=== PATIENT | male | born 1980 ===

== ENCOUNTER 2022-11-06 14:04 | Inpatient (IN) | payer OTHER, SELFPAY ==
[2022-11-06] VITALS (13 sets, daily range): BP systolic 107–152; BP diastolic 72–94; PULSE 90–115; RESP 14–24; TEMP 36.6–37.6; O2SAT 98–100; BMI 29.1
--- NOTE | ~2022-11-06 | XR_ITS ---
EXAMINATION: XR FOOT, RIGHT CLINICAL INFORMATION: Plantar foot ulceration COMPARISON: None TECHNIQUE: AP, lateral, and oblique views of the right foot. FINDINGS: Large soft tissue ulceration plantar to the third metatarsophalangeal joint. Large amount of soft tissue gas projects dorsal to the metatarsals and tarsals. No fractures. No periosteal action, cortical destruction or intramedullary lucency to suggest osteomyelitis. XR/XR foot RT 2V IMPRESSION: * Large amount soft tissue gas dorsal to the foot and midfoot concerning for necrotizing fasciitis/gas gangrene. * Large soft tissue ulcer plantar to the third metatarsophalangeal joint. * No radiographic evidence of osteomyelitis.
--- NOTE | ~2022-11-06 | US_ITS ---
EXAMINATION: US VENOUS ULTRASOUND WITH DOPPLER LOWER EXTREMITY, RIGHT CLINICAL INFORMATION: Right lower extremity erythema and swelling, recent travel. COMPARISON: None TECHNIQUE: Ultrasound of the deep veins is performed from the hip to the calf with compression sonography and color and pulse Doppler assessment. Spectral analysis with color-flow imaging is performed. FINDINGS: There is normal venous compression and respiratory variation and augmented flow. The visualized common femoral vein, superficial femoral vein, profunda femoral vein, popliteal vein, and the trifurcation region shows no evidence of deep venous thrombosis. Prominent right inguinal lymph node measures up to 3.5 cm with mildly thickened cortex. No right popliteal cyst. The subcutaneous soft tissues are unremarkable. US/US venous duplex LE RT IMPRESSION: 1. No evidence for deep venous thrombosis in the visualized veins of the right lower extremity. 2. Enlarged right inguinal lymph node is nonspecific. This could be reactive to an unseen process. Correlate with patient history and physical exam. * If these findings persist or enlarge, short-term repeat targeted soft tissue ultrasound can be performed as clinically indicated to assess for change.
--- NOTE | ~2022-11-06 | US_ITS ---
EXAMINATION: US RETROPERITONEAL LIMITED (RENAL ONLY) CLINICAL INFORMATION: BARB. COMPARISON: Ultrasound abdomen complete 05/28/2016 TECHNIQUE: Real-time imaging of the kidneys. FINDINGS: RIGHT KIDNEY: 13.2 x 8.2 x 8.5 cm (SAG x AP x TRV). The kidney is normal in size, contour, and echogenicity. Renal cortical thickness is normal. No focal parenchymal lesions or hydronephrosis. There is an echogenic stone midpole measuring 0.7 x 0.6. LEFT KIDNEY: 16.5 x 7.0 x 7.0 cm (SAG x AP x TRV). The kidney is normal in size, contour, and echogenicity. Renal cortical thickness is normal. No focal parenchymal lesions or hydronephrosis. There is an echogenic stone in the midpole measuring 0.4 x 0.1 cm. US/US renal BI IMPRESSION: Bilateral nonobstructive echogenic renal calculi. No caliectasis or hydronephrosis.
--- NOTE | 2022-11-06 14:16 | ECG_ITS ---
Test Reason : DM Blood Pressure : / mmHG Vent. Rate : 107 BPM Atrial Rate : 107 BPM P-R Int : 124 ms QRS Dur : 092 ms QT Int : 322 ms P-R-T Axes : 036 -24 033 degrees QTc Int : 429 ms Sinus tachycardia Otherwise normal ECG No previous ECGs available Referred By: Nakita Pink Electronically Signed By:CYNTHIA SEGOVIA MD
--- NOTE | 2022-11-06 14:16 | ED_ITS ---
HPI - General Adult General Chief complaint: Wound/Laceration <Nakita Pink MD - Last Filed: 11/06/22 14:21> Stated complaint: Diabetic foot wound <Nakita Pink MD - Last Filed: 11/06/22 14:21> Time Seen by Provider: 11/06/22 15:17 <Nakita Pink MD - Last Filed: 11/06/22 14:21> Source: patient <WILDA Khalil - Last Filed: 11/06/22 17:07> Mode of arrival: ambulatory <WILDA Khalil - Last Filed: 11/06/22 17:07> Limitations: no limitations <WILDA Khalil - Last Filed: 11/06/22 17:07> History of Present Illness HPI narrative: Patient is a 41 year old assigned male at with a history of poorly controlled DM presenting to the emergency department today with a right foot infection. Patient states that his right foot has been getting progressively worse over the last few weeks. Patient denies any dizziness, lightheadedness, abdominal pain, nausea, vomiting, fever, chills, blurry vision, double vision, loss of vision, chest pain, difficulty breathing, shortness of breath, back pain, night sweats, pain with urination, increased urinary frequency, increased urinary urgency, blood in his urine or stool, syncope or a near syncopal episode, recent trauma or falls, bowel incontinence, bladder incontinence, bowel retention, bladder retention, or any other complaints at this time. <WILDA Khalil - Last Filed: 11/06/22 17:07> Onset (ago): week(s) <WILDA Khalil - Last Filed: 11/06/22 17:07> Location: right and lower extremity <WILDA Khalil - Last Filed: 11/06/22 17:07> Radiation: non-radiation <WILDA Khalil - Last Filed: 11/06/22 17:07> Severity: moderate <WILDA Khalil - Last Filed: 11/06/22 17:07> Severity scale (1-10): 6 <WILDA Khalil - Last Filed: 11/06/22 17:07> Pain Consistency: constant <WILDA Khalil - Last Filed: 11/06/22 17:07> Relieving factors: none <WILDA Khalil - Last Filed: 11/06/22 17:07> Exacerbating factors: none <WILDA Khalil - Last Filed: 11/06/22 17:07> Associated symptoms: denies other symptoms <WILDA Khalil - Last Filed: 11/06/22 17:07> Treatments prior to arrival: none <WILDA Khalil - Last Filed: 11/06/22 17:07> Related Data Home medications: Home Medications Medication Instructions Recorded Confirmed blood sugar diagnostic (FreeStyle #10 ea 09/06/20 09/06/20 Lite Strips) blood-glucose meter (FreeStyle #1 ea 09/06/20 09/06/20 Lite Meter kit) multivitamin 1 tab PO DAILY 11/06/22 11/06/22 Previous Rx's Medication Instructions Recorded glipizide 5 mg-metformin 500 mg 1 tab PO BID #180 tabs 10/17/22 tablet <Nakita Pink MD - Last Filed: 11/06/22 14:21> Allergies/adverse reactions: Allergies Allergy/AdvReac Type Severity Reaction Status Date / Time acetaminophen [Tylenol] Allergy Unknown face Verified 03/10/20 00:00 swelling aspirin Allergy Unknown anaphylaxis, Unverified 03/10/20 00:00 edema <Nakita Pink MD - Last Filed: 11/06/22 14:21> Review of Systems Constitutional: Constitutional: Reports no additional constitutional complaints, Denies chills, Denies fever(s) and Denies night sweats <WILDA Khalil - Last Filed: 11/06/22 17:07> Eyes: Eyes: Reports no additional eye complaints, Denies blurry vision, Denies change in vision, Denies diplopia, Denies eye discharge, Denies loss of vision and Denies eye pain <WILDA Khalil - Last Filed: 11/06/22 17:07> ENT: Denies dizziness <WILDA Khalil - Last Filed: 11/06/22 17:07> Cardiovascular: Cardiovascular: Reports no additional cardiovascular complaints, Denies chest pain, Denies lightheadedness, Denies Loss of Consciousness and Denies dyspnea <WILDA Khalil - Last Filed: 11/06/22 17:07> Respiratory: Respiratory: Reports no additional respiratory complaints and Denies dyspnea <WILDA Khalil Last Filed: 11/06/22 17:07> Gastrointestinal: Gastrointestinal: Reports no additional gastrointestinal complaints, Denies abdominal pain, Denies melena, Denies hematochezia, Denies change in bowel habits and Denies change in stool character <WILDA Khalil Last Filed: 11/06/22 17:07> Genitourinary: Genitourinary: Reports no additional male genitourinary complaints, Denies hematuria, Denies oliguria, Denies difficulty urinating, Denies dysuria, Denies urinary frequency, Denies urinary hesitancy, Denies u rinary incontinence and Denies urinary urgency <WILDA Khalil Last Filed: 11/06/22 17:07> Musculoskeletal: Musculoskeletal: Reports no additional musculoskeletal complaints, Denies numbness and Denies tingling <WILDA Khalil Last Filed: 11/06/22 17:07> Comments: right lower foot ulceration <WILDA Khalil Last Filed: 11/06/22 17:07> Neurologic: Denies dizziness, Denies loss of vision, Denies numbness and Denies tingling <WILDA Khalil Last Filed: 11/06/22 17:07> Psychiatric: Psychiatric: Reports no additional psychiatric complaints <WILDA Khalil Last Filed: 11/06/22 17:07> Endocrine: Endocrine: Reports no additional endocrine complaints <WILDA Khalil Last Filed: 11/06/22 17:07> Hematologic/Lymphatic: Hematologic/Lymphatic: Reports no additional hematologic/lymphatic complaints <WILDA Khalil Last Filed: 11/06/22 17:07> Allergic/Immunologic: Allergic/Immunologic: Reports no additional allergic/immunologic complaints <WILDA Khalil Last Filed: 11/06/22 17:07> PMFSH Past Medical History Attestation statement: The following information was validated with the patient. <WILDA Khalil Last Filed: 11/06/22 17:07> Source: old records reviewed <WILDA Khalil Last Filed: 11/06/22 17:07> Medical History: Medical History H/O nephrolithotomy with removal of calculi HTN (hypertension) Retinopathy Type 2 diabetes mellitus <Nakita Pink MD - Last Filed: 11/06/22 14:21> Surgical History: Surgical History History of hernia repair <Nakita Pink MD - Last Filed: 11/06/22 14:21> Family History Family History: Family History Father HTN (hypertension) Mother Arthritis <Nakita Pink MD - Last Filed: 11/06/22 14:21> Social History Social History: Social History Alcohol intake: never Advance Directives: No Advance Directives Information Provided: No <Nakita Pink MD - Last Filed: 11/06/22 14:21> Physical Exam ED Vital Signs: Vital Signs - 24 hr 11/06/22 14:12 11/06/22 15:56 Temperature 98 F 99.0 F Pulse Rate 115 H 103 H Respiratory Rate 16 14 Blood Pressure 107/75 126/80 Pulse Oximetry 100 Oxygen Delivery Method Room Air BMI result Body Mass Index 29.1 <Nakita Pink MD - Last Filed: 11/06/22 14:21> Vital Signs - 24 hr 11/06/22 14:12 11/06/22 15:56 Temperature 98 F 99.0 F Pulse Rate 115 H 103 H Respiratory Rate 16 14 Blood Pressure 107/75 126/80 Pulse Oximetry 100 Oxygen Delivery Method Room Air BMI result Body Mass Index 29.1 <WILDA Khalil - Last Filed: 11/06/22 17:07> Const General: cooperative, no acute distress, alert and awake <WILDA Khalil - Last Filed: 11/06/22 17:07> Nutritional Appearance: well nourished <WILDA Khalil - Last Filed: 11/06/22 17:07> Orientation/consciousness: patient oriented x3 <WILDA Khalil - Last Filed: 11/06/22 17:07> Limitations: no limitations <Digna Rodriguezandry SC - Last Filed: 11/06/22 17:07> HENMT Head: Yes normal to inspection and Yes atraumatic <Digna Rodriguezandry SC - Last Filed: 11/06/22 17:07> Ears: hearing grossly normal bilaterally and external ears normal <Digna Rodriguezandry SC - Last Filed: 11/06/22 17:07> General nose exam: Normal external nose present, no nasal discharge noted and no epistaxis <Digna Rodriguezandry SC - Last Filed: 11/06/22 17:07> Face and sinus: Yes normal facial exam, No abrasion and No laceration <Dignaama Rodriguezandry SC - Last Filed: 11/06/22 17:07> Mouth: Normal oral and palatal mucosa present, no drooling and no muffled voice <Digna Rodriguezandry SC - Last Filed: 11/06/22 17:07> Eyes General: appearance normal, both eyes and all related structures <Dignaama Rodriguezandry SC - Last Filed: 11/06/22 17:07> Periorbital: periorbital findings normal <Digna Rodriguezandry SC - Last Filed: 11/06/22 17:07> Eyelids: Yes eyelids normal <Digna Rodriguezandry SC - Last Filed: 11/06/22 17:07> Conjunctivae: conjunctivae normal <Digna Rodriguezandry SC - Last Filed: 11/06/22 17:07> Pupils: Equal, round and reactive pupils present <Digna Teresa SC - Last Filed: 11/06/22 17:07> EOM: EOMs intact bilaterally <Digna Rodriguezandry SC - Last Filed: 11/06/22 17:07> Neck Neck: Yes normal visual inspection, Yes full ROM and Yes no lymphadenopathy <Digna WILDA Moore - Last Filed: 11/06/22 17:07> Chest Chest palpation & inspection: normal inspection of the chest <Digna WILDA Moore - Last Filed: 11/06/22 17:07> Resp Effort & Inspection: normal respiratory effort and able to speak in complete sentences <WILDA Khalil - Last Filed: 11/06/22 17:07> Auscultation: clear to auscultation bilaterally <Digna Moore SC - Last Filed: 11/06/22 17:07> Cardio Rate: tachycardic <Digna Moore SC - Last Filed: 11/06/22 17:07> Rhythm: regular rhythm <Digna Moore SC - Last Filed: 11/06/22 17:07> GI Inspection: Yes normal to inspection <Digna Moore SC - Last Filed: 11/06/22 17:07> Skin Other: erythema, swelling, and drainage with a foul order coming from the dorsum of the right foot and a large non-healing ulcer to the plantar surface of the right foot <Digna Moore SC - Last Filed: 11/06/22 17:07> Neuro General: patient oriented x3 and moves all extremities <Digna Moore SC - Last Filed: 11/06/22 17:07> Cranial nerves: Yes Equal, round and reactive pupils present <Digna Moore SC - Last Filed: 11/06/22 17:07> Cognition (Neuro): normal cognition <Digna Moore SC - Last Filed: 11/06/22 17:07> Motor exam (neuro): 5/5 motor strength present throughout <Digna Moore SC - Last Filed: 11/06/22 17:07> Sensory Exam: Normal double simultaneous stimulation for sensation <Digna Moore SC - Last Filed: 11/06/22 17:07> Coordination: [id number] test normal <Digna Moore SC - Last Filed: 11/06/22 17:07> Extrem General: Yes normal to inspection, Yes full ROM and Yes capillary refill normal <Digna Moore SC - Last Filed: 11/06/22 17:07> Psych Appearance: grossly normal <Digna MooreWILDA - Last Filed: 11/06/22 17:07> Mental Status: mental status grossly normal <Digna MooreWILDA - Last Filed: 11/06/22 17:07> Affect: normal affect <Digna MooreWILDA - Last Filed: 11/06/22 17:07> Attitude: cooperative <Digna Rodriguezandry SC - Last Filed: 11/06/22 17:07> Thought process: Normal thought process present <WILDA Khalil - Last Filed: 11/06/22 17:07> Thought content: Normal thought content present <WILDA Khalil - Last Filed: 11/06/22 17:07> Insight: Good insight present (Psych) <WILDA Khalil - Last Filed: 11/06/22 17:07> Course Course Course Narrative: 41M returned from [place] yesterday and now has worsening redness and swelling to RLE with foul odor VS Reviewed GEN: NAD EARS: wnl THROAT: wnl LUNGS: CTAB CVS: RRR ABD: NT/ND RLE: redness, swelling, foul odor with draining from dorsum foot and large non- healing ulcer to the plantar surface <Nakita Pink MD - Last Filed: 11/06/22 14:21> Medications Administered Generic Name Dose Route Start Last Admin Trade Name Freq PRN Reason Stop Dose Admin Sodium Chloride 1,000 mls @ 999 mls/hr 11/06/22 16:00 11/06/22 16:12 Ns IV 11/06/22 17:00 999 mls/hr .Q1H1M [place] Administration Insulin Human Lispro 0 unit 11/06/22 16:30 11/06/22 16:39 Insulin Lispro 100 Unit/Ml 3 Ml Vial SUBCUT Not Given QIDACHS [facility] Protocol Discontinued Medications Generic Name Dose Route Start Last Admin Trade Name Freq PRN Reason Stop Dose Admin Piperacillin Sod/Tazobactam 50 mls @ 100 mls/hr 11/06/22 15:46 11/06/22 16:11 Sod 3.375 gm/ Sodium Chloride IV 11/06/22 16:15 100 mls/hr ONCE ONE Administration Vancomycin HCl 1,000 mg/ 270 mls @ 270 mls/hr 11/06/22 15:46 11/06/22 16:38 Sodium Chloride IV 11/06/22 16:45 270 mls/hr ONCE ONE Administration <Nakita Pink MD - Last Filed: 11/06/22 14:21> Medications Administered Generic Name Dose Route Start Last Admin Trade Name Freq PRN Reason Stop Dose Admin Sodium Chloride 1,000 mls @ 999 mls/hr 11/06/22 16:00 11/06/22 16:12 Ns IV 11/06/22 17:00 999 mls/hr .Q1H1M [place] Administration Insulin Human Lispro 0 unit 11/06/22 16:30 11/06/22 16:39 Insulin Lispro 100 Unit/Ml 3 Ml Vial SUBCUT Not Given QIDACHS [facility] Protocol Discontinued Medications Generic Name Dose Route Start Last Admin Trade Name Frankie PRN Reason Stop Dose Admin Piperacillin Sod/Tazobactam 50 mls @ 100 mls/hr 11/06/22 15:46 11/06/22 16:11 Sod 3.375 gm/ Sodium Chloride IV 11/06/22 16:15 100 mls/hr ONCE ONE Administration Vancomycin HCl 1,000 mg/ 270 mls @ 270 mls/hr 11/06/22 15:46 11/06/22 16:38 Sodium Chloride IV 11/06/22 16:45 270 mls/hr ONCE ONE Administration <WILDA Khalil - Last Filed: 11/06/22 17:07> Medical Decision Making Medical Decision Making MDM Narrative: Patient is a 41 year old assigned male at with a history of DM presenting to the emergency department today with a right foot wound. Patient's physical exam showed tachycardia and erythema, warmth, and swelling to the right lower extremity with a wound to the plantar aspect of the right foot that was actively draining foul smelling discharge and a non-healing diabetic ulcer to the dorsal aspect of the right foot. Patient's blood work showed an elevated WBC count of 21.6. Patient's right foot x-ray showed a large amount of soft tissue gas to the drosal aspect of hte right foot / midfoot concerning for necrotizing fasciitis / gas gangrene as well as large soft tissue ulcer plantar to the third metatarsophalangeal joint. Patient's right lower leg US showed no DVT. I spoke to the hospitalist team who agreed to admission and recommended an immediate surgical consult. I spoke to the surgical team who opted to take the patient to the OR, immediately. I considered the patient to possibly be septic at 1546 and at that time, IV ABX + a NS bolus were ordered. I explained my physical exam findings as well as all test results to the patient. I answered all questions asked by the patient. Patient verbalized agreement and understanding with this treatment plan and admission. <WILDA Khalil - Last Filed: 11/06/22 17:07> Differential Diagnoses: Differential diagnosis Differential Diagnosis: The differential diagnosis associated with the patient?s presentation includes: necrotizing fasciitis / gas gangrene, sepsis <WILDA Khalil - Last Filed: 11/06/22 17:07> Consideration of admission/observation: Consideration of Admission/Observation Escalation of care admission/observation considered: Escalation of care including admission/observation considered and I proceeded with admission of this patient. <WILDA Khalil - Last Filed: 11/06/22 17:07> Discussion of management with other physician/healthcare provider/other source (e.g., hospitalist, dairy feed sales consultant, behavioral health): Discussion w/other physician/healthcare provider Management of the patient was discussed with: Hospitalist and Scientific Illustrator (general surgery) I spoke to both the hospitalist team and the surgical team. <WILDA Khalil - Last Filed: 11/06/22 17:07> Lab Attestation: I reviewed the patient's lab results. <WILDA Khalil - Last Filed: 11/06/22 17:07> Independent interpretation of EKG, rhythm strip, radiology study: Independent interp EKG,rhythm strip, radiology study I performed an independent interpretation of the: Plain X-Ray (right foot) and Ultrasound (right lower extremity) These interpretations are not my own but rather the radiologist via their report. Reported here is both a right foot XR and a right lower extremity US. EXAMINATION: XR FOOT, RIGHT CLINICAL INFORMATION: Plantar foot ulceration? COMPARISON: None? TECHNIQUE: AP, lateral, and oblique views of the right foot. FINDINGS: Large soft tissue ulceration plantar to the third metatarsophalangeal joint. Large amount of soft tissue gas projects dorsal to the metatarsals and tarsals. No fractures. No periosteal action, cortical destruction or intramedullary lucency to suggest osteomyelitis. XR/XR foot RT 2V IMPRESSION: *? Large amount soft tissue gas dorsal to the foot and midfoot concerning for necrotizing fasciitis/gas gangrene. *? Large soft tissue ulcer plantar to the third metatarsophalangeal joint. *? No radiographic evidence of osteomyelitis. Dictated By: Yury Davis MD Signed By: Electronically signed by Yury Davis MD 11/06/22 4306 EXAMINATION:? US VENOUS ULTRASOUND WITH DOPPLER LOWER EXTREMITY, RIGHT CLINICAL INFORMATION:? Right lower extremity erythema and swelling, recent travel. COMPARISON:? None TECHNIQUE: Ultrasound of the deep veins is performed from the hip to the calf with compression sonography and color and pulse Doppler assessment. Spectral analysis with color-flow imaging is performed. FINDINGS: There is normal venous compression and respiratory variation and augmented flow. The visualized common femoral vein, superficial femoral vein, profunda femoral vein, popliteal vein, and the trifurcation region shows no evidence of deep venous thrombosis. Prominent right inguinal lymph node measures up to 3.5 cm with mildly thickened cortex. No right popliteal cyst. The subcutaneous soft tissues are unremarkable. US/US venous duplex LE RT IMPRESSION: ? 1. No evidence for deep venous thrombosis in the visualized veins of the right lower extremity. 2. Enlarged right inguinal lymph node is nonspecific. This could be reactive to an unseen process. Correlate with patient history and physical exam. * If these findings persist or enlarge, short-term repeat targeted soft tissue ultrasound can be performed as clinically indicated to assess for change. Dictated By: Yinka Arredondo MD Signed By: Electronically signed by Yinka Arredondo MD 11/06/22 1614 <WILDA Khalil - Last Filed: 11/06/22 17:07> Critical Care Time Critical Care Time Critical Care Time: Yes <WILDA Khalil - Last Filed: 11/06/22 17:07> Total Critical Care Time: 45 <WILDA Khalil - Last Filed: 11/06/22 17:07> Attestation: I spent 45 minutes of Critical Care Time with this patient. This does not include time spent on separately reported billable procedures. <WILDA Khalil - Last Filed: 11/06/22 17:07> Discharge Plan Discharge Clinical Impression: Necrotizing fasciitis of ankle and foot, Type 2 diabetes mellitus, Sepsis <Nakita Pink MD - Last Filed: 11/06/22 14:21> Patient Disposition: Admitted As Inpatient <Nakita Pink MD - Last Filed: 11/06/22 14:21> Prescriptions: No Action glipizide-metformin 5-500 mg tablet 1 tab PO BID Qty: 180 1RF multivitamin Tablet 1 tab PO DAILY (DME) FreeStyle Lite Strips Strip See Rx Instructions .ROUTE .MEDSUPPLY Qty: 10 Rx Instructions: As directed (DME) blood-glucose meter [FreeStyle Lite Meter] Kit See Rx Instructions [facility] Rx Instructions: As directed <Nakita Pink MD - Last Filed: 11/06/22 14:21> Print Language: [place] Verdean <Nakita Pink MD - Last Filed: 11/06/22 14:21>
[2022-11-06 15:11] LABS: INTERNATIONAL NORM RATIO 1.4 (0.9-1.1); Prothrombin Time 15.9 SEC (10.0-13.1)
[2022-11-06 15:12] LABS: Basophils Absolute Auto 0.1 X10*3/uL (0.0-0.2); Basophils Percent Auto 0.2 % (0-2); Eosinophils Percent Auto 0.2 % (0-4); Hematocrit 42.4 % (42.0-52.0); Hemoglobin 14.3 g/dl (14.0-18.0); Imm Gran Abs Auto 0.25 X10*3/uL (0.00-0.03); Imm Gran Pct Auto 1.2 % (0.0-0.4); Lymphocytes Absolute Auto 1.3 X10*3/uL (1.2-4.9); MANUAL DIFF FLAG SCAN; Mean Corpuscular HGB Conc 33.7 g/dl (31.0-36.0); Mean Corpuscular Hemoglobin 26.6 pg (27.0-33.0); Mean Corpuscular Volume 78.8 fL (80.0-98.0); Mean Platelet Volume 10.5 fL (9.4-12.4); Monocytes Absolute Auto 1.6 X10*3/uL (0.1-1.2); Monocytes Percent Auto 7.5 % (2-11); Neutrophils Absolute Auto 18.4 x10*3/uL (2.0-8.3); Neutrophils Percent Auto 84.9 % (45-73); Platelet Count 387 X10*3/uL (160-400); Red Blood Count 5.38 X10*6/uL (4.60-5.80); Red Cell Distribution Width 12.7 % (11.0-16.0); SCAN SMEAR FLAG 1; White Blood Count 21.6 X10*3/uL (4.8-10.8)
[2022-11-06 15:48] LABS: SLIDE REVIEW VERIFIED
[2022-11-06] MEDS: Piperacillin Sodium/Tazobactam 3.375 GM in 0.9 % Sodium Chloride 50 ML IV ×2 (16:11→23:24)
[2022-11-06] MEDS: 0.9 % Sodium Chloride 1,000 ML 999 ML IV (16:12)
[2022-11-06 16:17] LABS: Alanine Aminotransferase 37 U/L (0-40); Albumin Level 3.4 g/dL (3.5-5.0); Alkaline Phosphatase 126 U/L (39-117); Anion Gap 15 (12-20); Aspartate Amino Transferase 37 U/L (5-37); Bilirubin Total 1.4 mg/dL (0.0-1.0); Blood Urea Nitrogen 19 mg/dL (9-16); Carbon Dioxide 23 mmol/L (22-29); Chloride 99 mmol/L (96-108); Creatinine Clr Calc Pharmacy 110.8; Estimated Glomerular Filt Rate > 60; Glucose Random 177 mg/dL (60-115); Potassium 3.8 mmol/L (3.3-5.1); Sodium 133 mmol/L (135-145); Total Protein 6.7 g/dL (6.5-8.0)
[2022-11-06 16:22] LABS: Glucose, Whole Blood 149 mg/dL (60-115)
--- NOTE | 2022-11-06 16:28 | PHA.MEDREC ---
Pharmacy Consult ? Medication Reconciliation Pharmacy has completed the medication reconciliation. Pt with medication at bedside
--- NOTE | 2022-11-06 16:30 | P.CONGS_ITS ---
History of Present Illness Consult details Consult date: 11/06/22 Requesting physician: Haven Gatica Narrative: 41-year-old male patient presenting with a 2 day history of infection of his right foot. He has a history of poorly controlled diabetes mellitus and began to have some swelling in the right foot 2 weeks ago. This regressed over the last 2 days to the now where he is having foul-smelling discharge and black skin. He presented to the emergency department for further evaluation. X-ray of the foot revealed gas in the subcutaneous tissue extending up the forefoot suggestive of necrotizing fasciitis. He denies a previous history of warm. Review of Systems Review of Systems: Yes all other systems are reviewed and are negative Constitutional: Constitutional: Denies chills, Denies fever(s), Denies headache(s), Denies poor appetite and Denies weakness ENT: Denies headache(s) Cardiovascular: Cardiovascular: Denies chest pain, Denies irregular heart rhythm, Denies palpitations and Denies dyspnea Respiratory: Respiratory: Denies cough, Denies excessive phlegm production and Denies dyspnea Gastrointestinal: Gastrointestinal: Denies abdominal pain, Denies bloating, Denies change in bowel habits, Denies constipation, Denies heartburn, Denies diarrhea, Denies nausea and Denies vomiting Genitourinary: Genitourinary: Denies difficulty urinating and Denies urinary frequency Musculoskeletal: Musculoskeletal: Reports as per HPI, Denies back pain, Denies muscle weakness and Denies numbness Integumentary/Breasts: Skin/Breast: Denies changing lesions and Denies unusual bruising Neurologic: Denies headache(s), Denies numbness, Denies paresthesias and Denies weakness Psychiatric: Psychiatric: Denies anxiety and Denies depression Endocrine: Endocrine: Denies palpitations Hematologic/Lymphatic: Hematologic/Lymphatic: Denies lymphadenopathy PMFSH Past Medical History Medical History H/O nephrolithotomy with removal of calculi HTN (hypertension) Retinopathy Type 2 diabetes mellitus Family History Family History Father HTN (hypertension) Mother Arthritis Surgical History Surgical History History of hernia repair Social History Social History Alcohol intake: never Advance Directives: No Advance Directives Information Provided: No Meds Allergies Allergy/AdvReac Type Severity Reaction Status Date / Time acetaminophen [Tylenol] Allergy Unknown face Verified 03/10/20 00:00 swelling aspirin Allergy Unknown anaphylaxis, Unverified 03/10/20 00:00 edema Active Medications: Current Medications Dextrose (Dextrose 50 % 25 Gm/50 Ml Syringe) 25 gm IVPUSH Q15M PRN; Protocol PRN Reason: per Hypoglycemia Standing Ord. Glucose (Glucose Gel 15 Gm Gel..Gram.) 15 gm PO Q15M PRN; Protocol PRN Reason: per Hypoglycemia Standing Ord. Vancomycin HCl 1,000 mg/ (Sodium Chloride) 270 mls @ 270 mls/hr IV ONCE ONE Stop: 11/06/22 16:45 Sodium Chloride (Ns) 1,000 mls @ 999 mls/hr IV .Q1H1M [facility] Stop: 11/06/22 17:00 Last Admin: 11/06/22 16:12 Dose: 999 mls/hr Clindamycin Phosphate (Cleocin) 900 mg in 50 mls @ 50 mls/hr IV ONCE ONE Stop: 11/06/22 17:09 Piperacillin Sod/Tazobactam (Sod 3.375 gm/ Sodium Chloride) 50 mls @ 100 mls/hr IV Q6H [facility] Clindamycin Phosphate (Cleocin) 900 mg in 50 mls @ 50 mls/hr IV Q8H [facility] Insulin Human Lispro (Insulin Lispro 100 Unit/Ml 3 Ml Vial) 0 unit SUBCUT QIDACHS [facility]; Protocol Pharmacy Consult (Consult Rx Perform Med Rec) 1 each MISCELLANE ONCE PRN PRN Reason: Consult order Pharmacy Consult (Consult Rx Vancomycin Dosing) 1 each MISCELLANE DAILY PRN PRN Reason: Consult order Home Medications Medication Instructions Recorded Confirmed Last Taken Type blood sugar diagnostic (FreeStyle #10 ea 09/06/20 09/06/20 Unknown History Lite Strips) blood-glucose meter (FreeStyle #1 ea 09/06/20 09/06/20 Unknown History Lite Meter kit) multivitamin 1 tab PO DAILY 11/06/22 11/06/22 Unknown History Physical Exam Vital Signs: Vital Signs: Last Vital Signs Temp 99.0 F 11/06/22 15:56 Pulse 103 H 11/06/22 15:56 Resp 14 11/06/22 15:56 BP 126/80 11/06/22 15:56 Pulse Ox 100 11/06/22 14:12 O2 Del Method 11/06/22 14:12 BMI result Body Mass Index 29.1 Const: General: cooperative and no acute distress Nutritional Appearance: well nourished Orientation/consciousness: patient oriented x3 Limitations: no limitations HEENT: Head: Yes normocephalic and Yes atraumatic Ears: hearing grossly nor mal bilaterally Resp: Effort & Inspection: normal respiratory effort, no audible wheezes, no cough and no respiratory distress Cardio: Jugular venous distension: no JVD GI: Inspection: Yes normal to inspection Skin: Other: Warm, dry, no rash Neuro: General: patient oriented x3 Extrem: Other: Right foot with extensive gangrene over the dorsum of the foot with cellulitis extending up the leg. Black skin is noted over the dorsum of the skin with dishwater type liquid, foul-smelling. Findings consistent with necrotizing fasciitis. General: Yes no clubbing, cyanosis or edema Ankle/foot/toe images: 1. Results Labs Result diagrams: 11/06/22 14:54 11/06/22 14:54 Labs: Abnormal lab results 11/06/22 11/06/22 11/06/22 Range/Units 14:54 14:54 14:54 WBC 21.6 H (4.8-10.8) X10*3/uL MCV 78.8 L (80.0-98.0) fL MCH 26.6 L (27.0-33.0) pg Immature Gran % (Auto) 1.2 H (0.0-0.4) % Neut % (Auto) 84.9 H (45-73) % Lymph % (Auto) 6.0 L (20-40) % [place] # (Auto) 1.6 H (0.1-1.2) X10*3/uL Abs Immat Gran (auto) 0.25 H (0.00-0.03) X10*3/uL Absolute Neuts (auto) 18.4 H (2.0-8.3) x10*3/uL PT 15.9 H (10.0-13.1) SEC INR 1.4 H (0.9-1.1) Sodium 133 L (135-145) mmol/L BUN 19 H (9-16) mg/dL POC Glucose (60-115) mg/dL Random Glucose 177 H (60-115) mg/dL Total Bilirubin 1.4 H (0.0-1.0) mg/dL Alkaline Phosphatase 126 H (39-117) U/L Albumin 3.4 L (3.5-5.0) g/dL 11/06/22 Range/Units 16:15 WBC (4.8-10.8) X10*3/uL MCV (80.0-98.0) fL MCH (27.0-33.0) pg Immature Gran % (Auto) (0.0-0.4) % Neut % (Auto) (45-73) % Lymph % (Auto) (20-40) % [place] # (Auto) (0.1-1.2) X10*3/uL Abs Immat Gran (auto) (0.00-0.03) X10*3/uL Absolute Neuts (auto) (2.0-8.3) x10*3/uL PT (10.0-13.1) SEC INR (0.9-1.1) Sodium (135-145) mmol/L BUN (9-16) mg/dL POC Glucose 149 H (60-115) mg/dL Random Glucose (60-115) mg/dL Total Bilirubin (0.0-1.0) mg/dL Alkaline Phosphatase (39-117) U/L Albumin (3.5-5.0) g/dL Short CBC 11/06/22 Range/Units 14:54 WBC 21.6 H (4.8-10.8) X10*3/uL Hgb 14.3 (14.0-18.0) g/dl Hct 42.4 (42.0-52.0) % Plt Count 387 (160-400) X10*3/uL BMP 11/06/22 14:54 Sodium 133 L Potassium 3.8 Chloride 99 Carbon Dioxide 23 BUN 19 H Creatinine 1.04 Liver Function 11/06/22 Range/Units 14:54 Total Bilirubin 1.4 H (0.0-1.0) mg/dL AST 37 (5-37) U/L ALT 37 (0-40) U/L Alkaline Phosphatase 126 H (39-117) U/L Albumin 3.4 L (3.5-5.0) g/dL All other labs normal. Assessment and Plan (1) Necrotizing fasciitis of ankle and foot: Status: Acute Plan 41-year-old male patient presenting with an extensive area of fasciitis and necrotizing skin infection involving the right foot possibly extending up the right leg. He will need extensive debridement possible amputation depending on the extent of disease. I reviewed the procedure, alternatives, and risks including the possibility of needing a amputation either below-knee or above knee. He expressed understanding and consents to the surgery. Procedures Date of Service Date of Service: 11/06/22
[2022-11-06] MEDS: vancomycin HCL 1,000 MG in 0.9 % Sodium Chloride 250 ML 270 MG IV ×2 (16:38→17:38)
--- NOTE | 2022-11-06 16:38 | PM.IMHP ---
History of Present Illness Date of Service: 11/06/22 Chief Complaint: foot infection 41 year-old male with poorly controlled DM2 presenting with 2 days of rapidly worsening redness, swelling, discoloration, and pain with malodorous discharge and now black skin over the dorsum of his foot with a plantar ulcer. He came in to the ED and a plain film showed gas in the dorsum of the foot concerning for necrotizing fasciitis. WBC count was 21.6. He was given vancomycin and piperacillin-tazobactam and normal saline IV. Surgery was consulted and he will be taken to the OR for emergent debridement. He denies fever, chills, lightheadedness, chest pain, nausea, or vomiting. No prior foot infections. Denies trauma to the foot. Review of Systems Review of Systems: Yes all other systems are reviewed and are negative [facility] Medical History H/O nephrolithotomy with removal of calculi HTN (hypertension) Retinopathy Type 2 diabetes mellitus Family History Father HTN (hypertension) Mother Arthritis Surgical History History of hernia repair Social History Alcohol intake: never Advance Directives: No Advance Directives Information Provided: No Meds Allergies Allergy/AdvReac Type Severity Reaction Status Date / Time acetaminophen [Tylenol] Allergy Unknown face Verified 03/10/20 00:00 swelling aspirin Allergy Unknown anaphylaxis, Unverified 03/10/20 00:00 edema Active Medications: Current Medications Dextrose (Dextrose 50 % 25 Gm/50 Ml Syringe) 25 gm IVPUSH Q15M PRN; Protocol PRN Reason: per Hypoglycemia Standing Ord. Glucose (Glucose Gel 15 Gm Gel..Gram.) 15 gm PO Q15M PRN; Protocol PRN Reason: per Hypoglycemia Standing Ord. Vancomycin HCl 1,000 mg/ (Sodium Chloride) 270 mls @ 270 mls/hr IV ONCE ONE Stop: 11/06/22 16:45 Sodium Chloride (Ns) 1,000 mls @ 999 mls/hr IV .Q1H1M [facility] Stop: 11/06/22 17:00 Last Admin: 11/06/22 16:12 Dose: 999 mls/hr Piperacillin Sod/Tazobactam (Sod 3.375 gm/ Sodium Chloride) 50 mls @ 100 mls/hr IV Q6H [facility] Clindamycin Phosphate (Cleocin) 900 mg in 50 mls @ 50 mls/hr IV Q8H [facility] Insulin Human Lispro (Insulin Lispro 100 Unit/Ml 3 Ml Vial) 0 unit SUBCUT QIDACHS [facility]; Protocol Morphine Sulfate (Morphine Sulfate 4 Mg/Ml Cartridge) 3 mg IVPUSH Q4H PRN; Protocol PRN Reason: Pain, Severe (Pain Scale 7-10) Multivitamins/Vitamin C (Multivitamin Tablet) 1 tab PO DAILY [facility] Ondansetron HCl (Ondansetron Hcl 4 Mg/2 Ml Vial) 4 mg IVPUSH Q8H PRN PRN Reason: Nausea and Vomiting Pharmacy Consult (Consult Rx Perform Med Rec) 1 each MISCELLANE ONCE PRN PRN Reason: Consult order Pharmacy Consult (Consult Rx Vancomycin Dosing) 1 each MISCELLANE DAILY PRN PRN Reason: Consult order Sodium Chloride (0.9 % Sodium Chloride Flush 3 Ml Syringe) [address] [facility] Home Medications Medication Instructions Recorded Confirmed Last Taken Type blood sugar diagnostic (FreeStyle #10 ea 09/06/20 09/06/20 Unknown History Lite Strips) blood-glucose meter (FreeStyle #1 ea 09/06/20 09/06/20 Unknown History Lite Meter kit) multivitamin 1 tab PO DAILY 11/06/22 11/06/22 Unknown History Physical Exam Vital Signs and Narrative: Vital Signs: Last Vital Signs Temp 99.0 F 11/06/22 15:56 Pulse 103 H 11/06/22 15:56 Resp 14 11/06/22 15:56 BP 126/80 11/06/22 15:56 Pulse Ox 100 11/06/22 14:12 O2 Del Method 11/06/22 14:12 BMI result Body Mass Index 29.1 Gen: in no acute distress, nontoxic HEENT: sclera anicteric, moist mucus membranes Neck: supple Lungs: clear to auscultation bilaterally Heart: regular, tachycardic, no murmurs Abd: soft, non-tender, non-distended Ext: no edema Skin: warm/well-perfused. Large plantar ulcer on right foot. The dorsum of the right foot is swollen, tender, and fluctuant and there is lymphangitic streaking up the lopez. There is necrosis of the skin over the dorsum of the foot with foul-smelling cain discharge Neuro: alert and oriented x3, no focal findings Psych: appropriate affect Results Labs CBC and Chem 7: 11/06/22 14:54 11/06/22 14:54 Labs: Laboratory Results - last 24 hr 11/06/22 11/06/22 11/06/22 14:54 14:54 14:54 MCV 78.8 L MCH 26.6 L MCHC 33.7 RDW 12.7 Plt Count 387 MPV 10.5 Immature Gran % (Auto) 1.2 H Neut % (Auto) 84.9 H Lymph % (Auto) 6.0 L [place] % (Auto) 7.5 Eos % (Auto) 0.2 Baso % (Auto) 0.2 Lymph # (Auto) 1.3 [place] # (Auto) 1.6 H Eos # (Auto) 0.0 Baso # (Auto) 0.1 Abs Immat Gran (auto) 0.25 H Absolute Neuts (auto) 18.4 H Absolute Nucleated RBC 0.000 Nucleated RBC % (auto) 0.0 Smear Tech's Comments VERIFIED PT 15.9 H INR 1.4 H Anion Gap 15 Estim Creat Clear Calc 110.8 Estimated GFR > 60 POC Glucose Random Glucose 177 H Total Bilirubin 1.4 H AST 37 ALT 37 Alkaline Phosphatase 126 H Total Protein 6.7 Albumin 3.4 L 11/06/22 16:15 MCV MCH MCHC RDW Plt Count MPV Immature Gran % (Auto) Neut % (Auto) Lymph % (Auto) [place] % (Auto) Eos % (Auto) Baso % (Auto) Lymph # (Auto) [place] # (Auto) Eos # (Auto) Baso # (Auto) Abs Immat Gran (auto) Absolute Neuts (auto) Absolute Nucleated RBC Nucleated RBC % (auto) Smear Tech's Comments PT INR Anion Gap Estim Creat Clear Calc Estimated GFR POC Glucose 149 H Random Glucose Total Bilirubin AST ALT Alkaline Phosphatase Total Protein Albumin Imaging Radiologist's Impressions: Impressions Foot X-Ray 11/06/22 14:28 IMPRESSION: * Large amount soft tissue gas dorsal to the foot and midfoot concerning for necrotizing fasciitis/gas gangrene. * Large soft tissue ulcer plantar to the third metatarsophalangeal joint. * No radiographic evidence of osteomyelitis. Venous Duplex 11/06/22 15:30 IMPRESSION: 1. No evidence for deep venous thrombosis in the visualized veins of the right lower extremity. 2. Enlarged right inguinal lymph node is nonspecific. This could be reactive to an unseen process. Correlate with patient history and physical exam. * If these findings persist or enlarge, short-term repeat targeted soft tissue ultrasound can be performed as clinically indicated to assess for change. Assessment and Plan (1) Necrotizing fasciitis of ankle and foot: Status: Acute (2) Type 2 diabetes mellitus: Status: Acute Plan 41yo M with poorly controlled DM2 presenting with rapidly progressive necrotic soft tissue infection of the foot, concerning for necrotizing fasciitis. # necrotizing fasciitis - Admit to IMC. NPO for operative debridement. Give vancomycin, clindamycin, and piperacilin-tazobactam. ID consultation. Follow blood cultures. # DM2, A1c 9.4 - Correction-dose lispro; hold OHGs. # VTE prophylaxis: SCDs # code status: full code I anticipate that the patient will stay at least 2 midnights as an inpatient in the hospital due to the above reasons. It is neither reasonable nor safe to care for them in a less acute setting. Quality Stroke Does the patient have a stroke diagnosis?: No VTE Prior VTE?: No VTE Risk Level:: Medical - moderate - high VTE Device Contraindication: N/A - Device Ordered VTE Drug Contraindication: N/A - Med Ordered
[2022-11-06 16:42] LABS: Estimated Average Glucose 223 mg/dL; Hemoglobin A1c % 9.4 %
[2022-11-06 16:49] LABS: COVID-19 Test Negative (Negative); IDNOW Serial# 16C4AD1C
--- NOTE | 2022-11-06 16:52 | PHA.PROG ---
Admission Date/Time: Indication: skin Weight in k.522 kg Adjusted body weight in Kg: [place] body weight in Kg: Obesity Dosing Indication % IBW: Serum Creatinine - Last 168 Hours 11/06/22 14:54 Creatinine 1.04 Estimated CrCl and GFR - Last 168 Hours 11/06/22 14:54 Estim Creat Clear Calc 110.8 Estimated GFR > 60 Vancomycin Loading Dose: 1000mg X 2 Current Vancomycin Dosing Regimen: 1000mg Q12H Vancomycin Monitoring using AUC goal of 400 - 600 range with trough as surrogate marker: 428mg/L Date and Time for next Vancomycin Level to be drawn: 11/07/22 @1500 Pharmacist Comments on Vancomycin Plan: Nurse gave 1 gram so I added another for a 2g load. will continue to monitor Vancomycin dosing will take advantage of [employer] as a clinical decision support tool that uses Bayesian modeling to calculate individual patient's pharmacokinetic parameters and forecast the patient's drug concentration time course with the target goal AUC 24 range of 400 - 600 mg/L/hr.
--- NOTE | 2022-11-06 16:53 | PC.NURSE ---
lab called and had an issue running lactic states error on their end. lab needs to be recollected
[2022-11-06 16:56] LABS: Calcium 8.7 mg/dL (8.4-10.2)
--- NOTE | 2022-11-06 16:58 | PC.NURSE ---
Pharmacy called regarding vancomycin 1gm needs a 2nd gram of vanco once this one is done. Might possibly be in surgery.
[2022-11-06 17:16] LABS: C Reactive Protein 24.09 mg/dL (< or = 0.50)
--- NOTE | 2022-11-06 17:19 | P.CONAN_ITS ---
[facility] Active Problems Active Problems: All Active Problems (Updated 11/06/22 @ 17:07 by WILDA Khalil) Sepsis (Acute) Necrotizing fasciitis of ankle and foot (Acute) Type 2 diabetes mellitus (Acute) Past Medical History Medical History H/O nephrolithotomy with removal of calculi HTN (hypertension) Retinopathy Type 2 diabetes mellitus Family History Family History Father HTN (hypertension) Mother Arthritis Family history of problems with anesthesia: No Surgical History Surgical History History of hernia repair History of Problems with Anesthesia: No Social History Social History Alcohol intake: never Advance Directives: No Advance Directives Information Provided: No Meds Allergies Allergy/AdvReac Type Severity Reaction Status Date / Time acetaminophen [Tylenol] Allergy Unknown face Verified 03/10/20 00:00 swelling aspirin Allergy Unknown anaphylaxis, Unverified 03/10/20 00:00 edema Active Medications: Current Medications Dextrose (Dextrose 50 % 25 Gm/50 Ml Syringe) 25 gm IVPUSH Q15M PRN; Protocol PRN Reason: per Hypoglycemia Standing Ord. Glucose (Glucose Gel 15 Gm Gel..Gram.) 15 gm PO Q15M PRN; Protocol PRN Reason: per Hypoglycemia Standing Ord. Piperacillin Sod/Tazobactam (Sod 3.375 gm/ Sodium Chloride) 50 mls @ 100 mls/hr IV Q6H [facility] Clindamycin Phosphate (Cleocin) 900 mg in 50 mls @ 50 mls/hr IV Q8H [facility] Vancomycin HCl 1,000 mg/ (Sodium Chloride) 270 mls @ 270 mls/hr IV ONCE ONE Stop: 11/06/22 17:59 Vancomycin HCl 1,000 mg/ (Sodium Chloride) 270 mls @ 270 mls/hr IV Q12H [facility] Lactated Ringer's (Lr) 1,000 mls @ 125 mls/hr IVCONT .Q8H [facility] Insulin Human Lispro (Insulin Lispro 100 Unit/Ml 3 Ml Vial) 0 unit SUBCUT QIDACHS [facility]; Protocol Last Admin: 11/06/22 16:39 Dose: Not Given Morphine Sulfate (Morphine Sulfate 4 Mg/Ml Cartridge) 3 mg IVPUSH Q4H PRN; Protocol PRN Reason: Pain, Severe (Pain Scale 7-10) Multivitamins/Vitamin C (Multivitamin Tablet) 1 tab PO DAILY [facility] Ondansetron HCl (Ondansetron Hcl 4 Mg/2 Ml Vial) 4 mg IVPUSH Q8H PRN PRN Reason: Nausea and Vomiting Pharmacy Consult (Consult Rx Perform Med Rec) 1 each MISCELLANE ONCE PRN PRN Reason: Consult order Pharmacy Consult (Consult Rx Vancomycin Dosing) 1 each MISCELLANE DAILY PRN PRN Reason: Consult order Sodium Chloride (0.9 % Sodium Chloride Flush 3 Ml Syringe) 3 ml IVFLUSH QSHIFT [facility] Home Medications Medication Instructions Recorded Confirmed Last Taken Type blood sugar diagnostic (FreeStyle #10 ea 09/06/20 09/06/20 Unknown History Lite Strips) blood-glucose meter (FreeStyle #1 ea 09/06/20 09/06/20 Unknown History Lite Meter kit) multivitamin 1 tab PO DAILY 11/06/22 11/06/22 Unknown History Exam Exam Date and Time: November 06, 2022 1719 Height,Weight and Vital Signs: Height 6 ft Weight 97.522 kg Last Vital Signs Temp 99.0 F 11/06/22 15:56 Pulse 103 H 11/06/22 15:56 Resp 14 11/06/22 15:56 BP 126/80 11/06/22 15:56 Pulse Ox 100 11/06/22 14:12 O2 Del Method 11/06/22 14:12 Pertinent Lab Results Pertinent Lab Results: Laboratory Tests 11/06/22 11/06/22 11/06/22 14:54 14:54 14:54 WBC 21.6 H RBC 5.38 Hgb 14.3 Hct 42.4 MCV 78.8 L MCH 26.6 L MCHC 33.7 RDW 12.7 Plt Count 387 MPV 10.5 Immature Gran % (Auto) 1.2 H Neut % (Auto) 84.9 H Lymph % (Auto) 6.0 L [place] % (Auto) 7.5 Eos % (Auto) 0.2 Baso % (Auto) 0.2 Lymph # (Auto) 1.3 [place] # (Auto) 1.6 H Eos # (Auto) 0.0 Baso # (Auto) 0.1 Abs Immat Gran (auto) 0.25 H Absolute Neuts (auto) 18.4 H Absolute Nucleated RBC 0.000 Nucleated RBC % (auto) 0.0 Smear Tech's Comments VERIFIED PT 15.9 H INR 1.4 H Sodium 133 L Potassium 3.8 Chloride 99 Carbon Dioxide 23 Anion Gap 15 BUN 19 H Creatinine 1.04 Estim Creat Clear Calc 110.8 Estimated GFR > 60 POC Glucose Random Glucose 177 H Estimat Average Glucose Hemoglobin A1c % Calcium 8.7 Total Bilirubin 1.4 H AST 37 ALT 37 Alkaline Phosphatase 126 H C-Reactive Protein 24.09 H Total Protein 6.7 Albumin 3.4 L COVID-19 ([facility]) COVID-19 Clin Com 11/06/22 11/06/22 11/06/22 14:54 16:15 16:21 WBC RBC Hgb Hct MCV MCH MCHC RDW Plt Count MPV Immature Gran % (Auto) Neut % (Auto) Lymph % (Auto) [place] % (Auto) Eos % (Auto) Baso % (Auto) Lymph # (Auto) [place] # (Auto) Eos # (Auto) Baso # (Auto) Abs Immat Gran (auto) Absolute Neuts (auto) Absolute Nucleated RBC Nucleated RBC % (auto) Smear Tech's Comments PT INR Sodium Potassium Chloride Carbon Dioxide Anion Gap BUN Creatinine Estim Creat Clear Calc Estimated GFR POC Glucose 149 H Random Glucose Estimat Average Glucose 223 Hemoglobin A1c % 9.4 Calcium Total Bilirubin AST ALT Alkaline Phosphatase C-Reactive Protein Total Protein Albumin COVID-19 ([facility]) Negative COVID-19 Clin Com See Note Airway Mallampati Class: III TM Dist: >3cm Neck ROM: Full Assessment and Plan Assessment Anesthesia Assessment: Anesthesia Plan Discussed and Chart Reviewed Final Anesthetic Review Family History of Problems with Anesthesia: No History of Problems with Anesthesia: No NPO: Yes ASA Class: III and Emergency Final Preanesthetic Review: No Changes in Pt Med Stat, Meds/Allgs Chart Reviewed, Consent Obtained/Reviewed and Anes Risks/Benef Reviewed Patient Risk: Intermediate Procedure Risk: Intermediate Anesthetic Plan Anesthetic Plan: GA Disposition: Standard PACU
[2022-11-06 17:34] LABS: Lactic Acid 1.7 mmol/L (0.5-2.0)
--- NOTE | 2022-11-06 19:27 | P.OP_ITS ---
Operative Note Operative Note Date of Service: 11/06/22 Narrative: Preoperative diagnosis:Necrotizing fasciitis right foot Postoperative diagnosis: necrotizing fasciitis right foot extending above right ankle Procedure: debridement right foot, right below-knee amputation Surgeon: Kaleb Gallagher MD Party Plan Salesperson: none Anesthesia: general LMA Indications for procedure: 41-year-old male patient with uncontrolled diabetes presenting with extensive gangrene involving the right foot. foot x-ray revealed gas tracking along the forefoot towards the ankle suggestive of necrotizing fasciitis. Patient presents for debridement of right foot and possible amputation right below-knee Operative findings: extensive fascial necrosis involving the entire foot, with necrosis of skin, muscle, and tendon Specimen: wound culture right foot abscess, right below-knee amputation Estimated blood loss: 300 Complications: none Procedure details: patient was brought to the OR and placed in a supine position. After administering general anesthesia the patient's right foot and leg were is prepped with Betadine and draped in a sterile fashion. A surgical time-out was called the consent confirmed. Patient received preoperative antibiotics and Venodyne boots were placed on the left leg. As noted above patient had extensive gangrene involving the right foot. Sharp dissection scalpel and electrocautery was used to dissect necrotic skin. Extensive necrosis involving the entire forefoot was identified extending up proximally to above the ankle. No viable tissue was identified within the foot to safely allow preservation of the right foot. After dissection of a extensive amount of skin and subcutaneous tissue and underlying muscle and tendon decision was made to proceed with below-knee amputation. A fishmouth incision was then made over the lower 3rd of the right leg. In cision was deepened using electrocautery down to muscle and Tibia. Saphenous vein was encountered and ligated with 3-0 Polysorb. In similar fashion the anterior tibial, posterior tibial and peroneal vessels were individually ligated and divided. Electrocautery was used to dissect around the tibia and fibula. Periosteal elevator was then used to dissect further proximal above the incision approximately 3 cm. Bone saw was then used to cut both the tibia and fibula. Hemostasis was assured using free ties of 3-0 Polysorb and electrocautery. The specimen was passed off the table and sent to pathology. Fascia was then reapproximated to close the fishmouth incision using interrupted 3-0 Polysorb sutures. Dermis was then reapproximated using interrupted 3-0 Polysorb sutures. Skin was closed using skin srini. Dressings consisting of fluff gauze, Kerlix and Dameon bandage were then applied. The patient tolerated the procedure well. Sponge, instrument, and needle counts reported as correct. Patient was transferred to PACU in stable condition.
[2022-11-06] MEDS: Lactated Ringers 1,000 ML 125 ML IVCONT (19:45)
[2022-11-06] MEDS: oxyCODONE HCl Immed Release 5 MG TABLET 10 MG PO (19:57)
[2022-11-06] MEDS: ondansetron HCL 4 MG/2 ML VIAL IVPUSH (19:57)
[2022-11-06] MEDS: fentaNYL citrate/PF 100 MCG/2 ML VIAL 50 MCG IVPUSH ×3 (19:58→20:15)
[2022-11-06] MEDS: Clindamycin Phosphate/D5W 900 MG/50 ML PIGGYBACK 50 MG IV (20:45)
[2022-11-06 21:43] LABS: Glucose, Whole Blood 165 mg/dL (60-115)
[2022-11-07] VITALS (7 sets, daily range): BP systolic 121–155; BP diastolic 68–86; PULSE 85–106; RESP 16–18; TEMP 36.6–36.9; O2SAT 95–98
[2022-11-07] MEDS: oxyCODONE HCl Immed Release 5 MG TABLET 10 MG PO ×2 (00:41→11:15)
[2022-11-07] MEDS: Clindamycin Phosphate/D5W 900 MG/50 ML PIGGYBACK 50 MG IV ×3 (00:43→17:08)
[2022-11-07] MEDS: Lactated Ringers 1,000 ML 125 ML IVCONT ×2 (02:07→14:40)
[2022-11-07] MEDS: Piperacillin Sodium/Tazobactam 3.375 GM in 0.9 % Sodium Chloride 50 ML IV ×4 (04:55→21:46)
[2022-11-07] MEDS: vancomycin HCL 1,000 MG in 0.9 % Sodium Chloride 250 ML 270 MG IV (06:18)
[2022-11-07 07:07] LABS: Glucose, Whole Blood 230 mg/dL (60-115)
[2022-11-07 07:52] LABS: Basophils Percent Auto 0.2 % (0-2); Eosinophils Absolute Auto 0.1 X10*3/uL (0.0-0.4); Eosinophils Percent Auto 0.4 % (0-4); Hematocrit 34.8 % (42.0-52.0); Hemoglobin 11.5 g/dl (14.0-18.0); Imm Gran Abs Auto 0.11 X10*3/uL (0.00-0.03); Imm Gran Pct Auto 0.8 % (0.0-0.4); Lymphocytes Percent Auto 7.1 % (20-40); MANUAL DIFF FLAG SCAN; Mean Corpuscular Hemoglobin 26.4 pg (27.0-33.0); Mean Platelet Volume 9.8 fL (9.4-12.4); Monocytes Absolute Auto 1.5 X10*3/uL (0.1-1.2); Monocytes Percent Auto 11.4 % (2-11); Neutrophils Absolute Auto 10.7 x10*3/uL (2.0-8.3); Neutrophils Percent Auto 80.1 % (45-73); Platelet Count 295 X10*3/uL (160-400); Red Blood Count 4.35 X10*6/uL (4.60-5.80); Red Cell Distribution Width 12.9 % (11.0-16.0); SCAN SMEAR FLAG 1; White Blood Count 13.3 X10*3/uL (4.8-10.8)
[2022-11-07 08:14] LABS: Anion Gap 14 (12-20); Carbon Dioxide 20 mmol/L (22-29); Chloride 103 mmol/L (96-108); Creatinine Clr Calc Pharmacy 49.4; Estimated Glomerular Filt Rate 31; Glucose Random 148 mg/dL (60-115); Potassium 3.9 mmol/L (3.3-5.1); Sodium 133 mmol/L (135-145)
[2022-11-07 08:27] LABS: SLIDE REVIEW VERIFIED
[2022-11-07 08:28] LABS: Blood Urea Nitrogen 30 mg/dL (9-16); Calcium 7.4 mg/dL (8.4-10.2)
[2022-11-07] MEDS: 0.9 % Sodium Chloride Flush 3 ML SYRINGE IVFLUSH ×3 (09:10→21:48)
[2022-11-07] MEDS: Multivitamin TABLET 1 TAB PO (09:10)
[2022-11-07 09:12] LABS: Glucose, Whole Blood 141 mg/dL (60-115)
[2022-11-07] MEDS: Morphine Sulfate 4 MG/ML CARTRIDGE 3 MG IVPUSH (09:17)
--- NOTE | 2022-11-07 10:09 | HO.PM.IMPN ---
Subjective Subjective Date of Service: 11/07/22 Interval History: POD#1 R BKA for nec fasc. C/o postoperative pain. No fever. Developed BARB. Review of Systems Review of Systems: Yes all other systems are reviewed and are negative Physical Exam Vital Signs: Vital Signs: Last Vital Signs Temp 98 F 11/07/22 08:00 Pulse 106 H 11/07/22 08:00 Resp 16 11/07/22 08:00 BP 135/86 11/07/22 08:00 Pulse Ox 98 11/07/22 08:00 O2 Del Method 11/07/22 08:00 O2 Flow Rate 2 11/07/22 00:00 BMI result Body Mass Index 29.1 Gen: in pain HEENT: sclera anicteric, moist mucus membranes Neck: supple Lungs: clear to auscultation bilaterally Heart: regular, tachycardic, no murmurs Abd: soft, non-tender, non-distended Ext: no edema, R BKA with dressing in place Skin: warm/well-perfused Neuro: alert and oriented x3, no focal findings Psych: appropriate affect Objective Data Active Medications Dextrose (Dextrose 50 % 25 Gm/50 Ml Syringe) 25 gm IVPUSH Q15M PRN; Protocol PRN Reason: per Hypoglycemia Standing Ord. Fentanyl (Fentanyl Citrate/Pf 100 Mcg/2 Ml Vial) 50 mcg IVPUSH Q5M PRN; Protocol PRN Reason: Pain, Severe (Pain Scale 7-10) Last Admin: 11/06/22 20:15 Dose: 50 mcg Documented By: MARLI Glucose (Glucose Gel 15 Gm Gel..Gram.) 15 gm PO Q15M PRN; Protocol PRN Reason: per Hypoglycemia Standing Ord. Piperacillin Sod/Tazobactam (Sod 3.375 gm/ Sodium Chloride) 50 mls @ 100 mls/hr IV Q6H [facility] Last Infusion: 11/07/22 05:31 Dose: 0 mls/hr Documented By: CHRISTIAN Clindamycin Phosphate (Cleocin) 900 mg in 50 mls @ 50 mls/hr IV Q8H [facility] Last Admin: 11/07/22 09:10 Dose: 50 mls/hr Documented By: DENIS Vancomycin HCl 1,000 mg/ (Sodium Chloride) 270 mls @ 270 mls/hr IV Q12H [facility] Last Infusion: 11/07/22 07:27 Dose: 0 mls/hr Documented By: DENIS Lactated Ringer's (Lr) 1,000 mls @ 125 mls/hr IVCONT .Q8H [facility] Last Infusion: 11/07/22 05:31 Dose: 125 mls/hr Documented By: CHRISTIAN Insulin Human Lispro (Insulin Lispro 100 Unit/Ml 3 Ml Vial) 0 unit SUBCUT QIDACHS [facility]; Protocol Last Admin: 11/07/22 08:33 Dose: Not Given Documented By: DENIS Non-Admin Reason: No Insulin Coverage Morphine Sulfate (Morphine Sulfate 4 Mg/Ml Cartridge) 4 mg IVPUSH Q4H PRN; Protocol PRN Reason: Pain, Severe (Pain Scale 7-10) Multivitamins/Vitamin C (Multivitamin Tablet) 1 tab PO DAILY [facility] Last Admin: 11/07/22 09:10 Dose: 1 tab Documented By: DENIS Ondansetron HCl (Ondansetron Hcl 4 Mg/2 Ml Vial) 4 mg IVPUSH Q8H PRN PRN Reason: Nausea and Vomiting Oxycodone HCl (Oxycodone Hcl Immed Release 5 Mg Tablet) 5 mg PO Q4H PRN PRN Reason: Pain, Moderate (Pain Scale 4-6 Oxycodone HCl (Oxycodone Hcl Immed Release 5 Mg Tablet) 10 mg PO Q4H PRN PRN Reason: Pain, Severe (Pain Scale 7-10) Last Admin: 11/07/22 00:41 Dose: 10 mg Documented By: CHRISTIAN Pharmacy Consult (Consult Rx Perform Med Rec) 1 each MISCELLANE ONCE PRN PRN Reason: Consult order Pharmacy Consult (Consult Rx Vancomycin Dosing) 1 each MISCELLANE DAILY PRN PRN Reason: Consult order Sodium Chloride (0.9 % Sodium Chloride Flush 3 Ml Syringe) 3 ml IVFLUSH QSHIFT [facility] Last Admin: 11/07/22 09:10 Dose: 3 ml Documented By: DENIS Labs CBC & Chem 7: 11/07/22 07:42 11/07/22 07:42 Labs: Laboratory Results - last 24 hr 11/06/22 11/06/22 11/06/22 14:18 14:54 14:54 MCV 78.8 L MCH 26.6 L MCHC 33.7 RDW 12.7 Plt Count 387 MPV 10.5 Immature Gran % (Auto) 1.2 H Neut % (Auto) 84.9 H Lymph % (Auto) 6.0 L [place] % (Auto) 7.5 Eos % (Auto) 0.2 Baso % (Auto) 0.2 Lymph # (Auto) 1.3 [place] # (Auto) 1.6 H Eos # (Auto) 0.0 Baso # (Auto) 0.1 Abs Immat Gran (auto) 0.25 H Absolute Neuts (auto) 18.4 H Absolute Nucleated RBC 0.000 Nucleated RBC % (auto) 0.0 Smear Tech's Comments VERIFIED PT INR Anion Gap 15 Estim Creat Clear Calc 110.8 Estimated GFR > 60 POC Glucose 230 H Random Glucose 177 H Estimat Average Glucose Hemoglobin A1c % Lactic Acid Calcium 8.7 Total Bilirubin 1.4 H AST 37 ALT 37 Alkaline Phosphatase 126 H C-Reactive Protein 24.09 H Total Protein 6.7 Albumin 3.4 L COVID-19 (KIKE) [employer] 11/06/22 11/06/22 11/06/22 14:54 14:54 16:15 MCV MCH MCHC RDW Plt Count MPV Immature Gran % (Auto) Neut % (Auto) Lymph % (Auto) [place] % (Auto) Eos % (Auto) Baso % (Auto) Lymph # (Auto) [place] # (Auto) Eos # (Auto) Baso # (Auto) Abs Immat Gran (auto) Absolute Neuts (auto) Absolute Nucleated RBC Nucleated RBC % (auto) Smear Tech's Comments PT 15.9 H INR 1.4 H Anion Gap Estim Creat Clear Calc Estimated GFR POC Glucose 149 H Random Glucose Estimat Average Glucose 223 Hemoglobin A1c % 9.4 Lactic Acid Calcium Total Bilirubin AST ALT Alkaline Phosphatase C-Reactive Protein Total Protein Albumin COVID-19 (KIKE) [employer] 11/06/22 11/06/22 11/06/22 16:21 17:05 21:39 MCV MCH MCHC RDW Plt Count MPV Immature Gran % (Auto) Neut % (Auto) Lymph % (Auto) [place] % (Auto) Eos % (Auto) Baso % (Auto) Lymph # (Auto) [place] # (Auto) Eos # (Auto) Baso # (Auto) Abs Immat Gran (auto) Absolute Neuts (auto) Absolute Nucleated RBC Nucleated RBC % (auto) Smear Tech's Comments PT INR Anion Gap Estim Creat Clear Calc Estimated GFR POC Glucose 165 H Random Glucose Estimat Average Glucose Hemoglobin A1c % Lactic Acid 1.7 Calcium Total Bilirubin AST ALT Alkaline Phosphatase C-Reactive Protein Total Protein Albumin COVID-19 (KIKE) Negative COVID-19 Clin Com See Note 11/07/22 11/07/22 11/07/22 07:42 07:42 08:22 MCV 80.0 MCH 26.4 L MCHC 33.0 RDW 12.9 Plt Count 295 MPV 9.8 Immature Gran % (Auto) 0.8 H Neut % (Auto) 80.1 H Lymph % (Auto) 7.1 L [place] % (Auto) 11.4 H Eos % (Auto) 0.4 Baso % (Auto) 0.2 Lymph # (Auto) 1.0 L [place] # (Auto) 1.5 H Eos # (Auto) 0.1 Baso # (Auto) 0.0 Abs Immat Gran (auto) 0.11 H Absolute Neuts (auto) 10.7 H Absolute Nucleated RBC 0.000 Nucleated RBC % (auto) 0.0 Smear Tech's Comments VERIFIED PT INR Anion Gap 14 Estim Creat Clear Calc 49.4 Estimated GFR 31 POC Glucose 141 H Random Glucose 148 H Estimat Average Glucose Hemoglobin A1c % Lactic Acid Calcium 7.4 L D Total Bilirubin AST ALT Alkaline Phosphatase C-Reactive Protein Total Protein Albumin COVID-19 (KIKE) COVID-19 Clin Com Microbiology Microbiology Results: Microbiology 11/06/22 18:37 Gram Stain - Final Foot Right Routine Culture - Preliminary Culture in progress. Assessment and Plan (1) Necrotizing fasciitis of ankle and foot: Status: Acute (2) Sepsis: Status: Acute Plan d#2 41yo M with poorly controlled DM2 admitted for sepsis from necrotizing fasciitis # necrotizing fasciitis - POD#1 BKA. vancomycin/clindamycin/piperacillin-tazobactam d#2. follow BCx/intraoperative cultures. ID consult pending # BARB - prerenal. aggressive IV fluid resuscitation. avoid nephrotoxins. recheck BMP in AM # DM2, A1c 9.4 - Correction-dose lispro; hold OHGs # VTE prophylaxis: SCDs Quality Stroke Does the patient have a stroke diagnosis?: No VTE Prior VTE?: No VTE Risk Level:: Medical - moderate - high VTE Device Contraindication: N/A - Device Ordered VTE Drug Contraindication: N/A - Med Ordered
--- NOTE | 2022-11-07 10:18 | PM.PNGS ---
Subjective Subjective Date of Service: 11/07/22 Interval history: Feels ok. Reports 10/10 pain at amputation site but pain relieved with analgesics. Tolerating diet. OOB to recliner. Physical Exam Vital Signs: Vital Signs: Last Vital Signs Temp 98 F 11/07/22 08:00 Pulse 106 H 11/07/22 08:00 Resp 16 11/07/22 08:00 BP 135/86 11/07/22 08:00 Pulse Ox 98 11/07/22 08:00 O2 Del Method 11/07/22 08:00 O2 Flow Rate 2 11/07/22 00:00 BMI result Body Mass Index 29.1 Const: General: healthy appearing, comfortable, no acute distress and alert Orientation/consciousness: patient oriented x3 Resp: Effort & Inspection: normal respiratory effort Skin: General skin exam: no rashes or lesions noted Neuro: General: patient oriented x3 Extrem: Other: right BKA site with dressing intact, clean Objective Data Active Medications Dextrose (Dextrose 50 % 25 Gm/50 Ml Syringe) 25 gm IVPUSH Q15M PRN; Protocol PRN Reason: per Hypoglycemia Standing Ord. Fentanyl (Fentanyl Citrate/Pf 100 Mcg/2 Ml Vial) 50 mcg IVPUSH Q5M PRN; Protocol PRN Reason: Pain, Severe (Pain Scale 7-10) Last Admin: 11/06/22 20:15 Dose: 50 mcg Documented By: MARLI Glucose (Glucose Gel 15 Gm Gel..Gram.) 15 gm PO Q15M PRN; Protocol PRN Reason: per Hypoglycemia Standing Ord. Piperacillin Sod/Tazobactam (Sod 3.375 gm/ Sodium Chloride) 50 mls @ 100 mls/hr IV Q6H [facility] Last Infusion: 11/07/22 05:31 Dose: 0 mls/hr Documented By: CHRISTIAN Clindamycin Phosphate (Cleocin) 900 mg in 50 mls @ 50 mls/hr IV Q8H [facility] Last Infusion: 11/07/22 10:16 Dose: 0 mls/hr Documented By: DENIS Vancomycin HCl 1,000 mg/ (Sodium Chloride) 270 mls @ 270 mls/hr IV Q12H [facility] Last Infusion: 11/07/22 07:27 Dose: 0 mls/hr Documented By: DENIS Lactated Ringer's (Lr) 1,000 mls @ 125 mls/hr IVCONT .Q8H [facility] Last Infusion: 11/07/22 05:31 Dose: 125 mls/hr Documented By: CHRISTIAN Sodium Chloride (Ns) 1,000 mls @ 999 mls/hr IVCONT .Q1H1M [facility] Stop: 11/07/22 12:15 Insulin Human Lispro (Insulin Lispro 100 Unit/Ml 3 Ml Vial) 0 unit SUBCUT QIDACHS [facility]; Protocol Last Admin: 11/07/22 08:33 Dose: Not Given Documented By: DENIS Non-Admin Reason: No Insulin Coverage Morphine Sulfate (Morphine Sulfate 4 Mg/Ml Cartridge) 4 mg IVPUSH Q4H PRN; Protocol PRN Reason: Pain, Severe (Pain Scale 7-10) Multivitamins/Vitamin C (Multivitamin Tablet) 1 tab PO DAILY [facility] Last Admin: 11/07/22 09:10 Dose: 1 tab Documented By: DENIS Ondansetron HCl (Ondansetron Hcl 4 Mg/2 Ml Vial) 4 mg IVPUSH Q8H PRN PRN Reason: Nausea and Vomiting Oxycodone HCl (Oxycodone Hcl Immed Release 5 Mg Tablet) 5 mg PO Q4H PRN PRN Reason: Pain, Moderate (Pain Scale 4-6 Oxycodone HCl (Oxycodone Hcl Immed Release 5 Mg Tablet) 10 mg PO Q4H PRN PRN Reason: Pain, Severe (Pain Scale 7-10) Last Admin: 11/07/22 00:41 Dose: 10 mg Documented By: CHRISTIAN Pharmacy Consult (Consult Rx Perform Med Rec) 1 each MISCELLANE ONCE PRN PRN Reason: Consult order Pharmacy Consult (Consult Rx Vancomycin Dosing) 1 each MISCELLANE DAILY PRN PRN Reason: Consult order Sodium Chloride (0.9 % Sodium Chloride Flush 3 Ml Syringe) 3 ml IVFLUSH QSHIFT [facility] Last Admin: 11/07/22 09:10 Dose: 3 ml Documented By: DENIS Labs CBC & Chem 7: 11/07/22 07:42 11/07/22 07:42 Labs: Laboratory Results - last 24 hr 11/06/22 11/06/22 11/06/22 14:18 14:54 14:54 MCV 78.8 L MCH 26.6 L MCHC 33.7 RDW 12.7 Plt Count 387 MPV 10.5 Immature Gran % (Auto) 1.2 H Neut % (Auto) 84.9 H Lymph % (Auto) 6.0 L [place] % (Auto) 7.5 Eos % (Auto) 0.2 Baso % (Auto) 0.2 Lymph # (Auto) 1.3 [place] # (Auto) 1.6 H Eos # (Auto) 0.0 Baso # (Auto) 0.1 Abs Immat Gran (auto) 0.25 H Absolute Neuts (auto) 18.4 H Absolute Nucleated RBC 0.000 Nucleated RBC % (auto) 0.0 Smear Tech's Comments VERIFIED PT INR Anion Gap 15 Estim Creat Clear Calc 110.8 Estimated GFR > 60 POC Glucose 230 H Random Glucose 177 H Estimat Average Glucose Hemoglobin A1c % Lactic Acid Calcium 8.7 Total Bilirubin 1.4 H AST 37 ALT 37 Alkaline Phosphatase 126 H C-Reactive Protein 24.09 H Total Protein 6.7 Albumin 3.4 L COVID-19 (KIKE) [employer] 11/06/22 11/06/22 11/06/22 14:54 14:54 16:15 MCV MCH MCHC RDW Plt Count MPV Immature Gran % (Auto) Neut % (Auto) Lymph % (Auto) [place] % (Auto) Eos % (Auto) Baso % (Auto) Lymph # (Auto) [place] # (Auto) Eos # (Auto) Baso # (Auto) Abs Immat Gran (auto) Absolute Neuts (auto) Absolute Nucleated RBC Nucleated RBC % (auto) Smear Tech's Comments PT 15.9 H INR 1.4 H Anion Gap Estim Creat Clear Calc Estimated GFR POC Glucose 149 H Random Glucose Estimat Average Glucose 223 Hemoglobin A1c % 9.4 Lactic Acid Calcium Total Bilirubin AST ALT Alkaline Phosphatase C-Reactive Protein Total Protein Albumin COVID-19 (KIKE) [employer] 11/06/22 11/06/22 11/06/22 16:21 17:05 21:39 MCV MCH MCHC RDW Plt Count MPV Immature Gran % (Auto) Neut % (Auto) Lymph % (Auto) [place] % (Auto) Eos % (Auto) Baso % (Auto) Lymph # (Auto) [place] # (Auto) Eos # (Auto) Baso # (Auto) Abs Immat Gran (auto) Absolute Neuts (auto) Absolute Nucleated RBC Nucleated RBC % (auto) Smear Tech's Comments PT INR Anion Gap Estim Creat Clear Calc Estimated GFR POC Glucose 165 H Random Glucose Estimat Average Glucose Hemoglobin A1c % Lactic Acid 1.7 Calcium Total Bilirubin AST ALT Alkaline Phosphatase C-Reactive Protein Total Protein Albumin COVID-19 (KIKE) Negative COVID-19 Clin Com See Note 11/07/22 11/07/22 11/07/22 07:42 07:42 08:22 MCV 80.0 MCH 26.4 L MCHC 33.0 RDW 12.9 Plt Count 295 MPV 9.8 Immature Gran % (Auto) 0.8 H Neut % (Auto) 80.1 H Lymph % (Auto) 7.1 L [place] % (Auto) 11.4 H Eos % (Auto) 0.4 Baso % (Auto) 0.2 Lymph # (Auto) 1.0 L [place] # (Auto) 1.5 H Eos # (Auto) 0.1 Baso # (Auto) 0.0 Abs Immat Gran (auto) 0.11 H Absolute Neuts (auto) 10.7 H Absolute Nucleated RBC 0.000 Nucleated RBC % (auto) 0.0 Smear Tech's Comments VERIFIED PT INR Anion Gap 14 Estim Creat Clear Calc 49.4 Estimated GFR 31 POC Glucose 141 H Random Glucose 148 H Estimat Average Glucose Hemoglobin A1c % Lactic Acid Calcium 7.4 L D Total Bilirubin AST ALT Alkaline Phosphatase C-Reactive Protein Total Protein Albumin COVID-19 (KIKE) COVID-19 Clin Com Microbiology Microbiology Results: Microbiology 11/06/22 18:37 Gram Stain - Final Foot Right Routine Culture - Preliminary Culture in progress. Procedures Date of Service Date of Service: 11/07/22 Progress Note: A&P Assessment and plan (1) Necrotizing fasciitis of ankle and foot: Status: Acute (2) Type 2 diabetes mellitus: Status: Acute (3) Sepsis: Status: Acute Plan 41 year old male admitted with extensive gangrene involving the right foot with right foot x-ray showing gas tracking along the forefoot towards the ankle, suggestive of necrotizing fasciitis of the right foot extending into the ankle. He is POD #1 s/p debridement of right foot, right BKA. He was found to have extensive fascial necrosis involving the entire foot, with necrosis of skin, muscle, and tendon in the OR. He is doing fairly well post operatively. VSS- tachycardic. Amp site dressing clean and intact. WBC significantly improved this morning. Cont IV zosyn, vanco and clindamycin. Cont IVF, has BARB. Will plan for dressing change tomorrow. Initiate PT tomorrow. Cont pain control. Hospitalists following for medical management, management of diabetes mellitus. Appreciate input. Time Spent With Patient Time: Total time spent is greater than 50% in coordination of care (as documented) at patient's floor/unit and/or counseling patient: Quality Stroke Does the patient have a stroke diagnosis?: No VTE Prior VTE?: No VTE Risk Level:: Medical - moderate - high VTE Device Contraindication: N/A - Device Ordered VTE Drug Contraindication: N/A - Med Ordered
--- NOTE | 2022-11-07 10:55 | HO.POSTANES ---
Post Anesthesia Evaluation Post Anesthesia Evaluation Vital Signs: Vital Signs Temp Pulse Resp BP Pulse Ox O2 Del Method O2 Flow Rate 11/07/22 08:00 98 F 106 H 16 135/86 98 Room Air 11/07/22 04:00 18 11/07/22 03:55 98.5 F 96 18 155/82 H 97 Room Air 11/07/22 00:00 98.1 F 97 18 129/77 95 Nasal Cannula 2 Anesthesia: General Mental Status: Awake Pain Control: Satisfactory Nausea/Vomiting: None Hydration: Adequate Anesthesia-Related Issues: No Anes. Related Issues
[2022-11-07] MEDS: 0.9 % Sodium Chloride 1,000 ML 999 ML IVCONT ×2 (11:10→13:03)
[2022-11-07 12:27] LABS: Glucose, Whole Blood 179 mg/dL (60-115)
[2022-11-07] MEDS: Insulin Lispro 100 UNIT/ML 3 ML VIAL SUBCUT ×2 (12:27→16:32)
--- NOTE | 2022-11-07 13:39 | MHC.CM.PN ---
EMR REVIEWED, PT ADMITTED W/NECROTIZING FASCITIS AND S/P LEFT BKA, CM MET W/PT WHO REPORTS HE USES [employer] FOR DME, NO HOME SERVICES PT WORKS. PT IS RECOMMENDING ACUTE REHAB, OT EVAL REQUESTED VIA [employer], PT REPORTS HIS PREFERRED FACILITY IS [place] AND REFERRAL HAS BEEN SENT. PCP: [facility] X[facility] PT OPEN TO HCP HOWEVER WAS VERY GROGGY AT TIME OF INTAKE, CM WILL REVISIT. ANTIC D/C TO ACUTE REHAB [facility]IA [facility]
[2022-11-07] MEDS: Morphine Sulfate 4 MG/ML CARTRIDGE IVPUSH (14:21)
--- NOTE | 2022-11-07 14:35 | W.PM.IDCN ---
History of Present Illness Data of Consult Service Date: 11/07/22 Requesting physician: Haven Gatica Primary Care Provider: DAMARIS Burns- HPI Reason for consult: necrotizing fasciitis,bacteremia He presents with redness leg and black discoloration toes and ulcer right plantar area. He has XRay showing air and suspicion of necrotizing fasciitis. He went to OR and had BKA done Blood shows gram positive cocci. Review of Systems Review of Systems: Yes all other systems are reviewed and are negative [facility] Past Medical History Medical History H/O nephrolithotomy with removal of calculi HTN (hypertension) Retinopathy Type 2 diabetes mellitus Family History Family History Father HTN (hypertension) Mother Arthritis Family history: reviewed and not pertinent Surgical History Surgical History History of hernia repair Social History Social History Household Members: None Housing: House Do you presently have visiting nurse or other home services: No Alcohol intake: never Patient Tobacco Use Status: Never used Tobacco Use of substances other than those prescribed or required for medical reasons: No Currently Displaying Signs/Symptoms of Drug Intoxication Withdrawal: No Have you been hit, kicked, punched, or otherwise hurt by someone within the past year? If so, by whom?: No Do you feel safe in your current relationship?: No Current Relationship Is there a partner from a previous relationship who is making you feel unsafe now?: No Are you made to feel afraid or neglected: No [facility] Practices: pentecostal Advance Directives: No Advance Directives Information Provided: No Do you have thoughts of harming others: None Do you have a plan to hurt others: No Plan Recently lost weight without trying: No Nutrition Risks: No Nutritional Risk Poor oral hygiene: No service: No Current occupational status: employed Meds Allergies Allergy/AdvReac Type Severity Reaction Status Date / Time acetaminophen [Tylenol] Allergy Unknown face Verified 03/10/20 00:00 swelling aspirin Allergy Unknown anaphylaxis, Verified 11/07/22 14:22 edema Active Medications: Current Medications Dextrose (Dextrose 50 % 25 Gm/50 Ml Syringe) 25 gm IVPUSH Q15M PRN; Protocol PRN Reason: per Hypoglycemia Standing Ord. Fentanyl (Fentanyl Citrate/Pf 100 Mcg/2 Ml Vial) 50 mcg IVPUSH Q5M PRN; Protocol PRN Reason: Pain, Severe (Pain Scale 7-10) Last Admin: 11/06/22 20:15 Dose: 50 mcg Glucose (Glucose Gel 15 Gm Gel..Gram.) 15 gm PO Q15M PRN; Protocol PRN Reason: per Hypoglycemia Standing Ord. Piperacillin Sod/Tazobactam (Sod 3.375 gm/ Sodium Chloride) 50 mls @ 100 mls/hr IV Q6H [facility] Last Infusion: 11/07/22 11:05 Dose: Infused Clindamycin Phosphate (Cleocin) 900 mg in 50 mls @ 50 mls/hr IV Q8H [facility] Last Infusion: 11/07/22 10:16 Dose: Infused Vancomycin HCl 1,000 mg/ (Sodium Chloride) 270 mls @ 270 mls/hr IV Q12H [facility] Last Infusion: 11/07/22 07:27 Dose: Infused Lactated Ringer's (Lr) 1,000 mls @ 125 mls/hr IVCONT .Q8H [facility] Last Infusion: 11/07/22 12:29 Dose: Infused Insulin Human Lispro (Insulin Lispro 100 Unit/Ml 3 Ml Vial) 0 unit SUBCUT QIDACHS [facility]; Protocol Last Admin: 11/07/22 12:27 Dose: 2 unit Morphine Sulfate (Morphine Sulfate 4 Mg/Ml Cartridge) 4 mg IVPUSH Q4H PRN; Protocol PRN Reason: Pain, Severe (Pain Scale 7-10) Last Admin: 11/07/22 14:21 Dose: 4 mg Multivitamins/Vitamin C (Multivitamin Tablet) 1 tab PO DAILY [facility] Last Admin: 11/07/22 09:10 Dose: 1 tab Ondansetron HCl (Ondansetron Hcl 4 Mg/2 Ml Vial) 4 mg IVPUSH Q8H PRN PRN Reason: Nausea and Vomiting Oxycodone HCl (Oxycodone Hcl Immed Release 5 Mg Tablet) 5 mg PO Q4H PRN PRN Reason: Pain, Moderate (Pain Scale 4-6 Oxycodone HCl (Oxycodone Hcl Immed Release 5 Mg Tablet) 10 mg PO Q4H PRN PRN Reason: Pain, Severe (Pain Scale 7-10) Last Admin: 11/07/22 11:15 Dose: 10 mg Pharmacy Consult (Consult Rx Perform Med Rec) 1 each MISCELLANE ONCE PRN PRN Reason: Consult order Pharmacy Consult (Consult Rx Vancomycin Dosing) 1 each MISCELLANE DAILY PRN PRN Reason: Consult order Sodium Chloride (0.9 % Sodium Chloride Flush 3 Ml Syringe) 3 ml IVFLUSH QSHIFT [facility] Last Admin: 11/07/22 09:10 Dose: 3 ml Home Medications Medication Instructions Recorded Confirmed Last Taken Type blood sugar diagnostic (FreeStyle #10 ea 09/06/20 09/06/20 Unknown History Lite Strips) blood-glucose meter (FreeStyle #1 ea 09/06/20 09/06/20 Unknown History Lite Meter kit) multivitamin 1 tab PO DAILY 11/06/22 11/06/22 Unknown History Physical Exam Vital Signs: Vital Signs: Last Vital Signs Temp 98 F 11/07/22 08:00 Pulse 106 H 11/07/22 08:00 Resp 16 11/07/22 08:00 BP 135/86 11/07/22 08:00 Pulse Ox 96 11/07/22 14:24 O2 Del Method 11/07/22 14:24 O2 Flow Rate 2 11/07/22 00:00 BMI result Body Mass Index 29.1 Const: General: cooperative HEENT: Head: Yes normal to inspection Face and sinus: Yes normal facial exam Mouth: Normal oral and palatal mucosa present Teeth and gingiva: dentition normal Eyes: General: appearance normal, both eyes and all related structures Pupils: Equal, round and reactive pupils present Resp: Effort & Inspection: normal respiratory effort Cardio: Rate: regular rate Rhythm: regular rhythm GI: Palpation (GI): Soft to palpation and nontender : General: Yes no CVA tenderness Back/Spine/Pelvis: Back: no CVA tenderness Skin: General skin exam: no rashes or lesions noted Neuro: General: moves all extremities Cranial nerves: Yes Equal, round and reactive pupils present Extrem: Other: right BKA left great toe slight ?embolic one cm darkened area plantar surface of toe Psych: Appearance: grossly normal Results Labs CBC & Chem 7: 11/07/22 07:42 11/07/22 07:42 Labs: Short CBC 11/06/22 11/07/22 Range/Units 14:54 07:42 WBC 21.6 H 13.3 H (4.8-10.8) X10*3/uL Hgb 14.3 11.5 L (14.0-18.0) g/dl Hct 42.4 34.8 L (42.0-52.0) % Plt Count 387 295 (160-400) X10*3/uL BMP 11/06/22 11/07/22 14:54 07:42 Sodium 133 L 133 L Potassium 3.8 3.9 Chloride 99 103 Carbon Dioxide 23 20 L BUN 19 H 30 H Creatinine 1.04 2.33 H Calcium 8.7 7.4 L D Liver Function 11/06/22 Range/Units 14:54 Total Bilirubin 1.4 H (0.0-1.0) mg/dL AST 37 (5-37) U/L ALT 37 (0-40) U/L Alkaline Phosphatase 126 H (39-117) U/L Albumin 3.4 L (3.5-5.0) g/dL Microbiology Microbiology Results: Microbiology 11/06/22 14:54 Blood - Venous Blood Culture - Preliminary Prelim: GPC Gram Stain only 11/06/22 18:37 Foot Right Gram Stain - Final 11/06/22 18:37 Foot Right Routine Culture - Preliminary Culture in progress. Assessment and Plan (1) Sepsis: Status: Acute (2) Necrotizing fasciitis of ankle and foot: Status: Acute (3) Type 2 diabetes mellitus: Status: Acute Plan Continue Vancomycin,Zosyn and Clindamycin for now. Continue follow area left great toe ?embolic area With bacteremia,check echo. Possible tomorrow remove Clindamycin but need to see final blood culture.
[2022-11-07 15:30] LABS: Vancomycin Random 19.2 mcg/mL (15-20)
[2022-11-07 16:26] LABS: Glucose, Whole Blood 170 mg/dL (60-115)
[2022-11-07 20:30] LABS: Glucose, Whole Blood 146 mg/dL (60-115)
[2022-11-07 21:46] LABS: Vancomycin Random 17.1 mcg/mL (15-20)
--- NOTE | 2022-11-07 21:59 | HE.PHANOTE ---
RE: cary Pt's creatinine jumped up from 1.04 to 2.33 and trough came back at 19.2 on 11/07; held PM dose. Put in new order for 500mg Q12H to start on 11/08. Level to be drawn prior to that 11/08 @0600
[2022-11-08] VITALS: BP 130/68; PULSE 85; RESP 18; TEMP 36.5; O2SAT 97
[2022-11-08] MEDS: Clindamycin Phosphate/D5W 900 MG/50 ML PIGGYBACK 50 MG IV ×3 (01:11→17:37)
[2022-11-08] MEDS: Lactated Ringers 1,000 ML 125 ML IVCONT ×3 (01:11→19:24)
[2022-11-08] MEDS: Piperacillin Sodium/Tazobactam 3.375 GM in 0.9 % Sodium Chloride 50 ML IV ×4 (03:41→21:56)
[2022-11-08 04:00] VITALS: BP 128/73; PULSE 84; RESP 17; TEMP 36.4; O2SAT 95
[2022-11-08 06:23] LABS: Hematocrit 32.5 % (42.0-52.0); Hemoglobin 10.6 g/dl (14.0-18.0); Mean Corpuscular HGB Conc 32.6 g/dl (31.0-36.0); Mean Corpuscular Hemoglobin 26.4 pg (27.0-33.0); Mean Platelet Volume 10.4 fL (9.4-12.4); Platelet Count 312 X10*3/uL (160-400); Red Blood Count 4.01 X10*6/uL (4.60-5.80); Red Cell Distribution Width 12.9 % (11.0-16.0); White Blood Count 12.5 X10*3/uL (4.8-10.8)
[2022-11-08 06:34] LABS: Vancomycin Trough 14.8 mcg/mL (10.0-20.0)
[2022-11-08 06:42] LABS: Anion Gap 15 (12-20); Blood Urea Nitrogen 39 mg/dL (9-16); C Reactive Protein 18.59 mg/dL (< or = 0.50); Calcium 7.4 mg/dL (8.4-10.2); Carbon Dioxide 20 mmol/L (22-29); Chloride 106 mmol/L (96-108); Estimated Glomerular Filt Rate 15; Glucose Random 143 mg/dL (60-115); Potassium 4.3 mmol/L (3.3-5.1); Sodium 137 mmol/L (135-145)
[2022-11-08 07:15] LABS: Glucose, Whole Blood 142 mg/dL (60-115)
--- NOTE | 2022-11-08 07:31 | P.PNGS_ITS ---
Subjective Subjective Date of Service: 11/08/22 Interval history: Patient reports feeling comfortable; had trouble sleeping due to a screaming patient down the silverman. Did well with PT yesterday Physical Exam Vital Signs: Vital Signs: Last Vital Signs Temp 97.5 F 11/08/22 04:00 Pulse 84 11/08/22 04:00 Resp 17 11/08/22 04:00 BP 128/73 11/08/22 04:00 Pulse Ox 95 11/08/22 04:00 O2 Del Method 11/08/22 04:00 O2 Flow Rate 2 11/07/22 00:00 BMI result Body Mass Index 29.1 Const: General: healthy appearing and no acute distress Nutritional Appearance: well nourished Orientation/consciousness: patient oriented x3 Limitations: ambulation with walker HEENT: Head: Yes normocephalic Resp: Effort & Inspection: normal respiratory effort, no audible wheezes, no cough and no respiratory distress Skin: Other: warm, dry, no rash Neuro: General: patient oriented x3 Extrem: Other: dressings changed to the right leg. Incision is clean and intact. No erythema, edema, or skin necrosis. Clean dressings applied. Patient tolerated dressing change well. Objective Data Active Medications Dextrose (Dextrose 50 % 25 Gm/50 Ml Syringe) 25 gm IVPUSH Q15M PRN; Protocol PRN Reason: per Hypoglycemia Standing Ord. Fentanyl (Fentanyl Citrate/Pf 100 Mcg/2 Ml Vial) 50 mcg IVPUSH Q5M PRN; Protocol PRN Reason: Pain, Severe (Pain Scale 7-10) Last Admin: 11/06/22 20:15 Dose: 50 mcg Documented By: MARLI Glucose (Glucose Gel 15 Gm Gel..Gram.) 15 gm PO Q15M PRN; Protocol PRN Reason: per Hypoglycemia Standing Ord. Piperacillin Sod/Tazobactam (Sod 3.375 gm/ Sodium Chloride) 50 mls @ 100 mls/hr IV Q6H [facility] Last Infusion: 11/08/22 04:20 Dose: 0 mls/hr Documented By: ELGIN Clindamycin Phosphate (Cleocin) 900 mg in 50 mls @ 50 mls/hr IV Q8H [facility] Last Infusion: 11/08/22 02:14 Dose: 0 mls/hr Documented By: ELGIN Lactated Ringer's (Lr) 1,000 mls @ 125 mls/hr IVCONT .Q8H [facility] Last Admin: 11/08/22 01:11 Dose: 125 mls/hr Documented By: ELGIN Vancomycin HCl 500 mg/ Sodium (Chloride) 110 mls @ 110 mls/hr IV Q24H [facility] Insulin Human Lispro (Insulin Lispro 100 Unit/Ml 3 Ml Vial) 0 unit SUBCUT QIDACHS [facility]; Protocol Last Admin: 11/07/22 21:47 Dose: Not Given Documented By: ELGIN Non-Admin Reason: No Insulin Coverage Morphine Sulfate (Morphine Sulfate 4 Mg/Ml Cartridge) 4 mg IVPUSH Q4H PRN; Protocol PRN Reason: Pain, Severe (Pain Scale 7-10) Last Admin: 11/07/22 14:21 Dose: 4 mg Documented By: DENIS Multivitamins/Vitamin C (Multivitamin Tablet) 1 tab PO DAILY [facility] Last Admin: 11/07/22 09:10 Dose: 1 tab Documented By: DENIS Ondansetron HCl (Ondansetron Hcl 4 Mg/2 Ml Vial) 4 mg IVPUSH Q8H PRN PRN Reason: Nausea and Vomiting Oxycodone HCl (Oxycodone Hcl Immed Release 5 Mg Tablet) 5 mg PO Q4H PRN PRN Reason: Pain, Moderate (Pain Scale 4-6 Oxycodone HCl (Oxycodone Hcl Immed Release 5 Mg Tablet) 10 mg PO Q4H PRN PRN Reason: Pain, Severe (Pain Scale 7-10) Last Admin: 11/07/22 11:15 Dose: 10 mg Documented By: DENIS Pharmacy Consult (Consult Rx Perform Med Rec) 1 each MISCELLANE ONCE PRN PRN Reason: Consult order Pharmacy Consult (Consult Rx Vancomycin Dosing) 1 each MISCELLANE DAILY PRN PRN Reason: Consult order Sodium Chloride (0.9 % Sodium Chloride Flush 3 Ml Syringe) 3 ml IVFLUSH QSHIFT [facility] Last Admin: 11/07/22 21:48 Dose: 3 ml Documented By: ELGIN Labs CBC & Chem 7: 11/08/22 05:12 11/08/22 05:12 Labs: Laboratory Results - last 24 hr 11/07/22 11/07/22 11/07/22 07:42 07:42 08:22 MCV 80.0 MCH 26.4 L MCHC 33.0 RDW 12.9 Plt Count 295 MPV 9.8 Immature Gran % (Auto) 0.8 H Neut % (Auto) 80.1 H Lymph % (Auto) 7.1 L Dukes % (Auto) 11.4 H Eos % (Auto) 0.4 Baso % (Auto) 0.2 Lymph # (Auto) 1.0 L Dukes # (Auto) 1.5 H Eos # (Auto) 0.1 Baso # (Auto) 0.0 Abs Immat Gran (auto) 0.11 H Absolute Neuts (auto) 10.7 H Absolute Nucleated RBC 0.000 Nucleated RBC % (auto) 0.0 Smear Tech's Comments VERIFIED Anion Gap 14 Estim Creat Clear Calc 49.4 Estimated GFR 31 POC Glucose 141 H Random Glucose 148 H Calcium 7.4 L D C-Reactive Protein Vancomycin Trough Random Vancomycin 11/07/22 11/07/22 11/07/22 12:22 15:04 15:37 MCV MCH MCHC RDW Plt Count MPV Immature Gran % (Auto) Neut % (Auto) Lymph % (Auto) Dukes % (Auto) Eos % (Auto) Baso % (Auto) Lymph # (Auto) Dukes # (Auto) Eos # (Auto) Baso # (Auto) Abs Immat Gran (auto) Absolute Neuts (auto) Absolute Nucleated RBC Nucleated RBC % (auto) Smear Tech's Comments Anion Gap Estim Creat Clear Calc Estimated GFR POC Glucose 179 H 170 H Random Glucose Calcium C-Reactive Protein Vancomycin Trough Random Vancomycin 19.2 11/07/22 11/07/22 11/08/22 20:23 21:15 05:12 MCV 81.0 MCH 26.4 L MCHC 32.6 RDW 12.9 Plt Count 312 MPV 10.4 Immature Gran % (Auto) Neut % (Auto) Lymph % (Auto) Dukes % (Auto) Eos % (Auto) Baso % (Auto) Lymph # (Auto) Dukes # (Auto) Eos # (Auto) Baso # (Auto) Abs Immat Gran (auto) Absolute Neuts (auto) Absolute Nucleated RBC 0.000 Nucleated RBC % (auto) 0.0 Smear Tech's Comments Anion Gap Estim Creat Clear Calc Estimated GFR POC Glucose 146 H Random Glucose Calcium C-Reactive Protein Vancomycin Trough Random Vancomycin 17.1 11/08/22 11/08/22 11/08/22 05:12 05:12 07:08 MCV MCH MCHC RDW Plt Count MPV Immature Gran % (Auto) Neut % (Auto) Lymph % (Auto) Dukes % (Auto) Eos % (Auto) Baso % (Auto) Lymph # (Auto) Dukes # (Auto) Eos # (Auto) Baso # (Auto) Abs Immat Gran (auto) Absolute Neuts (auto) Absolute Nucleated RBC Nucleated RBC % (auto) Smear Tech's Comments Anion Gap 15 Estim Creat Clear Calc 26.0 Estimated GFR 15 POC Glucose 142 H Random Glucose 143 H Calcium 7.4 L C-Reactive Protein 18.59 H Vancomycin Trough 14.8 Random Vancomycin Microbiology Microbiology Results: Microbiology 11/06/22 14:54 Blood Culture - Preliminary Blood - Venous No growth after 24 hours. 11/06/22 14:54 Blood Culture - Preliminary Blood - Venous Prelim: GPC Gram Stain only 11/06/22 18:37 Gram Stain - Final Foot Right Routine Culture - Preliminary Culture in progress. Procedures Date of Service Date of Service: 11/08/22 Progress Note: A&P Assessment and plan (1) Sepsis: Status: Acute Assessment and Plan: GPC in 1/2 blood cultures. Wound gram stain: 4+ GPC, 4+ GNR and 3+ GPR. Culture pending. Currently on Zosyn, Vanco and clinda. WBC 12.5 (2) Necrotizing fasciitis of ankle and foot: Status: Acute Assessment and Plan: s/p right BKA. Wounds clean without evidence of ongoing skin necrosis/abscess. Continue PT today. Anticipate d/c to home or STR. (3) Type 2 diabetes mellitus: Status: Acute Assessment and Plan: POC 142; BUN/Cr. 39/4.43* from 302.33. Time Spent With Patient Time: Total time spent is greater than 50% in coordination of care (as documented) at patient's floor/unit and/or counseling patient: Quality Stroke Does the patient have a stroke diagnosis?: No VTE Prior VTE?: No VTE Risk Level:: Medical - moderate - high VTE Device Contraindication: N/A - Device Ordered VTE Drug Contraindication: N/A - Med Ordered
[2022-11-08 07:41] VITALS: BP 131/75; PULSE 81; RESP 17; TEMP 36.7; O2SAT 95
--- NOTE | 2022-11-08 08:41 | CA_ITS ---
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 Low normal LV systolic function with LVEF of 50-55% 2. Vegetations cannot be definitively ruled out on this study 3. Normal cardiac valvular Doppler 4. No gross pericardial effusion Findings Procedure Information Contrast agent, definity, is being given per protocol without apparent complications. Left Ventricle Normal left ventricular cavity size. There is normal left ventricular wall thickness. The left ventricular systolic function is low normal. The visually estimated ejection fraction is between 50-55%. Diastolic function is normal for age. Right Ventricle Normal right ventricular cavity size and systolic function. Atria The left atrium is normal in size. Interatrial shunt cannot be excluded. The right atrium is normal in size. Aortic Valve The aortic valve structure and function is likely normal. There is no aortic valve stenosis. There is no aortic valve regurgitation. Mitral Valve There is mild anterior and posterior mitral leaflet thickening. There is trace mitral valve regurgitation. There is no mitral valve stenosis. Pulmonic Valve The pulmonic valve was not well visualized. Tricuspid Valve Likely normal tricuspid valve structure and function. Tricuspid regurgitation envelope is inadequate for calculation of right ventricular systolic pressure. Normal right atrial pressure. Great Vessels All visible segments of the aorta are normal in size. The pulmonary artery was not well visualized. Venous The inferior vena cava is normal in size and collapses greater than 50% with inspiration. Pericardium/Pleural There is no evidence of pericardial effusion. Prior Study Comparison No prior study available for comparison. Recommendations, Care & Conclusions Consider a MACHO if clinically appropriate. Measurements 2D Linear Measurements IVSd: 1.15 0.6-0.9/0.6-1.0 cm LVIDd: 5.15 3.9-5.3/4.2-5.9 cm LVIDd Index: 2.34 2.4-3.2/2.2-3.1 cm/m2 LVIDs: 3.55 2.0-3.6 cm LVPWd: 0.84 0.7-1.1 cm LA Diam: 3.80 2.7-3.8/3.0-4.0 cm LAIDs Index: 1.73 1.5-2.3 cm/m2 LV Mass: 236.34 67-162/88-224 g LV Mass Index: 107.43 43-95/49-115 g/m2 LVOT Diam: 2.20 3.0+(-)1.3 cm 2D Systolic Function EF 4C: 47.60 >55% EF 2C: 51.50 >55% EF BiP: 49.90 >55% Mitral Valve MV Pk E: 0.72 MV PK A: 0.51 MV Decel Time: 163.00 E/A: 1.40 E'Lateral: 10.20 E'Medial: 8.81 E/E' Med: 8.20 E/E' Lat: 7.10 PHT: 48.00 MVA PHT: 4.58 Decel [place]: 4.42 Aortic Valve AoV Pk Kevin: 1.36 AoV Mn Kevin: 0.92 AoV VTI: 0.23 AoV Pk Grad: 7.00 Aov Mn Grad: 4.00 ABHISHEK Cont.VTI: 2.65 LVOT LVOT Pk Kevin: 0.99 LVOT Mn Kevin: 0.65 LVOT VTI: 0.16 LVOT Pk Grad: 4.00 LVOT Mn Grad: 2.00 LVOT Diam: 2.20 LVOT Area: 3.80 Diastolic Function MV Pk E: 0.72 MV Pk A: 0.51 E/A: 1.40 E'Medial: 8.81 E/E' Med: 8.20 E' Laterial: 10.20 E/E' Lat: 7.10 Right Ventricle TAPSE (mm): 29.30 TVS' Kevin: 12.20 Tricuspid Valve RA Press: 3.00 Great Vessels Aorta Sinus of Valsalva: 3.18 2.0-3.[address] [place]: 2.67 1.7-3.4 cm Ao Asc: 3.20 2.1-3.4 cm Updated in Other Vendor System with Status of Final Jaydon Barton MD electronically signed on 11/08/2022 4:20:30 PM with status of Final
[2022-11-08] MEDS: 0.9 % Sodium Chloride Flush 3 ML SYRINGE IVFLUSH ×3 (11:00→19:25)
[2022-11-08] MEDS: Multivitamin TABLET 1 TAB PO (11:01)
--- NOTE | 2022-11-08 11:13 | PM.CNNEP ---
History of Present Illness Reason for Consult Consult date: 11/08/22 Chief Complaint Chief complaint: Diabetic foot wound PMFSH Past Medical History Medical History H/O nephrolithotomy with removal of calculi HTN (hypertension) Retinopathy Type 2 diabetes mellitus Family History Family History Father HTN (hypertension) Mother Arthritis Family history: reviewed and not pertinent Surgical History Surgical History History of hernia repair Social History Social History Household Members: None Housing: House Do you presently have visiting nurse or other home services: No Alcohol intake: never Patient Tobacco Use Status: Never used Tobacco Use of substances other than those prescribed or required for medical reasons: No Currently Displaying Signs/Symptoms of Drug Intoxication Withdrawal: No Have you been hit, kicked, punched, or otherwise hurt by someone within the past year? If so, by whom?: No Do you feel safe in your current relationship?: No Current Relationship Is there a partner from a previous relationship who is making you feel unsafe now?: No Are you made to feel afraid or neglected: No [facility] Practices: quaker Advance Directives: No Advance Directives Information Provided: No Do you have thoughts of harming others: None Do you have a plan to hurt others: No Plan Recently lost weight without trying: No Nutrition Risks: No Nutritional Risk Poor oral hygiene: No service: No Current occupational status: employed Meds Allergies Allergy/AdvReac Type Severity Reaction Status Date / Time acetaminophen [Tylenol] Allergy Unknown face Verified 03/10/20 00:00 swelling aspirin Allergy Unknown anaphylaxis, Verified 11/07/22 14:22 edema Active Medications: Current Medications Dextrose (Dextrose 50 % 25 Gm/50 Ml Syringe) 25 gm IVPUSH Q15M PRN; Protocol PRN Reason: per Hypoglycemia Standing Ord. Fentanyl (Fentanyl Citrate/Pf 100 Mcg/2 Ml Vial) 50 mcg IVPUSH Q5M PRN; Protocol PRN Reason: Pain, Severe (Pain Scale 7-10) Last Admin: 11/06/22 20:15 Dose: 50 mcg Glucose (Glucose Gel 15 Gm Gel..Gram.) 15 gm PO Q15M PRN; Protocol PRN Reason: per Hypoglycemia Standing Ord. Piperacillin Sod/Tazobactam (Sod 3.375 gm/ Sodium Chloride) 50 mls @ 100 mls/hr IV Q6H [facility] Last Admin: 11/08/22 11:01 Dose: 100 mls/hr Clindamycin Phosphate (Cleocin) 900 mg in 50 mls @ 50 mls/hr IV Q8H [facility] Last Admin: 11/08/22 10:59 Dose: 50 mls/hr Lactated Ringer's (Lr) 1,000 mls @ 125 mls/hr IVCONT .Q8H [facility] Last Infusion: 11/08/22 11:00 Dose: Infused Linezolid (Zyvox/D5w) 600 mg in 300 mls @ 300 mls/hr IV Q12H [facility] Insulin Human Lispro (Insulin Lispro 100 Unit/Ml 3 Ml Vial) 0 unit SUBCUT QIDACHS [facility]; Protocol Last Admin: 11/07/22 21:47 Dose: Not Given Morphine Sulfate (Morphine Sulfate 4 Mg/Ml Cartridge) 4 mg IVPUSH Q4H PRN; Protocol PRN Reason: Pain, Severe (Pain Scale 7-10) Last Admin: 11/07/22 14:21 Dose: 4 mg Multivitamins/Vitamin C (Multivitamin Tablet) 1 tab PO DAILY [facility] Last Admin: 11/08/22 11:01 Dose: 1 tab Ondansetron HCl (Ondansetron Hcl 4 Mg/2 Ml Vial) 4 mg IVPUSH Q8H PRN PRN Reason: Nausea and Vomiting Oxycodone HCl (Oxycodone Hcl Immed Release 5 Mg Tablet) 5 mg PO Q4H PRN PRN Reason: Pain, Moderate (Pain Scale 4-6 Oxycodone HCl (Oxycodone Hcl Immed Release 5 Mg Tablet) 10 mg PO Q4H PRN PRN Reason: Pain, Severe (Pain Scale 7-10) Last Admin: 11/07/22 11:15 Dose: 10 mg Pharmacy Consult (Consult Rx Perform Med Rec) 1 each MISCELLANE ONCE PRN PRN Reason: Consult order Sodium Chloride (0.9 % Sodium Chloride Flush 3 Ml Syringe) 3 ml IVFLUSH QSHIFT [facility] Last Admin: 11/08/22 11:00 Dose: 3 ml Home Medications Medication Instructions Recorded Confirmed Last Taken Type blood sugar diagnostic (FreeStyle #10 ea 09/06/20 09/06/20 Unknown History Lite Strips) blood-glucose meter (FreeStyle #1 ea 09/06/20 09/06/20 Unknown History Lite Meter kit) multivitamin 1 tab PO DAILY 11/06/22 11/06/22 Unknown History Physical Exam Vital Signs: Last Vital Signs Temp 98.1 F 11/08/22 07:41 Pulse 81 11/08/22 07:41 Resp 17 11/08/22 07:41 BP 131/75 11/08/22 07:41 Pulse Ox 95 11/08/22 07:41 O2 Del Method 11/08/22 07:41 O2 Flow Rate 2 11/07/22 00:00 BMI result Body Mass Index 29.1 Results Lab Results Result Diagrams: 11/10/22 06:17 11/12/22 05:33 Lab results: Chemistry 11/06/22 11/07/22 11/08/22 14:54 07:42 05:12 Sodium 133 L 133 L 137 Potassium 3.8 3.9 4.3 Carbon Dioxide 23 20 L 20 L BUN 19 H 30 H 39 H Creatinine 1.04 2.33 H 4.43 H* Calcium 8.7 7.4 L D 7.4 L Hematology 11/06/22 11/07/22 11/08/22 14:54 07:42 05:12 WBC 21.6 H 13.3 H 12.5 H Hgb 14.3 11.5 L 10.6 L Plt Count 387 295 312 Assessment and Plan (1) BARB (acute kidney injury): Status: Acute Plan DDX : ATN/Tubular injury from Vanco vs sepsis r/o Obstruction AGN/AIn are also possible- Work up ordered Full consult dictated Procedures Date of Service Date of Service: 11/08/22
[2022-11-08 11:35] LABS: Glucose, Whole Blood 196 mg/dL (60-115)
[2022-11-08 12:00] VITALS: BP 128/74; PULSE 82; RESP 16; TEMP 36.6; O2SAT 95
[2022-11-08] MEDS: Insulin Lispro 100 UNIT/ML 3 ML VIAL SUBCUT ×3 (12:07→21:36)
[2022-11-08] MEDS: Linezolid/D5W 600 MG/300 ML PIGGYBACK 300 MG IV ×2 (12:18→23:12)
--- NOTE | 2022-11-08 15:37 | HO.PM.IMPN ---
Subjective Subjective Date of Service: 11/08/22 Interval History: pain better controlled however, renal function worse afebrile Review of Systems Review of Systems: Yes all other systems are reviewed and are negative Physical Exam Vital Signs: Vital Signs: Last Vital Signs Temp 97.9 F 11/08/22 12:00 Pulse 82 11/08/22 12:00 Resp 16 11/08/22 12:00 BP 128/74 11/08/22 12:00 Pulse Ox 95 11/08/22 12:00 O2 Del Method 11/08/22 12:00 O2 Flow Rate 2 11/07/22 00:00 BMI result Body Mass Index 29.1 Gen: NAD HEENT: sclera anicteric, moist mucus membranes Neck: supple Lungs: clear to auscultation bilaterally Heart: regular, tachycardic, no murmurs Abd: soft, non-tender, non-distended Ext: no edema, R BKA with dressing in place Skin: warm/well-perfused Neuro: alert and oriented x3, no focal findings Psych: appropriate affect Objective Data Active Medications Dextrose (Dextrose 50 % 25 Gm/50 Ml Syringe) 25 gm IVPUSH Q15M PRN; Protocol PRN Reason: per Hypoglycemia Standing Ord. Fentanyl (Fentanyl Citrate/Pf 100 Mcg/2 Ml Vial) 50 mcg IVPUSH Q5M PRN; Protocol PRN Reason: Pain, Severe (Pain Scale 7-10) Last Admin: 11/06/22 20:15 Dose: 50 mcg Documented By: MARLI Glucose (Glucose Gel 15 Gm Gel..Gram.) 15 gm PO Q15M PRN; Protocol PRN Reason: per Hypoglycemia Standing Ord. Piperacillin Sod/Tazobactam (Sod 3.375 gm/ Sodium Chloride) 50 mls @ 100 mls/hr IV Q6H [facility] Last Infusion: 11/08/22 12:00 Dose: 0 mls/hr Documented By: DENIS Clindamycin Phosphate (Cleocin) 900 mg in 50 mls @ 50 mls/hr IV Q8H [facility] Last Infusion: 11/08/22 12:00 Dose: 0 mls/hr Documented By: DENIS Lactated Ringer's (Lr) 1,000 mls @ 125 mls/hr IVCONT .Q8H [facility] Last Admin: 11/08/22 12:18 Dose: 125 mls/hr Documented By: ORA Linezolid (Zyvox/D5w) 600 mg in 300 mls @ 300 mls/hr IV Q12H [facility] Last Infusion: 11/08/22 13:21 Dose: 0 mls/hr Documented By: DENIS Insulin Human Lispro (Insulin Lispro 100 Unit/Ml 3 Ml Vial) 0 unit SUBCUT QIDACHS [facility]; Protocol Last Admin: 11/08/22 12:07 Dose: 2 unit Documented By: ORA Morphine Sulfate (Morphine Sulfate 4 Mg/Ml Cartridge) 4 mg IVPUSH Q4H PRN; Protocol PRN Reason: Pain, Severe (Pain Scale 7-10) Last Admin: 11/07/22 14:21 Dose: 4 mg Documented By: DENIS Multivitamins/Vitamin C (Multivitamin Tablet) 1 tab PO DAILY [facility] Last Admin: 11/08/22 11:01 Dose: 1 tab Documented By: ORA Ondansetron HCl (Ondansetron Hcl 4 Mg/2 Ml Vial) 4 mg IVPUSH Q8H PRN PRN Reason: Nausea and Vomiting Oxycodone HCl (Oxycodone Hcl Immed Release 5 Mg Tablet) 5 mg PO Q4H PRN PRN Reason: Pain, Moderate (Pain Scale 4-6 Oxycodone HCl (Oxycodone Hcl Immed Release 5 Mg Tablet) 10 mg PO Q4H PRN PRN Reason: Pain, Severe (Pain Scale 7-10) Last Admin: 11/07/22 11:15 Dose: 10 mg Documented By: DENIS Pharmacy Consult (Consult Rx Perform Med Rec) 1 each MISCELLANE ONCE PRN PRN Reason: Consult order Sodium Chloride (0.9 % Sodium Chloride Flush 3 Ml Syringe) 3 ml IVFLUSH QSHIFT [facility] Last Admin: 11/08/22 11:00 Dose: 3 ml Documented By: ORA Labs CBC & Chem 7: 11/08/22 05:12 11/08/22 05:12 Labs: Laboratory Results - last 24 hr 11/07/22 11/07/22 11/07/22 15:37 20:23 21:15 MCV MCH MCHC RDW Plt Count MPV Absolute Nucleated RBC Nucleated RBC % (auto) Anion Gap Estim Creat Clear Calc Estimated GFR POC Glucose 170 H 146 H Random Glucose Calcium C-Reactive Protein Vancomycin Trough Random Vancomycin 17.1 11/08/22 11/08/22 11/08/22 05:12 05:12 05:12 MCV 81.0 MCH 26.4 L MCHC 32.6 RDW 12.9 Plt Count 312 MPV 10.4 Absolute Nucleated RBC 0.000 Nucleated RBC % (auto) 0.0 Anion Gap 15 Estim Creat Clear Calc 26.0 Estimated GFR 15 POC Glucose Random Glucose 143 H Calcium 7.4 L C-Reactive Protein 18.59 H Vancomycin Trough 14.8 Random Vancomycin 11/08/22 11/08/22 07:08 11:22 MCV MCH MCHC RDW Plt Count MPV Absolute Nucleated RBC Nucleated RBC % (auto) Anion Gap Estim Creat Clear Calc Estimated GFR POC Glucose 142 H 196 H Random Glucose Calcium C-Reactive Protein Vancomycin Trough Random Vancomycin Microbiology Microbiology Results: Microbiology 11/06/22 14:54 Blood Culture - Final Blood - Venous Coag negative Staphylococcus 11/06/22 18:37 Gram Stain - Final Foot Right Routine Culture - Preliminary Gram negative zan Strep agalactiae (Grp B) 11/06/22 14:54 Blood Culture - Preliminary Blood - Venous No growth after 24 hours. Assessment and Plan (1) Necrotizing fasciitis of ankle and foot: Status: Acute (2) Sepsis: Status: Acute Plan d#3 41yo M with poorly controlled DM2 admitted for sepsis from necrotizing fasciitis # necrotizing fasciitis - POD#2 BKA. vancomycin->linezolid/clindamycin/piperacillin-tazobactam d#3. BCx contaminant- coag-neg Staph. Wound Cx: GNR + GBS. ID consulted # BARB - suspect tubular injury from vancomycin. Nephrology consulted. also r/o obstruction. urine studies ordered. avoid nephrotoxins; d/c vancomycin and change to linezolid. - prerenal. aggressive IV fluid resuscitation. avoid nephrotoxins. recheck BMP in AM # DM2, A1c 9.4 - correction-dose lispro; hold OHGs # VTE prophylaxis: SCDs In my clinical judgment, the patient requires continued inpatient hospitalization for the following reasons: IV ABX, postop care, BARB Quality Stroke Does the patient have a stroke diagnosis?: No VTE Prior VTE?: No VTE Risk Level:: Medical - moderate - high VTE Device Contraindication: N/A - Device Ordered VTE Drug Contraindication: N/A - Med Ordered
[2022-11-08 15:55] VITALS: BP 133/85; PULSE 86; RESP 18; TEMP 37.1; O2SAT 96
[2022-11-08 15:58] LABS: Appearance Urine Clear; Color Urine Yellow; Glucose Urine UA Negative (Negative); Leukocyte Esterase Urine Negative (Negative); Nitrite Urine Negative (Negative); PH 5.5 (5.0-9.0); Specific Gravity - Urine <= 1.005 (1.005-1.025); Urine Blood Negative (Negative); Urine Ketones Negative (Negative); Urine Protein Trace mg/dL (Neg-Trace)
[2022-11-08 16:00] LABS: Bacteria Urine None Seen (None Seen); Hyaline Casts Urine 0-2 /LPF (0-2); RBC Urine 0-2 /HPF (0-2); Squamous Epithelial Cell Urine 0-2 /HPF (0-2); WBC Urine 0-5 /HPF (0-5)
[2022-11-08 16:25] LABS: Glucose, Whole Blood 226 mg/dL (60-115)
[2022-11-08 16:39] LABS: Creatinine Urine 34.12 mg/dL; Total Protein Urine Random 11 mg/dL (<12)
[2022-11-08 19:29] VITALS: BP 121/81; PULSE 85; RESP 18; TEMP 36.8; O2SAT 96
[2022-11-08 20:03] LABS: Glucose, Whole Blood 235 mg/dL (60-115)
[2022-11-09] VITALS (7 sets, daily range): BP systolic 128–154; BP diastolic 68–94; PULSE 75–89; RESP 16–19; TEMP 36.3–36.8; O2SAT 95–98
[2022-11-09] MEDS: Clindamycin Phosphate/D5W 900 MG/50 ML PIGGYBACK 50 MG IV ×3 (02:29→16:57)
[2022-11-09] MEDS: Lactated Ringers 1,000 ML 125 ML IVCONT ×3 (02:29→16:57)
[2022-11-09] MEDS: Piperacillin Sodium/Tazobactam 3.375 GM in 0.9 % Sodium Chloride 50 ML IV ×4 (03:32→21:20)
[2022-11-09 06:32] LABS: Lactate Dehydrogenase 230 U/L (118-273)
[2022-11-09 08:09] LABS: Glucose, Whole Blood 159 mg/dL (60-115)
[2022-11-09 08:24] LABS: EOS Counted 1 CELLS; EOS QC POS YES; EOS Stain Quality OK YES; WBC, Counted 100 CELLS
[2022-11-09] MEDS: Multivitamin TABLET 1 TAB PO (08:41)
[2022-11-09] MEDS: Insulin Lispro 100 UNIT/ML 3 ML VIAL SUBCUT ×4 (08:41→20:16)
[2022-11-09 09:00] LABS: Anion Gap 14 (12-20); Blood Urea Nitrogen 47 mg/dL (9-16); Calcium 7.5 mg/dL (8.4-10.2); Carbon Dioxide 20 mmol/L (22-29); Chloride 106 mmol/L (96-108); Creatinine Clr Calc Pharmacy 21.6; Estimated Glomerular Filt Rate 12; Glucose Random 159 mg/dL (60-115); Potassium 4.3 mmol/L (3.3-5.1); Sodium 136 mmol/L (135-145)
--- NOTE | 2022-11-09 09:31 | P.PNGS_ITS ---
Subjective Subjective Date of Service: 11/09/22 Interval history: Denies pain. Continues to participate and do well with PT. No other complaints. Physical Exam Vital Signs: Vital Signs: Last Vital Signs Temp 98.3 F 11/09/22 07:49 Pulse 89 11/09/22 07:49 Resp 18 11/09/22 07:49 BP 138/68 11/09/22 07:49 Pulse Ox 95 11/09/22 07:49 O2 Del Method 11/09/22 07:49 O2 Flow Rate 2 11/07/22 00:00 BMI result Body Mass Index 29.1 Const: General: comfortable, no acute distress and alert Orientation/consciousness: patient oriented x3 Resp: Effort & Inspection: normal respiratory effort Skin: General skin exam: no rashes or lesions noted Neuro: General: patient oriented x3 Extrem: Other: right BKA site- dressing changed by Dr. Gallagher- incision remains well approximated and clean appearing. ~1.5cm darkened area on posterior side of site medially Objective Data Active Medications Dextrose (Dextrose 50 % 25 Gm/50 Ml Syringe) 25 gm IVPUSH Q15M PRN; Protocol PRN Reason: per Hypoglycemia Standing Ord. Fentanyl (Fentanyl Citrate/Pf 100 Mcg/2 Ml Vial) 50 mcg IVPUSH Q5M PRN; Protocol PRN Reason: Pain, Severe (Pain Scale 7-10) Last Admin: 11/06/22 20:15 Dose: 50 mcg Documented By: MARLI Glucose (Glucose Gel 15 Gm Gel..Gram.) 15 gm PO Q15M PRN; Protocol PRN Reason: per Hypoglycemia Standing Ord. Piperacillin Sod/Tazobactam (Sod 3.375 gm/ Sodium Chloride) 50 mls @ 100 mls/hr IV Q6H [facility] Last Infusion: 11/09/22 04:09 Dose: 0 mls/hr Documented By: ELGIN Clindamycin Phosphate (Cleocin) 900 mg in 50 mls @ 50 mls/hr IV Q8H [facility] Last Admin: 11/09/22 08:42 Dose: 50 mls/hr Documented By: DENIS Lactated Ringer's (Lr) 1,000 mls @ 125 mls/hr IVCONT .Q8H [facility] Last Admin: 11/09/22 02:29 Dose: 125 mls/hr Documented By: ELGIN Linezolid (Zyvox/D5w) 600 mg in 300 mls @ 300 mls/hr IV Q12H [facility] Last Infusion: 11/09/22 00:30 Dose: 0 mls/hr Documented By: ELGIN Insulin Human Lispro (Insulin Lispro 100 Unit/Ml 3 Ml Vial) 0 unit SUBCUT QIDACHS [facility]; Protocol Last Admin: 11/09/22 08:41 Dose: 2 unit Documented By: DENIS Morphine Sulfate (Morphine Sulfate 4 Mg/Ml Cartridge) 4 mg IVPUSH Q4H PRN; Protocol PRN Reason: Pain, Severe (Pain Scale 7-10) Last Admin: 11/07/22 14:21 Dose: 4 mg Documented By: DENIS Multivitamins/Vitamin C (Multivitamin Tablet) 1 tab PO DAILY [facility] Last Admin: 11/09/22 08:41 Dose: 1 tab Documented By: DENIS Ondansetron HCl (Ondansetron Hcl 4 Mg/2 Ml Vial) 4 mg IVPUSH Q8H PRN PRN Reason: Nausea and Vomiting Oxycodone HCl (Oxycodone Hcl Immed Release 5 Mg Tablet) 5 mg PO Q4H PRN PRN Reason: Pain, Moderate (Pain Scale 4-6 Oxycodone HCl (Oxycodone Hcl Immed Release 5 Mg Tablet) 10 mg PO Q4H PRN PRN Reason: Pain, Severe (Pain Scale 7-10) Last Admin: 11/07/22 11:15 Dose: 10 mg Documented By: DENIS Pharmacy Consult (Consult Rx Perform Med Rec) 1 each MISCELLANE ONCE PRN PRN Reason: Consult order Sodium Chloride (0.9 % Sodium Chloride Flush 3 Ml Syringe) 3 ml IVFLUSH QSHIFT [facility] Last Admin: 11/09/22 08:42 Dose: Not Given Documented By: DENIS Non-Admin Reason: IV Running Labs CBC & Chem 7: 11/10/22 06:17 11/14/22 08:43 Labs: Laboratory Results - last 24 hr 11/08/22 11/08/22 11/08/22 11:22 15:13 15:13 Anion Gap Estim Creat Clear Calc Estimated GFR POC Glucose 196 H Random Glucose Calcium Lactate Dehydrogenase Urine Color Yellow Cancelled Urine Appearance Clear Cancelled Urine pH 5.5 Cancelled Ur Specific [place] <= 1.005 Cancelled Urine Protein Trace Cancelled Urine Glucose (UA) Negative Cancelled Urine Ketones Negative Cancelled Urine Blood Negative Cancelled Urine Nitrite Negative Cancelled Ur Leukocyte Esterase Negative Cancelled Urine RBC 0-2 Urine WBC 0-5 Ur Squamous Epith Cells 0-2 Urine Bacteria None Seen Hyaline Casts 0-2 Urine Eosinophils % 1.0 U Random Total Protein Ur Random Sodium Urine Creatinine 11/08/22 11/08/22 11/08/22 15:13 16:06 19:39 Anion Gap Estim Creat Clear Calc Estimated GFR POC Glucose 226 H 235 H Random Glucose Calcium Lactate Dehydrogenase Urine Color Urine Appearance Urine pH Ur Specific [place] Urine Protein Urine Glucose (UA) Urine Ketones Urine Blood Urine Nitrite Ur Leukocyte Esterase Urine RBC Urine WBC Ur Squamous Epith Cells Urine Bacteria Hyaline Casts Urine Eosinophils % U Random Total Protein 11 Ur Random Sodium 31.0 Urine Creatinine 34.12 11/09/22 11/09/22 05:27 07:53 Anion Gap 14 Estim Creat Clear Calc 21.6 Estimated GFR 12 POC Glucose 159 H Random Glucose 159 H Calcium 7.5 L Lactate Dehydrogenase 230 Urine Color Urine Appearance Urine pH Ur Specific [place] Urine Protein Urine Glucose (UA) Urine Ketones Urine Blood Urine Nitrite Ur Leukocyte Esterase Urine RBC Urine WBC Ur Squamous Epith Cells Urine Bacteria Hyaline Casts Urine Eosinophils % U Random Total Protein Ur Random Sodium Urine Creatinine Microbiology Microbiology Results: Microbiology 11/06/22 18:37 Gram Stain - Final Foot Right Routine Culture - Final Escherichia coli Strep agalactiae (Grp B) 11/06/22 14:54 Blood Culture - Preliminary Blood - Venous No growth after 48 hours. 11/06/22 14:54 Blood Culture - Final Blood - Venous Coag negative Staphylococcus Procedures Date of Service Date of Service: 11/09/22 Progress Note: A&P Assessment and plan (1) BARB (acute kidney injury): Status: Acute (2) Necrotizing fasciitis of ankle and foot: Status: Acute (3) Type 2 diabetes mellitus: Status: Acute Plan Admitted for necrotizing fasciitis of right ankle and foot. POD #3 s/p right BKA. Wounds clean appearing however one area on posterior aspect is darkened and will need to be monitored. Wound cultures growing Escherichia coli and Strep agalactiae (Grp B). On zosyn, clindamycin and linezolid. ID following. Continue PT. PT continues to recommend d/c to STR when medically cleared. BARB worsening on labs today, renal following. Time Spent With Patient Time: Total time spent is greater than 50% in coordination of care (as documented) at patient's floor/unit and/or counseling patient: Quality Stroke Does the patient have a stroke diagnosis?: No VTE Prior VTE?: No VTE Risk Level:: Medical - moderate - high VTE Device Contraindication: N/A - Device Ordered VTE Drug Contraindication: N/A - Med Ordered
[2022-11-09] MEDS: oxyCODONE HCl Immed Release 5 MG TABLET PO (10:25)
[2022-11-09] MEDS: Linezolid/D5W 600 MG/300 ML PIGGYBACK 300 MG IV ×2 (11:11→22:25)
[2022-11-09 11:21] LABS: Glucose, Whole Blood 222 mg/dL (60-115)
--- NOTE | 2022-11-09 11:33 | P.PNIM_ITS ---
Subjective Subjective Date of Service: 11/09/22 Interval History: pain controlled SCr worsening no fever Review of Systems Review of Systems: Yes all other systems are reviewed and are negative Physical Exam Vital Signs: Vital Signs: Last Vital Signs Temp 97.3 F 11/09/22 11:06 Pulse 79 11/09/22 11:06 Resp 17 11/09/22 11:06 BP 132/80 11/09/22 11:06 Pulse Ox 95 11/09/22 11:06 O2 Del Method 11/09/22 11:06 O2 Flow Rate 2 11/07/22 00:00 BMI result Body Mass Index 29.1 Gen: NAD HEENT: sclera anicteric, moist mucus membranes Neck: supple Lungs: clear to auscultation bilaterally Heart: regular, tachycardic, no murmurs Abd: soft, non-tender, non-distended Ext: no edema, R BKA with dressing in place Skin: warm/well-perfused Neuro: alert and oriented x3, no focal findings Psych: appropriate affect Objective Data Active Medications Dextrose (Dextrose 50 % 25 Gm/50 Ml Syringe) 25 gm IVPUSH Q15M PRN; Protocol PRN Reason: per Hypoglycemia Standing Ord. Glucose (Glucose Gel 15 Gm Gel..Gram.) 15 gm PO Q15M PRN; Protocol PRN Reason: per Hypoglycemia Standing Ord. Piperacillin Sod/Tazobactam (Sod 3.375 gm/ Sodium Chloride) 50 mls @ 100 mls/hr IV Q6H [facility] Last Infusion: 11/09/22 10:58 Dose: 0 mls/hr Documented By: DENIS Clindamycin Phosphate (Cleocin) 900 mg in 50 mls @ 50 mls/hr IV Q8H [facility] Last Infusion: 11/09/22 10:10 Dose: 0 mls/hr Documented By: DENIS Lactated Ringer's (Lr) 1,000 mls @ 125 mls/hr IVCONT .Q8H [facility] Last Infusion: 11/09/22 11:14 Dose: 0 mls/hr Documented By: DENIS Linezolid (Zyvox/D5w) 600 mg in 300 mls @ 300 mls/hr IV Q12H [facility] Last Admin: 11/09/22 11:11 Dose: 300 mls/hr Documented By: DENIS Insulin Human Lispro (Insulin Lispro 100 Unit/Ml 3 Ml Vial) 0 unit SUBCUT QIDACHS [facility]; Protocol Last Admin: 11/09/22 08:41 Dose: 2 unit Documented By: DENIS Morphine Sulfate (Morphine Sulfate 4 Mg/Ml Cartridge) 4 mg IVPUSH Q4H PRN; Protocol PRN Reason: Pain, Severe (Pain Scale 7-10) Last Admin: 11/07/22 14:21 Dose: 4 mg Documented By: DENIS Multivitamins/Vitamin C (Multivitamin Tablet) 1 tab PO DAILY [facility] Last Admin: 11/09/22 08:41 Dose: 1 tab Documented By: DENIS Ondansetron HCl (Ondansetron Hcl 4 Mg/2 Ml Vial) 4 mg IVPUSH Q8H PRN PRN Reason: Nausea and Vomiting Oxycodone HCl (Oxycodone Hcl Immed Release 5 Mg Tablet) 5 mg PO Q4H PRN PRN Reason: Pain, Moderate (Pain Scale 4-6 Last Admin: 11/09/22 10:25 Dose: 5 mg Documented By: DENIS Oxycodone HCl (Oxycodone Hcl Immed Release 5 Mg Tablet) 10 mg PO Q4H PRN PRN Reason: Pain, Severe (Pain Scale 7-10) Last Admin: 11/07/22 11:15 Dose: 10 mg Documented By: DENIS Pharmacy Consult (Consult Rx Perform Med Rec) 1 each MISCELLANE ONCE PRN PRN Reason: Consult order Sodium Chloride (0.9 % Sodium Chloride Flush 3 Ml Syringe) [facility] Last Admin: 11/09/22 08:42 Dose: Not Given Documented By: DENIS Non-Admin Reason: IV Running Labs CBC & Chem 7: 11/08/22 05:12 11/09/22 05:27 Labs: Laboratory Results - last 24 hr 11/08/22 11/08/22 11/08/22 11:22 15:13 15:13 Anion Gap Estim Creat Clear Calc Estimated GFR POC Glucose 196 H Random Glucose Calcium Lactate Dehydrogenase Urine Color Yellow Cancelled Urine Appearance Clear Cancelled Urine pH 5.5 Cancelled Ur Specific [place] <= 1.005 Cancelled Urine Protein Trace Cancelled Urine Glucose (UA) Negative Cancelled Urine Ketones Negative Cancelled Urine Blood Negative Cancelled Urine Nitrite Negative Cancelled Ur Leukocyte Esterase Negative Cancelled Urine RBC 0-2 Urine WBC 0-5 Ur Squamous Epith Cells 0-2 Urine Bacteria None Seen Hyaline Casts 0-2 Urine Eosinophils % 1.0 U Random Total Protein Ur Random Sodium Urine Creatinine 11/08/22 11/08/22 11/08/22 15:13 16:06 19:39 Anion Gap Estim Creat Clear Calc Estimated GFR POC Glucose 226 H 235 H Random Glucose Calcium Lactate Dehydrogenase Urine Color Urine Appearance Urine pH Ur Specific [place] Urine Protein Urine Glucose (UA) Urine Ketones Urine Blood Urine Nitrite Ur Leukocyte Esterase Urine RBC Urine WBC Ur Squamous Epith Cells Urine Bacteria Hyaline Casts Urine Eosinophils % U Random Total Protein 11 Ur Random Sodium 31.0 Urine Creatinine 34.12 11/09/22 11/09/22 11/09/22 05:27 07:53 11:09 Anion Gap 14 Estim Creat Clear Calc 21.6 Estimated GFR 12 POC Glucose 159 H 222 H Random Glucose 159 H Calcium 7.5 L Lactate Dehydrogenase 230 Urine Color Urine Appearance Urine pH Ur Specific [place] Urine Protein Urine Glucose (UA) Urine Ketones Urine Blood Urine Nitrite Ur Leukocyte Esterase Urine RBC Urine WBC Ur Squamous Epith Cells Urine Bacteria Hyaline Casts Urine Eosinophils % U Random Total Protein Ur Random Sodium Urine Creatinine Microbiology Microbiology Results: Microbiology 11/06/22 18:37 Gram Stain - Final Foot Right Routine Culture - Final Escherichia coli Strep agalactiae (Grp B) 11/06/22 14:54 Blood Culture - Preliminary Blood - Venous No growth after 48 hours. 11/06/22 14:54 Blood Culture - Final Blood - Venous Coag negative Staphylococcus Assessment and Plan (1) Necrotizing fasciitis of ankle and foot: Status: Acute (2) Sepsis: Status: Acute Plan d#4 41yo M with poorly controlled DM2 admitted for sepsis from necrotizing fasciitis # necrotizing fasciitis - POD#3 BKA. vancomycin->linezolid/clindamycin/piperacillin-tazobactam d#4. BCx contaminant- coag-neg Staph. Wound Cx: GNR + GBS. ID consulted, following # BARB - suspect AIN from vancomycin. Nephrology consulted. also r/o obstruction- US pending. d/c'ed vancomycin and change to linezolid. # DM2, A1c 9.4 - correction-dose lispro; hold OHGs # VTE prophylaxis: SCDs # dispo: anticipate AIR In my clinical judgment, the patient requires continued inpatient ho spitalization for the following reasons: IV ABX, postop care, BARB Quality Stroke Does the patient have a stroke diagnosis?: No VTE Prior VTE?: No VTE Risk Level:: Medical - moderate - high VTE Device Contraindication: N/A - Device Ordered VTE Drug Contraindication: N/A - Med Ordered
--- NOTE | 2022-11-09 13:09 | CONS_ITS ---
DATE OF SERVICE: 11/08/2022 REASON FOR CONSULTATION: I was called to see this patient to assist in management of acute kidney injury. HISTORY OF PRESENT ILLNESS: To summarize, Scotty is a 41-year-old man with a history of longstanding diabetes mellitus complicated by diabetic retinopathy and history of hypertension. He has essentially normal renal function at time of admission. He has been admitted for right foot infection, which turns out to be necrotizing fasciitis versus gas gangrene. He was started on vancomycin. The serum creatinine was at baseline of 1.0 on October 20 and 1.04 on November 06. Over the last 48 hours, creatinine increased at 2.3 and 4.4. The vanco levels are between 14 and 19. He has had no difficulty urination. No rash. No fever. No edema. No hematuria. This consultation is requested for management of acute kidney injury. ONGOING MEDICAL PROBLEMS: Include history of diabetes mellitus; hypertension; history of renal calculi, status post removal. PAST SURGICAL HISTORY: Include herniorrhaphy. FAMILY HISTORY: Mother has hypertension. Father has hypertension. SOCIAL HISTORY: No history of smoking, alcohol abuse, drug abuse. ALLERGIES: INCLUDE ASPIRIN AND TYLENOL. CURRENT MEDICATIONS: Include vancomycin 1 g and Zosyn, clindamycin, morphine, Zofran. REVIEW OF SYSTEMS: Positive for foot pain. No headache, nausea, or vomiting. No abdominal pain, diarrhea, or constipation. No fever. No rash. No polyuria, polydipsia. No hematuria. No diarrhea or constipation. Appetite is fair. No weight loss. All other systems were reviewed. PHYSICAL EXAMINATION: GENERAL: On examination, Scotty is a middle-aged man, who is comfortable, not in distress. HEENT: Pupils reacting to light. NECK: Supple. No JVD. Mucosa moist. LUNGS: Air entry equal. No rales. HEART: S1, S2 heard. No gallop. No rub. ABDOMEN: Soft, nontender. Bowel sounds are heard. NEUROLOGIC: Alert, awake, oriented. No asterixis. EXTREMITIES: No edema. No rash. No clubbing. He has a right foot infection. VITAL SIGNS: Blood pressure today was 131/75. No documented episodes of hypotension. IMAGING DATA: Foot x-ray showed large amount of soft tissue gas in the dorsum of the foot. This is concerning for necrotizing fasciitis/gas gangrene. No clear evidence of osteomyelitis. IMPRESSION: 41-year-old man with longstanding diabetes mellitus, currently with a right foot infection. Has sustained acute kidney injury. The differential diagnosis with acute kidney injury would include vanco toxicity during tubular injury. Other possibilities including obstructive uropathy should be ruled out, especially with a history of renal stone. Infection related glomerulonephritis is a possibility. Allergic intestinal nephritis secondary to antibiotics is also a consideration. RECOMMENDATIONS: 1. Check urine for urinalysis, sodium, creatinine, protein, eosinophils. 2. Check renal ultrasonogram. 3. Serum complements C3 and C4 along with ANCA. 4. Hold nephrotoxic agents including vancomycin until renal function recovers. 5. Agree with IV hydration, keep intake more than output and continue to avoid hypotension. Watch urine output closely. At this point, there is no absolute indication for dialysis. However, I do expect the creatinine to increase further before we see any improvement in his renal function. We will follow him closely along with the team. Anthony Daly MD BPA/MODL / [id number] [email or web address]
[2022-11-09] MEDS: 0.9 % Sodium Chloride Flush 3 ML SYRINGE IVFLUSH ×2 (16:10→19:59)
[2022-11-09 16:12] LABS: Glucose, Whole Blood 211 mg/dL (60-115)
--- NOTE | 2022-11-09 16:45 | P.PNNP_ITS ---
Subjective Subjective Date of Service: 11/09/22 Interval history: pain controlled feeling ok No nausea good urine output no fever Physical Exam Vital Signs: Vital Signs: Last Vital Signs Temp 98.2 F 11/09/22 15:37 Pulse 82 11/09/22 15:37 Resp 16 11/09/22 15:37 BP 154/88 H 11/09/22 15:37 Pulse Ox 96 11/09/22 15:37 O2 Del Method 11/09/22 15:37 O2 Flow Rate 2 11/07/22 00:00 BMI result Body Mass Index 29.1 Const: General: cooperative, healthy appearing, comfortable, no acute distress, alert and awake Nutritional Appearance: well nourished Orien tation/consciousness: patient oriented x3 Limitations: no limitations and ambulation with walker HEENT: Head: Yes normal to inspection, Yes normocephalic and Yes atraumatic Ears: hearing grossly normal bilaterally and external ears normal General nose exam: Normal external nose present, no nasal discharge noted and no epistaxis Face and sinus: Yes normal facial exam, No abrasion and No laceration Mouth: Normal oral and palatal mucosa present, no drooling and no muffled voice Teeth and gingiva: dentition normal Eyes: General: appearance normal, both eyes and all related structures Periorbital: periorbital findings normal Eyelids: Yes eyelids normal Conjunctivae: conjunctivae normal Pupils: Equal, round and reactive pupils present EOM: EOMs intact bilaterally Neck: Neck: Yes normal visual inspection, Yes full ROM and Yes no lymphadenopathy Chest: Chest palpation & inspection: normal inspection of the chest Resp: Effort & Inspection: normal respiratory effort, able to speak in complete sentences, no audible wheezes, no cough and no respiratory distress Auscultation: clear to auscultation bilaterally Cardio: Jugular venous distension: no JVD Rate: regular rate and tachycardic Rhythm: regular rhythm GI: Inspection: Yes normal to inspection Palpation (GI): Soft to palpation and nontender : General: Yes no CVA tenderness Back/Spine/Pelvis: Back: no CVA tenderness Skin: General skin exam: no rashes or lesions noted Neuro: General: patient oriented x3 and moves all extremities Cranial nerves: Yes Equal, round and reactive pupils present Cognition (Neuro): normal cognition Motor exam (neuro): 5/5 motor strength present throughout Sensory Exam: Normal double simultaneous stimulation for sensation Coordination: [id number] test normal Extrem: Other: right BKA site- General: Yes normal to inspection, Yes full ROM, Yes capillary refill normal and Yes no clubbing, cyanosis or edema Psych: Appearance: grossly normal Mental Status: mental status grossly normal Affect: normal affect Attitude: cooperative Thought process: Normal thought process present Thought content: Normal thought content present Insight: Good insight present (Psych) Objective Data Labs CBC & Chem 7: 11/08/22 05:12 11/09/22 05:27 Labs: Laboratory Results - last 24 hr 11/08/22 11/08/22 11/09/22 15:13 19:39 05:27 Sodium 136 Potassium 4.3 Chloride 106 Carbon Dioxide 20 L Anion Gap 14 BUN 47 H Creatinine 5.33 H* Estim Creat Clear Calc 21.6 Estimated GFR 12 POC Glucose 235 H Random Glucose 159 H Calcium 7.5 L Lactate Dehydrogenase 230 Urine Color Cancelled Urine Appearance Cancelled Urine pH Cancelled Ur Specific [place] Cancelled Urine Protein Cancelled Urine Glucose (UA) Cancelled Urine Ketones Cancelled Urine Blood Cancelled Urine Nitrite Cancelled Ur Leukocyte Esterase Cancelled Urine Eosinophils % 1.0 11/09/22 11/09/22 11/09/22 07:53 11:09 16:03 Sodium Potassium Chloride Carbon Dioxide Anion Gap BUN Creatinine Estim Creat Clear Calc Estimated GFR POC Glucose 159 H 222 H 211 H Random Glucose Calcium Lactate Dehydrogenase Urine Color Urine Appearance Urine pH Ur Specific [place] Urine Protein Urine Glucose (UA) Urine Ketones Urine Blood Urine Nitrite Ur Leukocyte Esterase Urine Eosinophils % Microbiology Microbiology Results: Microbiology 11/06/22 18:37 Foot Right Gram Stain - Final 11/06/22 18:37 Foot Right Routine Culture - Final Escherichia coli Strep agalactiae (Grp B) 11/06/22 14:54 Blood - Venous Blood Culture - Preliminary No growth after 48 hours. 11/06/22 14:54 Blood - Venous Blood Culture - Final Coag negative Staphylococcus Procedures Date of Service Date of Service: 11/09/22 Assessment & Plan Assessment and plan (1) BARB (acute kidney injury): Status: Acute (2) Necrotizing fasciitis of ankle and foot: Status: Acute (3) Type 2 diabetes mellitus: Status: Acute (4) Nephrolithiasis: Status: Acute Plan Young 41 y man wit type I DM wh presented with necrotizng fascitis of lower leg/foot resulting in sepsis and need for R BKA. In this setting he developed BARB, nonoliguric. He was initially treated with vanco. 1. BARB likely ATN multifactorial, possible vanco toxicity: polyuric today and creat up but appears to be beginning to plateau. No uremic symptoms. Vol status acceptable. 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 US shows nonobstructing stones 2. Hx of nephrolithiasis and intrarenal stones; will need metabolic workup when renal function recovers. REcommend: AVoid contrast, NSAIDs and nephrotoxins Keep Bp > 110 systolic to avoid renal hypoperfusion Daily renal function and lytes Time Spent With Patient Time: Total time managing care of this patient today ____ minutes. Progress Note: Quality Stroke Does the patient have a stroke diagnosis?: No
[2022-11-09 19:34] LABS: Vancomycin Random 8.9 mcg/mL (15-20)
[2022-11-09 20:53] LABS: Glucose, Whole Blood 179 mg/dL (60-115)
[2022-11-10] MEDS: Clindamycin Phosphate/D5W 900 MG/50 ML PIGGYBACK 50 MG IV ×3 (00:31→16:56)
[2022-11-10] MEDS: Piperacillin Sodium/Tazobactam 3.375 GM in 0.9 % Sodium Chloride 50 ML IV ×4 (03:12→21:07)
[2022-11-10] MEDS: Lactated Ringers 1,000 ML 125 ML IVCONT ×2 (03:13→16:56)
[2022-11-10 04:00] VITALS: BP 139/91; PULSE 80; RESP 18; TEMP 36.1; O2SAT 94
--- NOTE | 2022-11-10 06:22 | PC.NURSE ---
pt had chocking episode at 03:15, pt states that he chocked water and vomited. it was light yellow colored 100 mL in the emesis bag, mucus was around the lips and chin. I provided new emesis bag and cleaned mouth area.
[2022-11-10 06:39] LABS: Hematocrit 36.1 % (42.0-52.0); Hemoglobin 11.9 g/dl (14.0-18.0); Mean Corpuscular Hemoglobin 26.9 pg (27.0-33.0); Mean Corpuscular Volume 81.5 fL (80.0-98.0); Platelet Count 391 X10*3/uL (160-400); Red Blood Count 4.43 X10*6/uL (4.60-5.80); Red Cell Distribution Width 12.9 % (11.0-16.0); White Blood Count 8.5 X10*3/uL (4.8-10.8)
[2022-11-10 07:18] LABS: Anion Gap 15 (12-20); Blood Urea Nitrogen 45 mg/dL (9-16); Calcium 7.8 mg/dL (8.4-10.2); Carbon Dioxide 20 mmol/L (22-29); Chloride 109 mmol/L (96-108); Creatinine Clr Calc Pharmacy 21.7; Estimated Glomerular Filt Rate 12; Glucose Random 175 mg/dL (60-115); Potassium 4.7 mmol/L (3.3-5.1); Sodium 139 mmol/L (135-145)
[2022-11-10 07:39] LABS: Glucose, Whole Blood 155 mg/dL (60-115)
[2022-11-10 08:00] VITALS: BP 156/95; PULSE 71; RESP 18; TEMP 36.3; O2SAT 95
[2022-11-10] MEDS: Multivitamin TABLET 1 TAB PO (08:09)
[2022-11-10] MEDS: Insulin Lispro 100 UNIT/ML 3 ML VIAL SUBCUT ×4 (08:10→21:03)
--- NOTE | 2022-11-10 08:56 | P.PNGS_ITS ---
Subjective Subjective Date of Service: 11/10/22 Interval history: Reports some nausea after drinking water last night, overall feels well with minimal leg pain. Physical Exam Vital Signs: Vital Signs: Last Vital Signs Temp 97.4 F 11/10/22 08:00 Pulse 71 11/10/22 08:00 Resp 18 11/10/22 08:00 BP 156/95 H 11/10/22 08:00 Pulse Ox 95 11/10/22 08:00 O2 Del Method 11/10/22 08:00 O2 Flow Rate 2 11/07/22 00:00 BMI result Body Mass Index 29.1 Const: General: no acute distress Nutritional Appearance: well nourished Orientation/consciousness: patient oriented x3 Limitations: no limitations Resp: Effort & Inspection: normal respiratory effort Skin: Other: Warm and dry Neuro: General: patient oriented x3 Extrem: Other: Right leg dressings changed. Wounds are clean and intact. No change in the area of bruising in the lower flap. No evidence of skin necrosis. Objective Data Active Medications Dextrose (Dextrose 50 % 25 Gm/50 Ml Syringe) 25 gm IVPUSH Q15M PRN; Protocol PRN Reason: per Hypoglycemia Standing Ord. Glucose (Glucose Gel 15 Gm Gel..Gram.) 15 gm PO Q15M PRN; Protocol PRN Reason: per Hypoglycemia Standing Ord. Piperacillin Sod/Tazobactam (Sod 3.375 gm/ Sodium Chloride) 50 mls @ 100 mls/hr IV Q6H [facility] Last Infusion: 11/10/22 03:54 Dose: 0 mls/hr Documented By: VIVI Clindamycin Phosphate (Cleocin) 900 mg in 50 mls @ 50 mls/hr IV Q8H [facility] Last Admin: 11/10/22 08:09 Dose: 50 mls/hr Documented By: GOPI Lactated Ringer's (Lr) 1,000 mls @ 125 mls/hr IVCONT .Q8H [facility] Last Admin: 11/10/22 03:13 Dose: 125 mls/hr Documented By: VIVI Linezolid (Zyvox/D5w) 600 mg in 300 mls @ 300 mls/hr IV Q12H [facility] Last Infusion: 11/10/22 00:05 Dose: 0 mls/hr Documented By: VIVI Insulin Human Lispro (Insulin Lispro 100 Unit/Ml 3 Ml Vial) 0 unit SUBCUT QIDACHS [facility]; Protocol Last Admin: 11/10/22 08:10 Dose: 2 unit Documented By: GOPI Morphine Sulfate (Morphine Sulfate 4 Mg/Ml Cartridge) 4 mg IVPUSH Q4H PRN; Protocol PRN Reason: Pain, Severe (Pain Scale 7-10) Last Admin: 11/07/22 14:21 Dose: 4 mg Documented By: DENIS Multivitamins/Vitamin C (Multivitamin Tablet) 1 tab PO DAILY [facility] Last Admin: 11/10/22 08:09 Dose: 1 tab Documented By: GOPI Ondansetron HCl (Ondansetron Hcl 4 Mg/2 Ml Vial) 4 mg IVPUSH Q8H PRN PRN Reason: Nausea and Vomiting Oxycodone HCl (Oxycodone Hcl Immed Release 5 Mg Tablet) 5 mg PO Q4H PRN PRN Reason: Pain, Moderate (Pain Scale 4-6 Last Admin: 11/09/22 10:25 Dose: 5 mg Documented By: DENIS Oxycodone HCl (Oxycodone Hcl Immed Release 5 Mg Tablet) 10 mg PO Q4H PRN PRN Reason: Pain, Severe (Pain Scale 7-10) Last Admin: 11/07/22 11:15 Dose: 10 mg Documented By: DENIS Pharmacy Consult (Consult Rx Perform Med Rec) 1 each MISCELLANE ONCE PRN PRN Reason: Consult order Sodium Chloride (0.9 % Sodium Chloride Flush 3 Ml Syringe) [facility] Last Admin: 11/10/22 07:16 Dose: Not Given Documented By: GOPI Non-Admin Reason: IV Running Labs CBC & Chem 7: 11/10/22 06:17 11/10/22 06:17 Labs: Laboratory Results - last 24 hr 11/09/22 11/09/22 11/09/22 05:27 11:09 16:03 MCV MCH MCHC RDW Plt Count MPV Absolute Nucleated RBC Nucleated RBC % (auto) Anion Gap 14 Estim Creat Clear Calc 21.6 Estimated GFR 12 POC Glucose 222 H 211 H Random Glucose 159 H Calcium 7.5 L Random Vancomycin 11/09/22 11/09/22 11/10/22 18:28 19:58 06:17 MCV 81.5 MCH 26.9 L MCHC 33.0 RDW 12.9 Plt Count 391 D MPV 10.0 Absolute Nucleated RBC 0.000 Nucleated RBC % (auto) 0.0 Anion Gap Estim Creat Clear Calc Estimated GFR POC Glucose 179 H Random Glucose Calcium Random Vancomycin 8.9 L 11/10/22 11/10/22 06:17 07:21 MCV MCH MCHC RDW Plt Count MPV Absolute Nucleated RBC Nucleated RBC % (auto) Anion Gap 15 Estim Creat Clear Calc 21.7 Estimated GFR 12 POC Glucose 155 H Random Glucose 175 H Calcium 7.8 L Random Vancomycin Microbiology Microbiology Results: Microbiology 11/06/22 18:37 Gram Stain - Final Foot Right Routine Culture - Final Escherichia coli Strep agalactiae (Grp B) Procedures Date of Service Date of Service: 11/10/22 Progress Note: A&P Assessment and plan (1) BARB (acute kidney injury): Status: Acute (2) Necrotizing fasciitis of ankle and foot: Status: Acute (3) Type 2 diabetes mellitus: Status: Acute Plan Appreciate hospitalist and Nephrology input. Right leg dressings changed this morning and wounds remained clean. Continue physical therapy, out of bed ambulating. Encouraged exercise of the right leg while in bed Time Spent With Patient Time: Total time managing care of this patient today ____ minutes. Quality Stroke Does the patient have a stroke diagnosis?: No VTE Prior VTE?: No VTE Risk Level:: Medical - moderate - high VTE Device Contraindication: N/A - Device Ordered VTE Drug Contraindication: N/A - Med Ordered
[2022-11-10] MEDS: Linezolid/D5W 600 MG/300 ML PIGGYBACK 300 MG IV ×2 (10:58→23:16)
--- NOTE | 2022-11-10 11:18 | P.PNIM_ITS ---
Subjective Subjective Date of Service: 11/10/22 Interval History: pain controlled SCr plateaued Physical Exam Vital Signs: Vital Signs: Last Vital Signs Temp 97.4 F 11/10/22 08:00 Pulse 71 11/10/22 08:00 Resp 18 11/10/22 08:00 BP 156/95 H 11/10/22 08:00 Pulse Ox 95 11/10/22 08:00 O2 Del Method 11/10/22 08:00 O2 Flow Rate 2 11/07/22 00:00 BMI result Body Mass Index 29.1 Gen: NAD HEENT: sclera anicteric, moist mucus membranes Neck: supple Lungs: clear to auscultation bilaterally Heart: regular, tachycardic, no murmurs Abd: soft, non-tender, non-distended Ext: no edema, R BKA with dressing in place Skin: warm/well-perfused Neuro: alert and oriented x3, no focal findings Psych: appropriate affect Objective Data Active Medications Dextrose (Dextrose 50 % 25 Gm/50 Ml Syringe) 25 gm IVPUSH Q15M PRN; Protocol PRN Reason: per Hypoglycemia Standing Ord. Glucose (Glucose Gel 15 Gm Gel..Gram.) 15 gm PO Q15M PRN; Protocol PRN Reason: per Hypoglycemia Standing Ord. Piperacillin Sod/Tazobactam (Sod 3.375 gm/ Sodium Chloride) 50 mls @ 100 mls/hr IV Q6H [facility] Last Infusion: 11/10/22 11:04 Dose: 0 mls/hr Documented By: GOPI Clindamycin Phosphate (Cleocin) 900 mg in 50 mls @ 50 mls/hr IV Q8H [facility] Last Infusion: 11/10/22 09:31 Dose: 0 mls/hr Documented By: GOPI Lactated Ringer's (Lr) 1,000 mls @ 125 mls/hr IVCONT .Q8H [facility] Last Infusion: 11/10/22 10:35 Dose: 0 mls/hr Documented By: GOPI Linezolid (Zyvox/D5w) 600 mg in 300 mls @ 300 mls/hr IV Q12H [facility] Last Admin: 11/10/22 10:58 Dose: 300 mls/hr Documented By: GOPI Insulin Human Lispro (Insulin Lispro 100 Unit/Ml 3 Ml Vial) 0 unit SUBCUT QIDACHS [facility]; Protocol Last Admin: 11/10/22 08:10 Dose: 2 unit Documented By: GOPI Morphine Sulfate (Morphine Sulfate 4 Mg/Ml Cartridge) 4 mg IVPUSH Q4H PRN; Protocol PRN Reason: Pain, Severe (Pain Scale 7-10) Last Admin: 11/07/22 14:21 Dose: 4 mg Documented By: DENIS Multivitamins/Vitamin C (Multivitamin Tablet) 1 tab PO DAILY [facility] Last Admin: 11/10/22 08:09 Dose: 1 tab Documented By: GOPI Ondansetron HCl (Ondansetron Hcl 4 Mg/2 Ml Vial) 4 mg IVPUSH Q8H PRN PRN Reason: Nausea and Vomiting Oxycodone HCl (Oxycodone Hcl Immed Release 5 Mg Tablet) 5 mg PO Q4H PRN PRN Reason: Pain, Moderate (Pain Scale 4-6 Last Admin: 11/09/22 10:25 Dose: 5 mg Documented By: DENIS Oxycodone HCl (Oxycodone Hcl Immed Release 5 Mg Tablet) 10 mg PO Q4H PRN PRN Reason: Pain, Severe (Pain Scale 7-10) Last Admin: 11/07/22 11:15 Dose: 10 mg Documented By: DENIS Pharmacy Consult (Consult Rx Perform Med Rec) 1 each MISCELLANE ONCE PRN PRN Reason: Consult order Sodium Chloride (0.9 % Sodium Chloride Flush 3 Ml Syringe) 3 ml IVFLUSH [facility] Last Admin: 11/10/22 07:16 Dose: Not Given Documented By: GOPI Non-Admin Reason: IV Running Labs CBC & Chem 7: 11/10/22 06:17 11/10/22 06:17 Labs: Laboratory Results - last 24 hr 11/09/22 11/09/22 11/09/22 11:09 16:03 18:28 MCV MCH MCHC RDW Plt Count MPV Absolute Nucleated RBC Nucleated RBC % (auto) Anion Gap Estim Creat Clear Calc Estimated GFR POC Glucose 222 H 211 H Random Glucose Calcium Random Vancomycin 8.9 L 11/09/22 11/10/22 11/10/22 19:58 06:17 06:17 MCV 81.5 MCH 26.9 L MCHC 33.0 RDW 12.9 Plt Count 391 D MPV 10.0 Absolute Nucleated RBC 0.000 Nucleated RBC % (auto) 0.0 Anion Gap 15 Estim Creat Clear Calc 21.7 Estimated GFR 12 POC Glucose 179 H Random Glucose 175 H Calcium 7.8 L Random Vancomycin 11/10/22 07:21 MCV MCH MCHC RDW Plt Count MPV Absolute Nucleated RBC Nucleated RBC % (auto) Anion Gap Estim Creat Clear Calc Estimated GFR POC Glucose 155 H Random Glucose Calcium Random Vancomycin Impressions Renal Ultrasound 11/08/22 19:05 IMPRESSION: Bilateral nonobstructive echogenic renal calculi. No caliectasis or hydronephrosis. Microbiology Microbiology Results: Microbiology 11/06/22 18:37 Gram Stain - Final Foot Right Routine Culture - Final Escherichia coli Strep agalactiae (Grp B) Assessment and Plan (1) Necrotizing fasciitis of ankle and foot: Status: Acute (2) Sepsis: Status: Acute Plan d#5 41yo M with poorly controlled DM2 admitted for sepsis from necrotizing fasciitis, developed BARB # necrotizing fasciitis - POD#4 BKA. vancomycin->linezolid/clindamycin/piperacillin-tazobactam d#5. BCx contaminant- coag-neg Staph. Wound Cx: E. coli + GBS. ID consulted, following # BARB - suspect AIN from vancomycin. Nephrology consulted. d/c'ed vancomycin and change to linezolid. SCr appears to have peaked; continue to monitor. # DM2, A1c 9.4 - correction-dose lispro; hold OHGs # VTE prophylaxis: SCDs # dispo: anticipate AIR In my clinical judgment, the patient requires continued inpatient hospit alization for the following reasons: IV ABX, postop care, BARB Time Spent With Patient Time: Total time managing care of this patient today ____ minutes. Quality Stroke Does the patient have a stroke diagnosis?: No VTE Prior VTE?: No VTE Risk Level:: Medical - moderate - high VTE Device Contraindication: N/A - Device Ordered VTE Drug Contraindication: N/A - Med Ordered
[2022-11-10 11:36] LABS: Glucose, Whole Blood 252 mg/dL (60-115)
--- NOTE | 2022-11-10 11:37 | PM.PNNEP ---
Subjective Subjective Date of Service: 11/10/22 Interval history: pain controlled SCr plateaued and beginning to improve excellent UO Physical Exam Vital Signs: Vital Signs: Last Vital Signs Temp 97.4 F 11/10/22 08:00 Pulse 71 11/10/22 08:00 Resp 18 11/10/22 08:00 BP 156/95 H 11/10/22 08:00 Pulse Ox 95 11/10/22 08:00 O2 Del Method 11/10/22 08:00 O2 Flow Rate 2 11/07/22 00:00 BMI result Body Mass Index 29.1 Const: General: cooperative, healthy appearing, comfortable, no acute distress, alert and awake Nutritional Appearance: well nourished HEENT: Head: Yes normal to inspection, Yes normocephalic and Yes atraumatic Face and sinus: Yes normal facial exam, No abrasion and No laceration Teeth and gingiva: dentition normal Eyes: General: appearance normal, both eyes and all related structures Periorbital: periorbital findings normal Eyelids: Yes eyelids normal Conjunctivae: conjunctivae normal EOM: EOMs intact bilaterally Chest: Chest palpation & inspection: normal inspection of the chest Resp: Effort & Inspection: normal respiratory effort, able to speak in complete sentences, no audible wheezes, no cough and no respiratory distress Auscultation: clear to auscultation bilaterally Cardio: Jugular venous distension: no JVD Rate: regular rate and tachycardic Rhythm: regular rhythm GI: Inspection: Yes normal to inspection Palpation (GI): Soft to palpation and nontender Skin: Other: Warm and dry General skin exam: no rashes or lesions noted Extrem: Other: R BKA General: Yes normal to inspection, Yes full ROM, Yes capillary refill normal and Yes no clubbing, cyanosis or edema Objective Data Labs CBC & Chem 7: 11/10/22 06:17 11/10/22 06:17 Labs: Laboratory Results - last 24 hr 11/09/22 11/09/22 11/09/22 16:03 18:28 19:58 WBC RBC Hgb Hct MCV MCH MCHC RDW Plt Count MPV Absolute Nucleated RBC Nucleated RBC % (auto) Sodium Potassium Chloride Carbon Dioxide Anion Gap BUN Creatinine Estim Creat Clear Calc Estimated GFR POC Glucose 211 H 179 H Random Glucose Calcium Random Vancomycin 8.9 L 11/10/22 11/10/22 11/10/22 06:17 06:17 07:21 WBC 8.5 RBC 4.43 L Hgb 11.9 L Hct 36.1 L MCV 81.5 MCH 26.9 L MCHC 33.0 RDW 12.9 Plt Count 391 D MPV 10.0 Absolute Nucleated RBC 0.000 Nucleated RBC % (auto) 0.0 Sodium 139 Potassium 4.7 Chloride 109 H Carbon Dioxide 20 L Anion Gap 15 BUN 45 H Creatinine 5.29 H* Estim Creat Clear Calc 21.7 Estimated GFR 12 POC Glucose 155 H Random Glucose 175 H Calcium 7.8 L Random Vancomycin 11/10/22 11:31 WBC RBC Hgb Hct MCV MCH MCHC RDW Plt Count MPV Absolute Nucleated RBC Nucleated RBC % (auto) Sodium Potassium Chloride Carbon Dioxide Anion Gap BUN Creatinine Estim Creat Clear Calc Estimated GFR POC Glucose 252 H Random Glucose Calcium Random Vancomycin Microbiology Microbiology Results: Microbiology 11/06/22 18:37 Foot Right Gram Stain - Final 11/06/22 18:37 Foot Right Routine Culture - Final Escherichia coli Strep agalactiae (Grp B) 11/06/22 14:54 Blood - Venous Blood Culture - Preliminary No growth after 48 hours. 11/06/22 14:54 Blood - Venous Blood Culture - Final Coag negative Staphylococcus Procedures Date of Service Date of Service: 11/10/22 Assessment & Plan Assessment and plan (1) BARB (acute kidney injury): Status: Acute (2) Type 2 diabetes mellitus: Status: Acute (3) Necrotizing fasciitis of ankle and foot: Status: Acute (4) Nephrolithiasis: Status: Acute (5) Sepsis: Status: Acute Plan Young 41 y man longstanding DM who presented with necrotizng fascitis of lower leg/foot resulting in sepsis and need for R BKA. In this setting he developed BARB, nonoliguric. He was initially treated with vanco. 1. BARB likely ATN multifactorial, possible vanco toxicity vs. septic ATN: polyuric and creatinine slightly better now. No uremic symptoms. Vol status acceptable. 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 US shows nonobstructing stones 2. Hx of nephrolithiasis and intrarenal stones; will need metabolic workup when renal function recovers. REcommend: AVoid contrast, NSAIDs and nephrotoxins Keep Bp > 110 systolic to avoid renal hypoperfusion Daily renal function and lytes Time Spent With Patient Time: Total time managing care of this patient today ____ minutes. Progress Note: Quality Stroke Does the patient have a stroke diagnosis?: No
[2022-11-10 12:00] VITALS: BP 157/97; PULSE 74; RESP 18; TEMP 36.3; O2SAT 95
[2022-11-10 15:34] VITALS: BP 158/87; PULSE 73; RESP 20; TEMP 36.3; O2SAT 79
[2022-11-10 15:44] LABS: Glucose, Whole Blood 222 mg/dL (60-115)
[2022-11-10 19:35] VITALS: BP 153/86; PULSE 72; RESP 20; TEMP 37.1; O2SAT 95
[2022-11-10 19:43] LABS: Glucose, Whole Blood 177 mg/dL (60-115)
[2022-11-10] MEDS: 0.9 % Sodium Chloride Flush 3 ML SYRINGE IVFLUSH (21:09)
[2022-11-10 21:12] VITALS: BP 158/87; PULSE 72; TEMP 37.1; O2SAT 98
[2022-11-11] VITALS: BP 165/98; PULSE 73; RESP 17; TEMP 36.2; O2SAT 95
[2022-11-11] MEDS: ondansetron HCL 4 MG/2 ML VIAL IVPUSH (01:11)
[2022-11-11] MEDS: Clindamycin Phosphate/D5W 900 MG/50 ML PIGGYBACK 50 MG IV (01:13)
[2022-11-11] MEDS: Lactated Ringers 1,000 ML 125 ML IVCONT ×2 (02:34→08:23)
[2022-11-11 02:36] VITALS: PULSE 70; RESP 18; TEMP 36.1; O2SAT 94
--- NOTE | 2022-11-11 03:14 | PC.NURSE ---
previous nurse give me the report, pt had nausea episode while infused Clindamycin. so day nurse notified the dr. and stopped clindamycin. I asked to supervior about this happening but medication is not dc. still active at this time. thus, shipyard supervisor recommended give zofran first, and give Clindamycin. I followed. after 30 min. pt vomited 110 mL. morris color just liquid without any food. pt states that feels cramping on LUQ, before vomit. dr. Zurita notified. COSTUME TECHNICIAN provided clean up and fresh water. we will continue to monitor nauseate feeling and pass along to morning nurse.
[2022-11-11] MEDS: Piperacillin Sodium/Tazobactam 3.375 GM in 0.9 % Sodium Chloride 50 ML IV (04:28)
[2022-11-11 06:10] LABS: Anion Gap 15 (12-20); Blood Urea Nitrogen 41 mg/dL (9-16); Calcium 7.9 mg/dL (8.4-10.2); Carbon Dioxide 21 mmol/L (22-29); Chloride 110 mmol/L (96-108); Creatinine Clr Calc Pharmacy 25.2; Estimated Glomerular Filt Rate 14; Glucose Random 183 mg/dL (60-115); Potassium 4.6 mmol/L (3.3-5.1); Sodium 141 mmol/L (135-145)
[2022-11-11 07:42] VITALS: PULSE 69; RESP 18; TEMP 36.2; O2SAT 96
[2022-11-11 07:42] LABS: Glucose, Whole Blood 167 mg/dL (60-115)
[2022-11-11] MEDS: Multivitamin TABLET 1 TAB PO (08:23)
[2022-11-11] MEDS: Insulin Lispro 100 UNIT/ML 3 ML VIAL SUBCUT ×4 (08:23→21:13)
--- NOTE | 2022-11-11 10:46 | P.PNGS_ITS ---
Subjective Subjective Date of Service: 11/11/22 Interval history: No new complaints this morning, felt nauseous yesterday but feels improved today. Physical Exam Vital Signs: Vital Signs: Last Vital Signs Temp 97.2 F 11/11/22 07:42 Pulse 69 11/11/22 07:42 Resp 18 11/11/22 07:42 BP 165/98 H 11/11/22 00:00 Pulse Ox 96 11/11/22 07:42 O2 Del Method 11/11/22 07:42 O2 Flow Rate 2 11/07/22 00:00 BMI result Body Mass Index 29.1 Const: General: no acute distress Nutritional Appearance: well nourished Orientation/consciousness: patient oriented x3 Limitations: no limitations Resp: Effort & Inspection: normal respiratory effort Skin: Other: Warm and dry Neuro: General: patient oriented x3 Extrem: Other: Dressings to right leg are clean, dry, and intact without bleeding or discharge. Surrounding skin without erythema or necrosis. Objective Data Active Medications Dextrose (Dextrose 50 % 25 Gm/50 Ml Syringe) 25 gm IVPUSH Q15M PRN; Protocol PRN Reason: per Hypoglycemia Standing Ord. Glucose (Glucose Gel 15 Gm Gel..Gram.) 15 gm PO Q15M PRN; Protocol PRN Reason: per Hypoglycemia Standing Ord. Lactated Ringer's (Lr) 1,000 mls @ 125 mls/hr IVCONT .Q8H [facility] Last Admin: 11/11/22 08:23 Dose: 125 mls/hr Documented By: GOPI Linezolid (Zyvox/D5w) 600 mg in 300 mls @ 300 mls/hr IV Q12H [facility] Last Infusion: 11/11/22 00:37 Dose: 0 mls/hr Documented By: VIVI Insulin Human Lispro (Insulin Lispro 100 Unit/Ml 3 Ml Vial) 0 unit SUBCUT QIDACHS [facility]; Protocol Last Admin: 11/11/22 08:23 Dose: 2 unit Documented By: GOPI Morphine Sulfate (Morphine Sulfate 4 Mg/Ml Cartridge) 4 mg IVPUSH Q4H PRN; Protocol PRN Reason: Pain, Severe (Pain Scale 7-10) Last Admin: 11/07/22 14:21 Dose: 4 mg Documented By: DENIS Multivitamins/Vitamin C (Multivitamin Tablet) 1 tab PO DAILY [facility] Last Admin: 11/11/22 08:23 Dose: 1 tab Documented By: GOPI Ondansetron HCl (Ondansetron Hcl 4 Mg/2 Ml Vial) 4 mg IVPUSH Q8H PRN PRN Reason: Nausea and Vomiting Last Admin: 11/11/22 01:11 Dose: 4 mg Documented By: VIVI Oxycodone HCl (Oxycodone Hcl Immed Release 5 Mg Tablet) 5 mg PO Q4H PRN PRN Reason: Pain, Moderate (Pain Scale 4-6 Last Admin: 11/09/22 10:25 Dose: 5 mg Documented By: DENIS Oxycodone HCl (Oxycodone Hcl Immed Release 5 Mg Tablet) 10 mg PO Q4H PRN PRN Reason: Pain, Severe (Pain Scale 7-10) Last Admin: 11/07/22 11:15 Dose: 10 mg Documented By: DENIS Pharmacy Consult (Consult Rx Perform Med Rec) 1 each MISCELLANE ONCE PRN PRN Reason: Consult order Sodium Chloride (0.9 % Sodium Chloride Flush 3 Ml Syringe) 3 ml IVFLUSH QSHIFT [facility] Last Admin: 11/11/22 07:35 Dose: Not Given Documented By: GOPI Non-Admin Reason: IV Running Labs CBC & Chem 7: 11/10/22 06:17 11/11/22 05:19 Labs: Laboratory Results - last 24 hr 11/10/22 11/10/22 11/10/22 11:31 15:39 19:38 Anion Gap Estim Creat Clear Calc Estimated GFR POC Glucose 252 H 222 H 177 H Random Glucose Calcium 11/11/22 11/11/22 05:19 07:38 Anion Gap 15 Estim Creat Clear Calc 25.2 Estimated GFR 14 POC Glucose 167 H Random Glucose 183 H Calcium 7.9 L Procedures Date of Service Date of Service: 11/11/22 Progress Note: A&P Assessment and plan (1) BARB (acute kidney injury): Status: Acute (2) Necrotizing fasciitis of ankle and foot: Status: Acute (3) Type 2 diabetes mellitus: Status: Acute Plan 41-year-old male patient presenting with necrotizing fasciitis of the right foot, S/P below-knee amputation right leg. Postoperative course marked by elevated creatinine level consistent with acute kidney injury possibly due to vancomycin and sepsis. Patient now on linezolid. Slight improvement in creatinine low still elevated. Will change dressings in a.m. tomorrow. Wound cultures with E coli and group B strep. One of 2 blood cultures with coag- negative staph. Time Spent With Patient Time: Total time managing care of this patient today ____ minutes. Quality Stroke Does the patient have a stroke diagnosis?: No VTE Prior VTE?: No VTE Risk Level:: Medical - moderate - high VTE Device Contraindication: N/A - Device Ordered VTE Drug Contraindication: N/A - Med Ordered
--- NOTE | 2022-11-11 11:44 | P.PNIM_ITS ---
Subjective Subjective Date of Service: 11/12/22 Interval History: Complaining of nausea, decreased appetite, no fevers no chills good pain control has been refusing to take clindamycin due to nausea, denies diarrhea, has been drinking enough fluids, on IV fluids with frequent urination. Review of Systems Review of Systems: Yes all other systems are reviewed and are negative Physical Exam Vital Signs: Vital Signs: Last Vital Signs Temp 97.2 F 11/11/22 07:42 Pulse 69 11/11/22 07:42 Resp 18 11/11/22 07:42 BP 165/98 H 11/11/22 00:00 Pulse Ox 96 11/11/22 07:42 O2 Del Method 11/11/22 07:42 O2 Flow Rate 2 11/07/22 00:00 BMI result Body Mass Index 29.1 Const: Other: Gen: Awake alert x3 no acute distress HEENT: sclera anicteric, moist mucus membranes Neck: supple Lungs: clear to auscultation bilaterally Heart: regular, tachycardic, no murmurs Abd: soft, non-tender, non-distended Ext: no edema, R BKA with dressing in place, left big toe noted to have small bruise, no redness no open sores or ulcers Skin: warm/well-perfused Neuro: alert and oriented x3, no focal findings Psych: appropriate affect ? Objective Data Active Medications Dextrose (Dextrose 50 % 25 Gm/50 Ml Syringe) 25 gm IVPUSH Q15M PRN; Protocol PRN Reason: per Hypoglycemia Standing Ord. Glucose (Glucose Gel 15 Gm Gel..Gram.) 15 gm PO Q15M PRN; Protocol PRN Reason: per Hypoglycemia Standing Ord. Lactated Ringer's (Lr) 1,000 mls @ 125 mls/hr IVCONT .Q8H [facility] Last Admin: 11/11/22 08:23 Dose: 125 mls/hr Documented By: GOPI Linezolid (Zyvox/D5w) 600 mg in 300 mls @ 300 mls/hr IV Q12H [facility] Last Infusion: 11/11/22 00:37 Dose: 0 mls/hr Documented By: VIVI Insulin Human Lispro (Insulin Lispro 100 Unit/Ml 3 Ml Vial) 0 unit SUBCUT QIDACHS [facility]; Protocol Last Admin: 11/11/22 08:23 Dose: 2 unit Documented By: GOPI Morphine Sulfate (Morphine Sulfate 4 Mg/Ml Cartridge) 4 mg IVPUSH Q4H PRN; Protocol PRN Reason: Pain, Severe (Pain Scale 7-10) Last Admin: 11/07/22 14:21 Dose: 4 mg Documented By: DENIS Multivitamins/Vitamin C (Multivitamin Tablet) 1 tab PO DAILY [facility] Last Admin: 11/11/22 08:23 Dose: 1 tab Documented By: GOPI Ondansetron HCl (Ondansetron Hcl 4 Mg/2 Ml Vial) 4 mg IVPUSH Q8H PRN PRN Reason: Nausea and Vomiting Last Admin: 11/11/22 01:11 Dose: 4 mg Documented By: VIVI Oxycodone HCl (Oxycodone Hcl Immed Release 5 Mg Tablet) 5 mg PO Q4H PRN PRN Reason: Pain, Moderate (Pain Scale 4-6 Last Admin: 11/09/22 10:25 Dose: 5 mg Documented By: DENIS Oxycodone HCl (Oxycodone Hcl Immed Release 5 Mg Tablet) 10 mg PO Q4H PRN PRN Reason: Pain, Severe (Pain Scale 7-10) Last Admin: 11/07/22 11:15 Dose: 10 mg Documented By: DENIS Pharmacy Consult (Consult Rx Perform Med Rec) 1 each MISCELLANE ONCE PRN PRN Reason: Consult order Sodium Chloride (0.9 % Sodium Chloride Flush 3 Ml Syringe) 3 ml IVFLUSH QSHIFT [facility] Last Admin: 11/11/22 07:35 Dose: Not Given Documented By: GOPI Non-Admin Reason: IV Running Labs CBC & Chem 7: 11/10/22 06:17 11/12/22 05:33 Labs: Laboratory Results - last 24 hr 11/10/22 11/10/22 11/11/22 15:39 19:38 05:19 Anion Gap 15 Estim Creat Clear Calc 25.2 Estimated GFR 14 POC Glucose 222 H 177 H Random Glucose 183 H Calcium 7.9 L 11/11/22 07:38 Anion Gap Estim Creat Clear Calc Estimated GFR POC Glucose 167 H Random Glucose Calcium Assessment and Plan (1) Necrotizing fasciitis of ankle and foot: Status: Acute (2) Sepsis: Status: Acute Plan d#5 41yo M with poorly controlled DM2 admitted for sepsis from necrotizing fasciitis, developed BARB # acute right foot necrotizing fasciitis Persistent nausea and decreased by mouth intake taking enough fluids, nausea likely due to antibiotics and narcotics - POD#5 BKA. Will DC clindamycin and Zosyn, continue linezolid, BCx contaminant- coag-neg Staph. Wound Cx: E. coli + GBS. Will discuss further treatment plan with Infectious Disease echo did not rule out vegetation completely. # BARB - suspect AIN from sepsis ,Nephrology following d/c'ed vancomycin and change to linezolid. SCr trending down DC IV fluids and follow BMP ?tight use manual shaft. # DM2, A1c 9.4 - correction-dose lispro; hold OHGs # elevated blood pressure no prior history of hypertension follow BP # VTE prophylaxis: SCDs # dispo: anticipate AIR In my clinical judgment, the patient requires continued inpatient hospitalization for the following reasons: IV ABX, postop care, BARB Time Spent With Patient Time: Total time managing care of this patient today ____ minutes. Quality Stroke Does the patient have a stroke diagnosis?: No VTE Prior VTE?: No VTE Risk Level:: Medical - moderate - high VTE Device Contraindication: N/A - Device Ordered VTE Drug Contraindication: N/A - Med Ordered
[2022-11-11 11:51] LABS: Glucose, Whole Blood 253 mg/dL (60-115)
[2022-11-11 11:57] VITALS: BP 156/95; PULSE 70; RESP 18; TEMP 36.2; O2SAT 96
[2022-11-11] MEDS: Linezolid/D5W 600 MG/300 ML PIGGYBACK 300 MG IV ×2 (11:59→23:07)
--- NOTE | 2022-11-11 13:44 | P.PNNP_ITS ---
Subjective Subjective Date of Service: 11/11/22 Interval history: Mild nausea but otherwise well Nonoliguric and creat improving Physical Exam Vital Signs: Vital Signs: Last Vital Signs Temp 97.1 F 11/11/22 11:57 Pulse 70 11/11/22 11:57 Resp 18 11/11/22 11:57 BP 156/95 H 11/11/22 11:57 Pulse Ox 96 11/11/22 11:57 O2 Del Method 11/11/22 11:57 O2 Flow Rate 2 11/07/22 00:00 BMI result Body Mass Index 29.1 Const: Other: Gen: Awake alert x3 no acute distress HEENT: sclera anicteric, moist mucus membranes Neck: supple Lungs: clear to auscultation bilaterally Heart: regular, tachycardic, no murmurs Abd: soft, non-tender, non-distended Ext: no edema, R BKA with dressing in place Skin: warm/well-perfused Neuro: alert and oriented x3, no focal findings Psych: appropriate affect ? : General: Yes no CVA tenderness Back/Spine/Pelvis: Back: no CVA tenderness Objective Data Labs CBC & Chem 7: 11/10/22 06:17 11/11/22 05:19 Labs: Laboratory Results - last 24 hr 11/10/22 11/10/22 11/11/22 15:39 19:38 05:19 Sodium 141 Potassium 4.6 Chloride 110 H Carbon Dioxide 21 L Anion Gap 15 BUN 41 H Creatinine 4.56 H* Estim Creat Clear Calc 25.2 Estimated GFR 14 POC Glucose 222 H 177 H Random Glucose 183 H Calcium 7.9 L 11/11/22 11/11/22 07:38 11:42 Sodium Potassium Chloride Carbon Dioxide Anion Gap BUN Creatinine Estim Creat Clear Calc Estimated GFR POC Glucose 167 H 253 H Random Glucose Calcium Microbiology Microbiology Results: Microbiology 11/06/22 18:37 Foot Right Gram Stain - Final 11/06/22 18:37 Foot Right Routine Culture - Final Escherichia coli Strep agalactiae (Grp B) 11/06/22 14:54 Blood - Venous Blood Culture - Preliminary No growth after 48 hours. 11/06/22 14:54 Blood - Venous Blood Culture - Final Coag negative Staphylococcus Procedures Date of Service Date of Service: 11/11/22 Assessment & Plan Assessment and plan (1) BARB (acute kidney injury): Status: Acute (2) Necrotizing fasciitis of ankle and foot: Status: Acute Plan Pt with underlying type II DM with ATN in the setting of sepsis due to necrotizing fasciitis S/p R BKA Creat is now improving No need for [employer] expect continued improvement No contrast studies during this recovery phase Time Spent With Patient Time: Total time managing care of this patient today ____ minutes. Progress Note: Quality Stroke Does the patient have a stroke diagnosis?: No
[2022-11-11 15:30] VITALS: BP 143/87; PULSE 68; RESP 20; TEMP 36.7; O2SAT 96
[2022-11-11 16:22] LABS: Glucose, Whole Blood 260 mg/dL (60-115)
[2022-11-11] MEDS: 0.9 % Sodium Chloride Flush 3 ML SYRINGE IVFLUSH ×2 (16:50→21:14)
[2022-11-11 18:40] VITALS: BP 158/91; PULSE 68; RESP 20; TEMP 36.6; O2SAT 97
[2022-11-11 19:26] LABS: Glucose, Whole Blood 265 mg/dL (60-115)
[2022-11-12] VITALS: BP 162/89; PULSE 60; RESP 14; TEMP 36; O2SAT 97
[2022-11-12 04:00] VITALS: BP 168/95; PULSE 71; RESP 14; TEMP 36; O2SAT 64
[2022-11-12 07:25] LABS: Anion Gap 13 (12-20); Blood Urea Nitrogen 38 mg/dL (9-16); Calcium 8.2 mg/dL (8.4-10.2); Carbon Dioxide 24 mmol/L (22-29); Chloride 108 mmol/L (96-108); Creatinine Clr Calc Pharmacy 28.3; Estimated Glomerular Filt Rate 16; Glucose Random 165 mg/dL (60-115); Potassium 4.6 mmol/L (3.3-5.1); Sodium 140 mmol/L (135-145)
[2022-11-12 07:52] LABS: Glucose, Whole Blood 182 mg/dL (60-115)
[2022-11-12 08:00] VITALS: BP 175/98; PULSE 57; RESP 18; TEMP 35.7; O2SAT 97
[2022-11-12] MEDS: 0.9 % Sodium Chloride Flush 3 ML SYRINGE IVFLUSH ×3 (08:14→21:39)
[2022-11-12] MEDS: Insulin Lispro 100 UNIT/ML 3 ML VIAL SUBCUT ×4 (08:14→21:38)
[2022-11-12] MEDS: Multivitamin TABLET 1 TAB PO (08:14)
--- NOTE | 2022-11-12 08:37 | MHC.CM.PN ---
UPDATES SENT TO [facility], PTS PREFERRED FACILTIY DCP CONTINUES TO BE ACUTE REHAB ONCE MEDICALLY CLEARED
--- NOTE | 2022-11-12 10:35 | P.PNGS_ITS ---
Subjective Subjective Date of Service: 11/12/22 Interval history: Patient is sitting up in a chair resting comfortably. He denies any right lower extremity pain. Denies any new problems overnight. Physical Exam Vital Signs: Vital Signs: Last Vital Signs Temp 96.3 F L 11/12/22 08:00 Pulse 57 11/12/22 08:00 Resp 18 11/12/22 08:00 BP 175/98 H 11/12/22 08:00 Pulse Ox 97 11/12/22 08:00 O2 Del Method 11/12/22 08:00 O2 Flow Rate 96 11/12/22 04:00 BMI result Body Mass Index 29.1 Const: General: no acute distress Nutritional Appearance: well nourished Orientation/consciousness: patient oriented x3 Limitations: no limitations Resp: Effort & Inspection: normal respiratory effort Skin: Other: Warm and dry Neuro: General: patient oriented x3 Extrem: Other: Dressings to right leg are clean, dry, and intact without bleeding or discharge. Surrounding skin without erythema or necrosis. Objective Data Active Medications Dextrose (Dextrose 50 % 25 Gm/50 Ml Syringe) 25 gm IVPUSH Q15M PRN; Protocol PRN Reason: per Hypoglycemia Standing Ord. Glucose (Glucose Gel 15 Gm Gel..Gram.) 15 gm PO Q15M PRN; Protocol PRN Reason: per Hypoglycemia Standing Ord. Linezolid (Zyvox/D5w) 600 mg in 300 mls @ 300 mls/hr IV Q12H [facility] Last Infusion: 11/12/22 00:11 Dose: 0 mls/hr Documented By: ELGIN Insulin Human Lispro (Insulin Lispro 100 Unit/Ml 3 Ml Vial) 0 unit SUBCUT QIDACHS [facility]; Protocol Last Admin: 11/12/22 08:14 Dose: 2 unit Documented By: GOPI Multivitamins/Vitamin C (Multivitamin Tablet) 1 tab PO DAILY [facility] Last Admin: 11/12/22 08:14 Dose: 1 tab Documented By: GOPI Ondansetron HCl (Ondansetron Hcl 4 Mg/2 Ml Vial) 4 mg IVPUSH Q8H PRN PRN Reason: Nausea and Vomiting Last Admin: 11/11/22 01:11 Dose: 4 mg Documented By: VIVI Oxycodone HCl (Oxycodone Hcl Immed Release 5 Mg Tablet) 5 mg PO Q4H PRN PRN Reason: Pain, Moderate (Pain Scale 4-6 Last Admin: 11/09/22 10:25 Dose: 5 mg Documented By: DENIS Oxycodone HCl (Oxycodone Hcl Immed Release 5 Mg Tablet) 10 mg PO Q4H PRN PRN Reason: Pain, Severe (Pain Scale 7-10) Last Admin: 11/07/22 11:15 Dose: 10 mg Documented By: DENIS Pharmacy Consult (Consult Rx Perform Med Rec) 1 each MISCELLANE ONCE PRN PRN Reason: Consult order Sodium Chloride (0.9 % Sodium Chloride Flush 3 Ml Syringe) 3 ml IVFLUSH QSHIFT [facility] Last Admin: 11/12/22 08:14 Dose: 3 ml Documented By: GOPI Labs CBC & Chem 7: 11/10/22 06:17 11/12/22 05:33 Labs: Laboratory Results - last 24 hr 11/11/22 11/11/22 11/11/22 11:42 15:33 18:43 Anion Gap Estim Creat Clear Calc Estimated GFR POC Glucose 253 H 260 H 265 H Random Glucose Calcium 11/12/22 11/12/22 05:33 07:44 Anion Gap 13 Estim Creat Clear Calc 28.3 Estimated GFR 16 POC Glucose 182 H Random Glucose 165 H Calcium 8.2 L Microbiology Microbiology Results: Microbiology 11/06/22 14:54 Blood Culture - Final Blood - Venous No growth after 5 days. Procedures Date of Service Date of Service: 11/12/22 Progress Note: A&P Assessment and plan (1) BARB (acute kidney injury): Status: Acute (2) Necrotizing fasciitis of ankle and foot: Status: Acute (3) Type 2 diabetes mellitus: Status: Acute Plan 41-year-old male patient presenting with necrotizing fasciitis of the right foot, S/P below-knee amputation right leg. Postoperative course marked by elevated creatinine level consistent with acute kidney injury possibly due to vancomycin and sepsis. Patient now on linezolid. Will change dressings later today. Wound cultures with E coli and group B strep. One of 2 blood cultures with coag-negative staph. Time Spent With Patient Time: Total time managing care of this patient today ____ minutes. Quality Stroke Does the patient have a stroke diagnosis?: No VTE Prior VTE?: No VTE Risk Level:: Medical - moderate - high VTE Device Contraindication: N/A - Device Ordered VTE Drug Contraindication: N/A - Med Ordered
--- NOTE | 2022-11-12 10:42 | P.PNNP_ITS ---
Subjective Subjective Date of Service: 11/12/22 Interval history: Seen and examined, events noted SCr grad decr Physical Exam Vital Signs: Vital Signs: Last Vital Signs Temp 96.3 F L 11/12/22 08:00 Pulse 57 11/12/22 08:00 Resp 18 11/12/22 08:00 BP 175/98 H 11/12/22 08:00 Pulse Ox 97 11/12/22 08:00 O2 Del Method 11/12/22 08:00 O2 Flow Rate 96 11/12/22 04:00 BMI result Body Mass Index 29.1 Const: Other: Gen: Awake alert x3 no acute distress HEENT: sclera anicteric, moist mucus membranes Neck: supple Lungs: clear to auscultation bilaterally Heart: regular, tachycardic, no murmurs Abd: soft, non-tender, non-distended Ext: no edema, R BKA with dressing in place Skin: warm/well-perfused Neuro: alert and oriented x3, no focal findings Psych: appropriate affect ? General: cooperative, healthy appearing, comfortable, no acute distress, alert and awake Nutritional Appearance: well nourished Orientation/consciousness: patient oriented x3 Limitations: no limitations and ambulation with walker HEENT: Head: Yes normal to inspection, Yes normocephalic and Yes atraumatic Ears: hearing grossly normal bilaterally and external ears normal General nose exam: Normal external nose present, no nasal discharge noted and no epistaxis Face and sinus: Yes normal facial exam, No abrasion and No laceration Mouth: Normal oral and palatal mucosa present, no drooling and no muffled voice Teeth and gingiva: dentition normal Eyes: General: appearance normal, both eyes and all related structures Per iorbital: periorbital findings normal Eyelids: Yes eyelids normal Conjunctivae: conjunctivae normal Pupils: Equal, round and reactive pupils present EOM: EOMs intact bilaterally Neck: Neck: Yes normal visual inspection, Yes full ROM and Yes no lymphadenopathy Chest: Chest palpation & inspection: normal inspection of the chest Resp: Effort & Inspection: normal respiratory effort, able to speak in complete sentences, no audible wheezes, no cough and no respiratory distress Auscultation: clear to auscultation bilaterally Cardio: Jugular venous distension: no JVD Rate: regular rate and tachycardic Rhythm: regular rhythm GI: Inspection: Yes normal to inspection Palpation (GI): Soft to palpation and nontender : General: Yes no CVA tenderness Back/Spine/Pelvis: Back: no CVA tenderness Skin: Other: Warm and dry General skin exam: no rashes or lesions noted Neuro: General: patient oriented x3 and moves all extremities Cranial nerves: Yes Equal, round and reactive pupils present Cognition (Neuro): normal cognition Motor exam (neuro): 5/5 motor strength present throughout Sensory Exam: Normal double simultaneous stimulation for sensation Coordination: [id number] test normal Extrem: Other: R BKA General: Yes normal to inspection, Yes full ROM, Yes capillary refill normal and Yes no clubbing, cyanosis or edema Psych: Appearance: grossly normal Mental Status: mental status grossly normal Affect: normal affect Attitude: cooperative Thought process: Normal thought process present Thought content: Normal thought content present Insight: Good insight present (Psych) Objective Data Labs CBC & Chem 7: 11/10/22 06:17 11/12/22 05:33 Labs: Laboratory Results - last 24 hr 11/11/22 11/11/22 11/11/22 11:42 15:33 18:43 Sodium Potassium Chloride Carbon Dioxide Anion Gap BUN Creatinine Estim Creat Clear Calc Estimated GFR POC Glucose 253 H 260 H 265 H Random Glucose Calcium 11/12/22 11/12/22 05:33 07:44 Sodium 140 Potassium 4.6 Chloride 108 Carbon Dioxide 24 Anion Gap 13 BUN 38 H Creatinine 4.06 H* Estim Creat Clear Calc 28.3 Estimated GFR 16 POC Glucose 182 H Random Glucose 165 H Calcium 8.2 L Microbiology Microbiology Results: Microbiology 11/06/22 14:54 Blood - Venous Blood Culture - Final No growth after 5 days. 11/06/22 18:37 Foot Right Gram Stain - Final 11/06/22 18:37 Foot Right Routine Culture - Final Escherichia coli Strep agalactiae (Grp B) 11/06/22 14:54 Blood - Venous Blood Culture - Final Coag negative Staphylococcus Procedures Date of Service Date of Service: 11/12/22 Assessment & Plan Assessment and plan (1) BARB (acute kidney injury): Status: Acute (2) Necrotizing fasciitis of ankle and foot: Status: Acute (3) Type 2 diabetes mellitus: Status: Acute Plan 41-year-old male patient presenting with necrotizing fasciitis of the right foot, S/P below-knee amputation right leg. Postoperative course marked by elevated creatinine level consistent with acute kidney injury possibly due to vancomycin and sepsis. Patient now on linezolid. 1. BARB: peak Scr 5.33--> 4.0 today c/w recovery phase of ATN BSL SCR 1.0 2. HTN REC: cont to track UOP/renal func; avoid NToxins; add norvasc 5 qd Time Spent With Patient Time: Total time managing care of this patient today ____ minutes. Progress Note: Quality Stroke Does the patient have a stroke diagnosis?: No
[2022-11-12 11:13] LABS: Glucose, Whole Blood 246 mg/dL (60-115)
[2022-11-12] MEDS: Linezolid/D5W 600 MG/300 ML PIGGYBACK 300 MG IV (11:51)
[2022-11-12] MEDS: amLODIPine Besylate 5 MG TABLET PO (11:51)
--- NOTE | 2022-11-12 11:51 | MHC.CM.PN ---
CM MET WITH PT AND MOTHER AT BEDSIDE WITH ASSISTANCE OF [facility] PT AND MOTHER REPORT THEY WOULD LIKE THE ID DOCTOR TO SPEAK WITH THEIR FAMILY MEMBER WHO IS ALSO A DOCTOR SHE PROVIDED THE NAME AND NUMBER OF THE CONTACT: DR LOGAN GARCIA [phone] PTS MOTHER THEN ASKED THAT SHE AND ANOTHER FAMILY MEMBER ALSO BE CALLED WITH UPDATES CM INFORMED HER SHE SHOULD CHOOSE ONE PRIMARY CIDER MAKER SHE REPORTS SHE WOULD LIKE IT TO BE THE PERSON NAMED ABOVE CM ALSO REMINDED HER, KERI HAS ALREADY PROVIDED PERMISSION FOR HER TO GET UPDATES FROM RN & SW PT IS AWARE HE WILL NEED TO COMPLETE A HCP TODAY THE REHAB WILL REQUIRE IT HE REPORTS HE WILL NAME HIS MOTHER CM IS AWAITING UPDATED PT NOTES FOR THE REHAB SO THEY CAN SUBMIT FOR INSURANCE [facility] IS OFFERING A BED PENDING AUTH
[2022-11-12 14:03] LABS: Myeloperoxidase Antibody <1.0 AI; Proteinase 3 PR3 Antibodies <1.0 AI
--- NOTE | 2022-11-12 14:41 | HO.PM.IMPN ---
Subjective Subjective Date of Service: 11/12/22 Interval History: Feeling better this morning less nausea, no fevers no chills noted to have elevated blood pressures denies headache lightheadedness or dizziness no other acute events overnight. Review of Systems Review of Systems: Yes all other systems are reviewed and are negative Physical Exam Vital Signs: Vital Signs: Last Vital Signs Temp 96.3 F L 11/12/22 08:00 Pulse 57 11/12/22 08:00 Resp 18 11/12/22 08:00 BP 175/98 H 11/12/22 08:00 Pulse Ox 97 11/12/22 08:00 O2 Del Method 11/12/22 08:00 O2 Flow Rate 96 11/12/22 04:00 BMI result Body Mass Index 29.1 Const: Other: Gen:? Awake alert x3 no acute distress HEENT: sclera anicteric, moist mucus membranes Neck: supple Lungs: clear to auscultation bilaterally Heart: regular, tachycardic, no murmurs Abd: soft, non-tender, non-distended Ext: no edema, R BKA with dressing in place, left big toe noted to have small bruise, no redness no open sores or ulcers Skin: warm/well-perfused Neuro: alert and oriented x3, no focal findings Psych: appropriate affect Objective Data Active Medications Amlodipine Besylate (Amlodipine Besylate 5 Mg Tablet) 5 mg PO DAILY [facility]; Protocol Last Admin: 11/12/22 11:51 Dose: 5 mg Documented By: GOPI Dextrose (Dextrose 50 % 25 Gm/50 Ml Syringe) 25 gm IVPUSH Q15M PRN; Protocol PRN Reason: per Hypoglycemia Standing Ord. Glucose (Glucose Gel 15 Gm Gel..Gram.) 15 gm PO Q15M PRN; Protocol PRN Reason: per Hypoglycemia Standing Ord. Insulin Human Lispro (Insulin Lispro 100 Unit/Ml 3 Ml Vial) 0 unit SUBCUT QIDACHS [facility]; Protocol Last Admin: 11/12/22 11:52 Dose: 4 unit Documented By: GOPI Multivitamins/Vitamin C (Multivitamin Tablet) 1 tab PO DAILY [facility] Last Admin: 11/12/22 08:14 Dose: 1 tab Documented By: GOPI Ondansetron HCl (Ondansetron Hcl 4 Mg/2 Ml Vial) 4 mg IVPUSH Q8H PRN PRN Reason: Nausea and Vomiting Last Admin: 11/11/22 01:11 Dose: 4 mg Documented By: VIVI Oxycodone HCl (Oxycodone Hcl Immed Release 5 Mg Tablet) 5 mg PO Q4H PRN PRN Reason: Pain, Moderate (Pain Scale 4-6 Last Admin: 11/09/22 10:25 Dose: 5 mg Documented By: DENIS Oxycodone HCl (Oxycodone Hcl Immed Release 5 Mg Tablet) 10 mg PO Q4H PRN PRN Reason: Pain, Severe (Pain Scale 7-10) Last Admin: 11/07/22 11:15 Dose: 10 mg Documented By: DENIS Pharmacy Consult (Consult Rx Perform Med Rec) 1 each MISCELLANE ONCE PRN PRN Reason: Consult order Sodium Chloride (0.9 % Sodium Chloride Flush 3 Ml Syringe) [facility] Last Admin: 11/12/22 08:14 Dose: 3 ml Documented By: GOPI Labs CBC & Chem 7: 11/10/22 06:17 11/12/22 05:33 Labs: Laboratory Results - last 24 hr 11/09/22 11/11/22 11/11/22 05:27 15:33 18:43 Anion Gap Estim Creat Clear Calc Estimated GFR POC Glucose 260 H 265 H Random Glucose Calcium Proteinase 3 (PR3) Ab <1.0 Myeloperoxidase Ab <1.0 11/12/22 11/12/22 11/12/22 05:33 07:44 11:05 Anion Gap 13 Estim Creat Clear Calc 28.3 Estimated GFR 16 POC Glucose 182 H 246 H Random Glucose 165 H Calcium 8.2 L Proteinase 3 (PR3) Ab Myeloperoxidase Ab Microbiology Microbiology Results: Microbiology 11/06/22 14:54 Blood Culture - Final Blood - Venous No growth after 5 days. Assessment and Plan (1) Necrotizing fasciitis of ankle and foot: Status: Acute (2) Sepsis: Status: Acute Plan d#5 41yo M with poorly controlled DM2 admitted for sepsis from necrotizing fasciitis, developed BARB # acute right foot necrotizing fasciitis Nausea improved usually get worse with antibiotics patient not requiring narcotics POD#6 BKA. Status post IV clinda and Zosyn now on linezolid case discussed with ID she recommend to discontinue linezolid since there is no evidence of left foot infection echo did not rule out vegetation completely, however no concern since blood cultures negative and patient afebrile. # BARB - suspect ATN from sepsis ,Nephrology following d/c'ed vancomycin SCr trending down consistent with recovery phase of ATN s/p IV fluids and follow BMP # DM2, A1c 9.4 - blood sugar in 200s, continue correction-dose lispro; will add Lantus 8 units at bedtime, hold OHGs due to acute kidney injury # elevated blood pressure no prior history of hypertension started on Norvasc 5 mg daily as per Nephrology follow BP # VTE prophylaxis: SCDs # dispo: anticipate DC to rehab In my clinical judgment, the patient requires continued inpatient hospitalization for the following reasons: postop care, BARB, 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 Quality Stroke Does the patient have a stroke diagnosis?: No VTE Prior VTE?: No VTE Risk Level:: Medical - moderate - high VTE Device Contraindication: N/A - Device Ordered VTE Drug Contraindication: N/A - Med Ordered
[2022-11-12 16:04] VITALS: BP 161/92; PULSE 66; RESP 18; TEMP 36.7; O2SAT 95
[2022-11-12 16:22] LABS: Glucose, Whole Blood 265 mg/dL (60-115)
[2022-11-12 19:56] VITALS: BP 160/93; PULSE 73; RESP 18; TEMP 36.4; O2SAT 94
[2022-11-12 20:13] LABS: Glucose, Whole Blood 309 mg/dL (60-115)
[2022-11-12] MEDS: Insulin Glargine,Hum.rec.anlog 100 UNIT/ML 10 ML VIAL 8 UNIT SUBCUT (21:38)
[2022-11-13] VITALS: BP 157/96; PULSE 75; RESP 14; TEMP 36.4; O2SAT 94
[2022-11-13 04:00] VITALS: BP 146/70; PULSE 70; RESP 14; TEMP 36.9; O2SAT 98
[2022-11-13 07:09] LABS: Anion Gap 14 (12-20); Blood Urea Nitrogen 35 mg/dL (9-16); Calcium 8.2 mg/dL (8.4-10.2); Carbon Dioxide 24 mmol/L (22-29); Chloride 108 mmol/L (96-108); Creatinine Clr Calc Pharmacy 33.3; Estimated Glomerular Filt Rate 19; Glucose Random 165 mg/dL (60-115); Potassium 4.6 mmol/L (3.3-5.1); Sodium 141 mmol/L (135-145)
[2022-11-13 07:40] LABS: Glucose, Whole Blood 151 mg/dL (60-115)
[2022-11-13 07:42] VITALS: BP 179/92; PULSE 63; RESP 15; TEMP 36.7; O2SAT 95
[2022-11-13] MEDS: Insulin Lispro 100 UNIT/ML 3 ML VIAL SUBCUT ×4 (07:51→20:35)
[2022-11-13] MEDS: amLODIPine Besylate 5 MG TABLET PO (07:52)
[2022-11-13] MEDS: Multivitamin TABLET 1 TAB PO (07:52)
[2022-11-13] MEDS: 0.9 % Sodium Chloride Flush 3 ML SYRINGE IVFLUSH ×2 (07:53→16:45)
--- NOTE | 2022-11-13 07:54 | PM.PNGS ---
Subjective Subjective Date of Service: 11/13/22 Interval history: Patient feels great has no complaints today. He is able to get up out of bed go to the bathroom independently. Physical Exam Vital Signs: Vital Signs: Last Vital Signs Temp 98.1 F 11/13/22 07:42 Pulse 63 11/13/22 07:42 Resp 15 11/13/22 07:42 BP 179/92 H 11/13/22 07:42 Pulse Ox 95 11/13/22 07:42 O2 Del Method 11/13/22 07:42 O2 Flow Rate 96 11/12/22 04:00 BMI result Body Mass Index 29.1 Const: General: comfortable and no acute distress Nutritional Appearance: well nourished Orientation/consciousness: patient oriented x3 Limitations: no limitations Resp: Effort & Inspection: normal respiratory effort Neuro: General: patient oriented x3 Extrem: Other: Dressings to right leg are clean, dry, and intact. Skin is warm and dry without rash or skin necrosis. Objective Data Active Medications Amlodipine Besylate (Amlodipine Besylate 5 Mg Tablet) 5 mg PO DAILY [facility]; Protocol Last Admin: 11/12/22 11:51 Dose: 5 mg Documented By: GOPI Dextrose (Dextrose 50 % 25 Gm/50 Ml Syringe) 25 gm IVPUSH Q15M PRN; Protocol PRN Reason: per Hypoglycemia Standing Ord. Glucose (Glucose Gel 15 Gm Gel..Gram.) 15 gm PO Q15M PRN; Protocol PRN Reason: per Hypoglycemia Standing Ord. Insulin Glargine (Insulin Glargine,Hum.Rec.Anlog 100 Unit/Ml 10 Ml Vial) 8 unit SUBCUT BEDTIME [facility] Last Admin: 11/12/22 21:38 Dose: 8 unit Documented By: ELGIN Insulin Human Lispro (Insulin Lispro 100 Unit/Ml 3 Ml Vial) 0 unit SUBCUT QIDACHS [facility]; Protocol Last Admin: 11/12/22 21:38 Dose: 8 unit Documented By: ELGIN Multivitamins/Vitamin C (Multivitamin Tablet) 1 tab PO DAILY [facility] Last Admin: 11/12/22 08:14 Dose: 1 tab Documented By: GOPI Ondansetron HCl (Ondansetron Hcl 4 Mg/2 Ml Vial) 4 mg IVPUSH Q8H PRN PRN Reason: Nausea and Vomiting Last Admin: 11/11/22 01:11 Dose: 4 mg Documented By: VIVI Oxycodone HCl (Oxycodone Hcl Immed Release 5 Mg Tablet) 5 mg PO Q4H PRN PRN Reason: Pain, Moderate (Pain Scale 4-6 Last Admin: 11/09/22 10:25 Dose: 5 mg Documented By: DENIS Oxycodone HCl (Oxycodone Hcl Immed Release 5 Mg Tablet) 10 mg PO Q4H PRN PRN Reason: Pain, Severe (Pain Scale 7-10) Last Admin: 11/07/22 11:15 Dose: 10 mg Documented By: DENIS Pharmacy Consult (Consult Rx Perform Med Rec) 1 each MISCELLANE ONCE PRN PRN Reason: Consult order Sodium Chloride (0.9 % Sodium Chloride Flush 3 Ml Syringe) [facility] Last Admin: 11/12/22 21:39 Dose: 3 ml Documented By: ELGIN Labs CBC & Chem 7: 11/10/22 06:17 11/13/22 05:42 Labs: Laboratory Results - last 24 hr 11/09/22 11/12/22 11/12/22 05:27 11:05 16:08 Anion Gap Estim Creat Clear Calc Estimated GFR POC Glucose 246 H 265 H Random Glucose Calcium Proteinase 3 (PR3) Ab <1.0 Myeloperoxidase Ab <1.0 11/12/22 11/13/22 11/13/22 19:58 05:42 07:28 Anion Gap 14 Estim Creat Clear Calc 33.3 Estimated GFR 19 POC Glucose 309 H 151 H Random Glucose 165 H Calcium 8.2 L Proteinase 3 (PR3) Ab Myeloperoxidase Ab Procedures Date of Service Date of Service: 11/13/22 Progress Note: A&P Assessment and plan (1) BARB (acute kidney injury): Status: Acute Assessment and Plan: BUN 35, renal function slowly improving off vancomycin. (2) Necrotizing fasciitis of ankle and foot: Status: Acute Assessment and Plan: S/P right BKA. Wounds are clean and intact healing appropriately. (3) Type 2 diabetes mellitus: Status: Acute (4) Sepsis: Status: Acute Assessment and Plan: Resolved Plan 41-year-old male presenting with necrotizing fasciitis of right foot, s/p right BKA week ago. His wounds are clean and intact and healing appropriately. Plan for discharge to short-term rehab once medically clear. Time Spent With Patient Time: Total time managing care of this patient today 15 minutes. Quality Stroke Does the patient have a stroke diagnosis?: No VTE Prior VTE?: No VTE Risk Level:: Medical - moderate - high VTE Device Contraindication: N/A - Device Ordered VTE Drug Contraindication: N/A - Med Ordered
--- NOTE | 2022-11-13 10:40 | P.PNNP_ITS ---
Subjective Subjective Date of Service: 11/13/22 Interval history: Seen and examined, events noted Physical Exam Vital Signs: Vital Signs: Last Vital Signs Temp 98.1 F 11/13/22 07:42 Pulse 63 11/13/22 07:42 Resp 15 11/13/22 07:42 BP 179/92 H 11/13/22 07:42 Pulse Ox 95 11/13/22 07:42 O2 Del Method 11/13/22 07:42 O2 Flow Rate 96 11/12/22 04:00 BMI result Body Mass Index 29.1 Const: Other: Gen: Awake alert x3 no acute distress HEENT: sclera anicteric, moist mucus membranes Neck: supple Lungs: clear to auscultation bilaterally Heart: regular, tachycardic, no murmurs Abd: soft, non-tender, non-distended Ext: no edema, R BKA with dressing in place Skin: warm/well-perfused Neuro: alert and oriented x3, no focal findings Psych: appropriate affect ? General: cooperative, healthy appearing, comfortable, no acute distress, claudy rt and awake Nutritional Appearance: well nourished [place] ation/consciousness: patient oriented x3 Limitations: no limitations and ambulation with walker HEENT: Head: Yes normal to inspection, Yes normocephalic and Yes atraumatic Ears: hearing grossly normal bilaterally and external ears normal General nose exam: Normal external nose present, no nasal discharge noted and no epistaxis Face and sinus: Yes normal facial exam, No abrasion and No laceration Mouth: Normal oral and palatal mucosa present, no drooling and no muffled voice Teeth and gingiva: dentition normal Eyes: General: appearance normal, both eyes and all related structures Periorbital: periorbital findings normal Eyelids: Yes eyelids normal Conjunctivae: conjunctivae normal Pupils: Equal, round and reactive pupils present EOM: EOMs intact bilaterally Neck: Neck: Yes normal visual inspection, Yes full ROM and Yes no lymphadenopathy Chest: Chest palpation & inspection: normal inspection of the chest Resp: Effort & Inspection: normal respiratory effort, able to speak in complete sentences, no audible wheezes, no cough and no respiratory distress Auscultation: clear to auscultation bilaterally Cardio: Jugular venous distension: no JVD Rate: regular rate and tachycardic Rhythm: regular rhythm GI: Inspection: Yes normal to inspection Palpation (GI): Soft to palpation and nontender : General: Yes no CVA tenderness Back/Spine/Pelvis: Back: no CVA tenderness Skin: Other: Warm and dry General skin exam: no rashes or lesions noted Neuro: General: patient oriented x3 and moves all extremities Cranial ne rves: Yes Equal, round and reactive pupils present Cognition (Neuro): normal cognition Motor exam (neuro): 5/5 motor strength present throughout Sensory Exam: Normal double simultaneous stimulation for sensation Coordination: [id number] test normal Extrem: Other: R BKA General: Yes normal to inspection, Yes full ROM, Yes capillary refill normal and Yes no clubbing, cyanosis or edema Psych: Appearance: grossly normal Mental Status: mental status grossly normal Affect: normal affect Attitude: cooperative Thought process: Normal thought process present Thought content: Normal thought content present Insight: Good insight present (Psych) Objective Data Labs CBC & Chem 7: 11/10/22 06:17 11/13/22 05:42 Labs: Laboratory Results - last 24 hr 11/09/22 11/12/22 11/12/22 05:27 11:05 16:08 Sodium Potassium Chloride Carbon Dioxide Anion Gap BUN Creatinine Estim Creat Clear Calc Estimated GFR POC Glucose 246 H 265 H Random Glucose Calcium Proteinase 3 (PR3) Ab <1.0 Myeloperoxidase Ab <1.0 11/12/22 11/13/22 11/13/22 19:58 05:42 07:28 Sodium 141 Potassium 4.6 Chloride 108 Carbon Dioxide 24 Anion Gap 14 BUN 35 H Creatinine 3.46 H Estim Creat Clear Calc 33.3 Estimated GFR 19 POC Glucose 309 H 151 H Random Glucose 165 H Calcium 8.2 L Proteinase 3 (PR3) Ab Myeloperoxidase Ab Microbiology Microbiology Results: Microbiology 11/06/22 14:54 Blood - Venous Blood Culture - Final No growth after 5 days. 11/06/22 18:37 Foot Right Gram Stain - Final 11/06/22 18:37 Foot Right Routine Culture - Final Escherichia coli Strep agalactiae (Grp B) 11/06/22 14:54 Blood - Venous Blood Culture - Final Coag negative Staphylococcus Procedures Date of Service Date of Service: 11/13/22 Assessment & Plan Assessment and plan (1) BARB (acute kidney injury): Status: Acute (2) Necrotizing fasciitis of ankle and foot: Status: Acute (3) Type 2 diabetes mellitus: Status: Acute Plan 41-year-old male patient presenting with necrotizing fasciitis of the right foot, S/P below-knee amputation right leg. Postoperative course marked by elevated creatinine level consistent with acute kidney injury possibly due to vancomycin and sepsis. Patient now on linezolid. 1. BARB: peak Scr 5.33--> 3.4 today c/w recovery phase of ATN BSL SCR 1.0 2. HTN REC: cont to track UOP/renal func; avoid NToxins; titrate up BP meds--avoid RASi for now and will start once SCr close to BSL Time Spent With Patient Time: Total time managing care of this patient today ____ minutes. Progress Note: Quality Stroke Does the patient have a stroke diagnosis?: No
[2022-11-13 11:29] LABS: Glucose, Whole Blood 233 mg/dL (60-115)
[2022-11-13 11:41] VITALS: BP 144/88; PULSE 71; RESP 16; TEMP 36.4; O2SAT 95
--- NOTE | 2022-11-13 14:36 | MHC.CM.PN ---
CONTINUE TO AWAIT BLUE BENEFIT AUTH FROM DR. CHRISTOPHER RUVALCABA UPDATED.
--- NOTE | 2022-11-13 14:47 | HO.PM.IMPN ---
Subjective Subjective Date of Service: 11/13/22 Interval History: Offers no acute complaints, denies nausea vomiting tolerating diet, denies pain no other acute issues overnight blood sugars better controlled with addition of Lantus. Review of Systems General no headache no dizziness no fever chills. CVS no chest pain, no palpitation. Respiratory no cough, no sob Gastrointestinal no nausea, no vomiting, no abdominal pain Review of Systems: Yes all other systems are reviewed and are negative Physical Exam Vital Signs: Vital Signs: Last Vital Signs Temp 97.6 F 11/13/22 11:41 Pulse 71 11/13/22 11:41 Resp 16 11/13/22 11:41 BP 144/88 H 11/13/22 11:41 Pulse Ox 95 11/13/22 11:41 O2 Del Method 11/13/22 11:41 O2 Flow Rate 96 11/12/22 04:00 BMI result Body Mass Index 29.1 Const: Other: Gen:? Awake alert x3 no acute distress HEENT: sclera anicteric, moist mucus membranes Neck: supple Lungs: clear to auscultation bilaterally Heart: regular, tachycardic, no murmurs Abd: soft, non-tender, non-distended Ext: no edema, R BKA with dressing in place, left big toe noted to have small bruise, no redness no open sores or ulcers Skin: warm/well-perfused Neuro: alert and oriented x3, no focal findings Psych: appropriate affect Objective Data Active Medications Amlodipine Besylate (Amlodipine Besylate 5 Mg Tablet) 5 mg PO DAILY [facility]; Protocol Last Admin: 11/13/22 07:52 Dose: 5 mg Documented By: LESLIE Dextrose (Dextrose 50 % 25 Gm/50 Ml Syringe) 25 gm IVPUSH Q15M PRN; Protocol PRN Reason: per Hypoglycemia Standing Ord. Glucose (Glucose Gel 15 Gm Gel..Gram.) 15 gm PO Q15M PRN; Protocol PRN Reason: per Hypoglycemia Standing Ord. Insulin Glargine (Insulin Glargine,Hum.Rec.Anlog 100 Unit/Ml 10 Ml Vial) 8 unit SUBCUT BEDTIME [facility] Last Admin: 11/12/22 21:38 Dose: 8 unit Documented By: ELGIN Insulin Human Lispro (Insulin Lispro 100 Unit/Ml 3 Ml Vial) 0 unit SUBCUT QIDACHS [facility]; Protocol Last Admin: 11/13/22 12:08 Dose: 4 unit Documented By: LESLIE Multivitamins/Vitamin C (Multivitamin Tablet) 1 tab PO DAILY [facility] Last Admin: 11/13/22 07:52 Dose: 1 tab Documented By: LESLIE Ondansetron HCl (Ondansetron Hcl 4 Mg/2 Ml Vial) 4 mg IVPUSH Q8H PRN PRN Reason: Nausea and Vomiting Last Admin: 11/11/22 01:11 Dose: 4 mg Documented By: VIVI Oxycodone HCl (Oxycodone Hcl Immed Release 5 Mg Tablet) 5 mg PO Q4H PRN PRN Reason: Pain, Moderate (Pain Scale 4-6 Last Admin: 11/09/22 10:25 Dose: 5 mg Documented By: DENIS Oxycodone HCl (Oxycodone Hcl Immed Release 5 Mg Tablet) 10 mg PO Q4H PRN PRN Reason: Pain, Severe (Pain Scale 7-10) Last Admin: 11/07/22 11:15 Dose: 10 mg Documented By: DENIS Pharmacy Consult (Consult Rx Perform Med Rec) 1 each MISCELLANE ONCE PRN PRN Reason: Consult order Sodium Chloride (0.9 % Sodium Chloride Flush 3 Ml Syringe) 3 ml IVFLUSH [facility] Last Admin: 11/13/22 07:53 Dose: 3 ml Documented By: LESLIE Labs CBC & Chem 7: 11/10/22 06:17 11/13/22 05:42 Labs: Laboratory Results - last 24 hr 11/12/22 11/12/22 11/13/22 16:08 19:58 05:42 Anion Gap 14 Estim Creat Clear Calc 33.3 Estimated GFR 19 POC Glucose 265 H 309 H Random Glucose 165 H Calcium 8.2 L 11/13/22 11/13/22 07:28 11:14 Anion Gap Estim Creat Clear Calc Estimated GFR POC Glucose 151 H 233 H Random Glucose Calcium Assessment and Plan (1) Necrotizing fasciitis of ankle and foot: Status: Acute (2) Sepsis: Status: Acute Plan d#5 41yo M with poorly controlled DM2 admitted for sepsis from necrotizing fasciitis, developed BABR # acute right foot necrotizing fasciitis Nausea improved was likely due to antibiotics status post right BKA no further antibiotics required. Of issues no so at the due ROBERTO with a 26 27 2 know when it Saturday she echo did not rule out vegetation completely, however no concern since blood cultures negative and patient afebrile. # BARB - suspect ATN from sepsis ,Nephrology following d/c'ed vancomycin SCr trending down consistent with recovery phase of ATN s/p IV fluids, follow BMP # DM2, A1c 9.4 - blood sugar improved with addition of Lantus, continue correction-dose lispro; hold OHGs due to acute kidney injury # elevated blood pressure no prior history of hypertension started on Norvasc 5 mg daily as per Nephrology follow BP, patient feels is related to stress # VTE prophylaxis: SCDs # dispo: anticipate DC to rehab In my clinical judgment, the patient requires continued inpatient hospitalization for the following reasons: postop care, BARB, 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 Quality Stroke Does the patient have a stroke diagnosis?: No VTE Prior VTE?: No VTE Risk Level:: Medical - moderate - high VTE Device Contraindication: N/A - Device Ordered VTE Drug Contraindication: N/A - Med Ordered
[2022-11-13 14:48] LABS: Complement C3 97 mg/dL (82-185)
[2022-11-13 16:00] VITALS: BP 142/63; PULSE 75; RESP 18; TEMP 37.1; O2SAT 96
[2022-11-13 16:28] LABS: Glucose, Whole Blood 226 mg/dL (60-115)
[2022-11-13 19:21] VITALS: BP 135/71; PULSE 78; RESP 18; TEMP 36.3; O2SAT 95
[2022-11-13 19:22] LABS: Glucose, Whole Blood 306 mg/dL (60-115)
[2022-11-13] MEDS: Insulin Glargine,Hum.rec.anlog 100 UNIT/ML 10 ML VIAL 8 UNIT SUBCUT (20:36)
[2022-11-14] VITALS: BP 166/93; PULSE 68; RESP 18; TEMP 36; O2SAT 98
[2022-11-14] MEDS: 0.9 % Sodium Chloride Flush 3 ML SYRINGE IVFLUSH ×2 (00:16→11:33)
[2022-11-14 04:00] VITALS: BP 138/88; PULSE 70; RESP 18; TEMP 36; O2SAT 98
[2022-11-14 07:14] VITALS: BP 168/96; PULSE 57; RESP 16; TEMP 36.6; O2SAT 95
[2022-11-14 07:33] LABS: Glucose, Whole Blood 174 mg/dL (60-115)
[2022-11-14] MEDS: Multivitamin TABLET 1 TAB PO (08:02)
[2022-11-14] MEDS: Insulin Lispro 100 UNIT/ML 3 ML VIAL SUBCUT ×2 (08:02→11:38)
[2022-11-14] MEDS: amLODIPine Besylate 5 MG TABLET PO (08:02)
--- NOTE | 2022-11-14 08:15 | P.PNGS_ITS ---
Subjective Subjective Date of Service: 11/14/22 Interval history: Patient feels well and denies any new complaints. He is doing well with physical therapy and is anxious to return to work once fully mobile. Physical Exam Vital Signs: Vital Signs: Last Vital Signs Temp 97.8 F 11/14/22 07:14 Pulse 57 11/14/22 07:14 Resp 16 11/14/22 07:14 BP 168/96 H 11/14/22 07:14 Pulse Ox 95 11/14/22 07:14 O2 Del Method 11/14/22 07:14 O2 Flow Rate 96 11/12/22 04:00 BMI result Body Mass Index 29.1 Const: General: comfortable and no acute distress Nutritional Appearance: well nourished Orientation/consciousness: patient oriented x3 Limitations: ambulation with walker Resp: Other: Breathing comfortably on room air, no respiratory distress Skin: Other: Warm, dry, no rash Neuro: General: patient oriented x3 Extrem: Other: Dressings changed to the right leg. Wounds are much improved with minimal discharge and minimal edema. Erythema has resolved. No evidence of skin necrosis or abscess. Objective Data Active Medications Amlodipine Besylate (Amlodipine Besylate 5 Mg Tablet) 5 mg PO DAILY [facility]; Protocol Last Admin: 11/14/22 08:02 Dose: 5 mg Documented By: LESLIE Dextrose (Dextrose 50 % 25 Gm/50 Ml Syringe) 25 gm IVPUSH Q15M PRN; Protocol PRN Reason: per Hypoglycemia Standing Ord. Glucose (Glucose Gel 15 Gm Gel..Gram.) 15 gm PO Q15M PRN; Protocol PRN Reason: per Hypoglycemia Standing Ord. Insulin Glargine (Insulin Glargine,Hum.Rec.Anlog 100 Unit/Ml 10 Ml Vial) 10 unit SUBCUT BEDTIME [facility] Insulin Human Lispro (Insulin Lispro 100 Unit/Ml 3 Ml Vial) 0 unit SUBCUT QIDACHS [facility]; Protocol Last Admin: 11/14/22 08:02 Dose: 2 unit Documented By: LESLIE Multivitamins/Vitamin C (Multivitamin Tablet) 1 tab PO DAILY [facility] Last Admin: 11/14/22 08:02 Dose: 1 tab Documented By: LESLIE Ondansetron HCl (Ondansetron Hcl 4 Mg/2 Ml Vial) 4 mg IVPUSH Q8H PRN PRN Reason: Nausea and Vomiting Last Admin: 12/11/22 01:11 Dose: 4 mg Documented By: VIVI Oxycodone HCl (Oxycodone Hcl Immed Release 5 Mg Tablet) 5 mg PO Q4H PRN PRN Reason: Pain, Moderate (Pain Scale 4-6 Last Admin: 11/09/22 10:25 Dose: 5 mg Documented By: DENIS Oxycodone HCl (Oxycodone Hcl Immed Release 5 Mg Tablet) 10 mg PO Q4H PRN PRN Reason: Pain, Severe (Pain Scale 7-10) Last Admin: 11/07/22 11:15 Dose: 10 mg Documented By: DENIS Pharmacy Consult (Consult Rx Perform Med Rec) 1 each MISCELLANE ONCE PRN PRN Reason: Consult order Sodium Chloride (0.9 % Sodium Chloride Flush 3 Ml Syringe) [address] [facility] Last Admin: 11/14/22 00:16 Dose: 3 ml Documented By: CHRISTIAN Labs CBC & Chem 7: 11/10/22 06:17 11/13/22 05:42 Labs: Laboratory Results - last 24 hr 11/09/22 11/13/22 11/13/22 05:27 11:14 16:21 POC Glucose 233 H 226 H Complement C3 97 Complement C4 23 11/13/22 11/14/22 19:05 07:19 POC Glucose 306 H 174 H Complement C3 Complement C4 Procedures Date of Service Date of Service: 11/14/22 Progress Note: A&P Assessment and plan (1) Necrotizing fasciitis of ankle and foot: Status: Acute (2) History of right below knee amputation: Status: Acute Plan Patient is wounds continue to improve with no evidence of wound infection. Edema and erythema at the stump has markedly improved. Patient's renal function is slowly improving as well. Plan discharge to rehabilitation once medically clear. Time Spent With Patient Time: Total time managing care of this patient today ____ minutes. Quality Stroke Does the patient have a stroke diagnosis?: No VTE Prior VTE?: No VTE Risk Level:: Medical - moderate - high VTE Device Contraindication: N/A - Device Ordered VTE Drug Contraindication: N/A - Med Ordered
[2022-11-14 10:06] LABS: Anion Gap 16 (12-20); Blood Urea Nitrogen 32 mg/dL (9-16); Calcium 8.5 mg/dL (8.4-10.2); Carbon Dioxide 24 mmol/L (22-29); Chloride 105 mmol/L (96-108); Creatinine Clr Calc Pharmacy 37.6; Estimated Glomerular Filt Rate 22; Glucose Random 209 mg/dL (60-115); Potassium 4.4 mmol/L (3.3-5.1); Sodium 141 mmol/L (135-145)
[2022-11-14 11:08] VITALS: BP 152/93; PULSE 68; RESP 18; TEMP 36.4; O2SAT 95
--- NOTE | 2022-11-14 11:09 | P.PNNP_ITS ---
Subjective Subjective Date of Service: 11/14/22 Interval history: Seen and examined, events noted Physical Exam Vital Signs: Vital Signs: Last Vital Signs Temp 97.8 F 11/14/22 07:14 Pulse 57 11/14/22 07:14 Resp 16 11/14/22 07:14 BP 168/96 H 11/14/22 07:14 Pulse Ox 95 11/14/22 07:14 O2 Del Method 11/14/22 07:14 O2 Flow Rate 96 11/12/22 04:00 BMI result Body Mass Index 29.1 Const: Other: Gen: Awake alert x3 no acute distress HEENT: sclera anicteric, moist mucus membranes Neck: supple Lungs: clear to auscultation bilaterally Heart: regular, tachycardic, no murmurs Abd: soft, non-tender, non-distended Ext: no edema, R BKA with dressing in place Skin: warm/well-perfused Neuro: alert and oriented x3, no focal findings Psych: appropriate affect ? General: cooperative, healthy appearing, comfortable, no acute distress, claudy rt and awake Nutritional Appearance: well nourished [place] ation/consciousness: patient oriented x3 Limitations: no limitations and ambulation with walker HEENT: Head: Yes normal to inspection, Yes normocephalic and Yes atraumatic Ears: hearing grossly normal bilaterally and external ears normal General nose exam: Normal external nose present, no nasal discharge noted and no epistaxis Face and sinus: Yes normal facial exam, No abrasion and No laceration Mouth: Normal oral and palatal mucosa present, no drooling and no muffled voice Teeth and gingiva: dentition normal Eyes: General: appearance normal, both eyes and all related structures Periorbital: periorbital findings normal Eyelids: Yes eyelids normal Conjunctivae: conjunctivae normal Pupils: Equal, round and reactive pupils present EOM: EOMs intact bilaterally Neck: Neck: Yes normal visual inspection, Yes full ROM and Yes no lymphadenopathy Chest: Chest palpation & inspection: normal inspection of the chest Resp: Effort & Inspection: normal respiratory effort, able to speak in complete sentences, no audible wheezes, no cough and no respiratory distress Auscultation: clear to auscultation bilaterally Cardio: Jugular venous distension: no JVD Rate: regular rate and tachycardic Rhythm: regular rhythm GI: Inspection: Yes normal to inspection Palpation (GI): Soft to palpation and nontender : General: Yes no CVA tenderness Back/Spine/Pelvis: Back: no CVA tenderness Skin: Other: Warm and dry General skin exam: no rashes or lesions noted Neuro: General: patient oriented x3 and moves all extremities Cranial ne rves: Yes Equal, round and reactive pupils present Cognition (Neuro): normal cognition Motor exam (neuro): 5/5 motor strength present throughout Sensory Exam: Normal double simultaneous stimulation for sensation Coordination: [id number] test normal Extrem: Other: R BKA General: Yes normal to inspection, Yes full ROM, Yes capillary refill normal and Yes no clubbing, cyanosis or edema Psych: Appearance: grossly normal Mental Status: mental status grossly normal Affect: normal affect Attitude: cooperative Thought process: Normal thought process present Thought content: Normal thought content present Insight: Good insight present (Psych) Objective Data Labs CBC & Chem 7: 11/10/22 06:17 11/14/22 08:43 Labs: Laboratory Results - last 24 hr 11/09/22 11/13/22 11/13/22 05:27 11:14 16:21 Sodium Potassium Chloride Carbon Dioxide Anion Gap BUN Creatinine Estim Creat Clear Calc Estimated GFR POC Glucose 233 H 226 H Random Glucose Calcium Complement C3 97 Complement C4 23 11/13/22 11/14/22 11/14/22 19:05 07:19 08:43 Sodium 141 Potassium 4.4 Chloride 105 Carbon Dioxide 24 Anion Gap 16 BUN 32 H Creatinine 3.06 H Estim Creat Clear Calc 37.6 Estimated GFR 22 POC Glucose 306 H 174 H Random Glucose 209 H Calcium 8.5 Complement C3 Complement C4 Microbiology Microbiology Results: Microbiology 11/06/22 14:54 Blood - Venous Blood Culture - Final No growth after 5 days. 11/06/22 18:37 Foot Right Gram Stain - Final 11/06/22 18:37 Foot Right Routine Culture - Final Escherichia coli Strep agalactiae (Grp B) 11/06/22 14:54 Blood - Venous Blood Culture - Final Coag negative Staphylococcus Procedures Date of Service Date of Service: 11/14/22 Assessment & Plan Assessment and plan (1) BARB (acute kidney injury): Status: Acute (2) Necrotizing fasciitis of ankle and foot: Status: Acute (3) Type 2 diabetes mellitus: Status: Acute Plan 41-year-old male patient presenting with necrotizing fasciitis of the right foot, S/P below-knee amputation right leg. Postoperative course marked by elevated creatinine level consistent with acute kidney injury possibly due to vancomycin and sepsis. Patient now on linezolid. 1. BARB: peak Scr 5.33--> 3.4--> 3.0 today c/w recovery phase of ATN BSL SCR 1.0 2. HTN REC: cont to track UOP/renal func; avoid NToxins; titrate up BP meds ( incr nor vasc 10) --avoid RASi for now and will start once SCr close to BSL Time Spent With Patient Time: Total time managing care of this patient today ____ minutes. Progress Note: Quality Stroke Does the patient have a stroke diagnosis?: No
[2022-11-14 11:20] LABS: Glucose, Whole Blood 208 mg/dL (60-115)
[2022-11-14] MEDS: amLODIPine Besylate 10 MG TABLET PO (11:35)
--- NOTE | 2022-11-14 11:55 | MHC.CM.PN ---
PT MEDICALLY CLEARED FOR D/C TO [facility] FOR ACUTE REHAB, [facility] FOR BLS TRANSPORT
--- NOTE | 2022-11-14 11:57 | P.DS_ITS ---
DS: Providers Provider Date of Service: 11/14/22 Date of admission: 11/06/22 16:34 Primary care physician: CHERI Burns Consults: 11/06/22 16:19 Consult to General Surgery Stat Consulting Provider: Kaleb Gallagher Reason for consultation: nec fasc 11/06/22 16:52 Consult to Infectious Diseases Routine Consulting Provider: Fern Marcus Reason for consultation: nec fasc 11/08/22 08:42 Consult to Nephrology Routine Consulting Provider: [facility] Reason for consultation: worsening BARB despite fluids, likely septic ATN from nec fasc DS: Diagnosis Discharge Diagnosis (1) BARB (acute kidney injury): Status: Acute (2) Necrotizing fasciitis of ankle and foot: Status: Acute (3) Type 2 diabetes mellitus: Status: Acute DS: Summary Hospital Course Hospital Course: Date of Service: 11/06/22 Chief Complaint: foot infection 41 year-old male with poorly controlled DM2 presenting with 2 days of rapidly worsening redness, swelling, discoloration, and pain with malodorous discharge and now black skin over the dorsum of his foot with a plantar ulcer. He came in to the ED and a plain film showed gas in the dorsum of the foot concerning for necrotizing fasciitis. ? WBC count was 21.6.? He was given vancomycin and piperacillin-tazobactam and normal saline IV.? Surgery was consulted and he will be taken to the OR for emergent debridement.? He denies fever, chills, lightheadedness, chest pain, nausea, or vomiting.? No prior foot infections.? Denies trauma to the foot. Hospital course 41yo M with poorly controlled DM2 admitted for sepsis from necrotizing fasciitis, subsequently developed BARB . # acute right foot necrotizing fasciitis patient underwent right BKA, receive IV antibiotics that was subsequently discontinued after surgery, blood cultures came back negative patient is afebrile, echo did not completely rule out vegetations however there is no concern patient remains hemodynamically stable, afebrile, patient was followed closely by Dr. Gallagher from General surgery edema and erythema at this time has markedly improved continue physical therapy. ? # BARB- suspect ATN from sepsis , SCr trending down consistent with recovery phase of ATN s/p IV fluids, follow BMP in 2 days # DM2, A1c 9.4- blood sugar improved with addition of Lantus, continue correction-dose lispro; hold oral hypoglycemics due to acute kidney injury # elevated blood pressure no prior history of hypertension started on Norvasc 10 mg daily as per Nephrology follow BP. Time Spent with Patient Time attestation: Total time managing care of this patient today ____ minutes. Discharge coordination time: Greater than 30 minutes Quality: Safe Use of Opioids Does Pt have an Active Cancer Diagnosis on the Problem List?: No Quality: Stroke Does the patient have a stroke diagnosis?: No Physical Exam Vital Signs: Vital Signs: Last Vital Signs Temp 97.5 F 11/14/22 11:08 Pulse 68 11/14/22 11:08 Resp 18 11/14/22 11:08 BP 152/93 H 11/14/22 11:08 Pulse Ox 95 11/14/22 11:08 O2 Del Method 11/14/22 11:08 O2 Flow Rate 96 11/12/22 04:00 BMI result Body Mass Index 29.1 Const: Other: Gen:? Awake alert x3 no acute distress HEENT: sclera anicteric, moist mucus membranes Neck: supple Lungs: clear to auscultation bilaterally Heart: regular, tachycardic, no murmurs Abd: soft, non-tender, non-distended Ext: Left extremity no edema, R BKA wound with minimal discharge and minimal edema, erythema has resolved, no evidence of skin necrosis, or abscess Skin: warm/well-perfused Neuro: alert and oriented x3, no focal findings Psych: appropriate affect DS: Data Data Completed and Pending Completed studies during hospitalization [Text1]: Pending at discharge 11/06/22 19:04 Surgical [PTH] Routine Labs on day of discharge: Laboratory Results - last 24 hr 11/09/22 11/13/22 11/13/22 05:27 16:21 19:05 Sodium Potassium Chloride Carbon Dioxide Anion Gap BUN Creatinine Estim Creat Clear Calc Estimated GFR POC Glucose 226 H 306 H Random Glucose Calcium Complement C3 97 Complement C4 23 11/14/22 11/14/22 11/14/22 07:19 08:43 11:11 Sodium 141 Potassium 4.4 Chloride 105 Carbon Dioxide 24 Anion Gap 16 BUN 32 H Creatinine 3.06 H Estim Creat Clear Calc 37.6 Estimated GFR 22 POC Glucose 174 H 208 H Random Glucose 209 H Calcium 8.5 Complement C3 Complement C4 Discharge Plan Discharge Anticipated Discharge Date/Time: 11/14/22 11:40 Patient Disposition: Xfer Inpatient Rehab Fac Discharge Diagnosis: Right foot necrotizing fasciitis status post right BKA Acute kidney injury Diabetes mellitus uncontrolled Elevated blood pressure Referrals: Kaleb Hoyt FNP-BC [Primary Care Provider] - 1 Week Discharge Medications: New insulin glargine [Lantus U-100 Insulin] 100 unit/mL Solution 10 unit subcut BEDTIME Qty: 10 0RF insulin lispro [Humalog U-100 Insulin] 100 unit/mL Solution See Protocol subcut QIDACHS Qty: 10 0RF Protocol: Insulin Correction Scale Less than or equal to 110 ---- Give (units): 0 111 to 150 Give (units): 0 151 to 200 Give (units): 2 201 to 250 Give (units): 4 251 to 300 Give (units): 6 301 to 350 Give (units): 8 Greater than 350 Give (units): 10 Call MD if Blood Glucose > : 350 amlodipine 10 mg Tablet 10 mg PO DAILY Qty: 30 0RF Protocol: Hold for SBP< HOLD for SBP < : 90 oxycodone 5 mg Tablet 5 mg PO Q4H PRN (Reason: Pain, Moderate (Pain Scale 4-6) Qty: 20 0RF Rx Instructions: Partial Fill upon patient request. Continued multivitamin Tablet 1 tab PO DAILY (DME) FreeStyle Lite Strips Strip See Rx Instructions .ROUTE .MEDSUPPLY Qty: 10 Rx Instructions: As directed (DME) blood-glucose meter [FreeStyle Lite Meter] Kit See Rx Instructions .ROUTE .MEDSUPPLY Qty: 1 Rx Instructions: As directed Discontinued glipizide-metformin 5-500 mg tablet 1 tab PO BID Qty: 180 1RF Discharge Orders: Discharge Order (Routine); Ordered 11/14/22 Ordered By: Winston Bernabe Diet: Diabetic diet Activity on Discharge: As tolerated Stand Alone Forms: Patient Portal Discharge page Print Language: Georgian Care Plan Goals: Right BKA stump is healing well outpatient follow-up with General surgery Follow strict diabetic diet and take insulin as prescribed resume oral hypoglycemic once renal function normalized Follow blood pressure Recheck BMP in 2 days and follow-up with Nephrology if noted to have worsening renal function Health Concerns: Follow blood sugars and blood pressure closely. Plan of Treatment: Outpatient follow-up with general surgery Dr. 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 Bonilla Assessment: as above
[2022-11-14 12:54] LABS: COVID-19 Test Negative (Negative); IDNOW Serial# 55D5AD1C
== END 2022-11-14 14:09 | DRG 710 ==
LOC: HO.ED 18:31 → HO.SSSA 18:58 → HO.S3 19:00
PROVIDERS: Internal Medicine Hypertension Specialist; Physician Assistant Medical; Surgery; Admitting Provider Family Medicine; Emergency Provider Student in an Organized Health Care Education/Training Program; PCP Nurse Practitioner Family; Visit Provider Hospitalist
PROC: 0Y6H0Z1 Detachment at Right Lower Leg, High, Open Approach (ICD-10-PCS; principal; 2022-11-06 17:30)
DX: A41.9 Sepsis, unspecified organism (principal); N17.0 Acute kidney failure with tubular necrosis; M72.6 Necrotizing fasciitis; E11.621 Type 2 diabetes mellitus with foot ulcer; L97.519 Non-pressure chronic ulcer of other part of right foot with unspecified severity; T36.8X5A Adverse effect of other systemic antibiotics, initial encounter; E11.65 Type 2 diabetes mellitus with hyperglycemia; B96.20 Unspecified Escherichia coli [E. coli] as the cause of diseases classified elsewhere; B95.1 Streptococcus, group B, as the cause of diseases classified elsewhere; I10 Essential (primary) hypertension; Z20.822 Contact with and (suspected) exposure to COVID-19; Z87.442 Personal history of urinary calculi; Z88.6 Allergy status to analgesic agent; Z79.4 Long term (current) use of insulin; Z79.899 Other long term (current) drug therapy
CPT/HCPCS: 36415; 73620; 76775; 80048; 80053; 80202; 81001; 81003; 82947; 83036; 83605; 83615; 84156; 84300; 85025; 85027; 85610; 86021; 86140; 86160; 87040; 87070; 87077; 87147; 87186; 87205; 87635; 88307; 88311; 89190; 93005; 93306; 93971; 97110; 97116; 97162; 97166; 97530; 97535; 99285; J2020; J2250; J2270; J2405; J2543; J2795; J3010; J3370; Q9957

== ENCOUNTER → 2022-11-30 09:16 | Outpatient (BNVA) | payer OTHER, SELFPAY | PROVIDERS: PCP Nurse Practitioner Family; Visit Provider Surgery | DX: Z89.511 Acquired absence of right leg below knee (principal) ==

== ENCOUNTER → 2022-12-28 09:20 | Outpatient (BNVA) | payer OTHER, SELFPAY | PROVIDERS: PCP Nurse Practitioner Family; Visit Provider Surgery | DX: Z13.89 Encounter for screening for other disorder (principal) ==

== ENCOUNTER → 2023-01-25 09:11 | Outpatient (BNVA) | payer OTHER, SELFPAY | PROVIDERS: PCP Nurse Practitioner Family; Referring Provider Nurse Practitioner Family; Visit Provider Surgery | DX: Z13.89 Encounter for screening for other disorder (principal) ==

== ENCOUNTER 2023-03-08 14:00 | Outpatient (RCR) | payer OTHER, SELFPAY ==
--- NOTE | 2022-12-31 15:01 | MHC.PT.EP ---
[facility] [place] Office [place] Office [place] Office [address] [phone] F: [phone] F: [phone] F: [phone] F: [phone] Physical Therapy Plan of Care Date of Evaluation: Date of Surgery: 11/06/22 Diagnosis: Acquired absence of R leg below knee. Assessment: Patient is a 42 year old R handed male who presents with s/s consistent with acquired absence of R leg below knee. 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 Patient past medical history includes DM. Current impairments include balance, strength, ROM, activity tolerance and functional mobility. Functional limitations include decreased ability to stand, walk, and perform most functional mobility. Patient is motivated with good rehab potential. Skilled PT will address impairments and functional limitations in order to achieve goals. Frequency and Duration: The patient will be seen 2x/week for 8 weeks Short Term Goals: I with HEP - 2 weeks Acquire prosthesis and become I with don/doff - 3 weeks I with challenging strength program - 3 weeks Freight Caller Goals: I with all transfers with prosthesis - 6 weeks I with amb with prosthesis 100 feet - 8 weeks I with stairs with prothesis - 8 weeks Treatment Plan: Modalities to reduce pain, spasms and effusion. Manual therapy to restore motion and function. Therapeutic exercise to improve strength and flexibility. Neuromuscular re-education for posture and balance. Therapeutic activities to return to functional activities of daily living. Electronically signed by: Benedicto Subramanian, PT Please sign and return to therapist. Thank you for your referral.
== END 2023-05-13 09:19 | disposition home or self-care (01) ==
LOC: HO.PTCHIC 14:00
PROVIDERS: PCP Nurse Practitioner Family; Visit Provider Nurse Practitioner Family
DX: Z89.511 Acquired absence of right leg below knee (principal)
CPT/HCPCS: 97110; 97112; 97116; 97163

== ENCOUNTER 2023-04-26 08:50 | Outpatient (REF) | payer OTHER, SELFPAY ==
[2023-04-26 11:17] LABS: MANUAL DIFF FLAG NO
[2023-04-26 11:34] LABS: Appearance Urine Clear; Color Urine Yellow; Glucose Urine UA Negative (Negative); Leukocyte Esterase Urine Negative (Negative); Nitrite Urine Negative (Negative); PH 5.5 (5.0-9.0); Urine Blood Negative (Negative); Urine Ketones Negative (Negative); Urine Protein Negative (Neg-Trace)
[2023-04-26 11:40] LABS: Basophils Percent Auto 0.6 % (0-2); Eosinophils Absolute Auto 0.1 X10*3/uL (0.0-0.4); Eosinophils Percent Auto 2.3 % (0-4); Hematocrit 42.4 % (42.0-52.0); Hemoglobin 14.7 g/dl (14.0-18.0); Lymphocytes Absolute Auto 1.2 X10*3/uL (1.2-4.9); Lymphocytes Percent Auto 39.5 % (20-40); Mean Corpuscular HGB Conc 34.7 g/dl (31.0-36.0); Mean Corpuscular Hemoglobin 27.4 pg (27.0-33.0); Mean Corpuscular Volume 79.1 fL (80.0-98.0); Mean Platelet Volume 12.2 fL (9.4-12.4); Monocytes Absolute Auto 0.3 X10*3/uL (0.1-1.2); Monocytes Percent Auto 10.9 % (2-11); Neutrophils Absolute Auto 1.5 x10*3/uL (2.0-8.3); Neutrophils Percent Auto 46.7 % (45-73); Platelet Count 213 X10*3/uL (160-400); Red Blood Count 5.36 X10*6/uL (4.60-5.80); Red Cell Distribution Width 11.9 % (11.0-16.0); White Blood Count 3.1 X10*3/uL (4.8-10.8)
[2023-04-26 11:56] LABS: Estimated Average Glucose 177 mg/dL; Hemoglobin A1c % 7.8 %
[2023-04-26 11:57] LABS: Alanine Aminotransferase 42 U/L (0-40); Albumin Level 4.3 g/dL (3.5-5.0); Alkaline Phosphatase 76 U/L (39-117); Anion Gap 10 (12-20); Aspartate Amino Transferase 32 U/L (5-37); Bilirubin Total 0.8 mg/dL (0.0-1.0); Blood Urea Nitrogen 20 mg/dL (9-16); Calcium 9.6 mg/dL (8.4-10.2); Carbon Dioxide 29 mmol/L (22-29); Chloride 104 mmol/L (96-108); Cholesterol 173 mg/dL; Estimated Glomerular Filt Rate > 60; Glucose Fasting 178 mg/dL (60-99); HDL Cholesterol 42 mg/dL; LDL Cholesterol Calculated 111 mg/dl; Potassium 4.9 mmol/L (3.3-5.1); Sodium 138 mmol/L (135-145); Total Protein 7.4 g/dL (6.5-8.0); Triglycerides 101 mg/dL
[2023-04-26 12:16] LABS: TSH reflex Free T4 0.86 uIU/mL (0.32-4.0)
[2023-04-26 12:18] LABS: Creatinine Urine 123.86 mg/dL; Microalbum/Creatinine Ratio Ur 19.3 ug/mg cr
== END 2023-04-26 08:51 | disposition home or self-care (01) ==
LOC: HO.HMGCLDS 08:50
PROVIDERS: PCP Nurse Practitioner Family; Visit Provider Nurse Practitioner Family
DX: E11.65 Type 2 diabetes mellitus with hyperglycemia (principal)
CPT/HCPCS: 36415; 80053; 80061; 81003; 82043; 83036; 84443; 85025

== ENCOUNTER → 2023-06-05 08:31 | Outpatient (BNVA) | payer OTHER, SELFPAY | PROVIDERS: PCP Nurse Practitioner Family; Visit Provider Nurse Practitioner Family ==

== ENCOUNTER 2023-06-27 11:07 | Outpatient (AMB) | payer OTHER, SELFPAY ==
--- NOTE | 2023-06-27 11:11 | MHC.OFFVIS ---
Intake Vital Signs 06/27/23 11:21 Height 5 ft 11 in Weight 238 lb 6 oz BMI 33.2 BP 186/97 H Blood Pressure Location Lt brachial Position Sitting Pulse 84 Intake Visit Reasons: wound check, BKA Intake Note: Patient is seen in office for wound check, following below knee amputation. Patient c/o: lump at the incision site, uncomfortable, minimal pain, denies discharge or open wound Inspector Open Die Required: No Accompanied by: Self / Same As Patient Allergies acetaminophen [Tylenol] Allergy (Unknown, Verified 06/27/23 11:20) face swelling aspirin Allergy (Unknown, Verified 06/27/23 11:20) anaphylaxis, edema Medication List - Last Reconciled 06/27/23 by Kaleb Gallagher MD amlodipine 10 mg See Protocol PO DAILY bisacodyl (Dulcolax (bisacodyl)) 10 mg (2 x 5 mg) PO ONCE 1 day blood sugar diagnostic (FreeStyle Lite Strips) As directed blood-glucose meter (FreeStyle Lite Meter kit) As directed FreeStyle Zhane 2 [place] (flash glucose scanning reader) tid testing NS FreeStyle Zhane 2 Sensor (flash glucose sensor) TID testing NS Humalog KwikPen Insulin (insulin lispro) 1 sliding scale dose subcut TID NS insulin glargine-yfgn (Semglee (insulin glargine-yfgn) Pen) 26 units (0.26 mL) subcut DAILY multivitamin 1 tab PO DAILY ondansetron 4 mg PO Q8H PRN 10 days polyethylene glycol 3350 (Miralax) 238 grams PO ONCE rosuvastatin (Crestor) 10 mg PO DAILY 30 days HPI HPI Comments History of Present Illness Details 42-year-old male patient status post 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 A new area of swelling is identified by the vice principal and surgical evaluation recommended. He is now in his prosthetic ambulating well but does report pain with prolonged ambulation. [facility] Medical History H/O nephrolithotomy with removal of calculi HTN (hypertension) Nephrolithiasis Retinopathy Type 2 diabetes mellitus Surgical History History of hernia repair History of right below knee amputation (11/06/22) Family History Father HTN (hypertension) Mother Arthritis Social History Household Members: None Housing: House Do you presently have visiting nurse or other home services: No Alcohol intake: never Patient Tobacco Use Status: Never used Tobacco service: No Current occupational status: employed Cognitive needs: No Hearing needs: No Vision needs: No Review of Systems Const All systems reviewed & are unremarkable except as noted in HPI and below Physical Exam Vital Signs: Last Vital Signs Pulse 84 06/27/23 11:21 BP 186/97 H 06/27/23 11:21 BMI result Body Mass Index 33.2 Const General: healthy appearing and no acute distress Nutritional Appearance: well nourished Limitations: no limitations Resp Effort & Inspection: normal respiratory effort, no audible wheezes, no cough and no respiratory distress Skin Other: Warm, dry, no rash Extrem Other: Right BKA stump reveals prominent fibula adjacent to a skin ulceration measuring approximately 1 cm in diameter. No erythema or discharge is identified. Fibula appears to be longer than the tibial. Assessment & Plan Assessment & Plan (1) History of right below knee amputation: Onset Date: 11/06/22 Code(s): Z89.511 - Acquired absence of right leg below knee Plan X-ray of the tibia is recommended. Was performed today and the results were reviewed. Patient indeed does have a longer fibula then tibia stump. I would recommend revision of the right BKA to trim the fibula back to reduce the pressure on the skin. I spoke to the patient regarding surgical options. I recommended a revision of the right BKA as a short-stay surgery. After discussion of the procedure, risks, and alternatives, he consents to the surgery. Orders: Orders XR tibia fibula RT 2V Today Z89.511 - Acquired absence of right leg below knee Coding Level of Care Code Est Pt Level 3 (11241) Diagnoses History of right below knee amputation Z89.511
[2023-06-27 11:21] VITALS: BP 186/97; PULSE 84; BMI 33.2
== END 2023-06-27 11:59 | disposition home or self-care (01) ==
PROVIDERS: PCP Nurse Practitioner Family; Visit Provider Surgery
DX: Z89.511 Acquired absence of right leg below knee (principal)
CPT/HCPCS: 99213

== ENCOUNTER 2023-06-27 11:07 | Outpatient (REF) | payer OTHER, SELFPAY ==
--- NOTE | ~2023-06-27 | XR_ITS ---
EXAMINATION: XR TIBIA AND FIBULA, RIGHT CLINICAL INFORMATION: Right BKA with ulceration at stump. Question fibular overgrowth. COMPARISON: None available. TECHNIQUE: AP and lateral views of the right tibia and fibula were obtained. FINDINGS: Patient is status post BKA with small bony density about the medial aspect distal tibia. The fibula extends approximately 1.3 cm distal to the tibia. No acute fracture or dislocation is evident. There is some edema seen about the stump without air within the soft tissues. There is minimal irregularity of the distal fibula with very small region of diminished density with what appears to be some mild periosteal reaction, and the possibility of acute or chronic osteomyelitis cannot be excluded on this study. XR/XR tibia fibula RT 2V IMPRESSION: Status post BKA with slight irregularity of the distal fibula without significant bony destruction. The above findings could be related to acute or chronic osteomyelitis, and MRI or nuclear medicine study may be of help in further evaluation if clinically indicated. No prior examinations are available for comparison, and if they were performed at another institution, would be of help in determining chronicity of finding.
== END 2023-06-27 11:08 | disposition home or self-care (01) ==
LOC: HO.XRAY 11:07
PROVIDERS: PCP Nurse Practitioner Family; Visit Provider Surgery
DX: Z89.511 Acquired absence of right leg below knee (principal)
CPT/HCPCS: 73590

== ENCOUNTER 2023-07-10 05:58 | Day surgery (SDC) | payer OTHER, SELFPAY ==
[2023-07-05 13:47] VITALS: BMI 33.2
--- NOTE | 2023-07-09 08:53 | P.CONAN_ITS ---
HPI - Anesthesia Eval Consult details Narrative: 42yo M for Right Revision Leg Amputation Below Knee s/p right foot amp 11/2022 with GA-LMA 5 PMFSH Active Problems Active Problems: All Active Problems (Updated 04/25/23 @ 08:15 by Kaleb Hoyt, [facility]) Screening for colon cancer (Acute) Uncontrolled diabetes mellitus with hyperglycemia (Acute) Removal of staple (Acute) Encounter for wound care (Acute) History of right below knee amputation (Acute 11/06/22) BARB (acute kidney injury) (Acute) Past Medical History Medical History H/O nephrolithotomy with removal of calculi HTN (hypertension) Nephrolithiasis Retinopathy Type 2 diabetes mellitus Family History Family History Father HTN (hypertension) Mother Arthritis Family history of problems with anesthesia: No Surgical History Surgical History History of hernia repair History of right below knee amputation (11/06/22) History of Problems with Anesthesia: No Social History Social History Household Members: None Housing: House Are you a primary healthcare consultant to a significant other at home: No Do you presently have visiting nurse or other home services: No Alcohol intake: never Patient Tobacco Use Status: Never used Tobacco Use of substances other than those prescribed or required for medical reasons: No Are you DNR?: No Advance Directives: No Advance Directives Information Provided: No Advance Directives on File: No Recently lost weight without trying: No Eating poorly because of decreased appetite: No Nutrition Risks: No Nutritional Risk Poor oral hygiene: No service: No Current occupational status: employed Cognitive needs: No Hearing needs: No Vision needs: No Meds Allergies Allergy/AdvReac Type Severity Reaction Status Date / Time acetaminophen [Tylenol] Allergy Unknown face Verified 06/27/23 11:20 swelling aspirin Allergy Unknown anaphylaxis, Verified 06/27/23 11:20 edema Home Medications Medication Instructions Recorded Confirmed Last Taken Type blood sugar diagnostic (FreeStyle #10 ea 09/06/20 06/27/23 Unknown History Lite Strips) blood-glucose meter (FreeStyle #1 ea 09/06/20 06/27/23 Unknown History Lite Meter kit) multivitamin 1 tab PO DAILY 11/06/22 07/05/23 Unknown History insulin glargine-yfgn 100 unit/mL 26 unit subcut BEDTIME 07/05/23 07/05/23 Unknown History (3 mL) subcutaneous pen (Semglee (insulin glargine-yfgn) Pen) Exam Exam Date and Time: July 09, 2023 0853 Height,Weight and Vital Signs: Height 5 ft 11 in Weight 107.955 kg Pertinent Lab Results Pertinent Lab Results: Laboratory Tests 04/26/23 04/26/23 08:58 08:58 WBC 3.1 L Hgb 14.7 D Hct 42.4 Plt Count 213 D Sodium 138 Potassium 4.9 Chloride 104 Carbon Dioxide 29 BUN 20 H Creatinine 1.08 Narrative Narrative: ECHO 11/2022 Conclusions: - 1. Low normal LV systolic function with LVEF of 50-55% ? 2. Vegetations cannot be definitively ruled out on this study? ? 3. Normal cardiac valvular Doppler ? 4. No gross pericardial effusion ?? EKG 11/2022 Vent. Rate : 107 BPM ? ? Atrial Rate : 107 BPM ?? P-R Int : 124 ms? QRS Dur : 092 ms ? ? QT Int : 322 ms ? ? ? P-R-T Axes : 036 -24 033 degrees ?? QTc Int : 429 ms ? Sinus tachycardia Otherwise normal ECG No previous ECGs available Assessment and Plan Assessment Anesthesia Assessment: Chart Reviewed Final Anesthetic Review Family History of Problems with Anesthesia: No History of Problems with Anesthesia: No
[2023-07-10] VITALS (7 sets, daily range): BP systolic 103–135; BP diastolic 71–92; PULSE 69–88; RESP 16–18; TEMP 36.1–36.3; O2SAT 95–100
[2023-07-10 06:30] LABS: Glucose, Whole Blood 177 mg/dL (60-115)
[2023-07-10] MEDS: Lactated Ringers 1,000 ML 100 ML IVCONT (06:32)
--- NOTE | 2023-07-10 07:18 | HO.ANESPROP2 ---
[facility] Active Problems Active Problems: All Active Problems (Updated 04/25/23 @ 08:15 by Kaleb Hoyt, [facility]) Screening for colon cancer (Acute) Uncontrolled diabetes mellitus with hyperglycemia (Acute) Removal of staple (Acute) Encounter for wound care (Acute) History of right below knee amputation (Acute 11/06/22) BARB (acute kidney injury) (Acute) Past Medical History Medical History H/O nephrolithotomy with removal of calculi HTN (hypertension) Nephrolithiasis Retinopathy Type 2 diabetes mellitus Family History Family History Father HTN (hypertension) Mother Arthritis Family history of problems with anesthesia: No Surgical History Surgical History History of hernia repair History of right below knee amputation (11/06/22) History of Problems with Anesthesia: No Social History Social History Household Members: None Housing: House Are you a primary director of home care hospice to a significant other at home: No Do you presently have visiting nurse or other home services: No Alcohol intake: never Patient Tobacco Use Status: Never used Tobacco Use of substances other than those prescribed or required for medical reasons: No Are you DNR?: No Advance Directives: No Advance Directives Information Provided: Yes Advance Directives on File: No Recently lost weight without trying: No Eating poorly because of decreased appetite: No Nutrition Risks: No Nutritional Risk Poor oral hygiene: No service: No Current occupational status: employed Cognitive needs: No Hearing needs: No Vision needs: No Meds Allergies Allergy/AdvReac Type Severity Reaction Status Date / Time acetaminophen [Tylenol] Allergy Unknown face Verified 06/27/23 11:20 swelling aspirin Allergy Unknown anaphylaxis, Verified 06/27/23 11:20 edema Active Medications: Current Medications Lactated Ringer's (Lr) 1,000 mls @ 100 mls/hr IVCONT .Q10H EMERSON Last Admin: 07/10/23 06:32 Dose: 100 mls/hr Home Medications Medication Instructions Recorded Confirmed Last Taken Type blood sugar diagnostic (Dalton #10 ea 09/06/20 06/27/23 Unknown History Lite Strips) blood-glucose meter (FreeStyle #1 ea 09/06/20 06/27/23 Unknown History Lite Meter kit) multivitamin 1 tab PO DAILY 11/06/22 07/05/23 Unknown History insulin glargine-yfgn 100 unit/mL 26 unit subcut BEDTIME 07/05/23 07/05/23 Unknown History (3 mL) subcutaneous pen (Semglee (insulin glargine-yfgn) Pen) Exam Exam Date and Time: July 10, 2023 0718 Height,Weight and Vital Signs: Height 5 ft 11 in Weight 107.955 kg Last Vital Signs Temp 96.9 F 07/10/23 06:31 Pulse 88 07/10/23 06:31 Resp 16 07/10/23 06:31 BP 135/92 H 07/10/23 06:31 Pulse Ox 96 07/10/23 06:31 O2 Del Method Room Air 07/10/23 06:31 Pertinent Lab Results Pertinent Lab Results: Laboratory Tests 07/10/23 06:26 POC Glucose 177 H Airway Mallampati Class: III TM Dist: >3cm Neck ROM: Full Loose/Missing/Broken Teeth: No Heart: rrr Lungs: clear Assessment and Plan Final Anesthetic Review Family History of Problems with Anesthesia: No History of Problems with Anesthesia: No ASA Class: III Final Preanesthetic Review: No Changes in Pt Med Stat, Meds/Allgs Chart Reviewed, Consent Obtained/Reviewed and Anes Risks/Benef Reviewed Patient Risk: Intermediate Procedure Risk: Low Anesthetic Plan Anesthetic Plan: GA Disposition: Standard PACU
--- NOTE | 2023-07-10 08:27 | P.OP_ITS ---
Operative Note Operative Note Date of Service: 07/10/23 Narrative: Preoperative diagnosis: Non-healing wound right BKA stump Postoperative diagnosis:Same Procedure:Revision of Surgeon: Kaleb Gallagher MD Captain Airline Pilot: none Anesthesia: General LMA Indications for procedure: 42-year-old male patient presenting with a previous history of necrotizing fasciitis of the right leg, status post right below-knee amputation. He initially healed well however now has a small ulcer overlying the fibula. He presents today for revision of the right BKA stump with resection of portion of the fibula. Operative findings: Normal appearing right distal fibula. Specimen:Skin ulcer, right BKA stump Estimated blood loss: 20 mls Complications:none Procedure details: Patient was brought to the OR and placed in a supine position. The right BKA stump was prepped with Betadyne and draped in a sterile fashion. A surgical timeout was called and the consent was confirmed. Patient received preoperative antibiocs and venodyne boots were in place. Local was infiltrated around the right leg ulcer, and an elliptical incision was made around the ulcer. The incision was carried down to the subcutaneous tissue and down to the fibula. Electrocautery was then used to dissect around the bone. A periosteal elevator was used to expose the distal fibula stump. A large rounger was then used to resect approximately 2 cm of the distal fibula. A file was then use to smooth the wilbert edges. Wounds were irrigated with saline and hemostasis assured using electrocautery, Muscle fascia was reapproximated using interrupted 3-0 Polysord and dermis approximated with interrupted 2-0 Polysorb. Skin was closed with skin srini. Sterile dressings including fluffed gauze, Kerlex and 4 inch JULIO C bandage was applied. The patient tolerated the procedure well and was transfered to PACU in stable condition. Surgical counts were reported as correct.
== END 2023-07-10 10:10 | disposition home or self-care (01) ==
PROVIDERS: PCP Nurse Practitioner Family; Visit Provider Surgery
PROC: (CPT 27880; principal; 2023-07-10 07:30)
DX: T87.89 Other complications of amputation stump (principal); E11.622 Type 2 diabetes mellitus with other skin ulcer; L97.919 Non-pressure chronic ulcer of unspecified part of right lower leg with unspecified severity; M89.8X6 Other specified disorders of bone, lower leg; Z89.511 Acquired absence of right leg below knee; Z97.13 Presence of artificial right leg (complete) (partial); I10 Essential (primary) hypertension; Z79.4 Long term (current) use of insulin; Z79.899 Other long term (current) drug therapy; Z88.8 Allergy status to other drugs, medicaments and biological substances; Z87.442 Personal history of urinary calculi
CPT/HCPCS: 27886; 82947; 88304; J0690; J1100; J2250; J2405; J3010

== ENCOUNTER → 2023-07-10 05:58 | Outpatient (BNV) | payer OTHER, SELFPAY | PROVIDERS: PCP Nurse Practitioner Family; Visit Provider Surgery | DX: T87.89 Other complications of amputation stump (principal) | CPT/HCPCS: 27884 ==

== ENCOUNTER 2023-07-19 10:29 | Outpatient (AMB) | payer OTHER, SELFPAY ==
--- NOTE | 2023-07-19 10:40 | A.OFFVIS_ITS ---
Intake Vital Signs 07/19/23 10:54 Height 6 ft Weight 225 lb BMI 30.5 BP 172/79 H Blood Pressure Location Lt brachial Position Sitting Pulse 91 Intake Visit Reasons: S/P revision Rt BKA Intake Note: Patient is seen in office for post op assessment post revision of the right knee. 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 He feels well and denies any ongoing symptoms. He returns today for wound check. [facility] Medical History H/O nephrolithotomy with removal of calculi HTN (hypertension) Nephrolithiasis Retinopathy Type 2 diabetes mellitus Surgical History History of hernia repair History of right below knee amputation (11/06/22) Family History Father HTN (hypertension) Mother Arthritis Social History Household Members: None Housing: House Are you a primary healthcare receptionist to a significant other at home: No Do you presently have visiting nurse or other home services: No Alcohol intake: never Patient Tobacco Use Status: Never used Tobacco service: No Current occupational status: employed Cognitive needs: No Hearing needs: No Vision needs: No Physical Exam Vital Signs: Last Vital Signs Pulse 91 07/19/23 10:54 BP 172/79 H 07/19/23 10:54 BMI result Body Mass Index 30.5 Const General: no acute distress Nutritional Appearance: well nourished Orientation/consciousness: patient oriented x3 Limitations: wheelchair Skin General skin exam: no rashes or lesions noted Neuro General: patient oriented x3 Extrem Other: Incision in the right leg is clean, dry, and intact without redness or discharge. Shaka removed and wounds found to be well healed. Assessment & Plan Assessment & Plan (1) History of right below knee amputation: Onset Date: 11/06/22 Code(s): Z89.511 - Acquired absence of right leg below knee Plan Patient returns following revision of the below-knee amputation. His wounds are clean and intact without redness or discharge. No further open wound is identified. I recommended he follow-up with the adobe layer helper for adjustments to his prosthetic as necessary. He should return 1 month for follow-up examination. He will need approximately 1 more month before returning to full activity. He should continue to change dressings every other day with compression to control swelling. Medications: Discontinued insulin glargine-yfgn 26 units (0.26 mL) subcut DAILY 15 mL 4RF E11.65 - Type 2 diabetes mellitus with hyperglycemia Coding Level of Care Code Global (64981) Diagnoses History of right below knee amputation Z89.511
[2023-07-19 10:54] VITALS: BP 172/79; PULSE 91; BMI 30.5
== END 2023-07-19 11:06 | disposition home or self-care (01) ==
PROVIDERS: PCP Nurse Practitioner Family; Visit Provider Surgery
DX: Z89.511 Acquired absence of right leg below knee (principal)
CPT/HCPCS: 99024

== ENCOUNTER → 2023-07-19 10:29 | Outpatient (BNVA) | payer OTHER, SELFPAY | PROVIDERS: PCP Nurse Practitioner Family; Visit Provider Surgery ==

== ENCOUNTER 2023-08-16 09:20 | Outpatient (AMB) | payer OTHER, SELFPAY ==
[2023-08-16 09:31] VITALS: BMI 30.5
--- NOTE | 2023-08-16 09:31 | A.OFFVIS_ITS ---
Intake Vital Signs 08/16/23 09:31 Height 6 ft Weight 224 lb 13.944 oz BMI 30.5 Intake Visit Reasons: S/P revision Rt BKA Intake Note: Patient is seen in office for follow up visit, post right BKA. Patient c/o: admits to have fallen a week and half ago and hurt his wound had bleeding and swelling at the time, currently doing better. 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 He reports falling last week resulting in a laceration to the right stump. He feels improved today. He did report significant amount of bleeding at the time but this has subsequently resolved. He denies any ongoing stump symptoms. He has not seen is seismic observer because of this fall. [facility] Medical History Nephrolithiasis Type 2 diabetes mellitus Retinopathy HTN (hypertension) H/O nephrolithotomy with removal of calculi Surgical History History of right below knee amputation (11/06/22) History of hernia repair Family History Father HTN (hypertension) Mother Arthritis Social History Household Members: None Housing: House Are you a primary neonatal intensive care unit nurse to a significant other at home: No Do you presently have visiting nurse or other home services: No Alcohol intake: never Patient Tobacco Use Status: Never used Tobacco service: No Current occupational status: employed Cognitive needs: No Hearing needs: No Vision needs: No Physical Exam Vital Signs: BMI result Body Mass Index 30.5 Extrem Other: Right stump wound is clean and intact without redness or discharge. No active bleeding or open wound is identified. Dry sterile dressings applied followed by Dameon bandage. Assessment & Plan Assessment & Plan (1) History of right below knee amputation: Onset Date: 11/06/22 Code(s): Z89.511 - Acquired absence of right leg below knee Plan Recommend patient wait for 1 week before seen seismic observer. He may return to work approximately 1 week after obtaining prosthetic, approximately 3 weeks from today. He should follow-up in 2 weeks for wound check. Coding Level of Care Code Global (27231) Diagnoses History of right below knee amputation Z89.511
== END 2023-08-16 09:48 | disposition home or self-care (01) ==
PROVIDERS: PCP Nurse Practitioner Family; Visit Provider Surgery
DX: Z89.511 Acquired absence of right leg below knee (principal)
CPT/HCPCS: 99024

== ENCOUNTER → 2023-08-16 09:20 | Outpatient (BNVA) | payer OTHER, SELFPAY | PROVIDERS: PCP Nurse Practitioner Family; Visit Provider Surgery ==

== ENCOUNTER 2023-08-30 09:27 | Outpatient (AMB) | payer OTHER, SELFPAY ==
--- NOTE | 2023-08-30 09:29 | A.OFFVIS_ITS ---
Intake Vital Signs 08/30/23 09:46 Height 6 ft Weight 225 lb 8.526 oz BMI 30.6 BP 130/80 Blood Pressure Location Lt brachial Position Sitting Intake Visit Reasons: 2 wk follow up revision Rt BKA Intake Note: Patient is seen in office for 2 wks follow up visit, following revision right BKA. Patient c/o: denies any concerns at the time of visit Compliance Attorney Required: No Accompanied by: Self / Same As Patient Allergies acetaminophen [Tylenol] Allergy (Unknown, Verified 08/30/23 09:46) face swelling aspirin Allergy (Unknown, Verified 08/30/23 09:46) anaphylaxis, edema HPI HPI Comments History of Present Illness Details Patient returns for follow-up examination after revision of the right below-knee amputation. He is now using the prosthetic and feels comfortable. He is building up his strength and denies any pain with ambulation. [facility] Medical History Nephrolithiasis Type 2 diabetes mellitus Retinopathy HTN (hypertension) H/O nephrolithotomy with removal of calculi Surgical History History of right below knee amputation (11/06/22) History of hernia repair Family History Father HTN (hypertension) Mother Arthritis Social History Household Members: None Housing: House Are you a primary complex care nurse practitioner to a significant other at home: No Do you presently have visiting nurse or other home services: No Alcohol intake: never Patient Tobacco Use Status: Never used Tobacco service: No Current occupational status: employed Cognitive needs: No Hearing needs: No Vision needs: No Physical Exam Const General: healthy appearing Nutritional Appearance: well nourished Orientation/consciousness: patient oriented x3 Limitations: no limitations Resp Effort & Inspection: normal respiratory effort Skin General skin exam: no rashes or lesions noted Neuro General: patient oriented x3 Extrem Other: Right stump wound is clean and intact without redness or discharge. No active bleeding or open wound is identified. Assessment & Plan Assessment & Plan (1) History of right below knee amputation: Onset Date: 11/06/22 Code(s): Z89.511 - Acquired absence of right leg below knee Plan 42-year-old male patient status post right below-knee amputation and revision of the amputation. His wounds are now well healed and he is tolerating his prost hetic. He should follow up as needed. Coding Level of Care Code Global (47332) Diagnoses History of right below knee amputation Z89.511
[2023-08-30 09:46] VITALS: BP 130/80; BMI 30.6
== END 2023-08-30 09:54 | disposition home or self-care (01) ==
PROVIDERS: PCP Nurse Practitioner Family; Visit Provider Surgery
DX: Z89.511 Acquired absence of right leg below knee (principal)
CPT/HCPCS: 99024

== ENCOUNTER → 2023-08-30 09:27 | Outpatient (BNVA) | payer OTHER, SELFPAY | PROVIDERS: PCP Nurse Practitioner Family; Visit Provider Surgery | DX: Z89.511 Acquired absence of right leg below knee (principal) ==

== ENCOUNTER 2023-10-29 08:36 | Outpatient (AMB) | payer OTHER, SELFPAY ==
--- NOTE | 2023-10-29 08:37 | A.OFFVIS_ITS ---
Intake Vital Signs 10/29/23 08:48 Height 6 ft Weight 244 lb BMI 33.1 BP 186/111 H Blood Pressure Location Lt brachial Position Sitting Pulse 96 Intake Visit Reasons: BKA right need new prosthesis Intake Note: Patient is seen in office for order of new prosthesis, following right BKA. 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 Accompanied by: Self / Same As Patient Allergies acetaminophen [Tylenol] Allergy (Unknown, Verified 10/29/23 08:48) face swelling aspirin Allergy (Unknown, Verified 10/29/23 08:48) anaphylaxis, edema Medication List - Last Reconciled 10/29/23 by Kaleb Gallagher MD amlodipine 10 mg See Protocol PO DAILY blood sugar diagnostic (FreeStyle Lite Strips) As directed blood-glucose meter (FreeStyle Lite Meter kit) As directed FreeStyle Zhane 2 [place] (flash glucose scanning reader) tid testing NS FreeStyle Zhane 2 Sensor (flash glucose sensor) TID testing NS Humalog KwikPen Insulin (insulin lispro) 1 sliding scale dose subcut TID NS insulin glargine-yfgn (Semglee (insulin glargine-yfgn) Pen) 26 units subcut BEDTIME multivitamin 1 tab PO DAILY ondansetron 4 mg PO Q8H PRN 10 days oxycodone 5 mg PO Q6H PRN HPI HPI Comments History of Present Illness Details Patient returns for follow-up examination after revision of the right below-knee amputation. He is now using the old prosthetic however requires multiple layers of socks for the prosthetic to fit properly. The size and shape of the leg is not fitting properly and he therefore requires extra padding which is making the leg much more heavy. 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 He denies any open wound or discharge. He is hoping to get a new prosthetic for the right leg which certainly will help with his ambulation and exercise abilities. [facility] Medical History Nephrolithiasis Type 2 diabetes mellitus Retinopathy HTN (hypertension) H/O nephrolithotomy with removal of calculi Surgical History History of right below knee amputation (11/06/22) History of hernia repair Family History Father HTN (hypertension) Mother Arthritis Household Members: None Housing: House Are you a primary career services representative to a significant other at home: No Do you presently have visiting nurse or other home services: No Alcohol intake: never Patient Tobacco Use Status: Never used Tobacco service: No Current occupational status: employed Cognitive needs: No Hearing needs: No Vision needs: No Review of Systems Const All systems reviewed & are unremarkable except as noted in HPI and below Physical Exam Const General: healthy appearing Nutritional Appearance: well nourished Orientation/consciousness: patient oriented x3 Limitations: no limitations Resp Effort & Inspection: normal respiratory effort Skin General skin exam: no rashes or lesions noted Neuro General: patient oriented x3 Extrem Other: Right stump wound is clean and intact without redness or discharge. No active bleeding or open wound is identified. No issues with the left leg. Assessment & Plan Assessment & Plan (1) History of right below knee amputation: Onset Date: 11/06/22 Code(s): Z89.511 - Acquired absence of right leg below knee Plan 42-year-old male patient status post right below-knee amputation and revision of the amputation on 07/10/2023. His wounds are well healed however he is having difficulty with the current prosthetic due to the change of size and shape of the right stump. He needs to wear multiple layers of socks on the leg to accommodate for the change in size. As a results, his leg is much heavier making it difficult with his activities at work including walking and climbing stairs. He will need a new prosthetic to accommodate the change in size and shape of his right leg. I am also concerned that the added weight may resulted in skin breakdown if he continues with the current prosthetic. He was encouraged to call for any problems related to the prosthetic or problems with the left leg. Coding Level of Care Code Global (41066) Diagnoses History of right below knee amputation Z89.511
[2023-10-29 08:48] VITALS: BP 186/111; PULSE 96; BMI 33.1
== END 2023-10-29 09:02 | disposition home or self-care (01) ==
PROVIDERS: PCP Nurse Practitioner Family; Visit Provider Surgery
DX: Z89.511 Acquired absence of right leg below knee (principal)
CPT/HCPCS: 99213

== ENCOUNTER → 2023-10-29 08:36 | Outpatient (BNVA) | payer OTHER, SELFPAY | PROVIDERS: PCP Nurse Practitioner Family; Visit Provider Surgery ==

== ENCOUNTER 2024-03-05 09:46 | Day surgery (SDC) | payer OTHER, SELFPAY ==
[2024-03-05 10:00] VITALS: BMI 30.1
[2024-03-05 10:11] VITALS: BMI 30.7
[2024-03-05 10:21] VITALS: BP 156/101; PULSE 98; RESP 16; TEMP 37; O2SAT 97
--- NOTE | 2024-03-05 10:21 | HO.ANESPROP2 ---
HPI - Anesthesia Eval Consult details Narrative: 43 yo male patient for screening colonoscopy [facility] Active Problems Active Problems: All Active Problems (Updated 03/05/24 @ 10:19 by Amanda Pinto MD) Screening for colon cancer (Acute) Uncontrolled diabetes mellitus with hyperglycemia (Acute) Removal of staple (Acute) Encounter for wound care (Acute) History of right below knee amputation (Acute 11/06/22) BARB (acute kidney injury) (Acute) HTN- has not been taking medications- Review of chart reveals patient may have been started while on admission at [facility] [place] in 2021 but was never followed up on. Patient states was told there were no refills when he called Pharmacy Past Medical History Medical History Chronic kidney disease Nephrolithiasis Type 2 diabetes mellitus Retinopathy HTN (hypertension) H/O nephrolithotomy with removal of calculi Family History Family History Father HTN (hypertension) Mother Arthritis Family history of problems with anesthesia: No Surgical History Surgical History History of right below knee amputation (11/06/22) History of hernia repair History of Problems with Anesthesia: No Social History Social History Household Members: None Housing: House Are you a primary care management associate to a significant other at home: No Do you presently have visiting nurse or other home services: No Alcohol intake: never Patient Tobacco Use Status: Never used Tobacco Use of substances other than those prescribed or required for medical reasons: No Are you DNR?: No Advance Directives: No Advance Directives Information Provided: Yes service: No Current occupational status: employed Cognitive needs: No Hearing needs: No Vision needs: No Meds Allergies Allergy/AdvReac Type Severity Reaction Status Date / Time acetaminophen [Tylenol] Allergy Unknown face Verified 10/29/23 08:48 swelling aspirin Allergy Unknown anaphylaxis, Verified 10/29/23 08:48 edema Home Medications ?Medication ?Instructions ?Recorded ?Confirmed ?Last Taken ?Type blood sugar diagnostic (FreeStyle #10 ea 09/06/20 10/29/23 Unknown History Lite Strips) blood-glucose meter (FreeStyle #1 ea 09/06/20 10/29/23 Unknown History Lite Meter kit) multivitamin 1 tab PO DAILY 11/06/22 10/29/23 Unknown History insulin glargine-yfgn 100 unit/mL 26 unit subcut BEDTIME 07/05/23 10/29/23 Unknown History (3 mL) subcutaneous pen (Semglee (insulin glargine-yfgn) Pen) Exam Height,Weight and Vital Signs: Height 6 ft Weight 102.6 kg Vital Signs Temp Pulse Resp BP Pulse Ox O2 Del Method 03/05/24 10:21 98.6 F 98 16 156/101 H 97 Room Air Pertinent Lab Results Pertinent Lab Results: Lab Results 03/05/24 Range/Units 10:25 POC Glucose 213 H (60-115) mg/dL Airway Mallampati Class: II TM Dist: >3cm Neck ROM: Full Loose/Missing/Broken Teeth: No (Denies broken, loose, missing teeth) Heart: RRR Lungs: CTAB Assessment and Plan Assessment Anesthesia Assessment: Anesthesia Plan Discussed and Chart Reviewed Final Anesthetic Review Family History of Problems with Anesthesia: No History of Problems with Anesthesia: No NPO: Yes ASA Class: III Final Preanesthetic Review: No Changes in Pt Med Stat, Meds/Allgs Chart Reviewed, Consent Obtained/Reviewed and Anes Risks/Benef Reviewed Patient Risk: Intermediate Procedure Risk: Low Assessment/Block/Sedation in SS: Assess/Block/Sedation-SS Anesthetic Plan Anesthetic Plan: MAC: and TIVA Disposition: Standard PACU
[2024-03-05 10:30] LABS: Glucose, Whole Blood 213 mg/dL (60-115)
[2024-03-05] MEDS: Lactated Ringers 1,000 ML 100 ML IVCONT (10:31)
--- NOTE | 2024-03-05 10:31 | PC.NURSE ---
right forearm wound noted from a slip and fall two days ago on the ice. no hitting head or loc. no s/sx of infection. instructed patient to keep area clean and see his pcp for his htn.
--- NOTE | 2024-03-05 10:43 | MHC.SHP ---
Pre-Procedural Eval Section A - 24 Hr Update-Section A only Date of Service: 03/05/24 Section B - Complete if H&P > 30 days Chief Complaint: Encounter for screening for malignant neoplasm of Relevant Family History (Specify if Yes): Yes Relevant Social History: None Present Medications: None Medical History: Significant History ( Chronic kidney disease Nephrolithiasis Type 2 diabetes mellitus Retinopathy HTN (hypertension) H/O nephrolithotomy with removal of calculi) History of Previous Operations: Relevant previous surgery/procedure and date(s) (History of right below knee amputation (11/06/22) History of hernia repair) Allergies: Allergies Allergy/AdvReac Type Severity Reaction Status Date / Time acetaminophen [Tylenol] Allergy Unknown face Verified 10/29/23 08:48 swelling aspirin Allergy Unknown anaphylaxis, Verified 10/29/23 08:48 edema Review of Systems Sugical H&P ROS: Negative: Constitution, Cardiovascular, Respiratory, Neurological, Psychiatric, Hem-Onc, Allergic/Immunologic, Gastrointestinal, Genitourinary, Musculoskeletal, Integumentary, Endocrine and Eyes/Ears/Nose/Throat Exam Surgical H&P Exam: Normal: HEENT, Normal: Heart, Normal: Lungs, Normal: Extremities, Normal: Abdomen, Normal: Skin and Normal: Neurological Plan Diagnosis/Plan: Unchanged I have reviewed the history and physical and performed a pertinent physical examination on my patient. No changes have occurred unless specified. Time Spent With Patient Time: Total time managing care of this patient today ____ minutes.
--- NOTE | 2024-03-05 10:44 | W.PM.OPN ---
Operative Note Operative Note Date of Service: 03/05/24 Narrative: Operative Information Procedure Description: Colonoscopy Indication: screening Anesthesia: MAC COLONOSCOPY Instrument: Olympus variable stiffness ADULT scope 190L Colonoscopy Monitoring: Vital signs and clinical assessment, continuous EKG monitoring, Pulse oximetry, Carbon Dioxide monitoring and blood pressure monitoring were done throughout the procedure. Colon withdrawal time was 11 minutes. Procedure: The patient was placed in the left lateral decubitis position and pre-procedure medications were administered. After a digital rectal examination of the ano-rectum, the video colonoscope was inserted into the rectum and advanced through the colon to the cecum/TI. The colonoscope was slowly withdrawn in a retrograde panoramic fashion and the colon mucosa was carefully examined including a retroflexed view of the rectum. Findings and interventions are described below. Procedure Difficulty: easy Findings: Terminal Ileum-normal Cecum:normal Right sided retroflexion- normal Ascending Colon: normal Transverse Colon -normal Descending Colon:normal Sigmoid Colon: normal Rectum: Retroflexion with small internal hemorrhoids seen, grade I, 4-5 mm sessile polyp removed with cold forceps Anorectum - normal Intervention: cold forceps biopsy Colon preparation: [place] Bowel Preparation Scale Right colon; 2 Transverse colon: 2 Left colon; 2 (0 = Unprepared colon segment with mucosa not seen due to solid stool that cannot be cleared. 1 = Portion of mucosa of the colon segment seen, but other areas of the colon segment not well seen due to staining, residual stool and/or opaque liquid. 2 = Minor amount of residual staining, small fragments of stool and/or opaque liquid, but mucosa of colon segment seen well. 3 = Entire mucosa of colon segment seen well with no residual staining, small fragments of stool or opaque liquid) Impression and Post Procedure Diagnosis: diverticulosis colon polyps internal hemorrhoids Plan: High fiber diet leaflet Avoid straining at stool, epsom salts and sitz bath, anusol supps or cream Repeat Colonoscopy in 5-7 years if adenomatous polyp, 10 yrs if non adenomatous or earlier if clinically indicated Above findings were reviewed with the patient and relevant handouts were provided if indicated.
[2024-03-05 11:23] VITALS: BP 90/60; PULSE 82; RESP 16; TEMP 36.8; O2SAT 93
[2024-03-05 11:46] VITALS: BP 102/66; PULSE 91; RESP 17; TEMP 36.7; O2SAT 96
== END 2024-03-05 13:19 | disposition home or self-care (01) ==
PROVIDERS: PCP Nurse Practitioner Family; Visit Provider Internal Medicine Gastroenterology
PROC: 0DJD8ZZ Inspection of Lower Intestinal Tract, Via Natural or Artificial Opening Endoscopic (ICD-10-PCS; CPT 45378; principal; 2024-03-05 11:40)
DX: Z12.11 Encounter for screening for malignant neoplasm of colon (principal); K63.5 Polyp of colon; K57.30 Diverticulosis of large intestine without perforation or abscess without bleeding; K64.8 Other hemorrhoids; E11.22 Type 2 diabetes mellitus with diabetic chronic kidney disease; I12.9 Hypertensive chronic kidney disease with stage 1 through stage 4 chronic kidney disease, or unspecified chronic kidney disease; N18.9 Chronic kidney disease, unspecified; Z89.511 Acquired absence of right leg below knee
CPT/HCPCS: 45380; 82947; 88305; J2704

== ENCOUNTER → 2024-03-05 09:46 | Outpatient (BNV) | payer OTHER, SELFPAY | PROVIDERS: PCP Nurse Practitioner Family; Visit Provider Internal Medicine Gastroenterology | DX: Z12.11 Encounter for screening for malignant neoplasm of colon (principal); K62.1 Rectal polyp; K64.0 First degree hemorrhoids | CPT/HCPCS: 45380 ==

== ENCOUNTER 2024-06-12 11:36 | Outpatient (AMB) | payer OTHER, SELFPAY ==
--- NOTE | 2024-06-12 11:37 | A.OFFVIS_ITS ---
Vital Signs 06/12/24 11:49 Height 6 ft Weight 232 lb BMI 31.5 BP 160/100 H Blood Pressure Location Lt brachial Position Sitting Pulse 89 Intake Visit Reasons: Bone growth, prosthesis Intake Note: Patient is seen in office for wound check bone growth, prosthesis. Pt c/o: bone at amputation site is slightly sticking out, would need a new order for prosthesis or shaved down Senior Speech Pathologist Required: No Accompanied by: Self / Same As Patient Allergies acetaminophen [Tylenol] Allergy (Unknown, Verified 06/12/24 11:49) face swelling aspirin Allergy (Unknown, Verified 06/12/24 11:49) anaphylaxis, edema Medication List - Last Reconciled 06/12/24 by Kaleb Gallagher MD blood sugar diagnostic (FreeStyle Lite Strips) As directed blood-glucose meter (FreeStyle Lite Meter kit) As directed FreeStyle Zhane 2 [place] (flash glucose scanning reader) tid testing NS FreeStyle Zhane 2 Sensor (flash glucose sensor) TID testing NS Humalog KwikPen Insulin (insulin lispro) 1 sliding scale dose subcut TID NS insulin glargine-yfgn (Semglee (insulin glargine-yfgn) Pen) 26 units subcut BEDTIME multivitamin 1 tab PO DAILY ondansetron 4 mg PO Q8H PRN 10 days HPI Comments Details: 43-year-old male patient returning for follow-up examination after undergoing a 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 He underwent revision of the stump due to bony overgrowth but now notes that the stump has significantly shrunken and there may be some more bony overgrowth. He is having some discomfort associated with the prosthetic he is currently wearing but also notes a need for multiple layers of stocking to allow the pros thetic to fit properly. He is having difficulty with climbing stairs because of this in his limiting his ability to ambulate. In addition there is added weight from all the padding that is required to allow the current prosthetic to fit properly. [facility] Medical History Chronic kidney disease Nephrolithiasis Type 2 diabetes mellitus Retinopathy HTN (hypertension) H/O nephrolithotomy with removal of calculi Surgical History History of right below knee amputation (11/06/22) History of hernia repair Family History Father HTN (hypertension) Mother Arthritis Social History Household Members: None Housing: House Are you a primary healthcare project manager to a significant other at home: No Do you presently have visiting nurse or other home services: No Alcohol intake: never Patient Tobacco Use Status: Never used Tobacco service: No Current occupational status: employed Cognitive needs: No Hearing needs: No Vision needs: No Review of Systems Const All systems reviewed & are unremarkable except as noted in HPI and below Physical Exam Vital Signs: Last Vital Signs Pulse 89 06/12/24 11:49 BP 160/100 H 06/12/24 11:49 BMI result Body Mass Index 31.5 Const General: healthy appearing Nutritional Appearance: well nourished Orientation/consciousness: patient oriented x3 Limitations: no limitations Resp Effort & Inspection: normal respiratory effort Skin General skin exam: no rashes or lesions noted Neuro General: patient oriented x3 Extrem Other: Right stump wound is clean and intact without redness or discharge. No open wounds are identified. There is some prominence of the fibula which appears to have increased slightly from his previous examination. No tenderness to palpation. Assessment & Plan Assessment & Plan (1) History of right below knee amputation: Onset Date: 11/06/22 Code(s): Z89.511 - Acquired absence of right leg below knee Category: Surgical Plan 43-year-old male patient status post right below-knee amputation and revision of the amputation on 07/10/2023. His wounds are well healed however he is having difficulty with the current prosthetic due to the change of size and shape of the right stump. He needs to wear multiple layers of socks on the leg to accommodate for the change in size. As a results, his leg is much heavier making it difficult with his activities at work including walking and climbing stairs. His current prosthetic is not fitting properly and may result in breakdown of the skin. I recommended he be measured for a new socket to allow better ambulation and better fit. This will be forwarded to his relay engineer at [employer] in [place], [place] Coding Level of Care Code Est Pt Level 3 (33418) Diagnoses History of right below knee amputation Z89.511
[2024-06-12 11:49] VITALS: BP 160/100; PULSE 89; BMI 31.5
== END 2024-06-12 11:59 | disposition home or self-care (01) ==
PROVIDERS: PCP Nurse Practitioner Family; Visit Provider Surgery
DX: Z89.511 Acquired absence of right leg below knee (principal)
CPT/HCPCS: 99213

== ENCOUNTER → 2024-06-12 11:36 | Outpatient (BNVA) | payer OTHER, SELFPAY | PROVIDERS: PCP Nurse Practitioner Family; Visit Provider Surgery ==

== ENCOUNTER 2024-10-22 12:57 | Outpatient (AMB) | payer OTHER, SELFPAY ==
[2024-10-22 13:10] VITALS: BP 130/78; PULSE 90; O2SAT 97; BMI 29.2
--- NOTE | 2024-10-22 13:10 | A.OFFPC_ITS ---
Vital Signs 10/22/24 13:10 Height 6 ft Weight 215 lb BMI 29.2 BP 130/78 Blood Pressure Location Lt brachial Position Sitting Pulse 90 Pulse Source Pulse Oximeter Pulse Oximetry (%) 97 Intake Visit Reasons: Physical Exam Intake Note: pt is here for PE Deportation Examiner Required: No Accompanied by: Self / Same As Patient Allergies acetaminophen [Tylenol] Allergy (Unknown, Verified 10/22/24 13:11) face swelling aspirin Allergy (Unknown, Verified 10/22/24 13:11) anaphylaxis, edema Medication List - Last Reconciled 10/22/24 by Kaleb Hoyt, [facility]- atorvastatin 20 mg PO BEDTIME blood sugar diagnostic (FreeStyle Lite Strips) As directed blood-glucose meter (FreeStyle Lite Meter kit) As directed FreeStyle Zhane 2 [place] (flash glucose scanning reader) tid testing NS FreeStyle Zhane 2 Sensor (flash glucose sensor) TID testing NS Humalog KwikPen Insulin (insulin lispro) 1 sliding scale dose subcut TID NS insulin glargine-yfgn (Semglee (insulin glargine-yfgn) Pen) 26 units (0.26 mL) subcut BEDTIME losartan 25 mg PO DAILY 90 days multivitamin 1 tab PO DAILY ondansetron 4 mg PO Q8H PRN 10 days Tobacco use date assessed: 10/22/24 Dental Screening Dental Screen Date: 10/22/24 Did you have a dental visit in the last 12 months?: Yes Did you have a dental problem in the last 6 months where you did not have access to dental care?: No Was dental information given to patient?: Patient has dentist HPI Physical Exam HPI Details Chief Complaint Physical examination and evaluation of wound on the right knee stump. History of Present Illness The patient is a 43-year-old male presenting with a physical examination for diabetes management and a lesion on the right knee stump. He has a history of diabetes mellitus and reports fluctuations in blood glucose levels, having experienced both improvements and instability. Blood glucose control has previously involved insulin management with 26 units at night-long acting (though not using in many months) alongside a sliding scale for mealtimes (short acting). Recently, the patient has faced challenges maintaining his exercise routine due to discomfort and pain associated with a prosthetic issue. He describes a history of a surgical procedure on the right leg with subsequent prosthetic-related complications. A bone growth induced an uncomfortable and inappropriate fit with an older prosthetic liner, causing bruising that progressed to an open wound with increased size. Intervention included a replacement with a customized prosthetic liner, which led to improved healing of the scabbed lesion (right side of distal stump). The patient confirms there is no infection, and the lesion is currently healing well. In the past, he sought urgent care for this issue, but there has been no regular follow-up with specialists. Social History - Exercised regularly before prosthetic complications. - Experiences discomfort and pain relate d to prosthetic issues. Health Maintenance - Advised for fasting blood work with no caloric intake for 12 hours, except water and essential medications, prior to testing. Review of Systems - Integumentary: Reports pain and lesion on the right stump. - Musculoskeletal: Denies major pain pos t-adjustment to the prosthetic liner. - Endocrine: Reports fluctuations in blo od glucose levels. Physical Exam - Cardiovascular- Heart sounds normal; n o murmurs detected. - Respiratory- Lungs clear to auscultati on. - Endocrine/Metabolic- Healing, scabbed lesion without signs of infection to distal right stump, no signs of surrounding infection. - Musculoskeletal- Positive sensation wi th monofilament on extremities. - Integumentary- Onychomycosis present o n two left toenails. -A+O -neck supple Results Plan - Continue current meal time insulin wit h adding back his fdc insulin regimen to manage diabetes, monitoring blood glucose levels closely. - Ensure the right stump lesion continue s to heal with regular observation; no s igns of infection, recommend maintaining hygiene. - Encourage safe reintegration of exerci se as tolerated by prosthetic comfort to manage diabetes. - Monitor toenail condition, suggesting antifungal treatment if onychomycosis persists. Patient was informed and verbally consented to the use of an ambient scribe for clinic note documentation during this visit. Discussion Notes During the visit, I reviewed with the patient the importance of monitoring blood glucose levels and adhering to the insulin regimen for effective diabetes management. We discussed the absence of infection in his scabbed lesion, emphasizing the need to maintain cleanliness and monitor for any changes. The patient was reassured about the healing process of his stump lesion and encouraged to gradually return to exercise to support metabolic control. I highlighted the importance of fasting for 12 hours for accurate lab results. We also discussed the management of onychomycosis, with future consideration for antifungal treatment if necessary. Patient Instructions - Monitor your blood glucose regularly a nd administer insulin as per the prescribed regimen. - Maintain hygiene of the right knee basil mp and observe for any signs of infection or adverse changes. - Gradually reintroduce physical activit y while ensuring prosthetic comfort. - Complete fasting as instructed prior t o lab work, sticking to water only and taking prescribed meds. - Follow guidance on toenail management and consider further treatment if no improvement. - pt will make his own ophthalmology juan pablo t. [facility] Medical History Type 2 diabetes mellitus Chronic kidney disease Nephrolithiasis Retinopathy HTN (hypertension) H/O nephrolithotomy with removal of calculi Surgical History History of right below knee amputation (11/06/22) History of hernia repair Family History Father HTN (hypertension) Mother Arthritis Social History Household Members: None Housing: House Are you a primary behavioral health care coordinator to a significant other at home: No Do you presently have visiting nurse or other home services: No Alcohol intake: never Patient Tobacco Use Status: Never used Tobacco service: No Current occupational status: employed Cognitive needs: No Hearing needs: No Vision needs: No Questionnaire PHQ-9 Over the last 2 weeks, how often have you been bothered by any of the following problems? 1. Little interest or pleasure in doing things: not at all 2. Feeling down, depressed, or hopeless: not at all 3. Trouble falling or staying asleep, or sleeping too much: several days 4. Feeling tired or having little energy: not at all 5. Poor appetite or overeating: not at all 6. Feeling bad about yourself - or that you are a failure or have let yourself or your family down: not at all 7. Trouble concentrating on things, such as reading the newspaper or watching television: not at all 8. Moving or speaking so slowly that other people could have noticed. Or the opposite - being so fidgety or restless that you have been moving around a lot more than usual: not at all 9. Thoughts that you would be better off or of hurting yourself in some way: not at all Total score: 1 Depression Screening Interpretation: Negative Depression Screening Done: Yes [id number] - PHQ-9 Billing: Yes Source: Developed by Drs. Jairo Patton, Lisa Oro, Homero Ricardo and colleagues, with an educational tc from [employer]. Thrive Questionnaire Date Thrive assessed: 10/22/24 I am a: Patient What is your living situation today?: I have a steady place to live Within the past 12 months, did the food you bought not last and you didn't have the money to get more?: Never true Within the past 12 months, did you worry whether your food would run out before you got money to buy more?: Never true Do you have trouble paying for medicines?: No Do you have trouble getting transportation to medical appointments?: No Do you have trouble paying your heating and electricity bill?: No Do you have trouble taking care of your child, family member or friend?: I choose not to answer this question Do you have trouble with day-to-day activities such as bathing, preparing meals, shopping, managing finances, etc.?: No Are you currently unemployed and looking for a job?: No Are you interested in more education?: No Please select the resources that you would like help with: None Currently or been in a relationship where the following occur: I choose not to answer THRIVE Score: 0 AUDIT C Alcohol Use Questionnaire (AUDIT-C) 1. How often do you have a drink containing alcohol?: Never 3. How often do you have six or more drinks on one occasion?: Never Total Score: 0 Score Reviewed/Action Taken: Yes RAMIREZ-7 AMB Questionnaire RAMIREZ-7 Date RAMIREZ - 7 assessed: 10/22/24 Feeling nervous, anxious, or on edge: 0 = Not at all Not being able to stop or control worryin = Not at all Worrying too much about different things: 0 = Not at all Trouble relaxin = Several days Being so restless that it is hard to sit still: 1 = Several days Becoming easily annoyed or irritable: 1 = Several days Feeling afraid as if something awful might happen: 0 = Not at all Total RAMIREZ-7 score (0-4 normal; 5-9 mild; 10-14 moderate; 15-21 severe): 3 Source: Developed by Drs. Jairo Patton, Lisa Oro, Homero Ricardo and colleagues, with an educational tc from [employer]. RAMIREZ-7 Assessment Billing RAMIREZ-7 Assessment Tool: RAMIREZ-7 Assessment 40284 Physical exam (Primary Care) Vital Signs: Last Vital Signs Pulse 90 10/22/24 13:10 BP 130/78 10/22/24 13:10 Pulse Ox 97 10/22/24 13:10 BMI result Body Mass Index 29.2 Tobacco/Smoking Status: Tobacco use Status Tobacco use date assessed 10/22/24 10/22/24 13:11 Patient Tobacco Use Status Never used Tobacco 10/22/24 13:11 PHQ-9: PHQ-9 Score PHQ-9: Total score 1 10/22/24 13:44 Depression Screening Interpretation: Negative Thrive Assessment: Date of Thrive Assessment Date Thrive assessed 10/22/24 10/22/24 13:11 Currently or been in a relationship where the following occur: I choose not to answer Results AMB Hemoglobin A1c AMB Hemoglobin A1c 9.7 % Last Edit by Scotty Martínez CMA on 10/22/24 14: 21 Coding Level of Care Code Est Pt Prev Care 40-64y(66304) Diagnoses Type 2 diabetes mellitus E11.9 Prostate cancer screening Z12.5 Additional Codes RAMIREZ-7 Assessment Billing - RAMIREZ-7 Assessment Tool: RAMIREZ-7 Assessment 77314 ([id number]) PHQ-9 - 01162 - PHQ-9 Billing: Yes ([id number]) Assessment & Plan Assessment & Plan (1) Type 2 diabetes mellitus: Code(s): E11.9 - Type 2 diabetes mellitus without complications Category: Medical (2) Prostate cancer screening: Code(s): Z12.5 - Encounter for screening for malignant neoplasm of prostate Category: Medical Plan . Orders: Orders Complete Blood Count Auto Diff Today E11.9 - Type 2 diabetes mellitus without complications, Z00.01 - Encounter for general adult medical examination with abnormal findings Comprehensive [place]. Panel Fast Today E11.9 - Type 2 diabetes mellitus without complications, Z00.01 - Encounter for general adult medical examination with abnormal findings TSH reflex Free T4 Today E11.9 - Type 2 diabetes mellitus without complications, Z00.01 - Encounter for general adult medical examination with abnormal findings UA CC w/rflx Micro + Cult Today E11.9 - Type 2 diabetes mellitus without complications, Z00.01 - Encounter for general adult medical examination with abnormal findings Lipid Panel Today E11.9 - Type 2 diabetes mellitus without complications, Z00.01 - Encounter for general adult medical examination with abnormal findings Microalbumin, Random (w Creat) Today E11.9 - Type 2 diabetes mellitus without complications, Z00.01 - Encounter for general adult medical examination with abnormal findings AMB Hemoglobin A1c Today Z13.9 - Encounter for screening, unspecified Prostate Specific Antigen Scr Today Z12.5 - Encounter for screening for malignant neoplasm of prostate Medications: New insulin glargine-yfgn (Semglee (insulin glargine-yfgn) Pen) 26 units (0.26 mL) subcut BEDTIME 15 mL 0RF losartan 25 mg PO DAILY 90 days 90 tabs 0RF atorvastatin 20 mg PO BEDTIME 90 tabs 0RF
== END 2024-10-22 15:00 | disposition home or self-care (01) ==
PROVIDERS: PCP Nurse Practitioner Family; Visit Provider Nurse Practitioner Family
DX: Z00.00 Encounter for general adult medical examination without abnormal findings (principal); E11.9 Type 2 diabetes mellitus without complications; Z12.5 Encounter for screening for malignant neoplasm of prostate

== ENCOUNTER → 2024-10-22 12:57 | Outpatient (BNVA) | payer OTHER, SELFPAY | PROVIDERS: PCP Nurse Practitioner Family; Visit Provider Nurse Practitioner Family | DX: Z00.01 Encounter for general adult medical examination with abnormal findings (principal); T87.89 Other complications of amputation stump; E11.9 Type 2 diabetes mellitus without complications | CPT/HCPCS: 83036; 96127 ==

== ENCOUNTER 2025-03-26 17:47 | Inpatient (IN) | payer OTHER, SELFPAY ==
--- NOTE | ~2025-03-26 | XR_ITS ---
CLINICAL HISTORY: redness. oste? 2 view right femur Comparison: None Findings: No fractures or dislocations. No knee effusion. No significant arthritic change. No radiopaque foreign body. IMPRESSION: 1. Normal right femur This document has been electronically signed by: Leandro Jones MD on 03/26/2025 20:40:16
--- NOTE | ~2025-03-26 | XR_ITS ---
CLINICAL HISTORY: right stump pain erythma. osteo? 2 view right tibia-fibula Comparison: None Findings Below-knee amputation through the mid shaft tibia and fibula. No lytic or blastic bone lesions. Small amount of hypertrophic bone at the distal tip of the tibia. No joint effusion. No significant arthritic change. No radiopaque foreign body. IMPRESSION: No radiographic evidence of osteomyelitis. Early osteomyelitis can be radiographically occult, if there is high clinical concern consider MRI with contrast. This document has been electronically signed by: Leandro Jones MD on 03/26/2025 20:40:10
--- NOTE | ~2025-03-26 | CT_ITS ---
CLINICAL HISTORY: Right leg abscess? Redness erythema CT lower leg right with IV contrast Comparison: CR - XR TIBIA FIBULA RT 2V - 03/26/25 20:01 EDT Findings: There is diffuse subcutaneous edema overlying the anterior and lateral aspect of the knee and calf of the right leg. Diffuse skin thickening is present. No rim enhancing fluid collections. No soft tissue gas. Arterial and venous vessels in the popliteal region are patent. There has been a previous transtibial and trans fibular amputation of the mid shaft. No lytic bone lesions. No periosteal reaction to suggest infection. IMPRESSION: 1. No evidence of right lower extremity abscess. 2. Extensive subcutaneous edema in the anterolateral right knee and lower leg. This document has been electronically signed by: Leandro Jones MD on 03/26/2025 22:06:02
[2025-03-26 17:49] VITALS: BP 133/91; PULSE 123; RESP 18; TEMP 37.2; O2SAT 99; BMI 33.4
--- NOTE | 2025-03-26 17:53 | ECG_ITS ---
Test Reason : TACHYCARDIC Blood Pressure : */* mmHG Vent. Rate : 122 BPM Atrial Rate : 122 BPM P-R Int : 122 ms QRS Dur : 90 ms QT Int : 296 ms P-R-T Axes : 38 -40 58 degrees QTcB Int : 421 ms Sinus tachycardia Left axis deviation Abnormal ECG When compared with ECG of 06-Nov-2022 14:56, No significant change was found Referred By: Janice Begum Electronically Signed By: HILDA AGUSTIN
--- NOTE | 2025-03-26 17:54 | ED.SKABFB ---
HPI - Skin/Abscess/Foreign Bdy General Chief complaint: Wound/Laceration Stated complaint: leg infection Time Seen by Provider: 03/26/25 18:48 Source: patient Mode of arrival: ambulatory Limitations: no limitations History of Present Illness ED Provider: Isaac Roberts HPI narrative: 44 yold female with pmh of diabetes and right BKA presents to the ED for erythema on lateral aspect of knee that began today. Patient denies any recent trauma, swelling, chest pain, shorntess of breath, or weakness. Patient states having chills. Related Data Home Medications ?Medication ?Instructions ?Recorded ?Confirmed blood sugar diagnostic (FreeStyle #10 ea 09/06/20 10/22/24 Lite Strips) blood-glucose meter (FreeStyle #1 ea 09/06/20 10/22/24 Lite Meter kit) multivitamin 1 tab PO DAILY 11/06/22 03/26/25 insulin glargine 100 unit/mL (3 26 unit subcut BEDTIME 03/26/25 03/26/25 mL) subcutaneous pen (Lantus Solostar U-100 Insulin) Previous Rx's ?Medication ?Instructions ?Recorded FreeStyle Zhane 2 [place] (flash #1 ea 12/24/22 glucose scanning reader) FreeStyle Zhane 2 Sensor (flash #1 ea 12/24/22 glucose sensor) atorvastatin 20 mg tablet 20 mg PO BEDTIME #90 tabs 01/04/25 Humalog KwikPen Insulin 100 1 sliding scale dose subcut TID 02/03/25 unit/mL subcutaneous (insulin TID before meals #15 mL lispro) Allergies Allergy/AdvReac Type Severity Reaction Status Date / Time acetaminophen [Tylenol] Allergy Unknown face Verified 03/26/25 17:54 swelling aspirin Allergy Unknown anaphylaxis, Verified 03/26/25 17:54 edema Review of Systems Review of Systems: right lateral knee redness Yes all other systems are reviewed and are negative FORMERLY [facility], [facility] Past Medical History Medical History (Updated 03/27/25 @ 10:43 by Nima Garcia MD) Cellulitis and abscess of leg Type 2 diabetes mellitus Chronic kidney disease Nephrolithiasis Retinopathy HTN (hypertension) H/O nephrolithotomy with removal of calculi Surgical History History of right below knee amputation (11/06/22) History of hernia repair Family History Family History Father HTN (hypertension) Mother Arthritis Social History Social History Household Members: None Housing: House Are you a primary medicare biller to a significant other at home: No Do you presently have visiting nurse or other home services: No Alcohol intake: current Alcohol intake frequency: holidays/special occasions only Patient Tobacco Use Status: Never used Tobacco service: No Current occupational status: employed Cognitive needs: No Hearing needs: No Vision needs: No Physical Exam Vital Signs: Vital Signs: Last Vital Signs Temp 98.4 F 03/27/25 19:44 Pulse 101 H 03/27/25 19:44 Resp 20 03/27/25 19:44 BP 136/81 03/27/25 19:44 Pulse Ox 95 03/27/25 19:44 O2 Del Method Room Air 03/27/25 19:44 BMI result Body Mass Index 33.4 Const: Orientation/consciousness: patient oriented x3 HEENT: Head: Yes normal to inspection, Yes No palpable skull fracture present, Yes normocephalic and Yes atraumatic Eyes: General: appearance normal, both eyes and all related structures Neck: Neck: Yes normal visual inspection, Yes full ROM, Yes no lymphadenopathy, Yes no meningeal signs, Yes trachea midline, Yes supple, No anterior neck swelling and No tender Chest: Chest palpation & inspection: normal inspection of the chest and normal palpation of entire chest wall Resp: Effort & Inspection: normal respiratory effort and able to speak in complete sentences Auscultation: clear to auscultation bilaterally Cardio: Jugular venous distension: no JVD Heart sounds: S1 normal heart sound present and S2 normal heart sound present GI: Inspection: Yes normal to inspection Palpation (GI): Soft to palpation, not firm, nontender, no guarding and not rigid : General: Yes no CVA tenderness Back/Spine/Pelvis: Back: no CVA tenderness and No back tenderness Skin: General skin exam: no rashes or lesions noted, elasticity normal and turgor normal Neuro: General: patient oriented x3, gait normal, tone normal, moves all extremities, Normal light touch and pain sensation, no meningeal signs, no focal motor deficits, CN's II-XI intact bilaterally and normal sensation to monofilament Extrem: Other: Psych: Appearance: grossly normal, well kempt and not disheveled Course Course Course Narrative: This is a Rapid Medical Examination (RME) performed by Jairo Begum PA-C in triage. Full HPI, ROS, assessment and treatment plan per primary provider in the Main ED. 03/26/25 175 WILDA Castillo Hx: 44-year-old male w/ pmhx significant for DM, s/p right below-knee amputation in 2022 here for eval of skin infection to right lower leg. reports his RLE prosthesis has been rubbing against the area and irritating it. States it has been leaking clear fluid. Admits to dizziness that began this morning. PE/vitals: Patient is well-appearing. Tachycardic. Large area of erythema noted to lateral aspect of right knee with induration, area of pointing. No active drainage. Warm, tender. Marked with skin pen in triage. Plan: Labs, lactic/blood cultures, EKG Medications Administered Generic Name Dose Route Start Last Admin Trade Name Freq PRN Reason Stop Dose Admin Atorvastatin Calcium 20 mg 03/27/25 21:00 03/27/25 20:24 Atorvastatin Calcium 20 Mg Tablet PO 20 mg BEDTIME EMERSON Administration Enoxaparin Sodium 40 mg 03/26/25 21:00 03/27/25 20:25 Enoxaparin Sodium 40 Mg/0.4 Ml Syringe SUBCUT 40 mg Q24H EMERSON Administration Vancomycin HCl 1,000 mg/ 270 mls @ 270 mls/hr 03/27/25 09:00 03/27/25 22:26 Sodium Chloride IV Infused Q12H EMERSON Infusion Insulin Glargine 20 unit 03/26/25 22:10 03/27/25 20:26 Insulin Glargine,Hum.Rec.Anlog 100 Unit/Ml 10 Ml Vial SUBCUT 20 unit BEDTIME EMERSON Administration Insulin Human Lispro 0 unit 03/26/25 21:00 03/27/25 20:26 Insulin Lispro 100 Unit/Ml 3 Ml Vial SUBCUT 6 unit QIDACHS EMERSON Administration Protocol Sodium Chloride 3 ml 03/27/25 00:00 03/27/25 20:36 0.9 % Sodium Chloride Flush 3 Ml Syringe IVFLUSH 3 ml QSHIFT EMERSON Administration Discontinued Medications Generic Name Dose Route Start Last Admin Trade Name Freq PRN Reason Stop Dose Admin Sodium Chloride 1,000 mls @ 999 mls/hr 03/26/25 19:11 03/26/25 22:30 Ns IV 03/26/25 20:11 Infused .Q1H1M STA Infusion Sodium Chloride 1,000 mls @ 999 mls/hr 03/26/25 19:11 03/26/25 22:30 Ns IV 03/26/25 20:11 Infused .Q1H1M STA Infusion Vancomycin HCl 2,000 mg in 500 mls @ 250 mls/hr 03/26/25 20:41 03/26/25 23:48 Vancomycin/Ns IV 03/26/25 22:40 Infused ONCE ONE Infusion Piperacillin Sod/Tazobactam 100 mls @ 200 mls/hr 03/26/25 21:00 03/27/25 00:28 Sod 4.5 gm/ Sodium Chloride IV Infused Q6H EMERSON Infusion Piperacillin Sod/Tazobactam 100 mls @ 200 mls/hr 03/27/25 06:00 03/27/25 06:15 Sod 4.5 gm/ Sodium Chloride IV Infused Q6H EMERSON Infusion Insulin Human Regular 5 unit 03/26/25 20:21 03/26/25 21:11 Insulin Regular, Human 100 Unit/Ml 10 Ml Vial IVPUSH 03/26/25 20:22 Not Given ONCE ONE Iohexol 85 ml 03/26/25 21:15 03/26/25 21:15 Iohexol 350 Mg/Ml 100 Ml Infus..Btl IV 03/26/25 21:16 85 ml ONCE ONE Administration Morphine Sulfate 3 mg 03/27/25 09:17 03/27/25 09:27 Morphine Sulfate 4 Mg/Ml Cartridge IVPUSH 03/27/25 09:18 3 mg ONCE ONE Administration Protocol Medical Decision Making Medical Decision Making MDM Narrative: 44-year-old male history of diabetes presents to the ED for right lateral knee erythema with slight opening with slight drainage. Negative for red streaks. Negative for fever. CRP chronically elevated lower than usual. ESR pending. Fluids ordered. Negative anion gap. CRP slightly elevated 8:28pm: Patient is ESR elevated. Glucose elevated beta hydroxy slightly elevated. Fluids ordered. Insulin ordered. Bedside ultrasound on lateral aspect of erythema of knee so cellulitic cobblestone changes negative for any pus drainage for incision and drainage. 8:21pm: Patient to be admitted for right leg cellulitis. Patient states erythema from leg to thigh began today. Due to the rapid spread of erythema that began today beyond the marker occurred today patient will be given IV antibiotics and admitted. Patient accepted by Dr. Zurita Differential Diagnosis Differential Diagnoses: The differential diagnosis associated with the presentation includes (Cellulitis, abscess, osteomyelitis) Admission/Observation Consideration of admission/observation: Escalation of care including admission/observation considered Consult Healthcare Provider Management of the patient was discussed with: Cereal Chemist (Dr. Zurita) Lab Data MDM Lab Attestation statement: I reviewed the patient's lab results. 03/27/25 06:03 03/27/25 06:03 Labs: Lab Results 03/26/25 03/26/25 Range/Units 18:17 20:21 WBC 11.6 H (4.8-10.8) X10*3/uL RBC 5.74 (4.60-5.80) X10*6/uL Hgb 16.2 (14.0-18.0) g/dl Hct 45.8 (42.0-52.0) % MCV 79.8 L (80.0-98.0) fL MCH 28.2 (27.0-33.0) pg MCHC 35.4 (31.0-36.0) g/dl RDW 12.1 (11.0-16.0) % Plt Count 252 (160-400) X10*3/uL MPV 11.8 (9.4-12.4) fL Immature Gran % (Auto) 0.4 (0.0-0.4) % Neut % (Auto) 86.8 H (45-73) % Lymph % (Auto) 5.0 L (20-40) % Haines % (Auto) 7.6 (2-11) % Eos % (Auto) 0.1 (0-4) % Baso % (Auto) 0.1 (0-2) % Lymph # (Auto) 0.6 L (1.2-4.9) X10*3/uL Haines # (Auto) 0.9 (0.1-1.2) X10*3/uL Eos # (Auto) 0.0 (0.0-0.4) X10*3/uL Baso # (Auto) 0.0 (0.0-0.2) X10*3/uL Abs Immat Gran (auto) 0.05 H (0.00-0.03) X10*3/uL Absolute Neuts (auto) 10.1 H (2.0-8.3) x10*3/uL Absolute Nucleated RBC 0.000 (0.0-0.012) X10*3/uL Nucleated RBC % (auto) 0.0 (0.0-0.2) /100WBC Smear Tech's Comments VERIFIED ESR 25 H (0-15) MM/HR Sodium 132 L (135-145) mmol/L Potassium 4.3 (3.3-5.1) mmol/L Chloride 99 (96-108) mmol/L Carbon Dioxide 23 (22-29) mmol/L Anion Gap 14 (12-20) BUN 25 H (9-16) mg/dL Creatinine 1.30 (0.5-1.4) mg/dL Estim Creat Clear Calc 81.3 Estimated GFR 59 POC Glucose 285 H (60-115) mg/dL Random Glucose 343 H (60-115) mg/dL Lactic Acid 1.8 (0.5-2.0) mmol/L Calcium 9.7 (8.4-10.2) mg/dL Magnesium 1.9 (1.6-2.6) mg/dL Total Bilirubin 1.3 H (0.0-1.0) mg/dL AST 26 (5-37) U/L ALT 35 (0-40) U/L Alkaline Phosphatase 90 (39-117) U/L C-Reactive Protein 15.15 H (< or = 0.50) mg/dL Total Protein 7.9 (6.5-8.0) g/dL Albumin 4.2 (3.5-5.0) g/dL Beta-Hydroxybutyrate 0.33 H (0.02-0.27) mmol/L Independent Interpretation I performed an independent interpretation of an: Plain X-Ray Radiology Impression Discussion of test interpretation with radiology: I have reviewed the radiologist's reading. Independent Historian Clinical information obtained from an independent historian. History obtained from or confirmed by: Other (Patient) Prescription Management I considered prescription management with: Antibiotic Discharge Plan Discharge Clinical Impression: Cellulitis Patient Disposition: Admitted As Inpatient Interventions: Admission Worksheet (ED) Last Done: 03/26/25 21:16 Discharge Date/Time: 03/26/25 22:00
[2025-03-26 18:41] LABS: Alanine Aminotransferase 35 U/L (0-40); Albumin Level 4.2 g/dL (3.5-5.0); Alkaline Phosphatase 90 U/L (39-117); Anion Gap 14 (12-20); Aspartate Amino Transferase 26 U/L (5-37); Bilirubin Total 1.3 mg/dL (0.0-1.0); Blood Urea Nitrogen 25 mg/dL (9-16); C Reactive Protein 15.15 mg/dL (< or = 0.50); Calcium 9.7 mg/dL (8.4-10.2); Carbon Dioxide 23 mmol/L (22-29); Chloride 99 mmol/L (96-108); Creatinine Clr Calc Pharmacy 81.3; Estimated Glomerular Filt Rate 59; Glucose Random 343 mg/dL (60-115); Magnesium 1.9 mg/dL (1.6-2.6); Potassium 4.3 mmol/L (3.3-5.1); Sodium 132 mmol/L (135-145); Total Protein 7.9 g/dL (6.5-8.0)
[2025-03-26 18:42] LABS: Lactic Acid 1.8 mmol/L (0.5-2.0)
[2025-03-26 18:52] LABS: Eosinophils Percent Auto 0.1 % (0-4); Hemoglobin 16.2 g/dl (14.0-18.0); PLT CLUMP 1; Red Cell Distribution Width 12.1 % (11.0-16.0); SCAN SMEAR FLAG 1
[2025-03-26 18:54] LABS: Basophils Percent Auto 0.1 % (0-2); Hematocrit 45.8 % (42.0-52.0); Imm Gran Abs Auto 0.05 X10*3/uL (0.00-0.03); Imm Gran Pct Auto 0.4 % (0.0-0.4); Lymphocytes Absolute Auto 0.6 X10*3/uL (1.2-4.9); MANUAL DIFF FLAG SCAN; Mean Corpuscular HGB Conc 35.4 g/dl (31.0-36.0); Mean Corpuscular Hemoglobin 28.2 pg (27.0-33.0); Mean Corpuscular Volume 79.8 fL (80.0-98.0); Mean Platelet Volume 11.8 fL (9.4-12.4); Monocytes Absolute Auto 0.9 X10*3/uL (0.1-1.2); Monocytes Percent Auto 7.6 % (2-11); Neutrophils Absolute Auto 10.1 x10*3/uL (2.0-8.3); Neutrophils Percent Auto 86.8 % (45-73); Red Blood Count 5.74 X10*6/uL (4.60-5.80)
[2025-03-26 19:04] LABS: White Blood Count 11.6 X10*3/uL (4.8-10.8)
[2025-03-26 19:26] LABS: Beta-Hydroxybutyrate 0.33 mmol/L (0.02-0.27)
[2025-03-26] MEDS: 0.9 % Sodium Chloride 1,000 ML 999 ML IV ×2 (19:29)
[2025-03-26 19:39] LABS: Platelet Count 252 X10*3/uL (160-400)
[2025-03-26 20:01] LABS: Erythrocyte Sedimentation Rate 25 MM/HR (0-15)
[2025-03-26 20:24] LABS: Glucose, Whole Blood 285 mg/dL (60-115)
[2025-03-26 20:37] LABS: SLIDE REVIEW VERIFIED
--- NOTE | 2025-03-26 20:52 | P.HPHOSP_ITS ---
History of Present Illness Date of Service: 03/26/25 Chief Complaint: Leg infection This is a 44-year-old male with pertinent history of peripheral arterial disease status post right BKA, insulin-dependent diabetes mellitus, hypertension who presents to the emergency department for concerns of right leg infection. Patient states he noticed redness and started having pain over his right lower extremity 1 day prior to presentation. The symptoms were progressive and he also noticed purulent drainage from the area of redness and warmth. Also was having chills but no documented fever. Had associated dizziness. Did not pass out. States he is compliant with insulin. No fever, chest pain, palpitations, shortness of breath, abdominal pain, changes in urinary or bowel habits. In the emergency department, imaging without underlying abscess. White count 11.6 and inflammatory markers elevated. Review of Systems 2 Constitutional: Constitutional: Reports chills Cardiovascular: Cardiovascular: Reports no additional cardiovascular complaints Respiratory: Respiratory: Reports no additional respiratory complaints Gastrointestinal: Gastrointestinal: Reports no additional gastrointestinal complaints Genitourinary: Genitourinary: Reports no additional male genitourinary complaints FORMERLY [facility], LAT[facility] Medical History Type 2 diabetes mellitus Chronic kidney disease Nephrolithiasis Retinopathy HTN (hypertension) H/O nephrolithotomy with removal of calculi Family History Father HTN (hypertension) Mother Arthritis Surgical History History of right below knee amputation (11/06/22) History of hernia repair Social History Household Members: None Housing: House Are you a primary career consultant to a significant other at home: No Do you presently have visiting nurse or other home services: No Alcohol intake: current Alcohol intake frequency: holidays/special occasions only Patient Tobacco Use Status: Never used Tobacco Smoked in Last 30 Days: No Use of substances other than those prescribed or required for medical reasons: No Advance Directives: No Advance Directives Information Provided: No service: No Current occupational status: employed Cognitive needs: No Hearing needs: No Vision needs: No Meds Allergies Allergy/AdvReac Type Severity Reaction Status Date / Time acetaminophen [Tylenol] Allergy Unknown face Verified 03/26/25 17:54 swelling aspirin Allergy Unknown anaphylaxis, Verified 03/26/25 17:54 edema Active Medications: Current Medications Acetaminophen (Acetaminophen 325 Mg Tablet) 650 mg PO Q6H PRN PRN Reason: Pain, Mild 1-3,fever,headache Calcium Carbonate (Calcium Carbonate 750 Mg Tab.Chew) 750 mg PO Q4H PRN PRN Reason: Heartburn Enoxaparin Sodium (Enoxaparin Sodium 40 Mg/0.4 Ml Syringe) 40 mg SUBCUT Q24H EMERSON Vancomycin HCl (Vancomycin/Ns) 2,000 mg in 500 mls @ 250 mls/hr IV ONCE ONE Stop: 03/26/25 22:40 Piperacillin Sod/Tazobactam (Sod 3.375 gm/ Sodium Chloride) 50 mls @ 100 mls/hr IV ONCE ONE Stop: 03/26/25 21:10 Piperacillin Sod/Tazobactam (Sod 4.5 gm/ Sodium Chloride) 100 mls @ 200 mls/hr IV Q6H EMERSON Magnesium Hydroxide (Milk Of Magnesia 30 Ml Oral.Susp) 30 ml PO DAILY PRN PRN Reason: Constipation Melatonin (Melatonin 3 Mg Tablet) 6 mg PO BEDTIME PRN PRN Reason: Insomnia Ondansetron HCl (Ondansetron Hcl 4 Mg/2 Ml Vial) 4 mg IVPUSH Q8H PRN PRN Reason: Nausea and Vomiting Pharmacy Consult (Consult Rx Vancomycin Dosing) 1 each MISCELLANE DAILY PRN PRN Reason: Consult order Sodium Chloride (0.9 % Sodium Chloride Flush 3 Ml Syringe) 3 [facility]USH [facility] Home Medications ?Medication ?Instructions ?Recorded ?Confirmed ?Last Taken ?Type blood sugar diagnostic (FreeStyle #10 ea 09/06/20 10/22/24 Unknown History Lite Strips) blood-glucose meter (FreeStyle #1 ea 09/06/20 10/22/24 Unknown History Lite Meter kit) multivitamin 1 tab PO DAILY 11/06/22 03/26/25 03/26/25 History insulin glargine 100 unit/mL (3 26 unit subcut BEDTIME 03/26/25 03/26/25 03/26/25 History mL) subcutaneous pen (Lantus Solostar U-100 Insulin) Physical Exam 2 Vital Signs and Narrative: Vital Signs: Last Vital Signs Temp 98.9 F 03/26/25 17:49 Pulse 123 H 03/26/25 17:49 Resp 18 03/26/25 17:49 BP 133/91 H 03/26/25 17:49 Pulse Ox 99 03/26/25 17:49 O2 Del Method Room Air 03/26/25 17:49 BMI result Body Mass Index 33.4 Middle-aged male lying in bed in no distress Neck supple, no JVD Regular rate and rhythm, S1-S2 heard Regular breath sounds bilaterally, no wheezing or crackles appreciated Abdomen soft nontender, no guarding, no rigidity Patient is awake, alert and oriented to self, place, time and person ; no focal motor deficit Psych: Normal mood Right BKA ; right lateral area (below knee) of erythema, warmth, tenderness with purulent drainage as pictured below Skin: Other: Results Labs 03/26/25 18:17 03/26/25 18:17 Labs: Laboratory Results - last 24 hr 03/26/25 03/26/25 18:17 20:21 MCV 79.8 L MCH 28.2 MCHC 35.4 RDW 12.1 Plt Count 252 MPV 11.8 Immature Gran % (Auto) 0.4 Neut % (Auto) 86.8 H Lymph % (Auto) 5.0 L [place]ady % (Auto) 7.6 Eos % (Auto) 0.1 Baso % (Auto) 0.1 Lymph # (Auto) 0.6 L [place]ady # (Auto) 0.9 Eos # (Auto) 0.0 Baso # (Auto) 0.0 Abs Immat Gran (auto) 0.05 H Absolute Neuts (auto) 10.1 H Absolute Nucleated RBC 0.000 Nucleated RBC % (auto) 0.0 Smear Tech's Comments VERIFIED ESR 25 H Anion Gap 14 Estim Creat Clear Calc 81.3 Estimated GFR 59 POC Glucose 285 H Random Glucose 343 H Lactic Acid 1.8 Calcium 9.7 Magnesium 1.9 Total Bilirubin 1.3 H AST 26 ALT 35 Alkaline Phosphatase 90 C-Reactive Protein 15.15 H Total Protein 7.9 Albumin 4.2 Beta-Hydroxybutyrate 0.33 H Assessment and Plan (1) Cellulitis: Status: Acute Plan This is a 44-year-old male with pertinent history of peripheral arterial disease status post right BKA, insulin-dependent diabetes mellitus, hypertension who presents to the emergency department for concerns of right leg infection. #. Right lower extremity purulent cellulitis: Will admit patient with empiric broad spectrum antibiotics. CT without underlying abscess. No sepsis #. Insulin dependent diabetes milletus with hyperglycemia: Initiating basal plus insulin regimen. On statin #. Hypertension: ?No longer on antihypertensives. Med rec pending Med rec pending DVT prophylaxis: Lovenox Full code Admit as inpatient and will require two night minimum hospital stay for IV antibiotics (as above), which is not possible in a lesser acute setting. Quality Stroke Does the patient have a stroke diagnosis?: No VTE Prior VTE?: No VTE Risk Level:: Medical - moderate - high VTE Device Contraindication: Treatment Not Indicated VTE Drug Contraindication: N/A - Med Ordered
--- NOTE | 2025-03-26 21:00 | PC.NURSE ---
Patient away for imaging at this time. WILDA Gaitan requesting repeat POC Glucose prior to administration of Insulin IV due to previous POC Glucose of 285. This RN questioned IV insulin based on labs. WILDA Gaitan instructed this RN to hold insulin at this time, pending repeat POC Glucose.
--- NOTE | 2025-03-26 21:11 | PC.NURSE ---
POC Glucose 257. WILDA Gaitan notified. Hold Insulin IV push. Recorded hold in EMAR.
[2025-03-26 21:12] LABS: Glucose, Whole Blood 257 mg/dL (60-115)
[2025-03-26] MEDS: iohexoL 350 MG/ML 100 ML INFUS..BTL 85 ML IV (21:15)
--- NOTE | 2025-03-26 21:32 | PHA.MEDREC ---
Addendum entered by Eun Baryr RP 03/26/25 21:39: Reviewed by [facility] Original Note: Pharmacy Consult ? Medication Reconciliation Pharmacy has completed the medication reconciliation. Spoke to patient to confirm med list. Patient states he is no longer taking Losartan 25 mg. Patient confirm Humalog Kwikpen per sliding scale TID and Lantus insulin 26 units at bedtime.
[2025-03-26] MEDS: vancomycin/NS 2,000 MG/500 ML PLAST..BAG 250 MG IV (21:37)
--- NOTE | 2025-03-26 21:47 | PHA.PROG ---
Admission Date/Time: March 26, 2025 20:49 Indication: Skin Weight in k.79 kg Adjusted body weight in Kg: [place] body weight in Kg: Obesity Dosing Indication % IBW: Serum Creatinine - Last 168 Hours 03/26/25 18:17 Creatinine 1.30 Estimated CrCl and GFR - Last 168 Hours 03/26/25 18:17 Estim Creat Clear Calc 81.3 Estimated GFR 59 Vancomycin Loading Dose: 2000mg Current Vancomycin Dosing Regimen: 1000mg q12H Vancomycin Monitoring using AUC goal of 400 - 600 range with trough as surrogate marker: 487 mg/L Date and Time for next Vancomycin Level to be drawn: 03/28/25 @0700 Pharmacist Comments on Vancomycin Plan: Vancomycin dosing will take advantage of [employer] as a clinical decision support tool that uses Bayesian modeling to calculate individual patient's pharmacokinetic parameters and forecast the patient's drug concentration time course with the target goal AUC 24 range of 400 - 600 mg/L/hr.
[2025-03-26 22:25] VITALS: BP 144/83; PULSE 105; RESP 18; TEMP 37.1; O2SAT 98
[2025-03-26 22:25] LABS: Glucose, Whole Blood 240 mg/dL (60-115)
[2025-03-26] MEDS: Insulin Glargine,Hum.rec.anlog 100 UNIT/ML 10 ML VIAL 20 UNIT SUBCUT (22:32)
[2025-03-26] MEDS: Insulin Lispro 100 UNIT/ML 3 ML VIAL SUBCUT (22:33)
[2025-03-26] MEDS: Enoxaparin Sodium 40 MG/0.4 ML SYRINGE SUBCUT (22:36)
[2025-03-26 23:10] VITALS: BMI 35.0
[2025-03-26] MEDS: Piperacillin Sodium/Tazobactam 4.5 GM in 0.9 % Sodium Chloride 100 ML IV (23:56)
[2025-03-27 03:28] VITALS: BP 143/79; PULSE 92; RESP 18; TEMP 36.7; O2SAT 97
[2025-03-27] MEDS: Piperacillin Sodium/Tazobactam 4.5 GM in 0.9 % Sodium Chloride 100 ML IV (05:44)
[2025-03-27 06:30] LABS: MANUAL DIFF FLAG NO
[2025-03-27 06:47] LABS: Basophils Percent Auto 0.3 % (0-2); Eosinophils Percent Auto 0.3 % (0-4); Hematocrit 40.4 % (42.0-52.0); Imm Gran Abs Auto 0.07 X10*3/uL (0.00-0.03); Imm Gran Pct Auto 0.6 % (0.0-0.4); Lymphocytes Percent Auto 8.8 % (20-40); Mean Corpuscular HGB Conc 34.7 g/dl (31.0-36.0); Mean Corpuscular Hemoglobin 27.7 pg (27.0-33.0); Mean Platelet Volume 11.4 fL (9.4-12.4); Monocytes Absolute Auto 1.1 X10*3/uL (0.1-1.2); Monocytes Percent Auto 9.6 % (2-11); Neutrophils Absolute Auto 9.4 x10*3/uL (2.0-8.3); Neutrophils Percent Auto 80.4 % (45-73); Platelet Count 223 X10*3/uL (160-400); Red Blood Count 5.05 X10*6/uL (4.60-5.80); Red Cell Distribution Width 12.1 % (11.0-16.0); White Blood Count 11.7 X10*3/uL (4.8-10.8)
[2025-03-27 06:48] LABS: Anion Gap 13 (12-20); Blood Urea Nitrogen 19 mg/dL (9-16); Calcium 8.3 mg/dL (8.4-10.2); Carbon Dioxide 21 mmol/L (22-29); Chloride 105 mmol/L (96-108); Creatinine Clr Calc Pharmacy 133.5; Estimated Glomerular Filt Rate > 60; Glucose Random 189 mg/dL (60-115); Potassium 3.9 mmol/L (3.3-5.1); Sodium 135 mmol/L (135-145)
[2025-03-27 07:36] LABS: Glucose, Whole Blood 177 mg/dL (60-115)
[2025-03-27 07:37] VITALS: BP 135/76; PULSE 86; RESP 14; TEMP 37.3; O2SAT 97
[2025-03-27] MEDS: Insulin Lispro 100 UNIT/ML 3 ML VIAL SUBCUT ×4 (07:46→20:26)
[2025-03-27] MEDS: vancomycin HCL 1,000 MG in 0.9 % Sodium Chloride 250 ML 270 MG IV ×2 (09:12→20:28)
[2025-03-27] MEDS: 0.9 % Sodium Chloride Flush 3 ML SYRINGE IVFLUSH ×3 (09:16→20:36)
[2025-03-27] MEDS: Morphine Sulfate 4 MG/ML CARTRIDGE 3 MG IVPUSH (09:27)
--- NOTE | 2025-03-27 09:38 | P.PNIM_ITS ---
Subjective Subjective Date of Service: 03/27/25 Interval History: rle drainage at site Physical Exam 2 Vital Signs: Vital Signs: Last Vital Signs Temp 99.1 F 03/27/25 07:37 Pulse 86 03/27/25 07:37 Resp 14 03/27/25 07:37 BP 135/76 03/27/25 07:37 Pulse Ox 97 03/27/25 07:37 O2 Del Method Room Air 03/27/25 07:37 BMI result Body Mass Index 35.0 erythema and drainage just below knee of rle Objective Data Active Medications Acetaminophen (Acetaminophen 325 Mg Tablet) 650 mg PO Q6H PRN PRN Reason: Pain, Mild 1-3,fever,headache Atorvastatin Calcium (Atorvastatin Calcium 20 Mg Tablet) 20 mg PO BEDTIME [place] Calcium Carbonate (Calcium Carbonate 750 Mg Tab.Chew) 750 mg PO Q4H PRN PRN Reason: Heartburn Dextrose (Dextrose 50 % 25 Gm/50 Ml Syringe) 25 gm IVPUSH Q15M PRN; Protocol PRN Reason: per Hypoglycemia Standing Ord. Enoxaparin Sodium (Enoxaparin Sodium 40 Mg/0.4 Ml Syringe) 40 mg SUBCUT Q24H [facility] Last Admin: 03/26/25 22:36 Dose: 40 mg Documented By: NILAY Glucose (Glucose Gel 15 Gm Gel..Gram.) 15 gm PO Q15M PRN; Protocol PRN Reason: per Hypoglycemia Standing Ord. Vancomycin HCl 1,000 mg/ (Sodium Chloride) 270 mls @ 270 mls/hr IV Q12H [facility] Last Admin: 03/27/25 09:12 Dose: 270 mls/hr Documented By: KEVIN Insulin Glargine (Insulin Glargine,Hum.Rec.Anlog 100 Unit/Ml 10 Ml Vial) 20 unit SUBCUT BEDTIME [facility] Last Admin: 03/26/25 22:32 Dose: 20 unit Documented By: NILAY Insulin Human Lispro (Insulin Lispro 100 Unit/Ml 3 Ml Vial) 0 unit SUBCUT QIDACHS [facility]; Protocol Last Admin: 03/27/25 07:46 Dose: 2 unit Documented By: KEVIN Magnesium Hydroxide (Milk Of Magnesia 30 Ml Oral.Susp) 30 ml PO DAILY PRN PRN Reason: Constipation Melatonin (Melatonin 3 Mg Tablet) 6 mg PO BEDTIME PRN PRN Reason: Insomnia Ondansetron HCl (Ondansetron Hcl 4 Mg/2 Ml Vial) 4 mg IVPUSH Q8H PRN PRN Reason: Nausea and Vomiting Pharmacy Consult (Consult Rx Vancomycin Dosing) 1 each MISCELLANE DAILY PRN PRN Reason: Consult order Sodium Chloride (0.9 % Sodium Chloride Flush 3 Ml Syringe) 3 [facility] Last Admin: 03/27/25 09:16 Dose: 3 ml Documented By: KEVIN Labs 03/27/25 06:03 03/27/25 06:03 Labs: Laboratory Results - last 24 hr 03/26/25 03/26/25 03/26/25 18:17 20:21 21:08 MCV 79.8 L MCH 28.2 MCHC 35.4 RDW 12.1 Plt Count 252 MPV 11.8 Immature Gran % (Auto) 0.4 Neut % (Auto) 86.8 H Lymph % (Auto) 5.0 L [place] % (Auto) 7.6 Eos % (Auto) 0.1 Baso % (Auto) 0.1 Lymph # (Auto) 0.6 L [place] # (Auto) 0.9 Eos # (Auto) 0.0 Baso # (Auto) 0.0 Abs Immat Gran (auto) 0.05 H Absolute Neuts (auto) 10.1 H Absolute Nucleated RBC 0.000 Nucleated RBC % (auto) 0.0 Smear Tech's Comments VERIFIED ESR 25 H Anion Gap 14 Estim Creat Clear Calc 81.3 Estimated GFR 59 POC Glucose 285 H 257 H Random Glucose 343 H Lactic Acid 1.8 Calcium 9.7 Magnesium 1.9 Total Bilirubin 1.3 H AST 26 ALT 35 Alkaline Phosphatase 90 C-Reactive Protein 15.15 H Total Protein 7.9 Albumin 4.2 Beta-Hydroxybutyrate 0.33 H 03/26/25 03/27/25 03/27/25 22:22 06:03 07:13 MCV 80.0 MCH 27.7 MCHC 34.7 RDW 12.1 Plt Count 223 MPV 11.4 Immature Gran % (Auto) 0.6 H Neut % (Auto) 80.4 H Lymph % (Auto) 8.8 L [place] % (Auto) 9.6 Eos % (Auto) 0.3 Baso % (Auto) 0.3 Lymph # (Auto) 1.0 L [place] # (Auto) 1.1 Eos # (Auto) 0.0 Baso # (Auto) 0.0 Abs Immat Gran (auto) 0.07 H Absolute Neuts (auto) 9.4 H Absolute Nucleated RBC 0.000 Nucleated RBC % (auto) 0.0 Smear Tech's Comments ESR Anion Gap 13 Estim Creat Clear Calc 133.5 Estimated GFR > 60 POC Glucose 240 H 177 H Random Glucose 189 H Lactic Acid Calcium 8.3 L D Magnesium Total Bilirubin AST ALT Alkaline Phosphatase C-Reactive Protein Total Protein Albumin Beta-Hydroxybutyrate Assessment and Plan (1) Type 2 diabetes mellitus: Status: Acute Plan 44M PMH DM, pvd s/p right bka, htn presented wiht rle erythema RLE cellulitis with drainage vanc will dc zosyn gen surg eval ?I and D dm insulin dvt prophylaxis -lovenox full code reason for continued hospitalization:iv abx Quality Stroke Does the patient have a stroke diagnosis?: No VTE Prior VTE?: No VTE Risk Level:: Medical - moderate - high VTE Device Contraindication: Treatment Not Indicated VTE Drug Contraindication: N/A - Med Ordered
--- NOTE | 2025-03-27 10:34 | MHC.CM.PN ---
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
--- NOTE | 2025-03-27 10:40 | P.CONGS_ITS ---
History of Present Illness Consult details Consult date: 03/27/25 Narrative: 44-year-old male admitted for cellulitis of the right leg. She he has a history of diabetes, and had a BKA done in 2022 for this. He has been wearing a prosthesis. He has noticed an area of redness with some drainage on the lateral aspect of the lower leg near the BKA stump. He was therefore admitted for the cellulitis. He had a CAT scan which did not reveal an obvious abscess. However, there was note of a small area of fluctuance and drainage so I was consulted He was state that these areas seems to be better compared to last night. He is on insulin for his diabetes Review of Systems 2 Constitutional: Constitutional: Denies chills and Denies fever(s) Cardiovascular: Cardiovascular: Denies chest pain, Denies dyspnea and Denies dyspnea on exertion Respiratory: Respiratory: Denies cough, Denies dyspnea and Denies dyspnea on exertion Gastrointestinal: Gastrointestinal: Denies hematochezia and Denies change in bowel habits Genitourinary: Genitourinary: Denies hematuria and Denies difficulty urinating Musculoskeletal: Musculoskeletal: Denies back pain and Denies limited range of motion Neurologic: Denies focal weakness and Denies convulsions Psychiatric: Psychiatric: Denies depression and Denies mood swings PMFSH Past Medical History Medical History (Updated 03/27/25 @ 10:43 by Nima Garcia MD) Cellulitis and abscess of leg Type 2 diabetes mellitus Chronic kidney disease Nephrolithiasis Retinopathy HTN (hypertension) H/O nephrolithotomy with removal of calculi Family History Family History Father HTN (hypertension) Mother Arthritis Surgical History Surgical History History of right below knee amputation (11/06/22) History of hernia repair Social History Social History Household Members: None Housing: House Are you a primary care transition manager to a significant other at home: No Do you presently have visiting nurse or other home services: No Alcohol intake: current Alcohol intake frequency: holidays/special occasions only Patient Tobacco Use Status: Never used Tobacco service: No Current occupational status: employed Cognitive needs: No Hearing needs: No Vision needs: No Meds Allergies Allergy/AdvReac Type Severity Reaction Status Date / Time acetaminophen [Tylenol] Allergy Unknown face Verified 03/26/25 17:54 swelling aspirin Allergy Unknown anaphylaxis, Verified 03/26/25 17:54 edema Active Medications: Current Medications Acetaminophen (Acetaminophen 325 Mg Tablet) 650 mg PO Q6H PRN PRN Reason: Pain, Mild 1-3,fever,headache Atorvastatin Calcium (Atorvastatin Calcium 20 Mg Tablet) 20 mg PO BEDTIME [place] Calcium Carbonate (Calcium Carbonate 750 Mg Tab.Chew) 750 mg PO Q4H PRN PRN Reason: Heartburn Dextrose (Dextrose 50 % 25 Gm/50 Ml Syringe) 25 gm IVPUSH Q15M PRN; Protocol PRN Reason: per Hypoglycemia Standing Ord. Enoxaparin Sodium (Enoxaparin Sodium 40 Mg/0.4 Ml Syringe) 40 mg SUBCUT Q24H [facility] Last Admin: 03/26/25 22:36 Dose: 40 mg Glucose (Glucose Gel 15 Gm Gel..Gram.) 15 gm PO Q15M PRN; Protocol PRN Reason: per Hypoglycemia Standing Ord. Vancomycin HCl 1,000 mg/ (Sodium Chloride) 270 mls @ 270 mls/hr IV Q12H [facility] Last Infusion: 03/27/25 10:22 Dose: Infused Insulin Glargine (Insulin Glargine,Hum.Rec.Anlog 100 Unit/Ml 10 Ml Vial) 20 unit SUBCUT BEDTIME [facility] Last Admin: 03/26/25 22:32 Dose: 20 unit Insulin Human Lispro (Insulin Lispro 100 Unit/Ml 3 Ml Vial) 0 unit SUBCUT QIDACHS [facility]; Protocol Last Admin: 03/27/25 07:46 Dose: 2 unit Magnesium Hydroxide (Milk Of Magnesia 30 Ml Oral.Susp) 30 ml PO DAILY PRN PRN Reason: Constipation Melatonin (Melatonin 3 Mg Tablet) 6 mg PO BEDTIME PRN PRN Reason: Insomnia Ondansetron HCl (Ondansetron Hcl 4 Mg/2 Ml Vial) 4 mg IVPUSH Q8H PRN PRN Reason: Nausea and Vomiting Pharmacy Consult (Consult Rx Vancomycin Dosing) 1 each MISCELLANE DAILY PRN PRN Reason: Consult order Sodium Chloride (0.9 % Sodium Chloride Flush 3 Ml Syringe) 3 ml IVFLUSH QSHIFT [facility] Last Admin: 03/27/25 09:16 Dose: 3 ml Home Medications ?Medication ?Instructions ?Recorded ?Confirmed ?Last Taken ?Type blood sugar diagnostic (FreeStyle #10 ea 09/06/20 10/22/24 Unknown History Lite Strips) blood-glucose meter (FreeStyle #1 ea 09/06/20 10/22/24 Unknown History Lite Meter kit) multivitamin 1 tab PO DAILY 11/06/22 03/26/25 03/26/25 History insulin glargine 100 unit/mL (3 26 unit subcut BEDTIME 03/26/25 03/26/25 03/26/25 History mL) subcutaneous pen (Lantus Solostar U-100 Insulin) Physical Exam 2 Vital Signs: Vital Signs: Last Vital Signs Temp 99.1 F 03/27/25 07:37 Pulse 86 03/27/25 07:37 Resp 14 03/27/25 07:37 BP 135/76 03/27/25 07:37 Pulse Ox 97 03/27/25 07:37 O2 Del Method Room Air 03/27/25 07:37 BMI result Body Mass Index 35.0 Const: General: comfortable and no acute distress O rientation/consciousness: patient oriented x3 Neck: Neck: Yes no lymphadenopathy Resp: Auscultation: clear to auscultation bilaterally Cardio: Rhythm: regular rhythm GI: Palpation (GI): Soft to palpation, nontender and no guarding Neuro: General: patient oriented x3 Extrem: Other: BKA on right; on the right lower leg just distal to the knee laterally is note of an area of induration with central fluctuance about 1 cm, open wound with scanty drainage, cellulitic changes Results Labs 03/27/25 06:03 03/27/25 06:03 Labs: Abnormal lab results 03/26/25 03/26/25 03/26/25 Range/Units 18:17 20:21 21:08 WBC 11.6 H (4.8-10.8) X10*3/uL Hct (42.0-52.0) % MCV 79.8 L (80.0-98.0) fL Immature Gran % (Auto) (0.0-0.4) % Neut % (Auto) 86.8 H (45-73) % Lymph % (Auto) 5.0 L (20-40) % Lymph # (Auto) 0.6 L (1.2-4.9) X10*3/uL Abs Immat Gran (auto) 0.05 H (0.00-0.03) X10*3/uL Absolute Neuts (auto) 10.1 H (2.0-8.3) x10*3/uL ESR 25 H (0-15) MM/HR Sodium 132 L (135-145) mmol/L Carbon Dioxide (22-29) mmol/L BUN 25 H (9-16) mg/dL POC Glucose 285 H 257 H (60-115) mg/dL Random Glucose 343 H (60-115) mg/dL Calcium (8.4-10.2) mg/dL Total Bilirubin 1.3 H (0.0-1.0) mg/dL C-Reactive Protein 15.15 H (< or = 0.50) mg/dL Beta-Hydroxybutyrate 0.33 H (0.02-0.27) mmol/L 03/26/25 03/27/25 03/27/25 Range/Units 22:22 06:03 07:13 WBC 11.7 H (4.8-10.8) X10*3/uL Hct 40.4 L (42.0-52.0) % MCV (80.0-98.0) fL Immature Gran % (Auto) 0.6 H (0.0-0.4) % Neut % (Auto) 80.4 H (45-73) % Lymph % (Auto) 8.8 L (20-40) % Lymph # (Auto) 1.0 L (1.2-4.9) X10*3/uL Abs Immat Gran (auto) 0.07 H (0.00-0.03) X10*3/uL Absolute Neuts (auto) 9.4 H (2.0-8.3) x10*3/uL ESR (0-15) MM/HR Sodium (135-145) mmol/L Carbon Dioxide 21 L (22-29) mmol/L BUN 19 H (9-16) mg/dL POC Glucose 240 H 177 H (60-115) mg/dL Random Glucose 189 H (60-115) mg/dL Calcium 8.3 L D (8.4-10.2) mg/dL Total Bilirubin (0.0-1.0) mg/dL C-Reactive Protein (< or = 0.50) mg/dL Beta-Hydroxybutyrate (0.02-0.27) mmol/L Short CBC 03/26/25 03/27/25 Range/Units 18:17 06:03 WBC 11.6 H 11.7 H (4.8-10.8) X10*3/uL Hgb 16.2 14.0 (14.0-18.0) g/dl Hct 45.8 40.4 L (42.0-52.0) % Plt Count 252 223 (160-400) X10*3/uL BMP 03/26/25 03/27/25 18:17 06:03 Sodium 132 L 135 Potassium 4.3 3.9 Chloride 99 105 Carbon Dioxide 23 21 L BUN 25 H 19 H Creatinine 1.30 0.81 Calcium 9.7 8.3 L D Liver Function 03/26/25 Range/Units 18:17 Total Bilirubin 1.3 H (0.0-1.0) mg/dL AST 26 (5-37) U/L ALT 35 (0-40) U/L Alkaline Phosphatase 90 (39-117) U/L Albumin 4.2 (3.5-5.0) g/dL All other labs normal. Assessment and Plan (1) Cellulitis and abscess of leg: Status: Acute He has an area of central fluctuance on the induration on the right lower leg as described above. This is suggestive of a small abscess. I therefore explained to him it may be best to do an I&D. I explained the technique of this procedure. I reviewed the risks, benefits, and alternatives I&D was done on bedside using fine scissors. Cultures were taken. Small amounts of pus was noted I applied dry dressings. We can continue with dry dressings daily. We should follow up on the culture results. The area of cellulitis seems to have improved compared to yesterday. Procedures Date of Service Date of Service: 03/27/25 Abscess I/D Consent for Procedure: Elective - informed consent obtained Side (if applicable): right Technique: other (Incised with fine scissors) Additional comments: The area was prepped and draped. Since the abscess appeared superficial, I did not use lidocaine. I gave him morphine 3 mg IV. I then used fine scissors to open up this area of central fluctuance. Small amounts of pus was noted. I probed the cavity with the scissors and with a Q-tip. I took cultures Dressings were then placed. He tolerated procedure well. There was no significant blood loss.
[2025-03-27 11:32] LABS: Glucose, Whole Blood 228 mg/dL (60-115)
--- NOTE | 2025-03-27 12:33 | HE.PHANOTE ---
VANCO DOSE ADJUSTMENT DOSE CONTINUED AT 1000 Q 12H. NEXT LEVEL 03/28 @ 0700
[2025-03-27 15:49] VITALS: BP 158/89; PULSE 95; RESP 18; TEMP 37.2; O2SAT 96
[2025-03-27 16:25] LABS: Glucose, Whole Blood 197 mg/dL (60-115)
[2025-03-27 19:41] LABS: Glucose, Whole Blood 293 mg/dL (60-115)
[2025-03-27 19:44] VITALS: BP 136/81; PULSE 101; RESP 20; TEMP 36.9; O2SAT 95
[2025-03-27] MEDS: Atorvastatin Calcium 20 MG TABLET PO (20:24)
[2025-03-27] MEDS: Enoxaparin Sodium 40 MG/0.4 ML SYRINGE SUBCUT (20:25)
[2025-03-27] MEDS: Insulin Glargine,Hum.rec.anlog 100 UNIT/ML 10 ML VIAL 20 UNIT SUBCUT (20:26)
[2025-03-28 03:23] VITALS: BP 132/68; PULSE 100; RESP 18; TEMP 36.3; O2SAT 97
[2025-03-28 07:01] VITALS: PULSE 89; RESP 17; TEMP 36.6; O2SAT 94
[2025-03-28 07:06] LABS: Glucose, Whole Blood 160 mg/dL (60-115)
[2025-03-28 07:07] VITALS: BP 157/89; PULSE 89; RESP 16; TEMP 36.6; O2SAT 98
[2025-03-28] MEDS: Insulin Lispro 100 UNIT/ML 3 ML VIAL SUBCUT ×4 (07:31→20:30)
[2025-03-28 07:49] LABS: Hematocrit 40.1 % (42.0-52.0); Hemoglobin 13.8 g/dl (14.0-18.0); Mean Corpuscular HGB Conc 34.4 g/dl (31.0-36.0); Mean Corpuscular Volume 81.3 fL (80.0-98.0); Mean Platelet Volume 11.4 fL (9.4-12.4); Platelet Count 214 X10*3/uL (160-400); Red Blood Count 4.93 X10*6/uL (4.60-5.80); White Blood Count 8.5 X10*3/uL (4.8-10.8)
[2025-03-28 08:02] LABS: Vancomycin Random 5.3 mcg/mL (15-20)
[2025-03-28 08:05] LABS: Anion Gap 12 (12-20); Blood Urea Nitrogen 17 mg/dL (9-16); Calcium 8.5 mg/dL (8.4-10.2); Carbon Dioxide 22 mmol/L (22-29); Chloride 105 mmol/L (96-108); Creatinine Clr Calc Pharmacy 131.8; Estimated Glomerular Filt Rate > 60; Glucose Random 147 mg/dL (60-115); Potassium 3.9 mmol/L (3.3-5.1); Sodium 135 mmol/L (135-145)
--- NOTE | 2025-03-28 08:36 | HE.PHANOTE ---
VANCO DOSE ADJUSTMENT BASED ON SCR AND TROUGH OF 5.1 DOSE INCREASE TO 1250MG Q 8. NEXT LEVEL 03/29 @ 0700
[2025-03-28] MEDS: vancomycin HCL 1,250 MG in 0.9 % Sodium Chloride 250 ML 166.67 MG IV (08:50)
[2025-03-28] MEDS: 0.9 % Sodium Chloride Flush 3 ML SYRINGE IVFLUSH ×2 (08:53→18:07)
--- NOTE | 2025-03-28 09:01 | PM.PNGS ---
Subjective Subjective Date of Service: 03/28/25 Interval history: Denies complaints Says the right lower leg feels much better Pain much improved Physical Exam Vital Signs: Vital Signs: Last Vital Signs Temp 97.9 F 03/28/25 07:07 Pulse 89 03/28/25 07:07 Resp 16 03/28/25 07:07 BP 157/89 H 03/28/25 07:07 Pulse Ox 98 03/28/25 07:07 O2 Del Method Room Air 03/28/25 07:07 BMI result Body Mass Index 35.0 Const: General: comfortable and no acute distress Resp: Effort & Inspection: normal respiratory effort Extrem: Other: Right lower leg induration is much improved, redness has faded, wrinkling on the skin noted, no pus, I&D site open Objective Data Active Medications Acetaminophen (Acetaminophen 325 Mg Tablet) 650 mg PO Q6H PRN PRN Reason: Pain, Mild 1-3,fever,headache Atorvastatin Calcium (Atorvastatin Calcium 20 Mg Tablet) 20 mg PO BEDTIME [facility] Last Admin: 03/27/25 20:24 Dose: 20 mg Documented By: DAIJA Calcium Carbonate (Calcium Carbonate 750 Mg Tab.Chew) 750 mg PO Q4H PRN PRN Reason: Heartburn Dextrose (Dextrose 50 % 25 Gm/50 Ml Syringe) 25 gm IVPUSH Q15M PRN; Protocol PRN Reason: per Hypoglycemia Standing Ord. Enoxaparin Sodium (Enoxaparin Sodium 40 Mg/0.4 Ml Syringe) 40 mg SUBCUT Q24H [facility] Last Admin: 03/27/25 20:25 Dose: 40 mg Documented By: DAIJA Glucose (Glucose Gel 15 Gm Gel..Gram.) 15 gm PO Q15M PRN; Protocol PRN Reason: per Hypoglycemia Standing Ord. Vancomycin HCl 1,250 mg/ (Sodium Chloride) 250 mls @ 166.667 mls/hr IV Q8H [facility] Last Admin: 03/28/25 08:50 Dose: 166.67 mls/hr Documented By: KEVIN Insulin Glargine (Insulin Glargine,Hum.Rec.Anlog 100 Unit/Ml 10 Ml Vial) 20 unit SUBCUT BEDTIME [facility] Last Admin: 03/27/25 20:26 Dose: 20 unit Documented By: DAIJA Insulin Human Lispro (Insulin Lispro 100 Unit/Ml 3 Ml Vial) 0 unit SUBCUT QIDACHS [facility]; Protocol Last Admin: 03/28/25 07:31 Dose: 2 unit Documented By: KEVIN Magnesium Hydroxide (Milk Of Magnesia 30 Ml Oral.Susp) 30 ml PO DAILY PRN PRN Reason: Constipation Melatonin (Melatonin 3 Mg Tablet) 6 mg PO BEDTIME PRN PRN Reason: Insomnia Ondansetron HCl (Ondansetron Hcl 4 Mg/2 Ml Vial) 4 mg IVPUSH Q8H PRN PRN Reason: Nausea and Vomiting Pharmacy Consult (Consult Rx Vancomycin Dosing) 1 each MISCELLANE DAILY PRN PRN Reason: Consult order Sodium Chloride (0.9 % Sodium Chloride Flush 3 Ml Syringe) 3 ml IVFLUSH [facility] Last Admin: 03/28/25 08:53 Dose: 3 ml Documented By: KEVIN Labs 03/28/25 06:57 03/28/25 06:57 Labs: Laboratory Results - last 24 hr 03/27/25 03/27/25 03/27/25 11:20 16:13 19:21 MCV MCH MCHC RDW Plt Count MPV Absolute Nucleated RBC Nucleated RBC % (auto) Anion Gap Estim Creat Clear Calc Estimated GFR POC Glucose 228 H 197 H 293 H Random Glucose Calcium Random Vancomycin 03/28/25 03/28/25 06:57 07:03 MCV 81.3 MCH 28.0 MCHC 34.4 RDW 12.0 Plt Count 214 MPV 11.4 Absolute Nucleated RBC 0.000 Nucleated RBC % (auto) 0.0 Anion Gap 12 Estim Creat Clear Calc 131.8 Estimated GFR > 60 POC Glucose 160 H Random Glucose 147 H Calcium 8.5 Random Vancomycin 5.3 L Microbiology Microbiology Results: Microbiology 03/27/25 10:13 Gram Stain - Final Leg Right Routine Culture - Preliminary Staphylococcus aureus 03/26/25 18:17 Blood Culture - Preliminary Blood - Venous No growth after 24 hours. 03/26/25 18:17 Blood Culture - Preliminary Blood - Venous No growth after 24 hours. 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 Quality Stroke Does the patient have a stroke diagnosis?: No VTE Prior VTE?: No VTE Risk Level:: Medical - moderate - high VTE Device Contraindication: Treatment Not Indicated VTE Drug Contraindication: N/A - Med Ordered
--- NOTE | 2025-03-28 09:17 | PM.DS ---
DS: Providers Provider Date of Service: 03/28/25 Date of admission: 03/26/25 20:49 Date of discharge: 03/28/25 Primary care physician: DAMARIS Burns- Consults: 03/27/25 01:07 Consult to Wound Care Routine Reason for consultation: cellulitis to RLE 03/27/25 09:15 Consult to General Surgery Routine Consulting Provider: [facility] [place] General Surgeons Reason for consultation: rle cellulitis draining, ?I and D DS: Diagnosis Discharge Diagnosis (1) Cellulitis and abscess of leg: Status: Acute DS: Summary Hospital Course Hospital Course: from initial hpi: 44-year-old male with pertinent history of peripheral arterial disease status post right BKA, insulin-dependent diabetes mellitus, hypertension who presents to the emergency department for concerns of right leg infection. Patient states he noticed redness and started having pain over his right lower extremity 1 day prior to presentation. The symptoms were progressive and he also noticed purulent drainage from the area of redness and warmth. Also was having chills but no documented fever. Had associated dizziness. Did not pass out. States he is compliant with insulin. No fever, chest pain, palpitations, shortness of breath, abdominal pain, changes in urinary or bowel habits. In the emergency department, imaging without underlying abscess. White count 11.6 and inflammatory markers elevated. hospital course: Patient was admitted for right lower extremity cellulitis with small abscess. Was treated with vancomycin. Was seen by General surgery who performed incision and drainage cultures growing staph aureus sensitivities pending we will be discharged on 5 more days of doxycycline. Should follow up with his prosthesis provider. For diabetes was continued on insulin. Time Attestation Discharge Coordination Time (in mins): 34 Quality: Safe Use of Opioids Does Pt have an Active Cancer Diagnosis on the Problem List?: No Quality: Stroke Does the patient have a stroke diagnosis?: No Physical Exam Vital Signs: Vital Signs: Last Vital Signs Temp 97.9 F 03/28/25 07:07 Pulse 89 03/28/25 07:07 Resp 16 03/28/25 07:07 BP 157/89 H 03/28/25 07:07 Pulse Ox 98 03/28/25 07:07 O2 Del Method Room Air 03/28/25 07:07 BMI result Body Mass Index 35.0 Const: General: comfortable and no acute distress Resp: Effort & Inspection: normal respiratory effort Extrem: Other: Right lower leg induration is much improved, redness has faded, wrinkling on the skin noted, no pus, I&D site open DS: Data Data Completed and Pending Completed studies during hospitalization [Text1]: Procedures Detachment at Right Lower Leg, High, Open Approach (11/06/22) Labs on day of discharge: Laboratory Results - last 24 hr 03/27/25 03/27/25 03/27/25 11:20 16:13 19:21 WBC RBC Hgb Hct MCV MCH MCHC RDW Plt Count MPV Absolute Nucleated RBC Nucleated RBC % (auto) Sodium Potassium Chloride Carbon Dioxide Anion Gap BUN Creatinine Estim Creat Clear Calc Estimated GFR POC Glucose 228 H 197 H 293 H Random Glucose Calcium Random Vancomycin 03/28/25 03/28/25 06:57 07:03 WBC 8.5 RBC 4.93 Hgb 13.8 L Hct 40.1 L MCV 81.3 MCH 28.0 MCHC 34.4 RDW 12.0 Plt Count 214 MPV 11.4 Absolute Nucleated RBC 0.000 Nucleated RBC % (auto) 0.0 Sodium 135 Potassium 3.9 Chloride 105 Carbon Dioxide 22 Anion Gap 12 BUN 17 H Creatinine 0.82 Estim Creat Clear Calc 131.8 Estimated GFR > 60 POC Glucose 160 H Random Glucose 147 H Calcium 8.5 Random Vancomycin 5.3 L Preliminary micro results at discharge 03/27/25 10:13 Routine Culture - Preliminary Leg Right Staphylococcus aureus 03/26/25 18:17 Blood Culture - Preliminary Blood - Venous No growth after 24 hours. 03/26/25 18:17 Blood Culture - Preliminary Blood - Venous No growth after 24 hours. Discharge Plan Discharge Anticipated Discharge Date/Time: 03/28/25 09:13 Patient Disposition: Home, Self-Care Discharge Diagnosis: cellulitis, abscess Referrals: Kaleb Hoyt, THERMO[employer] REPAIRER-BC [Primary Care Provider] - 1 Week Discharge Medications: New doxycycline hyclate 100 mg capsule 100 mg PO BID Qty: 10 0RF Continued (DME) FreeStyle Zhane 2 [place] Misc See Rx Instructions .Route Qty: 1 11RF Rx Instructions: tid testing (DME) FreeStyle Zh[place] 2 Sensor Kit See Rx Instructions .Route Qty: 1 11RF Rx Instructions: TID testing atorvastatin 20 mg tablet 20 mg PO BEDTIME Qty: 90 0RF insulin lispro [Humalog KwikPen Insulin] 100 unit/mL insulin pen 1 sliding scale dose subcut TID MDD 30 units Qty: 15 1RF Rx Instructions: per sliding scale less than 150 equals 0 units, 150-199 equals 4 units, 200-249 equals 5 units, 250-299 equals 7 units, 300-349 equals 9 units, 350-399 equals 10 units, greater than or equal to 400 equals call provider multivitamin Tablet 1 tab PO DAILY insulin glargine [Lantus Solostar U-100 Insulin] 100 unit/mL (3 mL) insulin pen 26 unit subcut BEDTIME (DME) FreeStyle Lite Strips Strip See Rx Instructions .ROUTE .MEDSUPPLY Qty: 10 Rx Instructions: As directed (DME) blood-glucose meter [FreeStyle Lite Meter] Kit See Rx Instructions .ROUTE .MEDSUPPLY Qty: 1 Rx Instructions: As directed Discharge Orders: Discharge Order (Routine); Ordered 03/28/25 Ordered By: Tong Espinoza Diet: Advance to usual diet Activity on Discharge: As tolerated Stand Alone Forms: Patient Portal Discharge page, Work/School Release Print Language: Setswana Care Plan Goals: recovery Health Concerns: right leg cellulitis, abscess Plan of Treatment: 5 more days doxycyline, wound care, follow up with prosthetics provider Assessment: see above Patient Instructions: Cellulitis (ED)
--- NOTE | 2025-03-28 09:36 | MHC.CM.PN ---
pt dcd home self care
--- NOTE | 2025-03-28 10:13 | HO.PM.IMPN ---
Subjective Subjective Date of Service: 03/28/25 Interval History: improving Physical Exam Vital Signs: Vital Signs: Last Vital Signs Temp 97.9 F 03/28/25 07:07 Pulse 89 03/28/25 07:07 Resp 16 03/28/25 07:07 BP 157/89 H 03/28/25 07:07 Pulse Ox 98 03/28/25 07:07 O2 Del Method Room Air 03/28/25 07:07 BMI result Body Mass Index 35.0 Const: General: comfortable and no acute distress Resp: Effort & Inspection: normal respiratory effort Extrem: Other: Right lower leg induration is much improved, redness has faded, wrinkling on the skin noted, no pus, I&D site open Objective Data Active Medications Acetaminophen (Acetaminophen 325 Mg Tablet) 650 mg PO Q6H PRN PRN Reason: Pain, Mild 1-3,fever,headache Atorvastatin Calcium (Atorvastatin Calcium 20 Mg Tablet) 20 mg PO BEDTIME [facility] Last Admin: 03/27/25 20:24 Dose: 20 mg Documented By: DAIJA Calcium Carbonate (Calcium Carbonate 750 Mg Tab.Chew) 750 mg PO Q4H PRN PRN Reason: Heartburn Dextrose (Dextrose 50 % 25 Gm/50 Ml Syringe) 25 gm IVPUSH Q15M PRN; Protocol PRN Reason: per Hypoglycemia Standing Ord. Enoxaparin Sodium (Enoxaparin Sodium 40 Mg/0.4 Ml Syringe) 40 mg SUBCUT Q24H [facility] Last Admin: 03/27/25 20:25 Dose: 40 mg Documented By: DAIJA Glucose (Glucose Gel 15 Gm Gel..Gram.) 15 gm PO Q15M PRN; Protocol PRN Reason: per Hypoglycemia Standing Ord. Vancomycin HCl 1,250 mg/ (Sodium Chloride) 250 mls @ 166.667 mls/hr IV Q8H [facility] Last Admin: 03/28/25 08:50 Dose: 166.67 mls/hr Documented By: KEVIN Insulin Glargine (Insulin Glargine,Hum.Rec.Anlog 100 Unit/Ml 10 Ml Vial) 20 unit SUBCUT BEDTIME [facility] Last Admin: 03/27/25 20:26 Dose: 20 unit Documented By: DAIJA Insulin Human Lispro (Insulin Lispro 100 Unit/Ml 3 Ml Vial) 0 unit SUBCUT QIDACHS [facility]; Protocol Last Admin: 03/28/25 07:31 Dose: 2 unit Documented By: KEVIN Magnesium Hydroxide (Milk Of Magnesia 30 Ml Oral.Susp) 30 ml PO DAILY PRN PRN Reason: Constipation Melatonin (Melatonin 3 Mg Tablet) 6 mg PO BEDTIME PRN PRN Reason: Insomnia Ondansetron HCl (Ondansetron Hcl 4 Mg/2 Ml Vial) 4 mg IVPUSH Q8H PRN PRN Reason: Nausea and Vomiting Pharmacy Consult (Consult Rx Vancomycin Dosing) 1 each MISCELLANE DAILY PRN PRN Reason: Consult order Sodium Chloride (0.9 % Sodium Chloride Flush 3 Ml Syringe) 3 ml IVFLUSH [facility] Last Admin: 03/28/25 08:53 Dose: 3 ml Documented By: KEVIN Labs 03/28/25 06:57 03/28/25 06:57 Labs: Laboratory Results - last 24 hr 03/27/25 03/27/25 03/27/25 11:20 16:13 19:21 MCV MCH MCHC RDW Plt Count MPV Absolute Nucleated RBC Nucleated RBC % (auto) Anion Gap Estim Creat Clear Calc Estimated GFR POC Glucose 228 H 197 H 293 H Random Glucose Calcium Random Vancomycin 03/28/25 03/28/25 06:57 07:03 MCV 81.3 MCH 28.0 MCHC 34.4 RDW 12.0 Plt Count 214 MPV 11.4 Absolute Nucleated RBC 0.000 Nucleated RBC % (auto) 0.0 Anion Gap 12 Estim Creat Clear Calc 131.8 Estimated GFR > 60 POC Glucose 160 H Random Glucose 147 H Calcium 8.5 Random Vancomycin 5.3 L Microbiology Microbiology Results: Microbiology 03/26/25 18:17 Blood Culture - Preliminary Blood - Venous Prelim: GPC Gram Stain only 03/27/25 10:13 Gram Stain - Final Leg Right Routine Culture - Preliminary Staphylococcus aureus 03/26/25 18:17 Blood Culture - Preliminary Blood - Venous No growth after 24 hours. Assessment and Plan (1) Type 2 diabetes mellitus: Status: Acute Plan 44M PMH DM, pvd s/p right bka, htn presented wiht rle erythema RLE cellulitis now with MSSA in blood s/p I and D 03/27/25 changed to ancef echo, repeat cultures, ID dm insulin dvt prophylaxis -lovenox full code reason for continued hospitalization: bactermia Quality Stroke Does the patient have a stroke diagnosis?: No VTE Prior VTE?: No VTE Risk Level:: Medical - moderate - high VTE Device Contraindication: Treatment Not Indicated VTE Drug Contraindication: N/A - Med Ordered
[2025-03-28 11:17] LABS: Glucose, Whole Blood 178 mg/dL (60-115)
[2025-03-28] MEDS: ceFAZolin Sodium/Dextrose,Iso 2 GM/50 ML PIGGYBACK IV ×2 (11:27→18:04)
[2025-03-28 16:00] VITALS: BP 155/87; PULSE 95; RESP 18; TEMP 37.7; O2SAT 96
[2025-03-28 16:31] LABS: Glucose, Whole Blood 177 mg/dL (60-115)
[2025-03-28 17:57] VITALS: TEMP 37.7
[2025-03-28 19:15] VITALS: BP 141/85; PULSE 98; RESP 18; TEMP 36.7; O2SAT 94
[2025-03-28 20:11] LABS: Glucose, Whole Blood 231 mg/dL (60-115)
[2025-03-28] MEDS: Enoxaparin Sodium 40 MG/0.4 ML SYRINGE SUBCUT (20:30)
[2025-03-28] MEDS: Atorvastatin Calcium 20 MG TABLET PO (20:30)
[2025-03-28] MEDS: Insulin Glargine,Hum.rec.anlog 100 UNIT/ML 10 ML VIAL 20 UNIT SUBCUT (20:31)
[2025-03-29 03:10] VITALS: BP 138/76; PULSE 98; RESP 18; TEMP 36.3; O2SAT 96
[2025-03-29] MEDS: ceFAZolin Sodium/Dextrose,Iso 2 GM/50 ML PIGGYBACK IV ×3 (03:45→18:01)
[2025-03-29] MEDS: 0.9 % Sodium Chloride Flush 3 ML SYRINGE IVFLUSH ×3 (03:46→21:29)
[2025-03-29 06:02] LABS: Hematocrit 38.1 % (42.0-52.0); Hemoglobin 13.7 g/dl (14.0-18.0); Mean Corpuscular Hemoglobin 28.8 pg (27.0-33.0); Mean Platelet Volume 10.5 fL (9.4-12.4); Platelet Count 253 X10*3/uL (160-400); Red Blood Count 4.76 X10*6/uL (4.60-5.80); Red Cell Distribution Width 11.8 % (11.0-16.0); White Blood Count 7.7 X10*3/uL (4.8-10.8)
[2025-03-29 06:15] LABS: Anion Gap 14 (12-20); Blood Urea Nitrogen 16 mg/dL (9-16); Calcium 8.4 mg/dL (8.4-10.2); Carbon Dioxide 21 mmol/L (22-29); Chloride 105 mmol/L (96-108); Creatinine Clr Calc Pharmacy 120.1; Estimated Glomerular Filt Rate > 60; Glucose Random 142 mg/dL (60-115); Potassium 3.7 mmol/L (3.3-5.1); Sodium 136 mmol/L (135-145)
--- NOTE | 2025-03-29 07:00 | CA_ITS ---
Transthoracic Echocardiogram Patient (Last, First, Middle): Scotty Sotelo, Gender: Male Date of : 1980 Age: 44 Procedure Date: 03/29/2025 Procedure Type: Transthoracic Echocardiogram Location: S3E Height: 172.72 cm Weight: 104.33 kg BSA: 2.17 m2 Heart Rate: 90 bpm BP: 138 / 76 mmHg Lubrication Technician: SB Referring MD: Tong Espinoza MD Symptoms: bacteremia Study Quality: Adequate w contrast ECG Rhythm: Sinus Conclusions: - Normal left ventricular size, thickness, systolic function, and wall motion. The visually estimated ejection fraction is between 60-65%. Diastolic function is normal for age. - Normal right ventricular cavity size and systolic function. - The left atrium is normal in size. - No significant valvular pathology noted. Findings Procedure Information Contrast agent, definity, is being given per protocol without apparent complications. Left Ventricle Normal left ventricular size, thickness, systolic function, and wall motion. The visually estimated ejection fraction is between 60-65%. Diastolic function is normal for age. Right Ventricle Normal right ventricular cavity size and systolic function. Atria The left atrium is normal in size. The right atrium was not well visualized. Aortic Valve Normal aortic valve structure and function. There is no aortic valve stenosis. There is no aortic valve regurgitation. Mitral Valve Normal mitral valve structure and function. There is no mitral valve regurgitation. There is no mitral valve stenosis. Pulmonic Valve The pulmonic valve is normal. There is no pulmonic valve regurgitation. Tricuspid Valve Normal tricuspid valve structure. There is trace tricuspid valve regurgitation. Tricuspid regurgitation envelope is inadequate for calculation of right ventricular systolic pressure. Normal right atrial pressure. Great Vessels All visible segments of the aorta are normal in size. The visualized portions of the pulmonary artery and branches are normal. Venous The inferior vena cava is normal in size and collapses greater than 50% with inspiration. Pericardium/Pleural There is no evidence of pericardial effusion. Measurements 2D Linear Measurements IVSd: 1.30 0.6-0.9/0.6-1.0 cm LVIDd: 4.07 3.9-5.3/4.2-5.9 cm LVIDd Index: 1.88 2.4-3.2/2.2-3.1 cm/m2 LVIDs: 2.81 2.0-3.6 cm LVPWd: 1.04 0.7-1.1 cm LA Diam: 4.20 2.7-3.8/3.0-4.0 cm LAIDs Index: 1.94 1.5-2.3 cm/m2 LV Mass: 203.79 67-162/88-224 g LV Mass Index: 93.91 43-95/49-115 g/m2 LVOT Diam: 2.40 3.0+(-)1.3 cm 2D Systolic Function EF 4C: 59.40 >55% EF 2C: 53.80 >55% EF BiP: 56.00 >55% Mitral Valve MV Pk E: 0.70 MV PK A: 0.58 MV Decel Time: 164.00 E/A: 1.20 E'Lateral: 6.31 E'Medial: 5.33 E/E' Med: 13.20 E/E' Lat: 11.20 PHT: 48.00 MVA PHT: 4.58 Decel [place]: 4.34 Aortic Valve AoV Pk Kevin: 1.34 AoV Pk Grad: 7.00 ABHISHEK: 3.61 LVOT LVOT Pk Kevin: 1.08 LVOT Mn Kevin: 0.73 LVOT VTI: 0.18 LVOT Pk Grad: 5.00 LVOT Mn Grad: 2.00 LVOT Diam: 2.40 LVOT Area: 4.52 Diastolic Function MV Pk E: 0.70 MV Pk A: 0.58 E/A: 1.20 E'Medial: 5.33 E/E' Med: 13.20 E' Laterial: 6.31 E/E' Lat: 11.20 Right Ventricle TAPSE (mm): 23.40 TVS' Kevin: 15.40 Tricuspid Valve RA Press: 3.00 Great Vessels Aorta Sinus of Valsalva: 3.30 2.0-3.5 cm Ao Asc: 3.40 2.1-3.4 cm Pulmonary Valve PV Pk Kevin: 1.12 Peak PV Grad: 5.00 Updated in Other Vendor System with Status of Final Arcenio Madden MD electronically signed on 03/31/2025 11:46:29 AM with status of Final
--- NOTE | 2025-03-29 07:31 | P.PNGS_ITS ---
Subjective Subjective Date of Service: 03/29/25 Patient reports: feels better and tolerating a regular diet Interval history: Patient doing well today. denies current pain at abscess site. Patient endorses some larger amounts of discharge this morning when the dressing was changed. Physical Exam 2 Vital Signs: Vital Signs: Last Vital Signs Temp 97.4 F 03/29/25 03:10 Pulse 98 03/29/25 03:10 Resp 18 03/29/25 03:10 BP 138/76 03/29/25 03:10 Pulse Ox 96 03/29/25 03:10 O2 Del Method Room Air 03/29/25 03:10 BMI result Body Mass Index 35.0 Const: General: cooperative and no acute distress O rientation/consciousness: patient oriented x3 Resp: Effort & Inspection: normal respiratory effort Skin: Other: small amounts of purulent discharge noted on dressing when removed. unable to express additional discharge. The area or erythema is within the initial borders. General skin exam: erythema and induration Neuro: General: patient oriented x3 Extrem: Other: right BKA Objective Data Active Medications Acetaminophen (Acetaminophen 325 Mg Tablet) 650 mg PO Q6H PRN PRN Reason: Pain, Mild 1-3,fever,headache Atorvastatin Calcium (Atorvastatin Calcium 20 Mg Tablet) 20 mg PO BEDTIME [facility] Last Admin: 03/28/25 20:30 Dose: 20 mg Documented By: CAYLA Calcium Carbonate (Calcium Carbonate 750 Mg Tab.Chew) 750 mg PO Q4H PRN PRN Reason: Heartburn Dextrose (Dextrose 50 % 25 Gm/50 Ml Syringe) 25 gm IVPUSH Q15M PRN; Protocol PRN Reason: per Hypoglycemia Standing Ord. Enoxaparin Sodium (Enoxaparin Sodium 40 Mg/0.4 Ml Syringe) 40 mg SUBCUT Q24H [facility] Last Admin: 03/28/25 20:30 Dose: 40 mg Documented By: CAYLA Glucose (Glucose Gel 15 Gm Gel..Gram.) 15 gm PO Q15M PRN; Protocol PRN Reason: per Hypoglycemia Standing Ord. Cefazolin Sodium/Dextrose (Ancef) 2 gm in 50 mls @ 100 mls/hr IV Q8H [facility] Last Infusion: 03/29/25 04:15 Dose: Infused Documented By: CAYLA Insulin Glargine (Insulin Glargine,Hum.Rec.Anlog 100 Unit/Ml 10 Ml Vial) 20 unit SUBCUT BEDTIME [facility] Last Admin: 03/28/25 20:31 Dose: 20 unit Documented By: CAYLA Insulin Human Lispro (Insulin Lispro 100 Unit/Ml 3 Ml Vial) 0 unit SUBCUT QIDACHS [facility]; Protocol Last Admin: 03/28/25 20:30 Dose: 4 unit Documented By: CAYLA Magnesium Hydroxide (Milk Of Magnesia 30 Ml Oral.Susp) 30 ml PO DAILY PRN PRN Reason: Constipation Melatonin (Melatonin 3 Mg Tablet) 6 mg PO BEDTIME PRN PRN Reason: Insomnia Ondansetron HCl (Ondansetron Hcl 4 Mg/2 Ml Vial) 4 mg IVPUSH Q8H PRN PRN Reason: Nausea and Vomiting Sodium Chloride (0.9 % Sodium Chloride Flush 3 Ml Syringe) 3 ml IVFLUSH QSHIFT [facility] Last Admin: 03/29/25 03:46 Dose: 3 ml Documented By: CAYLA Labs 03/29/25 05:41 03/29/25 05:41 Labs: Laboratory Results - last 24 hr 03/28/25 03/28/25 03/28/25 06:57 11:13 16:17 MCV 81.3 MCH 28.0 MCHC 34.4 RDW 12.0 Plt Count 214 MPV 11.4 Absolute Nucleated RBC 0.000 Nucleated RBC % (auto) 0.0 Anion Gap 12 Estim Creat Clear Calc 131.8 Estimated GFR > 60 POC Glucose 178 H 177 H Random Glucose 147 H Calcium 8.5 Random Vancomycin 5.3 L 03/28/25 03/29/25 19:59 05:41 MCV 80.0 MCH 28.8 MCHC 36.0 RDW 11.8 Plt Count 253 MPV 10.5 Absolute Nucleated RBC 0.000 Nucleated RBC % (auto) 0.0 Anion Gap 14 Estim Creat Clear Calc 120.1 Estimated GFR > 60 POC Glucose 231 H Random Glucose 142 H Calcium 8.4 Random Vancomycin Microbiology Microbiology Results: Microbiology 03/26/25 18:17 Blood Culture - Preliminary Blood - Venous No growth after 48 hours. 03/26/25 18:17 Blood Culture - Preliminary Blood - Venous Prelim: GPC Gram Stain only 03/27/25 10:13 Gram Stain - Final Leg Right Routine Culture - Preliminary Staphylococcus aureus Procedures Date of Service Date of Service: 03/29/25 Progress Note: A&P Assessment and plan (1) Cellulitis and abscess of leg: Status: Acute Plan 44 year old male admitted for abscess of right lower extremity s/p I&D. Patient is feeling well this morning. Reports larger amounts of drainage this morning when dressing was changed prior to evaluation. Patients WBC improving on abx. Exam shows small amounts of purulent drainage. Unable to appreciate and new fluid collection. Erythema of the site appears to be receding. Dressing changed during evaluation. Continue antibiotics Continue daily dressing changes will continue to monitor daily Time Spent With Patient Time: Total time managing care of this patient today ____ minutes. Quality Stroke Does the patient have a stroke diagnosis?: No VTE Prior VTE?: No VTE Risk Level:: Medical - moderate - high VTE Device Contraindication: Treatment Not Indicated VTE Drug Contraindication: N/A - Med Ordered
--- NOTE | 2025-03-29 07:39 | HO.PM.IMPN ---
Subjective Subjective Date of Service: 03/29/25 Interval History: improving Physical Exam Vital Signs: Vital Signs: Last Vital Signs Temp 97.4 F 03/29/25 03:10 Pulse 98 03/29/25 03:10 Resp 18 03/29/25 03:10 BP 138/76 03/29/25 03:10 Pulse Ox 96 03/29/25 03:10 O2 Del Method Room Air 03/29/25 03:10 BMI result Body Mass Index 35.0 Const: General: cooperative and no acute distress Orientation/consciousness: patient oriented x3 Resp: Effort & Inspection: normal respiratory effort Skin: Other: small amounts of purulent discharge noted on dressing when removed. unable to express additional discharge. The area or erythema is within the initial borders. General skin exam: erythema and induration Neuro: General: patient oriented x3 Extrem: Other: right BKA Objective Data Active Medications Acetaminophen (Acetaminophen 325 Mg Tablet) 650 mg PO Q6H PRN PRN Reason: Pain, Mild 1-3,fever,headache Atorvastatin Calcium (Atorvastatin Calcium 20 Mg Tablet) 20 mg PO BEDTIME [facility] Last Admin: 03/28/25 20:30 Dose: 20 mg Documented By: CAYLA Calcium Carbonate (Calcium Carbonate 750 Mg Tab.Chew) 750 mg PO Q4H PRN PRN Reason: Heartburn Dextrose (Dextrose 50 % 25 Gm/50 Ml Syringe) 25 gm IVPUSH Q15M PRN; Protocol PRN Reason: per Hypoglycemia Standing Ord. Enoxaparin Sodium (Enoxaparin Sodium 40 Mg/0.4 Ml Syringe) 40 mg SUBCUT Q24H [facility] Last Admin: 03/28/25 20:30 Dose: 40 mg Documented By: CAYLA Glucose (Glucose Gel 15 Gm Gel..Gram.) 15 gm PO Q15M PRN; Protocol PRN Reason: per Hypoglycemia Standing Ord. Cefazolin Sodium/Dextrose (Ancef) 2 gm in 50 mls @ 100 mls/hr IV Q8H [facility] Last Infusion: 03/29/25 04:15 Dose: Infused Documented By: CAYLA Insulin Glargine (Insulin Glargine,Hum.Rec.Anlog 100 Unit/Ml 10 Ml Vial) 20 unit SUBCUT BEDTIME [facility] Last Admin: 03/28/25 20:31 Dose: 20 unit Documented By: CAYLA Insulin Human Lispro (Insulin Lispro 100 Unit/Ml 3 Ml Vial) 0 unit SUBCUT QIDACHLyudmila [facility]; Protocol Last Admin: 03/28/25 20:30 Dose: 4 unit Documented By: CAYLA Magnesium Hydroxide (Milk Of Magnesia 30 Ml Oral.Susp) 30 ml PO DAILY PRN PRN Reason: Constipation Melatonin (Melatonin 3 Mg Tablet) 6 mg PO BEDTIME PRN PRN Reason: Insomnia Ondansetron HCl (Ondansetron Hcl 4 Mg/2 Ml Vial) 4 mg IVPUSH Q8H PRN PRN Reason: Nausea and Vomiting Sodium Chloride (0.9 % Sodium Chloride Flush 3 Ml Syringe) 3 ml IVFLUSH [facility] Last Admin: 03/29/25 03:46 Dose: 3 ml Documented By: CAYLA Labs 03/29/25 05:41 03/29/25 05:41 Labs: Laboratory Results - last 24 hr 03/28/25 03/28/25 03/28/25 06:57 11:13 16:17 MCV 81.3 MCH 28.0 MCHC 34.4 RDW 12.0 Plt Count 214 MPV 11.4 Absolute Nucleated RBC 0.000 Nucleated RBC % (auto) 0.0 Anion Gap 12 Estim Creat Clear Calc 131.8 Estimated GFR > 60 POC Glucose 178 H 177 H Random Glucose 147 H Calcium 8.5 Random Vancomycin 5.3 L 03/28/25 03/29/25 19:59 05:41 MCV 80.0 MCH 28.8 MCHC 36.0 RDW 11.8 Plt Count 253 MPV 10.5 Absolute Nucleated RBC 0.000 Nucleated RBC % (auto) 0.0 Anion Gap 14 Estim Creat Clear Calc 120.1 Estimated GFR > 60 POC Glucose 231 H Random Glucose 142 H Calcium 8.4 Random Vancomycin Microbiology Microbiology Results: Microbiology 03/26/25 18:17 Blood Culture - Preliminary Blood - Venous No growth after 48 hours. 03/26/25 18:17 Blood Culture - Preliminary Blood - Venous Prelim: GPC Gram Stain only 03/27/25 10:13 Gram Stain - Final Leg Right Routine Culture - Preliminary Staphylococcus aureus Assessment and Plan (1) Type 2 diabetes mellitus: Status: Acute Plan 44M PMH DM, pvd s/p right bka, htn presented wiht rle erythema RLE cellulitis copmlicated by MSSA bactremia s/p I and D 03/27/25 continue iv ancef echo, repeat cultures today, ID eval dm insulin dvt prophylaxis -lovenox full code reason for continued hospitalization: bacteremia Quality Stroke Does the patient have a stroke diagnosis?: No VTE Prior VTE?: No VTE Risk Level:: Medical - moderate - high VTE Device Contraindication: Treatment Not Indicated VTE Drug Contraindication: N/A - Med Ordered
[2025-03-29 07:40] VITALS: BP 144/87; PULSE 90; RESP 18; TEMP 36.9; O2SAT 96
[2025-03-29 07:41] LABS: Glucose, Whole Blood 156 mg/dL (60-115)
[2025-03-29] MEDS: Insulin Lispro 100 UNIT/ML 3 ML VIAL SUBCUT ×4 (07:44→21:26)
[2025-03-29 11:31] LABS: Glucose, Whole Blood 189 mg/dL (60-115)
--- NOTE | 2025-03-29 14:34 | P.CNID_ITS ---
History of Present Illness Data of Consult Service Date: 03/29/25 Requesting physician: Tong Espinoza Primary Care Provider: DAMARIS Burns- HPI Reason for consult: right leg cellulitis,PSSA bacteremia He presents with right lateral leg erythema and swelling for last 2-3 days worsening since using readjusted prosthetic. He has PSSA bacteremia 03/27. He has right BKA and has lost muscle in leg and had had adjustment of prosthetic. He has this prosthetic 1 1/2 years. He has temperature to 100.1. Review of Systems 2 Review of Systems: Yes all other systems are reviewed and are negative [facility] Past Medical History Medical History (Updated 03/29/25 @ 14:41 by Fern Marcus MD) Bacteremia due to methicillin susceptible Staphylococcus aureus (MSSA) Cellulitis and abscess of leg Type 2 diabetes mellitus Chronic kidney disease Nephrolithiasis Retinopathy HTN (hypertension) H/O nephrolithotomy with removal of calculi Family History Family History Father HTN (hypertension) Mother Arthritis Family history: reviewed and not pertinent Surgical History Surgical History History of right below knee amputation (11/06/22) History of hernia repair Social History Social History Household Members: None Housing: House Are you a primary companion caregiver to a significant other at home: No Do you presently have visiting nurse or other home services: No Alcohol intake: current Alcohol intake frequency: holidays/special occasions only Patient Tobacco Use Status: Never used Tobacco service: No Current occupational status: employed Cognitive needs: No Hearing needs: No Vision needs: No Meds Allergies Allergy/AdvReac Type Severity Reaction Status Date / Time acetaminophen [Tylenol] Allergy Unknown face Verified 03/26/25 17:54 swelling aspirin Allergy Unknown anaphylaxis, Verified 03/26/25 17:54 edema Active Medications: Current Medications Acetaminophen (Acetaminophen 325 Mg Tablet) 650 mg PO Q6H PRN PRN Reason: Pain, Mild 1-3,fever,headache Atorvastatin Calcium (Atorvastatin Calcium 20 Mg Tablet) 20 mg PO BEDTIME [facility] Last Admin: 03/28/25 20:30 Dose: 20 mg Calcium Carbonate (Calcium Carbonate 750 Mg Tab.Chew) 750 mg PO Q4H PRN PRN Reason: Heartburn Dextrose (Dextrose 50 % 25 Gm/50 Ml Syringe) 25 gm IVPUSH Q15M PRN; Protocol PRN Reason: per Hypoglycemia Standing Ord. Enoxaparin Sodium (Enoxaparin Sodium 40 Mg/0.4 Ml Syringe) 40 mg SUBCUT Q24H [facility] Last Admin: 03/28/25 20:30 Dose: 40 mg Glucose (Glucose Gel 15 Gm Gel..Gram.) 15 gm PO Q15M PRN; Protocol PRN Reason: per Hypoglycemia Standing Ord. Cefazolin Sodium/Dextrose (Ancef) 2 gm in 50 mls @ 100 mls/hr IV Q8H [facility] Last Infusion: 03/29/25 10:59 Dose: Infused Insulin Glargine (Insulin Glargine,Hum.Rec.Anlog 100 Unit/Ml 10 Ml Vial) 20 unit SUBCUT BEDTIME [facility] Last Admin: 03/28/25 20:31 Dose: 20 unit Insulin Human Lispro (Insulin Lispro 100 Unit/Ml 3 Ml Vial) 0 unit SUBCUT QIDACHS [facility]; Protocol Last Admin: 03/29/25 11:37 Dose: 2 unit Magnesium Hydroxide (Milk Of Magnesia 30 Ml Oral.Susp) 30 ml PO DAILY PRN PRN Reason: Constipation Melatonin (Melatonin 3 Mg Tablet) 6 mg PO BEDTIME PRN PRN Reason: Insomnia Ondansetron HCl (Ondansetron Hcl 4 Mg/2 Ml Vial) 4 mg IVPUSH Q8H PRN PRN Reason: Nausea and Vomiting Sodium Chloride (0.9 % Sodium Chloride Flush 3 Ml Syringe) 3 ml IVFLUSH QSHIFT [facility] Last Admin: 03/29/25 10:26 Dose: 3 ml Home Medications ?Medication ?Instructions ?Recorded ?Confirmed ?Last Taken ?Type blood sugar diagnostic (FreeStyle #10 ea 09/06/20 10/22/24 Unknown History Lite Strips) blood-glucose meter (FreeStyle #1 ea 09/06/20 10/22/24 Unknown History Lite Meter kit) multivitamin 1 tab PO DAILY 11/06/22 03/26/25 03/26/25 History insulin glargine 100 unit/mL (3 26 unit subcut BEDTIME 03/26/25 03/26/25 03/26/25 History mL) subcutaneous pen (Lantus Solostar U-100 Insulin) Physical Exam 2 Vital Signs: Vital Signs: Last Vital Signs Temp 98.4 F 03/29/25 07:40 Pulse 90 03/29/25 07:40 Resp 18 03/29/25 07:40 BP 144/87 H 03/29/25 07:40 Pulse Ox 96 03/29/25 07:40 O2 Del Method Room Air 03/29/25 07:40 BMI result Body Mass Index 35.0 Const: General: cooperative HEENT: Head: Yes normal to inspection Face and sinus: Yes normal facial exam Mouth: Normal oral and palatal mucosa present Teeth and gingiva: d entition normal Eyes: General: appearance normal, both eyes and all related structures P upils: Equal, round and reactive pupils present Resp: Effort & Inspection: normal respiratory effort Cardio: Rate: regular rate Rhythm: regular rhythm GI: Palpation (GI): Soft to palpation and nontender : General: Yes no CVA tenderness Back/Spine/Pelvis: Back: no CVA tenderness Skin: General skin exam: no rashes or lesions noted Neuro: General: moves all extremities Cranial nerves: Yes Equal, round and reactive pupils present Extrem: Other: right BKA lateral abrasions and 3 x 5 cm erythema Psych: Appearance: grossly normal Results Labs 03/29/25 05:41 03/29/25 05:41 Labs: Short CBC 03/29/25 Range/Units 05:41 WBC 7.7 (4.8-10.8) X10*3/uL Hgb 13.7 L (14.0-18.0) g/dl Hct 38.1 L (42.0-52.0) % Plt Count 253 (160-400) X10*3/uL BMP 03/29/25 05:41 Sodium 136 Potassium 3.7 Chloride 105 Carbon Dioxide 21 L BUN 16 Creatinine 0.90 Calcium 8.4 Microbiology Microbiology Results: Microbiology 03/26/25 18:17 Blood - Venous Blood Culture - Preliminary Staphylococcus aureus 03/27/25 10:13 Leg Right Gram Stain - Final 03/27/25 10:13 Leg Right Routine Culture - Final Staphylococcus aureus 03/26/25 18:17 Blood - Venous Blood Culture - Preliminary No growth after 48 hours. Assessment and Plan (1) Cellulitis and abscess of leg: Status: Acute (2) Cellulitis: Status: Acute (3) Bacteremia due to methicillin susceptible Staphylococcus aureus (MSSA): Status: Acute Plan He has skin source likely MSSA bacteremia. He has TTE pending. CT neg OM leg Would continue Kefzol for four weeks and possible po Doxycycline after cover any lingering skin issues Would get prosthesis refitted and wait until area healed to walk on .
[2025-03-29 15:41] VITALS: BP 154/86; PULSE 87; RESP 18; TEMP 37.2; O2SAT 95
--- NOTE | 2025-03-29 16:06 | MHC.CM.PN ---
PER MD ROUNDS, PT WILL LIKELY BE HERE FOR 1-2 MORE DAYS OF IV ABX DCP: HOME NO SERVICES VIA PRIVATE TRANSPORT
[2025-03-29 16:19] LABS: Glucose, Whole Blood 225 mg/dL (60-115)
--- NOTE | 2025-03-29 17:32 | HO.WOUND ---
Wound Consult: Initial 44yr old?male admitted to [facility] [place] on 03/26/25 - See progress notes and H&P for detailed history.? Wound consult placed for Right Lateral Knee Leg wound, S/P I&D by Dr. Garcia on 03/27/25.? Patient agreeable to assessment and photo documentation.? Right Lateral Knee Etiology: ??S/P I&D site Measurements: 0.3cm x 0.1cm Wound Bed: unable to visualize Drainage / Odor: serosang noted on dressing no purulence observed Edges: ? well defined Laura wound: ? dark erythema noted - some warmth, and swelling noted - mild fluctance noted and induration noted - per pt statement he feels it is better. Pain: painful per pt statement Goals of Treatment: ? continue systemic treatment - defer to surgery topical applied durafiber AG at bedside today/ Recommendations: 1. Turn and Reposition every 2 hours and as needed for patient comfort.? Use pillows or wedges to support off loading positions. 2. Off Load all bony prominences with use of pillows and heel boots if needed.? Apply Preventative foams where needed. ? 3. Monitor for incontinence and moisture control, use barrier creams when needed for prevention and treatment. 4. Provide adequate and supplemental nutrition.? 5. When applicable maintain blood glucose levels per Providers order. Right Lateral Knee - Cleanse with NS moist gauze, Pat dry. Apply skin prep to periwound. Cover opening with durafiber AG followed by gauze, ABD pad and wrap. Change daily while inpatient. At time of d/c recommend outpt wound clinic follow up and dressing changes every 2-3 days. Patient should follow up with his prosthetic contact for a fit check. Re-consult wound care Nurse for wound deterioration or wound changes.
[2025-03-29 19:16] VITALS: BP 150/83; PULSE 90; RESP 18; TEMP 37.1; O2SAT 94
[2025-03-29 21:06] LABS: Glucose, Whole Blood 217 mg/dL (60-115)
[2025-03-29] MEDS: Atorvastatin Calcium 20 MG TABLET PO (21:25)
[2025-03-29] MEDS: Insulin Glargine,Hum.rec.anlog 100 UNIT/ML 10 ML VIAL 20 UNIT SUBCUT (21:25)
[2025-03-29] MEDS: Enoxaparin Sodium 40 MG/0.4 ML SYRINGE SUBCUT (21:25)
[2025-03-30] MEDS: ceFAZolin Sodium/Dextrose,Iso 2 GM/50 ML PIGGYBACK IV ×3 (03:09→18:14)
[2025-03-30 03:42] VITALS: BP 137/77; PULSE 83; RESP 18; TEMP 37.2; O2SAT 94
[2025-03-30 07:16] VITALS: BP 151/93; PULSE 83; RESP 16; TEMP 36.8; O2SAT 96
[2025-03-30] MEDS: 0.9 % Sodium Chloride Flush 3 ML SYRINGE IVFLUSH ×3 (07:18→20:24)
[2025-03-30 07:25] LABS: Glucose, Whole Blood 159 mg/dL (60-115)
[2025-03-30] MEDS: Insulin Lispro 100 UNIT/ML 3 ML VIAL SUBCUT ×4 (07:54→20:23)
--- NOTE | 2025-03-30 08:28 | HO.PM.IMPN ---
Subjective Subjective Date of Service: 03/30/25 Interval History: improving Physical Exam Vital Signs: Vital Signs: Last Vital Signs Temp 98.3 F 03/30/25 07:16 Pulse 83 03/30/25 07:16 Resp 16 03/30/25 07:16 BP 151/93 H 03/30/25 07:16 Pulse Ox 96 03/30/25 07:16 O2 Del Method Room Air 03/30/25 07:16 BMI result Body Mass Index 35.0 Const: General: cooperative HEENT: Head: Yes normal to inspection Face and sinus: Yes normal facial exam Mouth: Normal oral and palatal mucosa present Teeth and gingiva: dentition normal Eyes: General: appearance normal, both eyes and all related structures Pupils: Equal, round and reactive pupils present Resp: Effort & Inspection: normal respiratory effort Cardio: Rate: regular rate Rhythm: regular rhythm GI: Palpation (GI): Soft to palpation and nontender : General: Yes no CVA tenderness Back/Spine/Pelvis: Back: no CVA tenderness Skin: General skin exam: no rashes or lesions noted Neuro: General: moves all extremities Cranial nerves: Yes Equal, round and reactive pupils present Extrem: Other: right BKA lateral abrasions and 3 x 5 cm erythema Psych: Appearance: grossly normal Objective Data Active Medications Acetaminophen (Acetaminophen 325 Mg Tablet) 650 mg PO Q6H PRN PRN Reason: Pain, Mild 1-3,fever,headache Atorvastatin Calcium (Atorvastatin Calcium 20 Mg Tablet) 20 mg PO BEDTIME [facility] Last Admin: 03/29/25 21:25 Dose: 20 mg Documented By: DAIJA Calcium Carbonate (Calcium Carbonate 750 Mg Tab.Chew) 750 mg PO Q4H PRN PRN Reason: Heartburn Dextrose (Dextrose 50 % 25 Gm/50 Ml Syringe) 25 gm IVPUSH Q15M PRN; Protocol PRN Reason: per Hypoglycemia Standing Ord. Enoxaparin Sodium (Enoxaparin Sodium 40 Mg/0.4 Ml Syringe) 40 mg SUBCUT Q24H [facility] Last Admin: 03/29/25 21:25 Dose: 40 mg Documented By: DAIJA Glucose (Glucose Gel 15 Gm Gel..Gram.) 15 gm PO Q15M PRN; Protocol PRN Reason: per Hypoglycemia Standing Ord. Cefazolin Sodium/Dextrose (Ancef) 2 gm in 50 mls @ 100 mls/hr IV Q8H [facility] Last Infusion: 03/30/25 03:49 Dose: Infused Documented By: DAIJA Insulin Glargine (Insulin Glargine,Hum.Rec.Anlog 100 Unit/Ml 10 Ml Vial) 20 unit SUBCUT BEDTIME [facility] Last Admin: 03/29/25 21:25 Dose: 20 unit Documented By: DAIJA Insulin Human Lispro (Insulin Lispro 100 Unit/Ml 3 Ml Vial) 0 unit SUBCUT QIDACHS [facility]; Protocol Last Admin: 03/30/25 07:54 Dose: 2 unit Documented By: ALBERTO Magnesium Hydroxide (Milk Of Magnesia 30 Ml Oral.Susp) 30 ml PO DAILY PRN PRN Reason: Constipation Melatonin (Melatonin 3 Mg Tablet) 6 mg PO BEDTIME PRN PRN Reason: Insomnia Ondansetron HCl (Ondansetron Hcl 4 Mg/2 Ml Vial) 4 mg IVPUSH Q8H PRN PRN Reason: Nausea and Vomiting Sodium Chloride (0.9 % Sodium Chloride Flush 3 Ml Syringe) 3 ml IVFLUSH QSHIFT [facility] Last Admin: 03/30/25 07:18 Dose: 3 ml Documented By: ALBERTO Labs 03/29/25 05:41 03/29/25 05:41 Labs: Laboratory Results - last 24 hr 03/29/25 03/29/25 03/29/25 11:13 16:08 21:02 POC Glucose 189 H 225 H 217 H 03/30/25 07:20 POC Glucose 159 H Microbiology Microbiology Results: Microbiology 03/26/25 18:17 Blood Culture - Final Blood - Venous Staphylococcus aureus 03/29/25 05:51 Blood Culture - Preliminary Blood - Venous No growth after 24 hours. 03/27/25 10:13 Gram Stain - Final Leg Right Routine Culture - Final Staphylococcus aureus Assessment and Plan (1) Type 2 diabetes mellitus: Status: Acute Plan 44M PMH DM, pvd s/p right bka, htn presented wiht rle erythema RLE cellulitis copmlicated by MSSA bactremia s/p I and D 03/27/25 continue iv ancef echo, repeat cultures 03/29/25, ID appreciated - if stays negative and echo negative would be 4 weeks iv ancef ending April (to be completed at home), possibly followed by po doxy will need to stay off prosthetic until resolved and should follow up with provider for adjustment of device dm insulin dvt prophylaxis -lovenox full code reason for continued hospitalization: bacteremia Quality Stroke Does the patient have a stroke diagnosis?: No VTE Prior VTE?: No VTE Risk Level:: Medical - moderate - high VTE Device Contraindication: Treatment Not Indicated VTE Drug Contraindication: N/A - Med Ordered
[2025-03-30 11:21] LABS: Glucose, Whole Blood 232 mg/dL (60-115)
--- NOTE | 2025-03-30 12:08 | P.CDIM_ITS ---
PROVIDER RESPONSE TEXT: To clarify, the appropriate diagnosis supported by the clinical indicators: subcutaneous tissue and fat QUERY TEXT: PHYSICIAN'S DOCUMENTATION REQUEST Date of Query: 03/29/2025 08:09 AM EDT Patient Name: KERI VELOZ Admit Date: 03/27/2025 Dear Nima Garcia MD, A review of the medical record indicates additional documentation may be needed. Please review below and update the documentation accordingly. Clinical Indicators: cellulitis right leg from prosthesis for BKA patient had a bedside I&D on 03/27/25 The following diagnoses or signs and symptoms were noted in the patient record: area of redness with some drainage on the lateral aspect of the lower leg near the BKA stump small area of fluctuance and drainage I&D was done on bedside using fine scissors Based on the above, could you clarify the depth of the I&D that supports the above abnormalities and additional evaluation, monitoring, and/or treatment rendered: skin subcutaneous tissue and fat Other (explain) Clinically unable to determine (explain) Thank you, Bouchra Amador RN Use of terms such as suspected, likely, concern for, or probable (associated with a specific diagnosi s that is being evaluated, monitored, or treated as if it exists) are acceptable and can be coded in the inpatient se tting, when documented at the time of discharge. Please use your independent medical judgment in providing your response. THIS QUERY IS PART OF THE PERMANENT MEDICAL RECORD
[2025-03-30 14:56] VITALS: BP 141/87; PULSE 82; RESP 18; TEMP 36.8; O2SAT 96
[2025-03-30 16:32] LABS: Glucose, Whole Blood 203 mg/dL (60-115)
[2025-03-30 19:06] VITALS: BP 137/82; PULSE 86; RESP 18; TEMP 36.6; O2SAT 94
[2025-03-30 20:12] LABS: Glucose, Whole Blood 176 mg/dL (60-115)
[2025-03-30] MEDS: Atorvastatin Calcium 20 MG TABLET PO (20:23)
[2025-03-30] MEDS: Enoxaparin Sodium 40 MG/0.4 ML SYRINGE SUBCUT (20:24)
[2025-03-30] MEDS: Insulin Glargine,Hum.rec.anlog 100 UNIT/ML 10 ML VIAL 20 UNIT SUBCUT (20:28)
[2025-03-31] MEDS: ceFAZolin Sodium/Dextrose,Iso 2 GM/50 ML PIGGYBACK IV ×3 (02:44→18:04)
[2025-03-31 02:48] VITALS: BP 139/83; PULSE 78; RESP 18; TEMP 36.8; O2SAT 98
[2025-03-31 07:43] LABS: Glucose, Whole Blood 148 mg/dL (60-115)
[2025-03-31 08:00] VITALS: BP 135/83; PULSE 80; RESP 18; TEMP 36; O2SAT 95
[2025-03-31] MEDS: 0.9 % Sodium Chloride Flush 3 ML SYRINGE IVFLUSH ×3 (10:11→20:27)
[2025-03-31 11:24] LABS: Glucose, Whole Blood 274 mg/dL (60-115)
[2025-03-31] MEDS: Insulin Lispro 100 UNIT/ML 3 ML VIAL SUBCUT ×3 (12:00→20:23)
--- NOTE | 2025-03-31 14:21 | HO.PM.IMPN ---
Subjective Subjective Date of Service: 03/31/25 Interval History: seen this morning having MSSA bactreremia blood cultures turning negative no other events Review of Systems Review of Systems: Yes all other systems are reviewed and are negative Physical Exam Vital Signs: Vital Signs: Last Vital Signs Temp 96.8 F 03/31/25 08:00 Pulse 80 03/31/25 08:00 Resp 18 03/31/25 08:00 BP 135/83 03/31/25 08:00 Pulse Ox 95 03/31/25 08:00 O2 Del Method Room Air 03/31/25 08:00 BMI result Body Mass Index 35.0 Const: Other: Constitutional : interactive, not in distress Cardiovascular : no JVP, no lower extremity edema Respiratory : bilateral chest movement, not in resp distress Gastrointestinal: soft, lax, Non tender Skin : Warm, Dry, RLE wound covered with dressing, BKA Neurological : Alert & oriented , No focal deficit Objective Data Active Medications Acetaminophen (Acetaminophen 325 Mg Tablet) 650 mg PO Q6H PRN PRN Reason: Pain, Mild 1-3,fever,headache Atorvastatin Calcium (Atorvastatin Calcium 20 Mg Tablet) 20 mg PO BEDTIME [facility] Last Admin: 03/30/25 20:23 Dose: 20 mg Documented By: BRIAN Calcium Carbonate (Calcium Carbonate 750 Mg Tab.Chew) 750 mg PO Q4H PRN PRN Reason: Heartburn Dextrose (Dextrose 50 % 25 Gm/50 Ml Syringe) 25 gm IVPUSH Q15M PRN; Protocol PRN Reason: per Hypoglycemia Standing Ord. Enoxaparin Sodium (Enoxaparin Sodium 40 Mg/0.4 Ml Syringe) 40 mg SUBCUT Q24H [facility] Last Admin: 03/30/25 20:24 Dose: 40 mg Documented By: BRIAN Glucose (Glucose Gel 15 Gm Gel..Gram.) 15 gm PO Q15M PRN; Protocol PRN Reason: per Hypoglycemia Standing Ord. Cefazolin Sodium/Dextrose (Ancef) 2 gm in 50 mls @ 100 mls/hr IV Q8H [facility] Last Infusion: 03/31/25 10:44 Dose: Infused Documented By: ALBERTO Insulin Glargine (Insulin Glargine,Hum.Rec.Anlog 100 Unit/Ml 10 Ml Vial) 20 unit SUBCUT BEDTIME [facility] Last Admin: 03/30/25 20:28 Dose: 20 unit Documented By: BRIAN Insulin Human Lispro (Insulin Lispro 100 Unit/Ml 3 Ml Vial) 0 unit SUBCUT QIDACHS [facility]; Protocol Last Admin: 03/31/25 12:00 Dose: 6 unit Documented By: ALBERTO Magnesium Hydroxide (Milk Of Magnesia 30 Ml Oral.Susp) 30 ml PO DAILY PRN PRN Reason: Constipation Melatonin (Melatonin 3 Mg Tablet) 6 mg PO BEDTIME PRN PRN Reason: Insomnia Ondansetron HCl (Ondansetron Hcl 4 Mg/2 Ml Vial) 4 mg IVPUSH Q8H PRN PRN Reason: Nausea and Vomiting Sodium Chloride (0.9 % Sodium Chloride Flush 3 Ml Syringe) 3 ml IVFLUSH [facility] Last Admin: 03/31/25 10:11 Dose: 3 ml Documented By: ALBERTO Labs 03/29/25 05:41 03/29/25 05:41 Labs: Laboratory Results - last 24 hr 03/30/25 03/30/25 03/31/25 16:20 20:08 07:30 POC Glucose 203 H 176 H 148 H 03/31/25 11:16 POC Glucose 274 H Microbiology Microbiology Results: Microbiology 03/30/25 12:14 Blood Culture - Preliminary Blood - Venous No growth after 24 hours. 03/30/25 12:13 Blood Culture - Preliminary Blood - Venous No growth after 24 hours. 03/29/25 05:41 Blood Culture - Final Blood - Venous Coag negative Staphylococcus 03/29/25 05:51 Blood Culture - Preliminary Blood - Venous No growth after 48 hours. Assessment and Plan (1) Bacteremia due to methicillin susceptible Staphylococcus aureus (MSSA): Status: Acute (2) Cellulitis and abscess of leg: Status: Acute Plan 44M PMH DM, pvd s/p right bka, htn presented wiht rle erythema RLE cellulitis copmlicated by MSSA bactremia s/p I and D 03/27/25 continue iv ancef echo, repeat cultures 03/29/25 negative (1 set grew CoAg -ve staph) ID appreciated - if stays negative and echo negative would be 4 weeks iv ancef ending April (to be completed at home), possibly followed by po doxy Place Midline will need to stay off prosthetic until resolved and should follow up with provider for adjustment of device dm insulin dvt prophylaxis -lovenox full code reason for continued hospitalization: bacteremia Quality Stroke Does the patient have a stroke diagnosis?: No VTE Prior VTE?: No VTE Risk Level:: Medical - moderate - high VTE Device Contraindication: Treatment Not Indicated VTE Drug Contraindication: N/A - Med Ordered
--- NOTE | 2025-03-31 15:09 | MHC.CM.PN ---
pt to go home with iv antibiotics for weeks [facility] came into today to do a teach pt does not have a picc placed at this time
[2025-03-31 15:22] VITALS: BP 139/83; PULSE 80; RESP 18; TEMP 37.2; O2SAT 95
[2025-03-31 15:46] LABS: Glucose, Whole Blood 215 mg/dL (60-115)
--- NOTE | 2025-03-31 17:43 | HO.MIDLINE_ITS ---
Midline Insertion MIDLINE INSERTION Diagnosis: Right leg infection Indication: 4 wks ABT Pertinent Labs: Reviewed Technique: Using sterile technique including cap and mask, glove and drape, the right arm was prepped and draped in the usual sterile fashion of full barrier technique with CHG. Using ultrasound guidance, right basilic vein access was obtained . 4FR x20cm single lumen non PASV trimmed to 11cm was positioned. The procedure was performed in rm 272. Ultrasound was used to document vein patency and for needle entry. A formal ultrasound picture was recorded. Vascular Breeder Service Technician has released the line for use and it is currently dressed with a StatLock, Tegaderm, and CHG disc. Verification has been performed for blood return and line patency. Arm Circumference: 35cm Equipment: Unified Social POWER Midline Catheter Catheter Type: 4FR x 20cm single lumen non PASV catheter Lot #: [id number]
[2025-03-31 19:09] VITALS: BP 137/86; PULSE 85; RESP 18; TEMP 37.2; O2SAT 96
[2025-03-31 20:10] LABS: Glucose, Whole Blood 219 mg/dL (60-115)
[2025-03-31] MEDS: Enoxaparin Sodium 40 MG/0.4 ML SYRINGE SUBCUT (20:24)
[2025-03-31] MEDS: Insulin Glargine,Hum.rec.anlog 100 UNIT/ML 10 ML VIAL 20 UNIT SUBCUT (20:24)
[2025-03-31] MEDS: Atorvastatin Calcium 20 MG TABLET PO (20:24)
[2025-04-01] MEDS: ceFAZolin Sodium/Dextrose,Iso 2 GM/50 ML PIGGYBACK IV ×2 (03:09→10:22)
[2025-04-01 03:29] VITALS: BP 132/82; PULSE 73; RESP 18; TEMP 36.7; O2SAT 95
[2025-04-01 07:20] LABS: Glucose, Whole Blood 167 mg/dL (60-115)
[2025-04-01 07:23] LABS: MANUAL DIFF FLAG NO
[2025-04-01 07:38] LABS: Basophils Percent Auto 0.7 % (0-2); Eosinophils Absolute Auto 0.2 X10*3/uL (0.0-0.4); Eosinophils Percent Auto 2.8 % (0-4); Hematocrit 39.6 % (42.0-52.0); Hemoglobin 13.8 g/dl (14.0-18.0); Imm Gran Abs Auto 0.04 X10*3/uL (0.00-0.03); Imm Gran Pct Auto 0.7 % (0.0-0.4); Mean Corpuscular HGB Conc 34.8 g/dl (31.0-36.0); Mean Corpuscular Hemoglobin 27.8 pg (27.0-33.0); Mean Corpuscular Volume 79.8 fL (80.0-98.0); Mean Platelet Volume 10.8 fL (9.4-12.4); Monocytes Absolute Auto 0.6 X10*3/uL (0.1-1.2); Monocytes Percent Auto 10.6 % (2-11); Neutrophils Absolute Auto 4.1 x10*3/uL (2.0-8.3); Neutrophils Percent Auto 68.2 % (45-73); Platelet Count 309 X10*3/uL (160-400); Red Blood Count 4.96 X10*6/uL (4.60-5.80); Red Cell Distribution Width 11.9 % (11.0-16.0); White Blood Count 6.1 X10*3/uL (4.8-10.8)
[2025-04-01 07:48] LABS: Anion Gap 10 (12-20); Blood Urea Nitrogen 17 mg/dL (9-16); Calcium 8.7 mg/dL (8.4-10.2); Carbon Dioxide 28 mmol/L (22-29); Chloride 102 mmol/L (96-108); Creatinine Clr Calc Pharmacy 120.1; Estimated Glomerular Filt Rate > 60; Glucose Random 172 mg/dL (60-115); Potassium 4.1 mmol/L (3.3-5.1); Sodium 136 mmol/L (135-145)
[2025-04-01] MEDS: 0.9 % Sodium Chloride Flush 10 ML SYRINGE 5 ML IVFLUSH (07:48)
[2025-04-01] MEDS: Insulin Lispro 100 UNIT/ML 3 ML VIAL SUBCUT ×2 (07:48→11:37)
[2025-04-01 07:59] VITALS: BP 133/75; PULSE 87; RESP 16; TEMP 36.5; O2SAT 97
--- NOTE | 2025-04-01 11:25 | MHC.CM.PN ---
Addendum entered by Deidra Weathers 04/02/25 08:36: CM SPOKE TO [facility] LIAISON THIS MORNING WHO CONFIRMED PTS DELIVERY WAS ACCEPTED AND SIGNED FOR LAST EVENING. [facility] WILL SEE PT TODAY Addendum entered by Deidra Weathers 04/01/25 14:07: [facility] HAS CONFIRMED THEY WILL DELIVER MEDS AND SUPPLIES TODAY PT IS AWARE HE WILL HAVE TO MANAGE HIS MEDS INDEPENDENTLY TODAY AND [facility] WILL SEE HIM TOMORROW SHUTTLE TRANSPORT ARRANGED FOR 1430, PT SHOULD BE DOWNSTAIRS AT 1415 PT AND RN AWARE Original Note: PT EXPECTED TO DC HOME TODAY WITH IV ABX FROM [facility] AND [facility] FLUSH ORDERS SENT TO [facility], AWAITING CONFIRMATION THAT THEY CAN DELIVER TODAY PT WILL NEED SHUTTLE TRANSPORT HOME, THEY ARE AWARE HE HAS HIS W/C AND CONFIRMED THEY CAN TAKE IT WITH PT AND GET IT IN AND OUT OF THE [facility]AN FOR HIM, LONG PT DOES NOT NEED HANDS ON ASSISTANCE PT CONFIRMS HE CAN INDEPENDENTLY TRANSPORT, AND STATES HIS MOTHER WILL MEET HIM OUTSIDE WHEN HE GETS TO HIS HOME
[2025-04-01 11:31] LABS: Glucose, Whole Blood 178 mg/dL (60-115)
--- NOTE | 2025-04-01 12:09 | W.MHC.F2F ---
Service Date Service Date: 04/01/25 Encounter Date of encounter: 04/01/25 Reasons for Services Signs and symptoms assessed: MSSA Bacteremia Reason for intermediate: wound care (Cleanse with NS moist gauze, Pat dry. Apply skin prep to periwound. Cover opening with durafiber AG followed by gauze, ABD pad and wrap every 2 days ), central line care and teach disease management Homebound: Leaving the home is medically contraindicated at this time without the asist of a device and/or another person due th the listed conditions above and below. Reason homebound: unsteady gait / fall risk Certification: Based on the above findings, I certify that this patient is confined to the home and needs intermittent intermediate care, physical therapy and/or speech therapy, or continues to need occupational therapy. The patient is under my care, and I have initiated the establishment of the plan of care. The patient will be followed by a physician who will periodically review the plan of care. Time Spent With Patient Time: Total time managing care of this patient today ____ minutes.
--- NOTE | 2025-04-01 12:17 | P.DS_ITS ---
DS: Providers Provider Date of Service: 04/01/25 Date of admission: 03/26/25 20:49 Date of discharge: 04/01/25 Primary care physician: CHERI Burns Consults: 03/27/25 01:07 Consult to Wound Care Routine Reason for consultation: cellulitis to RLE 03/27/25 09:15 Consult to General Surgery Routine Consulting Provider: [facility] General Surgeons Reason for consultation: rle cellulitis draining, ?I and D 03/28/25 10:07 Consult to Infectious Diseases Routine Consulting Provider: [facility] Reason for consultation: bacteremia DS: Diagnosis Discharge Diagnosis (1) Bacteremia due to methicillin susceptible Staphylococcus aureus (MSSA): Status: Acute (2) Cellulitis and abscess of leg: Status: Acute DS: Summary Hospital Course Hospital Course: from initial hpi: 44-year-old male with pertinent history of peripheral arterial disease status post right BKA, insulin-dependent diabetes mellitus, hypertension who presents to the emergency department for concerns of right leg infection. Patient states he noticed redness and started having pain over his right lower extremity 1 day prior to presentation. The symptoms were progressive and he also noticed purulent drainage from the area of redness and warmth. Also was having chills but no documented fever. Had associated dizziness. Did not pass out. States he is compliant with insulin. No fever, chest pain, palpitations, shortness of breath, abdominal pain, changes in urinary or bowel habits. In the emergency department, imaging without underlying abscess. White count 11.6 and inflammatory markers elevated. hospital course: Patient was admitted for right lower extremity cellulitis with small abscess. Was treated with vancomycin. Was seen by General surgery who performed incision and drainage cultures growing staph aureus sensitivities. blood cultures also grew MSSA. He was seen by ID who recommended IV Cefazolin for 4 weeks. Midline was placed as his blood cultures came back negative. Will be discharged on Cefazolin 2 gm Q8 at home and followed by [facility]. He Should follow up with his prosthesis provider. For diabetes was continued on insulin. Time Attestation Discharge Coordination Time (in mins): 39 Quality: Safe Use of Opioids Does Pt have an Active Cancer Diagnosis on the Problem List?: No Quality: Stroke Does the patient have a stroke diagnosis?: No Physical Exam Vital Signs: Vital Signs: Last Vital Signs Temp 97.7 F 04/01/25 07:59 Pulse 87 04/01/25 07:59 Resp 16 04/01/25 07:59 BP 133/75 04/01/25 07:59 Pulse Ox 97 04/01/25 07:59 O2 Del Method Room Air 04/01/25 07:59 BMI result Body Mass Index 35.0 Const: Other: Constitutional : interactive, not in distress Cardiovascular : no JVP, no lower extremity edema Respiratory : bilateral chest movement, not in resp distress Gastrointestinal: soft, lax, Non tender Skin : Warm, Dry, RLE wound covered with dressing, BKA Neurological : Alert & oriented , No focal deficit DS: Data Data Completed and Pending Completed studies during hospitalization [Text1]: Procedures Detachment at Right Lower Leg, High, Open Approach (11/06/22) Labs on day of discharge: Laboratory Results - last 24 hr 03/31/25 03/31/25 04/01/25 15:25 20:00 05:25 WBC 6.1 RBC 4.96 Hgb 13.8 L Hct 39.6 L MCV 79.8 L MCH 27.8 MCHC 34.8 RDW 11.9 Plt Count 309 MPV 10.8 Immature Gran % (Auto) 0.7 H Neut % (Auto) 68.2 Lymph % (Auto) 17.0 L [place] % (Auto) 10.6 Eos % (Auto) 2.8 Baso % (Auto) 0.7 Lymph # (Auto) 1.0 L [place] # (Auto) 0.6 Eos # (Auto) 0.2 Baso # (Auto) 0.0 Abs Immat Gran (auto) 0.04 H Absolute Neuts (auto) 4.1 Absolute Nucleated RBC 0.000 Nucleated RBC % (auto) 0.0 Sodium 136 Potassium 4.1 Chloride 102 Carbon Dioxide 28 Anion Gap 10 L BUN 17 H Creatinine 0.90 Estim Creat Clear Calc 120.1 Estimated GFR > 60 POC Glucose 215 H 219 H Random Glucose 172 H Calcium 8.7 04/01/25 04/01/25 07:05 11:16 WBC RBC Hgb Hct MCV MCH MCHC RDW Plt Count MPV Immature Gran % (Auto) Neut % (Auto) Lymph % (Auto) [place] % (Auto) Eos % (Auto) Baso % (Auto) Lymph # (Auto) [place] # (Auto) Eos # (Auto) Baso # (Auto) Abs Immat Gran (auto) Absolute Neuts (auto) Absolute Nucleated RBC Nucleated RBC % (auto) Sodium Potassium Chloride Carbon Dioxide Anion Gap BUN Creatinine Estim Creat Clear Calc Estimated GFR POC Glucose 167 H 178 H Random Glucose Calcium Preliminary micro results at discharge 03/30/25 12:14 Blood Culture - Preliminary Blood - Venous No growth after 24 hours. 03/30/25 12:13 Blood Culture - Preliminary Blood - Venous No growth after 24 hours. 03/29/25 05:51 Blood Culture - Preliminary Blood - Venous No growth after 48 hours. Imaging Chest x-ray: Radiologist's impression: Right leg CT IMPRESSION: 1. No evidence of right lower extremity abscess. 2. Extensive subcutaneous edema in the anterolateral right knee and lower leg. Discharge Plan Discharge Anticipated Discharge Date/Time: 03/28/25 09:13 Patient Disposition: Home, Self-Care Discharge Diagnosis: cellulitis, abscess Referrals: Kaleb Hoyt, [facility] BUFFER- [Primary Care Provider] - 1 Week Discharge Medications: New cefazolin in dextrose (iso-os) 2 gram/50 mL Piggyback 50 ml IV Q8H 24 Days Qty: 72 0RF Continued (DME) FreeStyle Zhane 2 [place] Misc See Rx Instructions .Route Qty: 1 11RF Rx Instructions: tid testing (DME) FreeStyle Zhane 2 Sensor Kit See Rx Instructions .Route Qty: 1 11RF Rx Instructions: TID testing atorvastatin 20 mg tablet 20 mg PO BEDTIME Qty: 90 0RF insulin lispro [Humalog KwikPen Insulin] 100 unit/mL insulin pen 1 sliding scale dose subcut TID MDD 30 units Qty: 15 1RF Rx Instructions: per sliding scale less than 150 equals 0 units, 150-199 equals 4 units, 200- 249 equals 5 units, 250-299 equals 7 units, 300-349 equals 9 units, 350-399 equals 10 units, greater than or equal to 400 equals call provider multivitamin Tablet 1 tab PO DAILY insulin glargine [Lantus Solostar U-100 Insulin] 100 unit/mL (3 mL) insulin pen 26 unit subcut BEDTIME (DME) FreeStyle Lite Strips Strip See Rx Instructions .ROUTE .MEDSUPPLY Qty: 10 Rx Instructions: As directed (DME) blood-glucose meter [FreeStyle Lite Meter] Kit See Rx Instructions .ROUTE .MEDSUPPLY Qty: 1 Rx Instructions: As directed Discharge Orders: Discharge Order (Routine); Ordered 04/01/25 Ordered By: Mirian Cespedes Diet: Advance to usual diet Activity on Discharge: As tolerated Stand Alone Forms: Patient Portal Discharge page, Work/School Release Print Language: Filipino Activity Restrictions/Additional Instructions: Topical Wound Care Recommendations: Right Lateral Knee - Cleanse with NS moist gauze, Pat dry. Apply skin prep to periwound. Cover opening with durafiber AG followed by gauze, ABD pad and wrap. Change every 2-3 days. Recommend follow up out patient Wound Clinic at [address] [place] [phone] and to call for an appointment at time of discharge. [phone].? Patient should follow up with his prosthetic contact for a fit check. Care Plan Goals: recovery Health Concerns: right leg cellulitis, abscess, MSSA Bacteremia Plan of Treatment: Finish course of IV Cefazolin as planned wound care, follow up with prosthetics provider Assessment: see above Patient Instructions: Doxycycline (By mouth), Cellulitis (ED)
[2025-04-01 14:08] VITALS: BP 136/80; PULSE 84; RESP 16; TEMP 36.4; O2SAT 95
== END 2025-04-01 14:24 | disposition home or self-care (01) | DRG 364 ==
LOC: HO.ED 20:52 → HO.EDOVER 20:59 → HO.S3 21:07
PROVIDERS: Internal Medicine; Physician Assistant; Physician Assistant Medical; Admitting Provider Student in an Organized Health Care Education/Training Program; Emergency Provider Emergency Medicine; PCP Nurse Practitioner Family; Visit Provider Student in an Organized Health Care Education/Training Program
DX: L02.415 Cutaneous abscess of right lower limb (principal); Y79.2 Prosthetic and other implants, materials and accessory orthopedic devices associated with adverse incidents; R78.81 Bacteremia; B95.61 Methicillin susceptible Staphylococcus aureus infection as the cause of diseases classified elsewhere; E11.65 Type 2 diabetes mellitus with hyperglycemia; L03.115 Cellulitis of right lower limb; Z89.511 Acquired absence of right leg below knee; Z79.4 Long term (current) use of insulin; Z79.899 Other long term (current) drug therapy
CPT/HCPCS: 36410; 36415; 73552; 73590; 73701; 80048; 80053; 80202; 82010; 82947; 83605; 83735; 85025; 85027; 85652; 86140; 87040; 87070; 87077; 87147; 87186; 87205; 93005; 93306; 99285; C1751; J0690; J1650; J2270; J2543; J3370; J3371; Q9957; Q9967

== ENCOUNTER → 2025-03-26 17:53 | Outpatient (BNV) | payer OTHER, SELFPAY | PROVIDERS: Admitting Provider Student in an Organized Health Care Education/Training Program; Emergency Provider Emergency Medicine; PCP Nurse Practitioner Family; Visit Provider Internal Medicine | DX: R00.0 Tachycardia, unspecified (principal) | CPT/HCPCS: 93010 ==

== ENCOUNTER → 2025-03-26 19:23 | Outpatient (BNV) | payer OTHER, SELFPAY | PROVIDERS: Admitting Provider Student in an Organized Health Care Education/Training Program; Emergency Provider Emergency Medicine; PCP Nurse Practitioner Family; Visit Provider Radiology Diagnostic Radiology | DX: M79.661 Pain in right lower leg (principal); M89.361 Hypertrophy of bone, right tibia; T87.89 Other complications of amputation stump; Z89.511 Acquired absence of right leg below knee | CPT/HCPCS: 73552; 73590; 73701 ==

== ENCOUNTER 2025-03-26 20:49 | Outpatient (BNV) | payer OTHER, SELFPAY | END 2025-03-29 07:00 | PROVIDERS: Admitting Provider Student in an Organized Health Care Education/Training Program; Emergency Provider Emergency Medicine; PCP Nurse Practitioner Family; Visit Provider Internal Medicine Cardiovascular Disease | DX: R78.81 Bacteremia (principal) | CPT/HCPCS: 93306 ==

== ENCOUNTER → 2025-03-26 20:49 | Outpatient (BNV) | payer OTHER, SELFPAY | PROVIDERS: Admitting Provider Student in an Organized Health Care Education/Training Program; Emergency Provider Emergency Medicine; PCP Nurse Practitioner Family; Visit Provider Student in an Organized Health Care Education/Training Program | DX: E11.9 Type 2 diabetes mellitus without complications (principal) | CPT/HCPCS: 99232 ==

== ENCOUNTER → 2025-03-26 20:49 | Outpatient (BNV) | payer OTHER, SELFPAY | PROVIDERS: Admitting Provider Student in an Organized Health Care Education/Training Program; Emergency Provider Emergency Medicine; PCP Nurse Practitioner Family; Visit Provider Surgery | DX: L03.119 Cellulitis of unspecified part of limb (principal); L02.419 Cutaneous abscess of limb, unspecified | CPT/HCPCS: 10060; 99024; 99222 ==

== ENCOUNTER → 2025-03-26 20:49 | Outpatient (BNV) | payer OTHER, SELFPAY | PROVIDERS: Admitting Provider Student in an Organized Health Care Education/Training Program; Emergency Provider Emergency Medicine; PCP Nurse Practitioner Family; Visit Provider Internal Medicine | DX: L03.119 Cellulitis of unspecified part of limb (principal); L02.419 Cutaneous abscess of limb, unspecified; L03.90 Cellulitis, unspecified; R78.81 Bacteremia; B95.61 Methicillin susceptible Staphylococcus aureus infection as the cause of diseases classified elsewhere | CPT/HCPCS: 99222 ==

== ENCOUNTER 2025-04-08 09:20 | Outpatient (AMB) | payer OTHER, SELFPAY ==
[2025-04-08 09:25] VITALS: BP 128/74; PULSE 99; O2SAT 99
--- NOTE | 2025-04-08 09:25 | A.OFFPC_ITS ---
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: No Accompanied by: Self / Same As Patient Allergies acetaminophen [Tylenol] Allergy (Unknown, Verified 04/08/25 09:26) face swelling aspirin Allergy (Unknown, Verified 04/08/25 09:26) anaphylaxis, edema Tobacco use date assessed: 04/08/25 Dental Screening Dental Screen Date: 04/08/25 Did you have a dental visit in the last 12 months?: Yes Did you have a dental problem in the last 6 months where you did not have access to dental care?: No Was dental information given to patient?: Patient has dentist HPI ED f/up HPI Details Chief Complaint The patient has concerns related to a recent hospitalization for cellulitis and ongoing management of uncontrolled diabetes. History of Present Illness The patient is a 44-year-old male presenting for follow-up after a hospital discharge related to cellulitis of the right lower extremity. He has a history of a right below-knee amputation. The cellulitis, believed to be caused by an ingrown hair, resulted in bacteremia. A surgical incision and drainage were conducted during his hospital stay in March 2025. He was discharged with a PICC line for home intravenous antibiotic administration. His uncontrolled Type 2 Diabetes Mellitus remains problematic, as evidenced by a recent Hemoglobin A1c of 10.9%. The infection and recent stress appear to have exacerbated hyperglycemic episodes. The patient is currently on a regimen of cefazolin for bacteremia. Improvement is noted around the surgical site, which is no longer tender or warm to the touch, it is decreasing in size , according to pt. Social History - The patient is employed and currently working from home. - No other pertinent social determinants of health discussed. Health Maintenance - Referred to endocrinology for manageme nt of diabetes. - Increase in Lantus insulin dose from 2 6 units to 30 units discussed to improve glycemic control. - Home IV cefazolin therapy with a PICC line in place for MSSA bacteremia. Review of Systems - Musculoskeletal: Denies warmth or tend erness at the right amputation site. - Endocrine: Reports elevated blood suga r levels. - Integumentary: Reports improvement in erythema at the incision site. - Neurological: Denies any sensation los s to the right lower extremity stump; reports good sensation. - denies any cp, sob, fevers, chills, dr shirley from site. Physical Exam General: Cooperative, healthy appearing, comfortable, no acute distress and well developed, in a wheelchair Orientation: Patient oriented x3 Limitations: No limitations Head: Normal to inspection Ears: Hearing grossly normal bilaterally Nose: Normal external nose present Face and sinus: Normal facial exam Eyes: Appearance normal, both eyes and all related structures Neck: Normal visual inspection and Yes full ROM Respiratory: Normal respiratory effort and able to speak in complete sentences. Clear to auscultation bilaterally Cardiovascular: Regular rate and rhythm. Normal S1 and S2 GI: Normal to inspection. Soft to palpation and nontender Skin: No rashes or lesions noted Neuro: Patient oriented x3 Extremities: Right lower extremity with below knee amputation. Healing area of erythema just below the right knee, lateral aspect, not tender or warm to touch. Healing area on the medial aspect, just inferior to the right knee. Stump looks intact with good sensation and movement without difficulty. Left lower extremity with positive dorsalis pedis and onychomycosis noted to the nails. Positive sensation. Feet are clean, dry, and intact otherwise. Picc line insertion site without s/s of infection Results - Labs: Hemoglobin A1c at 10.9%, culture s grew MSSA. - No other test results discussed. Plan In managing the patient's uncontrolled Type 2 Diabetes Mellitus, I will increase the Lantus dose to 30 units, accounting for hospitalization stress factors contributing to elevated glucose levels. Referral to endocrinology is advised. For the now controlled cellulitis and bacteremia, continuation of home cefazolin therapy is critical. The patient is advised to consult the prosthetic maker for adjustments. Follow-up for wound healing and infection control is essential, and continued [id number] modifications will aid in monitoring overall health. VNA services should also continue Discussion Notes I explained the necessity of increasing the Lantus dose to improve diabetes control. We discussed home management with cefazolin therapy administered via PICC line to treat bacteremia. I emphasized collaboration with home health services and importance of the referral to endocrinology for comprehensive diabetes management. I highlighted the need for a visit to the prosthetic maker to address fitting issues and provided anticipatory guidance on monitoring for infection signs. We also discussed maintaining [id number] status to aid recovery. Patient Instructions - Continue home cefazolin 2g IV every ei ght hours as instructed. - Follow-up with endocrinology for diabe ortega management. - Increase Lantus to 30 units as directe d. - Monitor the right knee area for any si gns of infection and report changes. - Contact prosthetic maker for refitting . - Stay on the [id number] protocol fo r the time being. - Keep scheduled visits with the home he alth nurse for wound care. -encouraged pt to get labs drawn [facility] Medical History Bacteremia due to methicillin susceptible Staphylococcus aureus (MSSA) Cellulitis and abscess of leg Type 2 diabetes mellitus Chronic kidney disease Nephrolithiasis Retinopathy HTN (hypertension) H/O nephrolithotomy with removal of calculi Surgical History History of right below knee amputation (11/06/22) History of hernia repair Family History Father HTN (hypertension) Mother Arthritis Social History Household Members: None Housing: House Are you a primary student career development specialist to a significant other at home: No Do you presently have visiting nurse or other home services: No Alcohol intake: current Alcohol intake frequency: holidays/special occasions only Patient Tobacco Use Status: Never used Tobacco service: No Current occupational status: employed Cognitive needs: No Hearing needs: No Vision needs: No Questionnaire PHQ-9 Over the last 2 weeks, how often have you been bothered by any of the following problems? 1. Little interest or pleasure in doing things: not at all 2. Feeling down, depressed, or hopeless: not at all 3. Trouble falling or staying asleep, or sleeping too much: several days 4. Feeling tired or having little energy: not at all 5. Poor appetite or overeating: not at all 6. Feeling bad about yourself - or that you are a failure or have let yourself or your family down: not at all 7. Trouble concentrating on things, such as reading the newspaper or watching television: not at all 8. Moving or speaking so slowly that other people could have noticed. Or the opposite - being so fidgety or restless that you have been moving around a lot more than usual: not at all 9. Thoughts that you would be better off or of hurting yourself in some way: not at all Total score: 1 Depression Screening Interpretation: Negative Depression Screening Done: Yes 25918 - PHQ-9 Billing: Yes Source: Developed by Drs. Jairo Patton, Lisa Oro, Homero Ricardo and colleagues, with an educational tc from [employer]. Thrive Questionnaire Date Thrive assessed: 04/08/25 I am a: Patient What is your living situation today?: I have a steady place to live Within the past 12 months, did the food you bought not last and you didn't have the money to get more?: Never true Within the past 12 months, did you worry whether your food would run out before you got money to buy more?: Never true Do you have trouble paying for medicines?: No Do you have trouble getting transportation to medical appointments?: No Do you have trouble paying your heating and electricity bill?: No Do you have trouble taking care of your child, family member or friend?: I choose not to answer this question Do you have trouble with day-to-day activities such as bathing, preparing meals, shopping, managing finances, etc.?: No Are you currently unemployed and looking for a job?: No Are you interested in more education?: No Please select the resources that you would like help with: None Currently or been in a relationship where the following occur: I choose not to answer THRIVE Score: 0 AUDIT C Alcohol Use Questionnaire (AUDIT-C) 1. How often do you have a drink containing alcohol?: Never 3. How often do you have six or more drinks on one occasion?: Never Total Score: 0 Score Reviewed/Action Taken: Yes RAMIREZ-7 AMB Questionnaire RMAIREZ-7 Date RAMIREZ - 7 assessed: 04/08/25 Feeling nervous, anxious, or on edge: 0 = Not at all Not being able to stop or control worryin = Not at all Worrying too much about different things: 0 = Not at all Trouble relaxin = Several days Being so restless that it is hard to sit still: 1 = Several days Becoming easily annoyed or irritable: 1 = Several days Feeling afraid as if something awful might happen: 0 = Not at all Total RAMIREZ-7 score (0-4 normal; 5-9 mild; 10-14 moderate; 15-21 severe): 3 Source: Developed by Drs. Jairo Patton, Lisa Oro, Homero Ricardo and colleagues, with an educational tc from [employer]. RAMIREZ-7 Assessment Billing RAMIREZ-7 Assessment Tool: RAMIREZ-7 Assessment 26219 Physical exam (Primary Care) Vital Signs: Last Vital Signs Pulse 99 04/08/25 09:25 BP 128/74 04/08/25 09:25 Pulse Ox 99 04/08/25 09:25 Oxygen Delivery Method Room Air 04/08/25 09:25 Tobacco/Smoking Status: Tobacco use Status Tobacco use date assessed 04/08/25 04/08/25 09:27 Patient Tobacco Use Status Never used Tobacco 04/08/25 09:27 PHQ-9: PHQ-9 Score PHQ-9: Total score 1 04/08/25 09:27 Depression Screening Interpretation: Negative Thrive Assessment: Date of Thrive Assessment Date Thrive assessed 04/08/25 04/08/25 09:27 Currently or been in a relationship where the following occur: I choose not to answer Results AMB Hemoglobin A1c AMB Hemoglobin A1c 10.9 % Last Edit by Scotty Martínez CMA on 04/08/25 09 :53 Results Reviewed Results Reviewed: Laboratory Last Values Hgb A1c (Clinic) 10.9 % (4.0-6.0) H 04/08/25 09:40 Coding Level of Care Code Est Pt Level 4 (67119) Diagnoses Cellulitis L03.90 Cellulitis and abscess of leg L03.119; L02.419 Bacteremia due to methicillin susceptible Staphylococcus aureus (MSSA) R78.81; B95.61 Uncontrolled diabetes mellitus with hyperglycemia E11.65 Additional Codes RAMIREZ-7 Assessment Billing - RAMIREZ-7 Assessment Tool: RAMIREZ-7 Assessment 89665 ([id number]) PHQ-9 - 52511 - PHQ-9 Billing: Yes ([id number]) Assessment & Plan Assessment & Plan (1) Cellulitis: Code(s): L03.90 - Cellulitis, unspecified Category: Medical (2) Cellulitis and abscess of leg: Code(s): L03.119 - Cellulitis of unspecified part of limb; L02.419 - Cutaneous abscess of limb, unspecified Category: Medical (3) Bacteremia due to methicillin susceptible Staphylococcus aureus (MSSA): Code(s): R78.81 - Bacteremia; B95.61 - Methicillin susceptible Staphylococcus aureus infection as the cause of diseases classified elsewhere Category: Medical (4) Uncontrolled diabetes mellitus with hyperglycemia: Code(s): E11.65 - Type 2 diabetes mellitus with hyperglycemia Category: Medical Plan . Orders: Orders AMB Hemoglobin A1c Today Z13.9 - Encounter for screening, unspecified Referrals Endocrinology Referral E11.65 - Type 2 diabetes mellitus with hyperglycemia Medications: New insulin glargine (Lantus Solostar U-100 Insulin) 30 units (0.3 mL) subcut BEDTIME 15 mL 0RF
--- OUTSIDE RECORDS SUMMARY | 2025-04-08 09:57 | XMS_ITS | Clinical Summary ---
Author Organization [facility] Facility Address [address] [address] Care Team Providers Care Medical Records Analyst Name Role Phone Kaleb Hoyt NP Primary Care Provider [phone] Allergies Active Allergy Reactions Criticality Noted Date Comments Acetaminophen 02/13/2023 Aspirin 02/13/2023 Medications amLODIPine (NORVASC) 10 MG tablet Take 10 mg by mouth 1 (one) time each day 11/23/2022 Active Semglee, yfgn, 100 UNIT/ML solution pen-injector Inject 26 Units under the skin 1 (one) time each day 01/28/2023 Active HumaLOG KWIKPEN 100 UNIT/ML solution pen-injector Inject under the skin 3 times a day 01/25/2023 Active rosuvastatin (CRESTOR) 10 MG tablet Take 10 mg by mouth 1 (one) time each day 11/29/2022 Active Active Problems Problem Noted Date Diagnosed Date Amputee 02/13/2023 Chronic kidney disease stage 1 02/13/2023 Diabetes mellitus, not otherwise specified 02/11 Hypertension 02/11/2023 Acute nontraumatic kidney injury 02/11/2023 Resolved Problems Problem Noted Date Diagnosed Date Resolved Date 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 Family History Medical History Relation Comments Hypertension Father Arthritis Mother Relation Status Comments Father Mother Social History Tobacco Use Types Packs/Day Years Used Date Smoking Tobacco: Never Assessed Sex and Gender Information Value Date Recorded Sex Assigned at Not on file Legal Sex Male 12:05 PM EST Gender Identity Not on file Sexual Orientation Not on file Last Filed Vital Signs Vital Sign Reading Time Taken Comments Blood Pressure 160/110 02/20/2024 11:10 AM EDT Pulse 96 02/20/2024 11:10 AM EDT Temperature - - Respiratory Rate - - Oxygen Saturation 99% 02/20/2024 11:10 AM EDT Inhaled Oxygen Concentration - - Weight 99.8 kg (220 lb) 02/20/2024 11:10 AM EDT Height 182.9 cm (6') 02/20/2024 11:10 AM EDT Body Mass Index 29.84 02/20/2024 11:10 AM EDT Plan of Treatment Health Maintenance Due Date Last Done Comments Hepatitis B Vaccine (1 of 3 - 19+ 3-dose series) 12/01 Pneumococcal Vaccine: Peds ( 0 to 5 Years) and At-Risk Patients (6 to 49 Years) (1 of 2 - PCV) 1997 Diabetes: Hemoglobin A1C 02/11/2023 Diabetes: Ophthalmology Exam 02/11/2023 Diabetes: Pedal Pulse Checked 02/11/2023 Diabetes: Sensory Foot Exam 02/11/2023 Diabetes: Visual Foot Exam 02/11/2023 Influenza Vaccine (Season Ended) 2025 Insurance Comprehensive Benefits Comprehensive Benefits Care Teams Medical Records Analyst Relationship Specialty Start Date End Date Kaleb Hoyt NP [address] [place] [id number] PCP - General Nurse Practitioner 11/12/22
--- OUTSIDE RECORDS SUMMARY | 2025-04-08 09:57 | XMS_ITS | Clinical Summary ---
Author Organization [facility] ity Address [address] [place] [address] Care Team Providers Care Sugar Cane Grower Name Role Phone Unavailable Primary Care Provider Unavailabl e Social History Tobacco Use Types Packs/Day Years Used Date Smoking Tobacco: Never Assessed Sex and Gender Information Value Date Recorded Sex Assigned at Not on file Legal Sex Male 8:56 PM EST Gender Identity Not on file Sexual Orientation Not on file Plan of Treatment Health Maintenance Due Date Last Done Comments DTaP,Tdap,and Td Vaccines (1 - Tdap) 1997 Hepatitis B Vaccines (1 of 3 - 19+ 3-dose series) 1997 Cholesterol Screening (Lipid Panel) 12/27/2023 Colorectal Cancer Screening: Colonoscopy 12/27/2023 Depression Screening 12/27/2023 HIV Screening 12/27/2023 Hepatitis C Screening 12/27/2023 Social Influencers of Health Screening 12/27/2023 COVID-19 Vaccine ( - 2023-2 5 season) 2024 Influenza Vaccine (Season Ended) 2025 HIB Vaccines Aged Out No longer eligi ble based on patient's age to complete this topic HPV Vaccines Aged Out No longer eligi ble based on patient's age to complete this topic Hepatitis A Vaccines Aged Out No long er eligible based on patient's age to complete this topic IPV Vaccines Aged Out No longer eligi ble based on patient's age to complete this topic MMR Vaccines Aged Out No longer eligi ble based on patient's age to complete this topic Meningococcal ACWY Vaccine Aged Out N o longer eligible based on patient's age to complete this topic Meningococcal B Vaccine Aged Out No l onger eligible based on patient's age to complete this topic Pneumococcal Vaccine: Pediat rics (0 to 5 Years) and At-Risk Patients (6 to 64 Years) Aged Out No longer eligible b ased on patient's age to complete this topic RSV Immunization Patients Un courtney 20 months Aged Out No longer eligible b ased on patient's age to complete this topic Varicella Vaccines Aged Out No longer eligible based on patient's age to complete this topic
== END 2025-04-08 11:04 | disposition home or self-care (01) ==
LOC: HO.HMCC 09:21
PROVIDERS: PCP Nurse Practitioner Family; Visit Provider Nurse Practitioner Family
DX: E11.65 Type 2 diabetes mellitus with hyperglycemia (principal); L03.119 Cellulitis of unspecified part of limb; L02.419 Cutaneous abscess of limb, unspecified; R78.81 Bacteremia; B95.61 Methicillin susceptible Staphylococcus aureus infection as the cause of diseases classified elsewhere

== ENCOUNTER → 2025-04-08 09:20 | Outpatient (BNVA) | payer OTHER, SELFPAY | PROVIDERS: PCP Nurse Practitioner Family; Visit Provider Nurse Practitioner Family | DX: L03.115 Cellulitis of right lower limb (principal); L02.419 Cutaneous abscess of limb, unspecified; R78.81 Bacteremia; B95.61 Methicillin susceptible Staphylococcus aureus infection as the cause of diseases classified elsewhere; E11.65 Type 2 diabetes mellitus with hyperglycemia; Z89.511 Acquired absence of right leg below knee | CPT/HCPCS: 83036; 96127 ==

== ENCOUNTER 2025-04-08 15:10 | Outpatient (REF) | payer OTHER, SELFPAY ==
[2025-04-08 15:31] LABS: Anion Gap 13 (12-20); Blood Urea Nitrogen 20 mg/dL (9-16); Calcium 8.9 mg/dL (8.4-10.2); Carbon Dioxide 23 mmol/L (22-29); Chloride 103 mmol/L (96-108); Estimated Glomerular Filt Rate > 60; Glucose Random 306 mg/dL (60-115); Potassium 3.9 mmol/L (3.3-5.1); Sodium 135 mmol/L (135-145)
--- OUTSIDE RECORDS SUMMARY | 2025-04-08 15:43 | XMS_ITS | Clinical Summary ---
Author Organization [facility] Facility Address [address] [address] Care Team Providers Care Biofuels Plant Manager Name Role Phone Kaleb Hoyt NP Primary Care Provider [phone] Allergies Active Allergy Reactions Criticality Noted Date [...] Insurance Comprehensive Benefits Comprehensive Benefits Care Teams Biofuels Plant Manager Relationship Specialty Start Date End Date Kaleb Hoyt NP [address] [place] [phone] PCP - General Nurse Practitioner 11/12/22
--- OUTSIDE RECORDS SUMMARY | 2025-04-08 15:43 | XMS_ITS | Clinical Summary ---
Author Organization [facility] ity Address [address] [place] [address] Care Team Providers Care Senior Unix Administrator Name Role Phone Unavailable Primary Care Provider [...]
== END 2025-04-08 15:11 | disposition home or self-care (01) ==
LOC: HO.HVNA 15:10
PROVIDERS: Visit Provider Internal Medicine
DX: L02.415 Cutaneous abscess of right lower limb (principal)
CPT/HCPCS: 36415; 80048

== ENCOUNTER 2025-04-14 09:45 | Outpatient (REF) | payer OTHER, SELFPAY ==
--- OUTSIDE RECORDS SUMMARY | 2025-04-14 11:21 | XMS_ITS | Clinical Summary ---
Author Organization [facility] ity Address [address] [place] [address] Care Team Providers Care Refinery Operator Crude Unit Name Role Phone Unavailable Primary Care Provider [...]
--- OUTSIDE RECORDS SUMMARY | 2025-04-14 11:21 | XMS_ITS | Clinical Summary ---
Author Organization [facility] Facility Address [address] [address] Care Team Providers Care Executive Officer Special Warfare Team Name Role Phone Kaleb Hoyt NP Primary Care Provider [phone] Allergies Active Allergy Reactions Criticality Noted Date [...] Ended) 2025 Insurance Comprehensive Benefits [place] [address] Care Teams Executive Officer Special Warfare Team Relationship Specialty Start Date End Date Kaleb Hoyt NP [address] [place] [phone] PCP - General Nurse Practitioner 11/12/22
[2025-04-14 14:21] LABS: Anion Gap 12 (12-20); Blood Urea Nitrogen 19 mg/dL (9-16); Calcium 8.8 mg/dL (8.4-10.2); Carbon Dioxide 24 mmol/L (22-29); Chloride 103 mmol/L (96-108); Estimated Glomerular Filt Rate > 60; Glucose Random 247 mg/dL (60-115); Potassium 4.3 mmol/L (3.3-5.1); Sodium 135 mmol/L (135-145)
== END 2025-04-14 09:46 | disposition home or self-care (01) ==
LOC: HO.HVNA 09:45
PROVIDERS: PCP Nurse Practitioner Family; Visit Provider Internal Medicine
DX: L02.413 Cutaneous abscess of right upper limb (principal); L03.115 Cellulitis of right lower limb
CPT/HCPCS: 36415; 80048

== ENCOUNTER 2025-04-21 10:18 | Outpatient (REF) | payer OTHER, SELFPAY ==
[2025-04-21 11:04] LABS: Anion Gap 14 (12-20); Blood Urea Nitrogen 20 mg/dL (9-16); Calcium 9.8 mg/dL (8.4-10.2); Carbon Dioxide 23 mmol/L (22-29); Chloride 102 mmol/L (96-108); Estimated Glomerular Filt Rate > 60; Glucose Random 213 mg/dL (60-115); Potassium 4.6 mmol/L (3.3-5.1); Sodium 134 mmol/L (135-145)
--- OUTSIDE RECORDS SUMMARY | 2025-04-21 11:49 | XMS_ITS | Clinical Summary ---
Author Organization [facility] ity Address [address] [place] [address] Care Team Providers Care Software Quality Engineer Name Role Phone Unavailable Primary Care Provider [...]
--- OUTSIDE RECORDS SUMMARY | 2025-04-21 11:49 | XMS_ITS | Clinical Summary ---
Author Organization [facility] Facility Address [address] [address] Care Team Providers Care Forming Tube Selector Name Role Phone Kaleb Hoyt NP Primary Care Provider [phone] Allergies Active Allergy Reactions Criticality Noted Date [...] Insurance Comprehensive Benefits Comprehensive Benefits Care Teams Forming Tube Selector Relationship Specialty Start Date End Date Kaleb Hoyt NP [address] [place] [phone] PCP - General Nurse Practitioner 11/12/22
== END 2025-04-21 10:19 | disposition home or self-care (01) ==
LOC: HO.LNP 10:18
PROVIDERS: Visit Provider Internal Medicine
DX: B99.9 Unspecified infectious disease (principal)
CPT/HCPCS: 80048

== ENCOUNTER 2025-04-22 10:46 | Outpatient (AMB) | payer OTHER, SELFPAY ==
--- NOTE | 2025-04-22 08:18 | A.OFFVIS_ITS ---
Vital Signs 04/22/25 10:54 Height 5 ft 8 in Weight 229 lb 4.492 oz BMI 34.9 BP 142/100 H Blood Pressure Location Rt brachial Position Sitting Pulse 103 H Pulse Source Pulse Oximeter Pulse Oximetry (%) 98 Oxygen Delivery Method Room Air Intake Visit Reasons: Type 2 diabetes mellitus with hyperglycemia Intake Note: NEW Patient presents today to establish treatment for Type 2 Diabetes Mellitus: Patient has an intravenous piggyback for antibiotic in the R arm, for an infection in the R leg due to an infected hair: Last Diabetic eye exam was on: OVER A YEAR, DUE Last Podiatry exam was on: Patient does not see a Pearl Technician Most recent HbA1c: 10.9%, 04/08/2025 Random Glucose- 151 mg/dL, Today Elementary Classroom Teacher Required: No Accompanied by: Self / Same As Patient Allergies acetaminophen [Tylenol] Allergy (Unknown, Verified 04/28/25 14:25) face swelling aspirin Allergy (Unknown, Verified 04/28/25 14:25) anaphylaxis, edema HPI Comments Details: [age] YO male who is seen in consultation for T2DM at the request of PCP. He was seen 4 weeks ago in the ER with a right leg cellulitis. CT scan was done at the time and showed extensive subq edema. He was hospitalized with a staph bacteremia and discharged 1 week ago [place] [facility] [place] two weeks of antibiotics via PICC line. He has follow up for this. Initially diagnosed with T2DM 2012 [place] poorly frequent urination and thirst Has h/o Right BKA Was initially started on treatment with started with metformin started on insulin approx 2022 Normally: 180's Last few days the most 210 He reports that when his a.m. sugars are less than 150 and he does not take insulin that they are always high pre lunch. Current regimen: Lantus 26 units Humalog t.i.d. pre meal according to sliding scale 150-199 4 units 200-249 5 units 250-299 7 units 300-349 9 units Over 350 10 units Reports low sugars: No history of any lows Most recent A1C 10.9% on 04/08/2025, previous 9.7% on 10/22/2024 Family history of T2DM in father, brother, uncle Has eyes checked yearly, 1.5 years ago, Has retinopathy. Has had injections in the past He will schedule appt Denies neuropathy, last foot exam today Has nephropathy, on ARB followed by Dr. Bonilla. 04/21/2025 EGFR >60 microalbumin 24.0 he has prior history of BARB he is seen annually Has HLD, on statin Last LDL 111 as measured on 2022 Statin was recently ordered by PCP but he is not taking and would like his cholesterol level checked before starting. 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 [facility] Medical History Bacteremia due to methicillin susceptible Staphylococcus aureus (MSSA) Cellulitis and abscess of leg Type 2 diabetes mellitus Chronic kidney disease Nephrolithiasis Retinopathy HTN (hypertension) H/O nephrolithotomy with removal of calculi Surgical History History of right below knee amputation (11/06/22) History of hernia repair Family History Father HTN (hypertension) Mother Arthritis Social History Household Members: None Housing: House Are you a primary rn acute care to a significant other at home: No Do you presently have visiting nurse or other home services: No Alcohol intake: current Alcohol intake frequency: holidays/special occasions only Patient Tobacco Use Status: Never used Tobacco service: No Current occupational status: employed Cognitive needs: No Hearing needs: No Vision needs: No Physical Exam Vital Signs: Last Vital Signs Pulse 103 H 04/22/25 10:54 BP 142/100 H 04/22/25 10:54 Pulse Ox 98 04/22/25 10:54 Oxygen Delivery Method Room Air 04/22/25 10:54 BMI result Body Mass Index 34.9 Absence of Cushingoid features. Absence of acromegalic features. Neck exam reveals nl size thyroid about 15 gms. No thyroid nodules palpable. No carotid bruits present. Lungs CTA. Heart S1 S2, Reg R/R. No M/R/ G. Skin exam reveals absence of vitiligo or acanthosis nigricans. Abdominal exam reveals Soft NT/ND with NA BS. No organomegaly present. Const Other: Absence of Cushingoid features. Absence of acromegalic features. Neck exam reveals nl size thyroid about 15 gms. No thyroid nodules palpable. Heart S1 S2, Reg R/R. No M/R G. Skin exam reveals absence of vitiligo or acanthosis nigricans. No edema. Visual exam of foot performed. No ulcerations or open lesions. No inter digit maceration or fissuring. No onychomycosis, no callouses. Sensation intact to monofilament exam. Vibratory sensation is normal with 128 Hz tuning fork. Neck Other: . Extrem Other: Visual exam of foot performed. No ulcerations or open lesions. No onchomycosis, no callouses.Pulses 2 + distally Sensation intact to monofilament exam. Vibratory sensation sensed is intact with 128 Hz tuning fork Results Reviewed Results Reviewed: Laboratory Last Values Glucose (Clinic) 151 mg/dL (60-115) H 04/22/25 11:03 Assessment & Plan Assessment & Plan (1) Uncontrolled diabetes mellitus with hyperglycemia: Code(s): E11.65 - Type 2 diabetes mellitus with hyperglycemia Category: Medical Plan: 44-year-old male with diabetes with historically poor glycemic control with complications of right BKA, recent cellulitis adjacent to the right knee, stable nephropathy followed annually by Dr. Bonilla and a history of retinopathy status post injections in the past was overdue for his eye exam. Would recommend starting on a freestyle Zhane 3+ which was ordered today. He will use this with his phone and self train. One sample was given New sliding scale given 80-100 2 units 100-150 4 units 151-200 6 units 201-250 8 units 250-310 units Over 300 12 units Cellulitis on IV antibiotics has follow up for this. The patient had an opportunity to ask questions regarding treatment plan. The patient expressed understanding and agreement with the above treatment plan. The patient is aware they should contact our office by phone for worsening glucose readings or for any low blood sugars which may warrant a change in diabetes medication. Compliance is encouraged with medications and any followup testing/consults which may have been ordered. Orders: Orders Lipid Panel 04/28/25 E11.9 - Type 2 diabetes mellitus without complications C Peptide 04/28/25 E11.9 - Type 2 diabetes mellitus without complications Glutamic acid decarboxylase Ab 04/28/25 E11.9 - Type 2 diabetes mellitus without complications Islet Cell Antibody Scrn/Titer 04/28/25 E11.9 - Type 2 diabetes mellitus without complications Medications: New blood-glucose sensor (FreeStyle Zhane 3 Plus Sensor device) every 15 days 2 ea 11RF Discontinued FreeStyle Zhane 2 Sensor Discontinued Reason: Doctor's Order TID testing 1 ea 11RF NS E11.65 - Type 2 diabetes mellitus with hyperglycemia FreeStyle Zhane 2 Ada Discontinued Reason: Doctor's Order tid testing 1 ea 11RF NS E11.65 - Type 2 diabetes mellitus with hyperglycemia Patient Instructions: The patient was counseled to achieve a target A1C of 7% (154 avg). Fasting blood sugars should be 90-130 in the morning and less than 180 two hours after meals. Reviewed the relationship between poor diabetic control and the development of complications. Check your feet daily looking for any signs of infection, drainage, redness, ulceration and seek medical attention if this occurs. Break in shoes gradually and do not wear open-toed shoes or walk stocking footed or barefooted. Take 15 carb carbohydrate grams to treat a low sugar (3-4 glucose tablets, half a glass of juice or 15 carbohydrate grams of soft candy such as gummie snacks). Recheck your sugar in 15 minutes and re-treat again with 15 carbohydrate grams if low or still with symptoms. Do not drive a car or operate machinery if you do not know what your blood sugar is, if it is low or in excess of 300. Coding Level of Care Code New Pt Level 4 (36918) Complex EM visit Add On G2211 Diagnoses Uncontrolled diabetes mellitus with hyperglycemia E11.65 Time Spent (min) 45
[2025-04-22 10:54] VITALS: BP 142/100; PULSE 103; O2SAT 98; BMI 34.9
[2025-04-22 11:09] LABS: Glucose, Whole Blood 151 mg/dL (60-115)
--- OUTSIDE RECORDS SUMMARY | 2025-04-22 11:30 | XMS_ITS | Clinical Summary ---
Author Organization [facility] ity Address [address] [place] [address] Care Team Providers Care Reliability Manager Name Role Phone Unavailable Primary Care Provider [...]
--- OUTSIDE RECORDS SUMMARY | 2025-04-22 11:30 | XMS_ITS | Clinical Summary ---
Author Organization [facility] Facility Address [address] [address] Care Team Providers Care Dashboard Developer Name Role Phone Kaleb Hoyt NP Primary Care Provider [phone] Allergies Active Allergy Reactions Criticality Noted Date [...] Insurance Comprehensive Benefits Comprehensive Benefits Care Teams Dashboard Developer Relationship Specialty Start Date End Date Kaleb Hoyt NP [address] [place] [id number] PCP - General Nurse Practitioner 11/12/22
== END 2025-04-22 11:46 | disposition home or self-care (01) ==
LOC: HO.ENCR 10:47
PROVIDERS: PCP Nurse Practitioner Family; Visit Provider Nurse Practitioner Adult Health
DX: E11.65 Type 2 diabetes mellitus with hyperglycemia (principal)
CPT/HCPCS: 99204

== ENCOUNTER → 2025-04-22 10:46 | Outpatient (BNVA) | payer OTHER, SELFPAY | PROVIDERS: PCP Nurse Practitioner Family; Visit Provider Nurse Practitioner Adult Health | DX: E11.65 Type 2 diabetes mellitus with hyperglycemia (principal) | CPT/HCPCS: 82947 ==

== ENCOUNTER 2025-04-27 11:42 | Outpatient (REF) | payer OTHER, SELFPAY ==
--- OUTSIDE RECORDS SUMMARY | 2025-04-27 12:19 | XMS_ITS | Clinical Summary ---
Author Organization [facility] ity Address [address] [place] [address] Care Team Providers Care Under Trimmer Name Role Phone Unavailable Primary Care Provider [...]
== END 2025-04-27 11:43 | disposition home or self-care (01) ==
LOC: HO.HMGCLDS 11:42
PROVIDERS: PCP Nurse Practitioner Family; Visit Provider Nurse Practitioner Adult Health
DX: Z13.89 Encounter for screening for other disorder (principal)

== ENCOUNTER 2025-04-28 08:33 | Outpatient (REF) | payer OTHER, SELFPAY ==
--- OUTSIDE RECORDS SUMMARY | 2025-04-28 08:48 | XMS_ITS | Clinical Summary ---
Author Organization [facility] ity Address [address] [place] [address] Care Team Providers Care Seal Mixer Name Role Phone Unavailable Primary Care Provider [...]
[2025-04-28 10:48] LABS: Cholesterol 187 mg/dL (<200); HDL Cholesterol 47 mg/dL (>40); LDL Cholesterol Calculated 119 mg/dL (<100); Triglycerides 107 mg/dL (<150)
[2025-04-29 03:58] LABS: C Peptide 3.49 ng/mL (0.80-3.85)
[2025-05-01 21:33] LABS: Glutamic acid decarboxylase Ab <5 IU/mL (<5)
[2025-05-03 23:19] LABS: Islet Cell Antibody Screen NEGATIVE (NEGATIVE)
== END 2025-04-28 08:34 | disposition home or self-care (01) ==
LOC: HO.HMGCLDS 08:33
PROVIDERS: PCP Nurse Practitioner Family; Visit Provider Nurse Practitioner Adult Health
DX: E11.9 Type 2 diabetes mellitus without complications (principal)
CPT/HCPCS: 36415; 80061; 84681; 86341

== ENCOUNTER 2025-04-28 14:17 | Outpatient (AMB) | payer OTHER, SELFPAY ==
--- NOTE | 2025-04-28 14:18 | A.OFFVIS_ITS ---
Vital Signs 04/28/25 14:25 Height 5 ft 8 in Pulse 98 Pulse Source Pulse Oximeter Pulse Oximetry (%) 98 Oxygen Delivery Method Room Air Intake Visit Reasons: INFECTION Allergies acetaminophen [Tylenol] Allergy (Unknown, Verified 04/28/25 14:25) face swelling aspirin Allergy (Unknown, Verified 04/28/25 14:25) anaphylaxis, edema HPI HPI INFECTION: Details: He is done with IV Kefzol two days ago and has right sided PICC line. He has no diarrhea or rash and is walking on leg. He has no fever or chills. [facility] Medical History Bacteremia due to methicillin susceptible Staphylococcus aureus (MSSA) Cellulitis and abscess of leg Type 2 diabetes mellitus Chronic kidney disease Nephrolithiasis Retinopathy HTN (hypertension) H/O nephrolithotomy with removal of calculi Surgical History History of right below knee amputation (11/06/22) History of hernia repair Family History Father HTN (hypertension) Mother Arthritis Social History Household Members: None Housing: House Are you a primary care associate to a significant other at home: No Do you presently have visiting nurse or other home services: No Alcohol intake: current Alcohol intake frequency: holidays/special occasions only Patient Tobacco Use Status: Never used Tobacco service: No Current occupational status: employed Cognitive needs: No Hearing needs: No Vision needs: No Review of Systems Const All systems reviewed & are unremarkable except as noted in HPI and below Physical Exam Vital Signs: Last Vital Signs Pulse 98 04/28/25 14:25 Pulse Ox 98 04/28/25 14:25 Oxygen Delivery Method Room Air 04/28/25 14:25 Const General: cooperative Orientation/consciousness: patient oriented x3 HEENT Head: Yes normal to inspection Mouth: Normal oral and palatal mucosa present Eyes General: appearance normal, both eyes and all related structures Pupils: Equal, round and reactive pupils present Resp Effort & Inspection: normal respiratory effort Cardio Rate: regular rate Rhythm: regular rhythm GI Palpation (GI): Soft to palpation and nontender General: Yes no CVA tenderness Back/Spine/Pelvis Back: no CVA tenderness Skin General skin exam: no rashes or lesions noted Neuro General: patient oriented x3 Cranial nerves: Yes CN's II-XII intact bilaterally and Yes Equal, round and reactive pupils present Extrem Other: walking well on right prosthetic leg Psych Appearance: grossly normal Assessment & Plan Assessment & Plan (1) Cellulitis and abscess of leg: Code(s): L03.119 - Cellulitis of unspecified part of limb; L02.419 - Cutaneous abscess of limb, unspecified Category: Medical Plan: He has finished four weeks of Kefzol so would stop IV antibiotics. He declines oral therapy followup. No further visits. Will give order to pull PICC line. Coding Level of Care Code Est Pt Level 3 (55022) Diagnoses Cellulitis and abscess of leg L03.119; L02.419
[2025-04-28 14:25] VITALS: PULSE 98; O2SAT 98
== END 2025-04-28 14:53 | disposition home or self-care (01) ==
LOC: HO.HID 14:17
PROVIDERS: PCP Nurse Practitioner Family; Visit Provider Internal Medicine
DX: L03.119 Cellulitis of unspecified part of limb (principal); L02.419 Cutaneous abscess of limb, unspecified
CPT/HCPCS: 99213

== ENCOUNTER 2025-05-20 11:05 | Outpatient (AMB) | payer OTHER, SELFPAY ==
--- NOTE | 2025-05-20 09:56 | A.OFFVIS_ITS ---
Vital Signs 05/20/25 11:07 Height 5 ft 8 in Weight 233 lb 11.04 oz BMI 35.5 BP 140/90 H Blood Pressure Location Rt brachial Position Sitting Pulse 82 Pulse Source Pulse Oximeter Pulse Oximetry (%) 98 Oxygen Delivery Method Room Air Intake Visit Reasons: Type 2 diabetes mellitus with hyperglycemia Intake Note: Patient presents today for a follow-up on Type 2 Diabetes Mellitus: Last Diabetic eye exam was on: OVER A YEAR, DUE Last Podiatry exam was on: Patient does not see a Train Controller Most recent HbA1c: 10.9%, 04/08/2025 Random Glucose- 188 mg/dL, Today Leaflet Distributor Required: No Accompanied by: Self / Same As Patient Allergies acetaminophen (Tylenol) Allergy (Unknown, Verified 05/20/25 11:08) face swelling aspirin Allergy (Unknown, Verified 05/20/25 11:08) anaphylaxis, edema Medication List - Last Reconciled 05/21/25 by Fabienne Manzo NP atorvastatin 20 mg PO BEDTIME blood sugar diagnostic (FreeStyle Lite Strips) As directed blood-glucose meter (FreeStyle Lite Meter kit) As directed blood-glucose sensor (FreeStyle Zhane 3 Plus Sensor device) every 15 days Humalog KwikPen Insulin (insulin lispro) 1 sliding scale dose subcut TID 30 days MDD 36 units NS insulin glargine (Lantus Solostar U-100 Insulin) 20 units (0.2 mL) subcut BEDTIME 30 days losartan 25 mg PO DAILY multivitamin 1 tab PO DAILY Trulicity (dulaglutide) 0.75 mg (0.5 mL) subcut QWEEK 28 days NS HPI Comments Details: [age] YO male who is seen in f/u for T2DM. He was seen last month in consult after having been hospitalized in March for a right leg cellulitis. He was [place] [facility] and completed a 4 week course of IV antibitoics. Initially diagnosed with T2DM 2013 [place] poorly frequent urination and thirst Has h/o Right BKA Was initially started on treatment with started with metformin started on insulin approx 2022 Current regimen: Lantus 26 units Humalog pre meal 80-100 2 units 100-150 4 units 151-200 6 units 201-250 8 units 250-300 10 units Over 300 12 units am highest 170's, normally 150's later in the day 160-170, no more than 200 occasionally above twice weekly He has not yet started on zhane. He was given a sample and pharmacy did call him to say his prescription was in Most recent A1C 10.9% on 04/08/2025, previous 9.7% on 10/22/2024 Family history of T2DM in father, brother, uncle Has eyes checked yearly, 1.5 years ago, Has retinopathy. Has had injections in the past He will schedule appt He has contact infor for MD in [place] Denies neuropathy, last foot exam today Has nephropathy, on ARB followed by Dr. Bonilla. 04/21/2025 EGFR >60 microalbumin 24.0 he has prior history of BARB he is seen annually Has HLD, on statin Last LDL 119 as measured on 04/2025 Statin was recently ordered by PCP and he is now taking it. 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 [facility] Medical History (Updated 05/20/25 @ 12:00 by Fabienne Manzo NP) Bacteremia due to methicillin susceptible Staphylococcus aureus (MSSA) Cellulitis and abscess of leg Type 2 diabetes mellitus Chronic kidney disease Nephrolithiasis Retinopathy HTN (hypertension) H/O nephrolithotomy with removal of calculi Surgical History History of right below knee amputation (11/06/22) History of hernia repair Family History Father HTN (hypertension) Mother Arthritis Social History Household Members: None Housing: House Are you a primary care management associate to a significant other at home: No Do you presently have visiting nurse or other home services: No Alcohol intake: current Alcohol intake frequency: holidays/special occasions only Patient Tobacco Use Status: Never used Tobacco service: No Current occupational status: employed Cognitive needs: No Hearing needs: No Vision needs: No Physical Exam Vital Signs: Last Vital Signs Pulse 82 05/20/25 11:07 BP 140/90 H 05/20/25 11:07 Pulse Ox 98 05/20/25 11:07 Oxygen Delivery Method Room Air 05/20/25 11:07 BMI result Body Mass Index 35.5 Const Other: Absence of Cushingoid features. Absence of acromegalic features. Neck exam reveals nl size thyroid about 15 gms. No thyroid nodules palpable. Heart S1 S2, Reg R/R. No M/R G. Skin exam reveals absence of vitiligo or acanthosis nigricans. No edema BKA Visual exam of foot performed. No ulcerations or open lesions. No inter digit maceration or fissuring. No onychomycosis, no callouses. Sensation intact to monofilament exam. Vibratory sensation is normal with 128 Hz tuning fork. Results Reviewed Results Reviewed: Laboratory Last Values Glucose (Clinic) 188 mg/dL (60-115) H 05/20/25 11:13 Assessment & Plan Assessment & Plan (1) Uncontrolled diabetes mellitus with hyperglycemia: Code(s): E11.65 - Type 2 diabetes mellitus with hyperglycemia Category: Medical Plan: 44 year old type 2 diabetic with prior h/o bka right leg, neuropathy and retinopathy with improving glycemic control currently on mdi. Recent blood work confirms he has type 2. He will start on trulicity 0.5mg and given verbal instructions. He was also asked to have pharmacist demonstrate if he has any questions. Side effects of GLP-1 agonist were reviewed: Nausea, vomiting, diarrhea, headache, dehydration or low blood sugar. Rare acute kidney injury which can result from dehydration. Pancreatitis and gallstones. Contraindicated in MEN or family history of thyroid medullary cancer. Today in the office he was trained in how to use a glucose sensor and he had started this in his arm. He was advised to continue to have access to his glucometer in the event a sensor falls out early or he needs to confirm glucose reading. Reduce insulin to 20 units He will f/u with me in June He was recommended to see the repair clerk. The patient had an opportunity to ask questions regarding treatment plan. The patient expressed understanding and agreement with the above treatment plan. The patient is aware they should contact our office by phone for worsening glucose readings or for any low blood sugars which may warrant a change in diabetes medication. Compliance is encouraged with medications and any followup testing/consults which may have been ordered. Orders: Referrals Biztalk Consultant Nutrition Referral E11.9 - Type 2 diabetes mellitus without complications Diabetes Education Referral E11.9 - Type 2 diabetes mellitus without complications Medications: New Trulicity (dulaglutide) 0.75 mg (0.5 mL) subcut QWEEK 2 mL 1RF 28 days NS Changed From insulin glargine (Lantus Solostar U-100 Insulin) 28 units (0.28 mL) subcut BEDTIME 30 days 9 mL 3RF To insulin glargine (Lantus Solostar U-100 Insulin) 20 units (0.2 mL) subcut BEDTIME 6 mL 3RF 30 days Patient Instructions: The patient was counseled to achieve a target A1C of 7% (154 avg). Fasting blood sugars should be 90-130 in the morning and less than 180 two hours after meals. Reviewed the relationship between poor diabetic control and the development of complications. Always carry a source of sugar Coding Level of Care Code Est Pt Level 4 (14847) Complex EM visit Add On G2211 Diagnoses Uncontrolled diabetes mellitus with hyperglycemia E11.65 Time Spent (min) 30 Comment Time spent reviewing labs/provider notes, face to face, chart doc
[2025-05-20 11:07] VITALS: BP 140/90; PULSE 82; O2SAT 98; BMI 35.5
[2025-05-20 11:17] LABS: Glucose, Whole Blood 188 mg/dL (60-115)
--- OUTSIDE RECORDS SUMMARY | 2025-05-20 12:40 | XMS_ITS | Clinical Summary ---
Author Organization [facility] ity Address [address] [place] [address] Care Team Providers Care Grey Goods Tester Name Role Phone Unavailable Primary Care Provider [...]
== END 2025-05-20 13:35 | disposition home or self-care (01) ==
LOC: HO.ENCR 11:05
PROVIDERS: PCP Nurse Practitioner Family; Visit Provider Nurse Practitioner Adult Health
DX: E11.65 Type 2 diabetes mellitus with hyperglycemia (principal)
CPT/HCPCS: 99214

== ENCOUNTER → 2025-05-20 11:05 | Outpatient (BNVA) | payer OTHER, SELFPAY | PROVIDERS: PCP Nurse Practitioner Family; Visit Provider Nurse Practitioner Adult Health | DX: E11.65 Type 2 diabetes mellitus with hyperglycemia (principal) | CPT/HCPCS: 82947 ==

== ENCOUNTER 2025-07-06 06:59 | Outpatient (AMB) | payer OTHER, SELFPAY ==
--- OUTSIDE RECORDS SUMMARY | 2025-07-06 07:02 | XMS_ITS | Clinical Summary ---
Author Organization [facility] Address [address] [place] [phone] Phone Care Team Providers Care Meters Superintendent Name Role Phone Unavailable Primary Care Provider Unavailabl e Social History Tobacco Use Types Packs/Day Years Used Date Smoking Tobacco: Never Assessed Education Answer Date Recorded Are you interested in more education? Not on delmy e 03/30/2023 Are you concerned about learning? Not on file 03/30/2023 No 03/30/2023 No 03/30/2023 Digital Access Answer Date Recorded No 04/30/2023 No 04/30/2023 Reliable internet access at home? Not on file 04/30/2023 Device with a working camera? Not on file Sex and Gender Information Value Date Recorded Sex Assigned at Not on file Legal Sex Male 2:20 PM EST Gender Identity Not on file Sexual Orientation Not on file Plan of Treatment Not on file Medical Devices Not on file Additional Source Comments The information contained in this document represents components of the legal health record. It is not the complete legal health record.[facility]
--- OUTSIDE RECORDS SUMMARY | 2025-07-06 07:02 | XMS_ITS | Clinical Summary ---
Author Organization [facility] Facility Address [address] [address] Care Team Providers Care Research Nutritionist Name Role Phone Kaleb Hoyt NP Primary Care Provider [phone] Allergies Active Allergy Reactions Criticality Noted Date [...] Diabetes: Visual Foot Exam 02/11/2023 Influenza Vaccine (#1) 2025 Insurance Comprehensive Benefits Comprehensive Benefits Care Teams Research Nutritionist Relationship Specialty Start Date End Date Kaleb Hoyt NP [address] [place] [id number] PCP - General Nurse Practitioner 11/12/22
--- NOTE | 2025-07-06 07:44 | A.OFFVIS_ITS ---
Intake Intake Visit Reasons: Type 2 diabetes mellitus without complications Parking Enforcement Specialist Required: No Accompanied by: Self / Same As Patient Allergies acetaminophen (Tylenol) Allergy (Unknown, Verified 05/20/25 11:08) face swelling aspirin Allergy (Unknown, Verified 05/20/25 11:08) anaphylaxis, edema HPI Comprehensive Diabetes Asmnt Most Recent Diabetes Results: 2 Hemoglobin A1c 11.9 % 06/20/19 Microalb/Creat Ratio 19.3 ug/mg cr 04/26/23 Cholesterol, (<200) 187 mg/dL 04/28/25 HDL Cholesterol, (>40) 47 mg/dL 04/28/25 Triglycerides, (<150) 107 mg/dL 04/28/25 Creatinine, (0.5-1.4) 0.97 mg/dL 04/21/25 BUN, (9-16) 20 mg/dL H 04/21/25 Sodium, (135-145) 134 mmol/L L 04/21/25 Potassium, (3.3-5.1) 4.6 mmol/L 04/21/25 Chloride, (96-108) 102 mmol/L 04/21/25 Carbon Dioxide, (22-29) 23 mmol/L 04/21/25 Calcium, (8.4-10.2) 9.8 mg/dL Δ 04/21/25 AST, (5-37) 26 U/L 03/26/25 ALT, (0-40) 35 U/L 03/26/25 Total Protein, (6.5-8.0) 7.9 g/dL 03/26/25 Albumin, (3.5-5.0) 4.2 g/dL 03/26/25 [facility] Medical History (Updated 05/20/25 @ 12:00 by Fabienne Manzo NP) Bacteremia due to methicillin susceptible Staphylococcus aureus (MSSA) Cellulitis and abscess of leg Type 2 diabetes mellitus Chronic kidney disease Nephrolithiasis Retinopathy HTN (hypertension) H/O nephrolithotomy with removal of calculi Surgical History History of right below knee amputation (11/06/22) History of hernia repair Family History Father HTN (hypertension) Mother Arthritis Social History Household Members: None Housing: House Are you a primary child adolescent care to a significant other at home: No Do you presently have visiting nurse or other home services: No Alcohol intake: current Alcohol intake frequency: holidays/special occasions only Patient Tobacco Use Status: Never used Tobacco service: No Current occupational status: employed Cognitive needs: No Hearing needs: No Vision needs: No Assessment & Plan Assessment & Plan (1) Type 2 diabetes mellitus: Comment: conirmed by labs 04/2025 Cpeptide 3.49 Gada <5.0 neg islet cell antibodies Code(s): E11.9 - Type 2 diabetes mellitus without complications Plan: Diabetes self-management education and support participation record Assessment/scale: 1= needs instructed? 2= needs review? 3= comprehend keep point? 4= demonstrates understanding/ competent? NC= Not Covered Topics Learning Objective: Initial visit Initial or post srvc Initial or post srvc Initial or post srvc Initial or post srvc Initial or post srvc Post srvc Comments Pre Edu-assessment/plan Outcome or reassess O utcome or reassess Outcome or reassess Outcome or reassess Outcome or reassess Outcome or reassess Diabetes pathophysiology 1 Healthy eating 1 Being active 1 Taking medication 1 Monitoring glucose 1 Acute complication 1 Chronic complicated 1 Lifestyle and healthy coping 1 Diabetes distress in support 1 ?Diabetes pathophysiology: ?Defined diabetes med identify own type of diabetes; list 3 options for treating diabetes Healthy eating: ?Described effect of type, amount and ?timing of food on blood glucose; list 3 methods for planning meal Being active: ?State effect of exercise on blood glucose level Taking medication: ?State effect of diabetes medications on diabetes; name diabetes medications taking, action and side effects Monitoring glucose: ?Identify recommended blood glucose targets and personal target Acute complication: ?List symptoms and treatment of hyper and hypoglycemia, DKA, sick day guidelines and guidelines for severe weather or situations of crisis and diabetes supply manage Chronic complication: ?To find the relationship of blood glucose levels to long- term complications of diabetes in screening and preventative measures Lifestyle and healthy coping: ?Described lifestyle and healthy coping strategies to rule out diabetes self-management Diabetes to stress and support: ?Recognize Diabetes to stress and be able to identified support options Learning objectives: The patient was provided with verbal and written education on the following topics as outlined below. The patient met all learning objectives and was able to verbalize understanding and provide teach back of education topics discussed . The patient was provided with the opportunity to ask questions and all questions were answered. Patient Assessment Assess patient education level/literacy/barriers, patient's A1c in 04/2025 10.9%. He will be due for next A1c at visit with Dr. Gardner on 07/14/25. 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 Patient is currently on Lantus 26 units daily Humalog sliding scale Patient reports he has not started Trulicity 0.75 mg because he was on vacation. Agreed to start this week. Patient questions/concerns, patient had 1 episode of hypoglycemia on sensor data. Reviewed with patient how to treat hypoglycemia with rule of 15's. Instructed patient to contact office if he has an increase in hypoglycemia after starting Trulicity. What is Diabetes? Pathophysiology How the body produces and uses insulin Identify type of DM Risk factors Signs of Diabetes Brief overview of Diabetes Management Monitoring blood sugar Following a meal plan Regular exercise Maintaining a healthy weight Taking medication as needed Members of the care team (PCP, RN, MA, RD, CDE, oil well fishing tool operator) Blood glucose monitoring When/how often to test Target blood sugar ranges Patient uses Publere 3+ with phone juan pablo Introduction to Nutrition Importance of healthy diet in managing DM Diet is personalized to individual preference Review patient?s regular diet/food preferences Who prepares meals/does food shopping/ Dining out?/ Barriers? How diet effects glucose Eating 3 balanced meals a day with small, healthy snacks between meals Review food groups Carbohydrates: What is a carbohydrate/Which food/food groups are considered carbohydrates Effect of carbohydrates on blood glucose Portion sizes Reading food labels Basic carb counting (if applicable per nursing assessment) Plate method Meal planning Recommendations: Follow plate method, consistent carbs and read nutritional labels. Smart Goal: Patient will identify foods that contain carbohydrate in meal plan Educational Materials: The patient was provided with the following written educational materials: Planning Healthy Meals Handout Patient Response to instructions: Comprehension of Instructions: Fair Readiness to make changes: Contemplation How confident they feel about making changes: Positive Portions of this note were created using voice recognition software, please excuse any words or phrases that may have been misinterpreted. Patient Instructions: Include regular daily activity. ADA recommends 30 minutes of exercise 5 days a week. Weight loss talk to PCP or Printing Machine Operator before starting new plan. Test blood sugar as directed; Fasting and 2hpp largest meal. Watch trends in results. Utilize results and to assess how food, physical activity and medications affect blood sugar results. Bring glucometer or CGM to next visit. Be knowledgeable about diabetes medication, its action, side effects, efficacy, toxicity, prescribed dosage, appropriate timing and frequency of administration, effect of missed and delayed doses and instructions for storage, travel and safety. Problem solving techniques to monitor hypo/hyperglycemia episodes and treatments. Reduce risk reduction behaviors, smoking cessation, regular eye, foot and dental examinations. Coding Level of Care Code Est Pt Level 1 (32982) Diagnoses Type 2 diabetes mellitus E11.9
== END 2025-07-06 07:46 | disposition home or self-care (01) ==
LOC: HO.ENCR 07:00
PROVIDERS: PCP Nurse Practitioner Family; Visit Provider Registered Nurse Diabetes Educator
DX: E11.9 Type 2 diabetes mellitus without complications (principal)
CPT/HCPCS: 99211

== ENCOUNTER 2025-07-14 09:31 | Outpatient (AMB) | payer OTHER, SELFPAY ==
[2025-07-14 09:36] VITALS: BP 134/90; PULSE 95; O2SAT 98; BMI 35.5
--- NOTE | 2025-07-14 09:36 | A.OFFVIS_ITS ---
Vital Signs 07/14/25 09:36 Height 5 ft 8 in Weight 233 lb 11.04 oz BMI 35.5 BP 134/90 H Blood Pressure Location Rt brachial Position Sitting Pulse 95 Pulse Source Pulse Oximeter Pulse Oximetry (%) 98 Oxygen Delivery Method Room Air Intake Visit Reasons: Type 2 diabetes mellitus with hyperglycemia Intake Note: Patient presents today for a follow-up on Type 2 Diabetes Mellitus: Last seen by Fabienne Manzo on 05/20/2025. Patient receives Freestyle Zhane 3 Plus supplies through Pharmacy benefit Last Diabetic eye exam was on: 06/2025, [facility] Last Podiatry exam was on: Patient does not see a Manager Pathology Most recent HbA1c: 7.8%, 07/14/2025 Random Glucose- 164 mg/dL, Today Public Safety Officer Required: No Accompanied by: Self / Same As Patient Allergies acetaminophen (Tylenol) Allergy (Unknown, Verified 05/20/25 11:08) face swelling aspirin Allergy (Unknown, Verified 05/20/25 11:08) anaphylaxis, edema Medication List - Last Reconciled 07/14/25 by Jairo Gardner MD atorvastatin 20 mg PO BEDTIME blood sugar diagnostic (FreeStyle Lite Strips) As directed blood-glucose meter (FreeStyle Lite Meter kit) As directed blood-glucose sensor (FreeStyle Zhane 3 Plus Sensor device) every 15 days Humalog KwikPen Insulin (insulin lispro) 1 sliding scale dose subcut TID 30 days MDD 36 units NS insulin glargine (Lantus Solostar U-100 Insulin) 20 units (0.2 mL) subcut BEDTIME 30 days losartan 25 mg PO DAILY multivitamin 1 tab PO DAILY Trulicity (dulaglutide) 0.75 mg (0.5 mL) subcut QWEEK 28 days NS HPI Comments Details: [age] YO male who is seen in f/u for T2DM. Initially diagnosed with T2DM 2013 Horner poorly frequent urination and thirst Has h/o Right BKA Was initially started on treatment with started with metformin started on insulin approx 2022 Current regimen: Lantus 26 units Humalog pre meal 80-100 2 units 100-150 4 units 151-200 6 units 201-250 8 units 250-300 10 units Over 300 12 units Trulicity 0.75 mg Qwkly just started few days a go Zhane download shows he is using Zhane 96 % of time . Avg glucose is 182 with GMI of 7.7 and variability of 23% 57% in range with 43% hyperglycemia and 0 % hypoglycemia . Pattern shows post-prndial spikes in glucose Most recent A1C 10.9% on 04/08/2025, previous 9.7% on 10/22/2024 Family history of T2DM in father, brother, uncle Has eyes checked yearly 1 mo ago , , Has retinopathy. Has had injections in the past He will schedule appt He has contact infor for MD in [place] Denies neuropathy, last foot exam today Has nephropathy, on ARB followed by Dr. Bonilla. 04/21/2025 EGFR >60 microalbumin 24.0 he has prior history of BARB he is seen annually Has HLD, on statin not taking consistently Last LDL 119 as measured on 04/2025 Statin was recently ordered by PCP and he is now taking it. 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 [facility] Medical History (Updated 05/20/25 @ 12:00 by Fabienne Manzo NP) Bacteremia due to methicillin susceptible Staphylococcus aureus (MSSA) Cellulitis and abscess of leg Type 2 diabetes mellitus Chronic kidney disease Nephrolithiasis Retinopathy HTN (hypertension) H/O nephrolithotomy with removal of calculi Surgical History History of right below knee amputation (11/06/22) History of hernia repair Family History Father HTN (hypertension) Mother Arthritis Social History Household Members: None Housing: House Are you a primary primary health care nurse to a significant other at home: No Do you presently have visiting nurse or other home services: No Alcohol intake: current Alcohol intake frequency: holidays/special occasions only Patient Tobacco Use Status: Never used Tobacco service: No Current occupational status: employed Cognitive needs: No Hearing needs: No Vision needs: No Physical Exam Vital Signs: Last Vital Signs Pulse 95 07/14/25 09:36 BP 134/90 H 07/14/25 09:36 Pulse Ox 98 07/14/25 09:36 Oxygen Delivery Method Room Air 07/14/25 09:36 BMI result Body Mass Index 35.5 Const Other: Absence of Cushingoid features. Absence of acromegalic features. Neck exam reveals nl size thyroid about 15 gms. No thyroid nodules palpable. Heart S1 S2, Reg R/R. No M/R G. Skin exam reveals absence of vitiligo or acanthosis nigricans. No edema BKAon R side Visual exam of foot performed. No ulcerations or open lesions. No inter digit maceration or fissuring. No onychomycosis, no callouses. Sensation intact to monofilament exam. Vibratory sensation is normal with 128 Hz tuning fork. Results AMB Hemoglobin A1c AMB Hemoglobin A1c 7.8 % Last Edit by REGAN Belcher on 07/14/25 09:51 Results Reviewed Results Reviewed: Laboratory Last Values Glucose (Clinic) 164 mg/dL (60-115) H 07/14/25 09:42 Assessment & Plan Assessment & Plan (1) Type 2 diabetes mellitus: Comment: conirmed by labs 04/2025 Cpeptide 3.49 Gada <5.0 neg islet cell antibodies Code(s): E11.9 - Type 2 diabetes mellitus without complications Category: Medical Plan: This is a 44 yo male with a hx of Type 2 DM being treated with basal- bolus insulin and Trulicity with fair glycemic control and known microvascular complications including retinopathy and neuropathy with BL BKA. The plan is to icontinue Trulicity to see effect . Will hold off on increase Humalog scale by 2 units. Will f/u with primary care diabetes team in 4 wks. Will recheck lipid profile in 2 mos after consistently taking atorvastatin. Will check micro/cr. Orders: Orders Microalbumin, Random (w Creat) Today E11.9 - Type 2 diabetes mellitus without complications AMB Hemoglobin A1c Today E11.9 - Type 2 diabetes mellitus without complications Lipid Panel 2 Months E11.9 - Type 2 diabetes mellitus without complications Coding Level of Care Code Est Pt Level 4 (52947) Complex EM visit Add On G2211 Diagnoses Type 2 diabetes mellitus E11.9
[2025-07-14 09:46] LABS: Glucose, Whole Blood 164 mg/dL (60-115)
--- OUTSIDE RECORDS SUMMARY | 2025-07-14 10:01 | XMS_ITS | Clinical Summary ---
Author Organization [facility] Facility Address [address] [address] Care Team Providers Care Gantry Crane Operator Name Role Phone Kaleb Hoyt NP Primary Care Provider [phone] Allergies Active Allergy Reactions Criticality Noted Date [...] (#1) 2025 Insurance [place] [address] Care Teams Gantry Crane Operator Relationship Specialty Start Date End Date Kaleb Hoyt NP [address] [place] [id number] PCP - General Nurse Practitioner 11/12/22
--- OUTSIDE RECORDS SUMMARY | 2025-07-14 10:01 | XMS_ITS | Clinical Summary ---
Author Organization [facility] Address [address] [place] [phone] Phone Care Team Providers Care Front Desk Lead Name Role Phone Unavailable Primary Care Provider [...] It is not the complete legal health record.[facility]
--- OUTSIDE RECORDS SUMMARY | 2025-07-14 10:01 | XMS_ITS | Clinical Summary ---
Author Organization [facility] ity Address [address] [place] [address] Care Team Providers Care Associate Accountant Name Role Phone Unavailable Primary Care Provider [...] Panel) 12/27/2023 Colorectal Cancer Screening: Colonoscopy 12/27/2023 HIV Screening 12/27/2023 Hepatitis C Screening 12/27/2023 Social Influencers of Health Screening 12/27/2023 COVID-19 Vaccine ( - 2023-2 5 season) 2024 Depression Screening 12/02/2024 Influenza Vaccine (#1) 2025 HIB Vaccines Aged Out No longer [...] and At-Risk Patients (6 to 49 Years) Aged Out No longer eligible b ased on patient's age to complete this topic RSV Immunization Patients Un courtney 20 months Aged Out No longer eligible b ased on patient's age to complete this topic Varicella Vaccines Aged Out No longer eligible based on patient's age to complete this topic
== END 2025-07-14 10:40 | disposition home or self-care (01) ==
PROVIDERS: PCP Nurse Practitioner Family; Visit Provider Internal Medicine Endocrinology, Diabetes & Metabolism
DX: E11.9 Type 2 diabetes mellitus without complications (principal)
CPT/HCPCS: 99214

== ENCOUNTER 2025-07-14 10:22 | Outpatient (REF) | payer OTHER, SELFPAY ==
[2025-07-14 14:45] LABS: Microalbum/Creatinine Ratio Ur 25.0 ug/mg cr (<30)
== END 2025-07-14 10:23 | disposition home or self-care (01) ==
LOC: HO.10HDL 10:22
PROVIDERS: Visit Provider Internal Medicine Endocrinology, Diabetes & Metabolism
DX: E11.9 Type 2 diabetes mellitus without complications (principal)
CPT/HCPCS: 82043; 82570; 82947; 83036

== ENCOUNTER 2025-07-21 10:13 | Outpatient (AMB) | payer OTHER, SELFPAY ==
--- NOTE | 2025-07-21 10:17 | A.OFFPC_ITS ---
Vital Signs 07/21/25 10:19 07/21/25 10:46 Height 5 ft 8 in Weight 233 lb BMI 35.4 BP 124/94 H 134/88 Blood Pressure Location Lt brachial Position Sitting Respiration 16 Pulse 97 Pulse Source Pulse Oximeter Pulse Oximetry (%) 99 Oxygen Delivery Method Room Air Intake Visit Reasons: 4 months f/up Pc Installation Engineer Required: No Accompanied by: Self / Same As Patient Allergies acetaminophen (Tylenol) Allergy (Unknown, Verified 07/21/25 10:30) face swelling aspirin Allergy (Unknown, Verified 07/21/25 10:30) anaphylaxis, edema Medication List - Last Reconciled 07/21/25 by Kaleb Hoyt, PROPERTY AND CASUALTY INSURANCE AGENT- atorvastatin 20 mg PO BEDTIME blood sugar diagnostic (FreeStyle Lite Strips) As directed blood-glucose meter (FreeStyle Lite Meter kit) As directed blood-glucose sensor (FreeStyle Zhane 3 Plus Sensor device) every 15 days Humalog KwikPen Insulin (insulin lispro) 1 sliding scale dose subcut TID 30 days MDD 36 units NS insulin glargine (Lantus Solostar U-100 Insulin) 20 units (0.2 mL) subcut BEDTIME 30 days losartan 25 mg PO DAILY multivitamin 1 tab PO DAILY Trulicity (dulaglutide) 0.75 mg (0.5 mL) subcut QWEEK 28 days NS Tobacco use date assessed: 04/08/25 Dental Screening Dental Screen Date: 07/21/25 Did you have a dental visit in the last 12 months?: Yes Did you have a dental problem in the last 6 months where you did not have access to dental care?: No Was dental information given to patient?: Patient has dentist HPI 4 months f/up HPI Details Chief Complaint The patient presents for follow-up management of hypertension. History of Present Illness The patient is a 44-year-old male presenting with hypertension management. His blood pressure has decreased slightly since the last visit, although the diastolic pressure remains somewhat elevated. He has been advised to monitor his blood pressure at home and report the values through the patient portal over the next few weeks. The patient denies experiencing any chest pain, dyspnea, blurred vision, headache, or dizziness. There is no history of edema, and the cardiovascular examination revealed normal S1 and S2 heart sounds. Social History Health Maintenance Review of Systems - Cardiovascular: Denies chest pain - Respiratory: Denies dyspnea - Neurological: Denies blurred vision, h eadache, or dizziness - General: Denies edema Physical Exam General: Cooperative, healthy appearing, comfortable, no acute distress and well developed Orientation: Patient oriented x3 Limitations: No limitations Head: Normal to inspection Ears: Hearing grossly normal bilaterally Nose: Normal external nose present Face and sinus: Normal facial exam Eyes: Appearance normal, both eyes and all related structures Respiratory: Normal respiratory effort and able to speak in complete sentences. Clear to auscultation bilaterally Cardiovascular: Regular rate and rhythm. Normal S1 and S2 GI: Normal to inspection. Soft to palpation and nontender Neuro: Patient oriented x3 Extremities: Normal to inspection, no edema noted Results Plan The patient will continue to monitor his blood pressure at home and report the values through the patient portal over the next few weeks. Based on these readings, medication adjustments may be considered if necessary. Discussion Notes I discussed with the patient the importance of monitoring his blood pressure at home and reporting the values through the patient portal. We will consider adjusting his medications based on these readings if necessary. Patient Instructions - Monitor your blood pressure at home re greglarly. - Report your blood pressure readings th rough the patient portal over the next few weeks. [facility] Medical History Bacteremia due to methicillin susceptible Staphylococcus aureus (MSSA) Cellulitis and abscess of leg Type 2 diabetes mellitus Chronic kidney disease Nephrolithiasis Retinopathy HTN (hypertension) H/O nephrolithotomy with removal of calculi Surgical History History of right below knee amputation (11/06/22) History of hernia repair Family History Father HTN (hypertension) Mother Arthritis Social History Household Members: None Housing: House Are you a primary acute care assistant to a significant other at home: No Do you presently have visiting nurse or other home services: No Alcohol intake: current Alcohol intake frequency: holidays/special occasions only Patient Tobacco Use Status: Never used Tobacco service: No Current occupational status: employed Cognitive needs: No Hearing needs: No Vision needs: No Questionnaire PHQ-9 Over the last 2 weeks, how often have you been bothered by any of the following problems? 1. Little interest or pleasure in doing things: not at all 2. Feeling down, depressed, or hopeless: not at all 3. Trouble falling or staying asleep, or sleeping too much: not at all 4. Feeling tired or having little energy: not at all 5. Poor appetite or overeating: not at all 6. Feeling bad about yourself - or that you are a failure or have let yourself or your family down: not at all 7. Trouble concentrating on things, such as reading the newspaper or watching t elevision: not at all 8. Moving or speaking so slowly that other people could have noticed. Or the opposite - being so fidgety or restless that you have been moving around a lot more than usual: not at all 9. Thoughts that you would be better off or of hurting yourself in some way: not at all Total score: 0 Depression Screening Interpretation: Negative Depression Screening Done: Yes 85890 - PHQ-9 Billing: Yes Source: Developed by Drs. Jairo Patton, Lisa Oro, Homero Ricardo and colleagues, with an educational tc from [employer]. Thrive Questionnaire Date Thrive assessed: 04/08/25 I am a: Patient What is your living situation today?: I choose not to answer this question Within the past 12 months, did the food you bought not last and you didn't have the money to get more?: I choose not to answer this question Within the past 12 months, did you worry whether your food would run out before you got money to buy more?: I choose not to answer this question Do you have trouble paying for medicines?: No Do you have trouble getting transportation to medical appointments?: No Do you have trouble paying your heating and electricity bill?: I choose not to answer this question Do you have trouble taking care of your child, family member or friend?: No Do you have trouble with day-to-day activities such as bathing, preparing meals, shopping, managing finances, etc.?: No Are you currently unemployed and looking for a job?: No Are you interested in more education?: No Please select the resources that you would like help with: None Currently or been in a relationship where the following occur: I choose not to answer THRIVE Score: 0 AUDIT C Alcohol Use Questionnaire (AUDIT-C) 1. How often do you have a drink containing alcohol?: Never Total Score: 0 RAMIREZ-7 AMB Questionnaire RAMIREZ-7 Date RAMIREZ - 7 assessed: 07/21/25 Feeling nervous, anxious, or on edge: 0 = Not at all Not being able to stop or control worryin = Not at all Worrying too much about different things: 0 = Not at all Trouble relaxin = Not at all Being so restless that it is hard to sit still: 0 = Not at all Becoming easily annoyed or irritable: 0 = Not at all Feeling afraid as if something awful might happen: 0 = Not at all Total RAMIREZ-7 score (0-4 normal; 5-9 mild; 10-14 moderate; 15-21 severe): 0 Source: Developed by Drs. Jairo Patton, Lisa Oro, Homero Ricardo and colleagues, with an educational tc from [employer]. RAMIREZ-7 Assessment Billing RAMIREZ-7 Assessment Tool: RAMIREZ-7 Assessment 32149 Physical exam (Primary Care) Vital Signs: Last Vital Signs Pulse 97 07/21/25 10:19 Resp 16 07/21/25 10:19 BP 124/94 H 07/21/25 10:19 Pulse Ox 99 07/21/25 10:19 Oxygen Delivery Method Room Air 07/21/25 10:19 BMI result Body Mass Index 35.4 Tobacco/Smoking Status: Tobacco use Status Tobacco use date assessed 04/08/25 07/21/25 10:19 Patient Tobacco Use Status Never used Tobacco 07/21/25 10:19 PHQ-9: PHQ-9 Score PHQ-9: Total score 0 07/21/25 10:24 Depression Screening Interpretation: Negative Thrive Assessment: Date of Thrive Assessment Date Thrive assessed 04/08/25 07/21/25 10:19 Currently or been in a relationship where the following occur: I choose not to answer Coding Level of Care Code Est Pt Level 3 (21732) Diagnoses HTN (hypertension) I10 Additional Codes RAMIREZ-7 Assessment Billing - RAMIREZ-7 Assessment Tool: RAMIREZ-7 Assessment 58385 ([id number]) PHQ-9 - 89062 - PHQ-9 Billing: Yes ([id number]) Assessment & Plan Assessment & Plan (1) HTN (hypertension): Code(s): I10 - Essential (primary) hypertension Category: Medical Plan . Orders: Orders Complete Blood Count Auto Diff Today I10 - Essential (primary) hypertension Comprehensive [place]. Panel Fast Today I10 - Essential (primary) hypertension TSH reflex Free T4 Today I10 - Essential (primary) hypertension UA CC w/rflx Micro + Cult Today I10 - Essential (primary) hypertension Lipid Panel Today I10 - Essential (primary) hypertension Medications: New betamethasone valerate 0.1% 1 appl topical BID PRN 45 grams 1RF skin irritation
[2025-07-21 10:19] VITALS: BP 124/94; PULSE 97; RESP 16; O2SAT 99; BMI 35.4
[2025-07-21 10:46] VITALS: BP 134/88
--- OUTSIDE RECORDS SUMMARY | 2025-07-21 11:26 | XMS_ITS | Clinical Summary ---
Author Organization [facility] Address [address] [place] [phone] Phone Care Team Providers Care Reading Professor Name Role Phone Unavailable Primary Care Provider [...] It is not the complete legal health record.[facility]
--- OUTSIDE RECORDS SUMMARY | 2025-07-21 11:26 | XMS_ITS | Clinical Summary ---
Author Organization [facility] ity Address [address] [place] [address] Care Team Providers Care Career Transition Specialist Name Role Phone Unavailable Primary Care Provider [...]
--- OUTSIDE RECORDS SUMMARY | 2025-07-21 11:26 | XMS_ITS | Clinical Summary ---
Author Organization [facility] Address [address] [address] Care Team Providers Care Electric Arc Furnace Operator Name Role Phone Kaleb Hoyt NP Primary Care Provider [phone] Allergies Active Allergy Reactions Criticality Noted Date [...] (#1) 2025 Insurance Comprehensive [place] [address] Care Teams Electric Arc Furnace Operator Relationship Specialty Start Date End Date Kaleb Hoyt NP [address] [place] [id number] PCP - General Nurse Practitioner 11/12/22
== END 2025-07-21 10:50 | disposition home or self-care (01) ==
LOC: HO.HMCC 10:14
PROVIDERS: PCP Nurse Practitioner Family; Visit Provider Nurse Practitioner Family
DX: I10 Essential (primary) hypertension (principal)

== ENCOUNTER → 2025-07-21 10:13 | Outpatient (BNVA) | payer OTHER, SELFPAY | PROVIDERS: PCP Nurse Practitioner Family; Visit Provider Nurse Practitioner Family | DX: I10 Essential (primary) hypertension (principal) | CPT/HCPCS: 96127 ==

== ENCOUNTER 2025-08-06 09:54 | Outpatient (AMB) | payer OTHER, SELFPAY ==
--- NOTE | 2025-08-06 10:11 | MHC.OFFVIS ---
Vital Signs 08/06/25 10:14 Height 5 ft 8 in Weight 212 lb 15.465 oz BMI 32.4 BP 136/86 Blood Pressure Location Rt brachial Position Sitting Pulse 94 Pulse Source Pulse Oximeter Pulse Oximetry (%) 97 Oxygen Delivery Method Room Air Intake Visit Reasons: Type 2 diabetes mellitus with hyperglycemia Intake Note: Patient present today to follow up on Type 2 Diabetes Mellitus. Patient receives Zhane 3 Plus supplies through: Pharmacy Last Diabetic Eye exam: June 2025 [facility] Last Podiatry Visit: Has a prosthetic-right leg, hasn't seen a [place] Line Attendant for a few years Random Glucose: 123 mg/dl Hgb A1C: 7.8% 07/14/2025 Chief Load Dispatcher Required: No Accompanied by: Self / Same As Patient Allergies acetaminophen (Tylenol) Allergy (Unknown, Verified 08/06/25 10:16) face swelling aspirin Allergy (Unknown, Verified 08/06/25 10:16) anaphylaxis, edema Medication List - Last Reconciled 08/06/25 by WILDA Mendes atorvastatin 20 mg PO BEDTIME betamethasone valerate 0.1% 1 appl topical BID PRN blood sugar diagnostic (FreeStyle Lite Strips) As directed blood-glucose meter (FreeStyle Lite Meter kit) As directed blood-glucose sensor (FreeStyle Zhane 3 Plus Sensor device) every 15 days dulaglutide (Trulicity) 1.5 mg (0.5 mL) subcut QWEEK glucose (Dex4 Glucose Quick Dissolve) 16 grams (4 x 4 gram) PO Q15M PRN losartan 25 mg PO DAILY multivitamin 1 tab PO DAILY HPI Comments Details: This is a 44-year-old male with a past medical history of hypertension, right BKA, BARB and type 2 diabetes presenting for diabetic management. He was last seen by Dr. Gardner on 07/14/2025. He was initially diagnosed with type 2 diabetes in 2012. He was initially treated with metformin and then started on insulin in 2022. His current regimen is Trulicity 0.75 mg weekly. He is prescribed Lantus and Humalog, but he has not been taking them for the last couple of weeks because his blood sugars were low overnight since taking Trulicity and starting to exercise and change his diet. He finds the CGM very helpful. He lost 19 lb. He did not have symptoms with low sugars, and he treated them by eating ice cream. He has weight lifting and using a stationary bike. His hemoglobin A1c decreased from 10.9% to 7.8%. Reviewed CGM data CGM active 96% G NM 7.3% Glucose variability 22.3% Very high 3% High 26% Target range 71% Hypoglycemia 0% He experiences occasional postprandial hyperglycemia Complications: Retinopathy, nephropathy on Arb and followed by Dr. Bonilla. Prior history of BARB. Hyperlipidemia is treated with a statin. He was not taking it consistently an LDL was 119. It was recently ordered by his PCP, and he reports he is taking it consistently now. Patient had diabetes education. ROS: Constitutional: No unexplained weight loss, fever, chills, fatigue or night sweats. Eyes: Denies vision changes Respiratory: No shortness of breath Cardiovascular: No chest pain Gastrointestinal: No anorexia, nausea, vomiting or diarrhea. No abdominal pain Neurologic: No headache, dizziness, syncope or numbness and tingling in the extremities. Endocrine: Denies polyuria and polydipsia. Physical exam: Constitutional: Alert, in no distress. Neck: Supple, Full range of motion. No lymphadenopathy. No palpable thyroid masses. Respiratory: Clear to auscultation. Cardiovascular: S1 S2 regular. No murmurs. [facility] Medical History (Updated 08/06/25 @ 10:58 by WILDA Mendes) Hyperlipidemia Bacteremia due to methicillin susceptible Staphylococcus aureus (MSSA) Cellulitis and abscess of leg Type 2 diabetes mellitus Chronic kidney disease Nephrolithiasis Retinopathy HTN (hypertension) H/O nephrolithotomy with removal of calculi Surgical History History of right below knee amputation (11/06/22) History of hernia repair Family History Father HTN (hypertension) Mother Arthritis Social History Household Members: None Housing: House Are you a primary direct care staffer to a significant other at home: No Do you presently have visiting nurse or other home services: No Alcohol intake: current Alcohol intake frequency: holidays/special occasions only Patient Tobacco Use Status: Never used Tobacco service: No Current occupational status: employed Cognitive needs: No Hearing needs: No Vision needs: No Physical Exam Vital Signs: Last Vital Signs Pulse 94 08/06/25 10:14 BP 136/86 08/06/25 10:14 Pulse Ox 97 08/06/25 10:14 Oxygen Delivery Method Room Air 08/06/25 10:14 BMI result Body Mass Index 32.4 Office Procedures Glucose Monitoring Details Details: See HPI 65431 - Glucose monitoring, continuous-physician I&R Procedure code (CPT) selection complete Results Reviewed Results Reviewed: Laboratory Tests 03/26/25 04/01/25 04/28/25 18:17 05:25 08:39 Plt Count 309 AST 26 ALT 35 Triglycerides 107 Cholesterol 187 LDL Cholesterol, Calc 119 H HDL Cholesterol 47 Urine Creatinine Urine Microalbumin Microalb/Creat Ratio Islet Cell Ab Screen NEGATIVE RAMIREZ Antibody <5 07/14/25 10:25 Plt Count AST ALT Triglycerides Cholesterol LDL Cholesterol, Calc HDL Cholesterol Urine Creatinine 191.26 Urine Microalbumin 48.0 Microalb/Creat Ratio 25.0 Islet Cell Ab Screen RAMIREZ Antibody Assessment & Plan Assessment & Plan (1) Type 2 diabetes mellitus: Code(s): E11.9 - Type 2 diabetes mellitus without complications Category: Medical Qualifiers: Diabetes mellitus penitentiary insulin use: without superintendent terminal use Diabetes mellitus complication status: with kidney complications Diabetes mellitus complication detail: with other kidney complication Qualified Code(s): E11.29 - Type 2 diabetes mellitus with other diabetic kidney complication Plan: In summary this is a 44-year-old male with suboptimally albeit improving type 2 diabetes. We discussed the complications of type 2 diabetes. He will continue to see his specialists. He self-discontinued insulins within the past couple of weeks due to lows, and his glycemic control is stable. He can remain off insulin for now. Increase Trulicity to 1.5 mg weekly for a target A1c of less than 7%. Congratulated on weight loss. Continue to exercise regularly. Continue low carbohydrate, low sugar diet. Given and reviewed written instructions for hypoglycemia. Glucose tablets sent to pharmacy. (2) HTN (hypertension): Code(s): I10 - Essential (primary) hypertension Category: Medical Qualifiers: Hypertension type: primary hypertension Qualified Code(s): I10 - Essential (primary) hypertension Plan: Blood pressure is suboptimal today. He will continue losartan. He will return in a few weeks to recheck this. (3) Hyperlipidemia: Code(s): E78.5 - Hyperlipidemia, unspecified Category: Medical Qualifiers: Hyperlipidemia type: pure hypercholesterolemia Qualified Code(s): E78.00 - Pure hypercholesterolemia, unspecified Plan: He is taking the statin consistently now it has orders in to repeat blood tests. Recommended Mediterranean diet. Continue efforts at weight loss. Plan Follow up in 3 weeks to review CGM data. Orders: Orders AMB Glucose Monitoring Today E11.9 - Type 2 diabetes mellitus without complications Medications: New glucose (Dex4 Glucose Quick Dissolve) until symptoms of low blood sugar are controlled 16 grams (4 x 4 gram) PO Q15M PRN 30 tabs 3RF hypoglycemia (blood glucose under 70) dulaglutide (Trulicity) 1.5 mg (0.5 mL) subcut QWEEK 2 mL 3RF Discontinued Trulicity (dulaglutide) Discontinued Reason: Doctor's Order 0.75 mg (0.5 mL) subcut QWEEK 28 days 2 mL 1RF NS Patient Instructions: Increase Trulicity to 1.5 mg weekly. You can stop Humalog and stay off Lantus for now. If you experience low blood sugar, treat this by eating a chewable fruit candy like skittles or jelly beans (about 8 pieces), 4 ounces (1/2 cup) of fruit juice (not diet), 1 tablespoon of honey or 4 glucose tablets. If your blood sugar is under 50, take double the amount of one of the above. Recheck your blood sugar in 15 minutes. Coding Level of Care Code Est Pt Level 4 (44345) Diagnoses Type 2 diabetes mellitus with other diabetic kidney complication, without long-term current use of insulin E11.29 Diabetes mellitus superintendent terminal insulin use: without superintendent terminal use Diabetes mellitus complication status: with kidney complications Diabetes mellitus complication detail: with other kidney complication Primary hypertension I10 Hypertension type: primary hypertension Pure hypercholesterolemia E78.00 Hyperlipidemia type: pure hypercholesterolemia CPT Codes Details - CPT: 90031 - Glucose monitoring, continuous-physician I&R ([id number])
[2025-08-06 10:14] VITALS: BP 136/86; PULSE 94; O2SAT 97; BMI 32.4
[2025-08-06 10:27] LABS: Glucose, Whole Blood 123 mg/dL (60-115)
--- OUTSIDE RECORDS SUMMARY | 2025-08-06 10:40 | XMS_ITS | Clinical Summary ---
Author Organization [facility] ity Address [address] [place] [address] Care Team Providers Care Food And Beverage Outlets Manager Name Role Phone Unavailable Primary Care [...] 12/27/2023 Social Influencers of Health Screening 12/27/2023 Depression Screening 12/02/2024 COVID-19 Vaccine ( - 2023-2 5 season) 2025 Influenza Vaccine (#1) 2025 HIB Vaccines Aged [...]
--- OUTSIDE RECORDS SUMMARY | 2025-08-06 10:40 | XMS_ITS | Clinical Summary ---
Author Organization [facility] Address [address] [place] [phone] Phone Care Team Providers Care Senior Civil Engineer Name Role Phone Unavailable Primary Care [...] It is not the complete legal health record.[facility]
--- OUTSIDE RECORDS SUMMARY | 2025-08-06 10:40 | XMS_ITS | Clinical Summary ---
Author Organization [facility] Facility Address [address] [address] Care Team Providers Care Laborer [place] Name Role Phone Kaleb Hoyt NP Primary Care Provider [phone] Allergies Active Allergy Reactions Criticality Noted Date [...] Insurance Comprehensive Benefits Comprehensive Benefits Care Teams Laborer [employer] Relationship Specialty Start Date End Date Kaleb oHyt NP [address] [place] [phone] PCP - General Nurse Practitioner 11/12/22
== END 2025-08-06 10:49 | disposition home or self-care (01) ==
LOC: HO.ENCR 09:55
PROVIDERS: PCP Nurse Practitioner Family; Visit Provider Physician Assistant Medical
DX: E11.29 Type 2 diabetes mellitus with other diabetic kidney complication (principal); I10 Essential (primary) hypertension; E78.00 Pure hypercholesterolemia, unspecified

== ENCOUNTER → 2025-08-06 09:54 | Outpatient (BNVA) | payer OTHER, SELFPAY | PROVIDERS: PCP Nurse Practitioner Family; Visit Provider Physician Assistant Medical | DX: E11.65 Type 2 diabetes mellitus with hyperglycemia (principal) | CPT/HCPCS: 82947 ==

== ENCOUNTER 2025-08-31 09:26 | Outpatient (AMB) | payer OTHER, SELFPAY ==
[2025-08-31 09:28] VITALS: BP 118/68; PULSE 98; O2SAT 98; BMI 35.4
--- NOTE | 2025-08-31 09:28 | MHC.OFFVIS ---
Vital Signs 08/31/25 09:28 Height 5 ft 8 in Weight 232 lb 12.93 oz BMI 35.4 BP 118/68 Blood Pressure Location Rt brachial Position Sitting Pulse 98 Pulse Source Pulse Oximeter Pulse Oximetry (%) 98 Oxygen Delivery Method Room Air Intake Visit Reasons: T2DM Intake Note: Patient present today to follow up on Type 2 Diabetes Mellitus.? Patient receives Zhane 3 Plus supplies through: Pharmacy Last Diabetic Eye exam: June 2025 [facility] Last Podiatry Visit: Has a prosthetic-right leg, hasn't seen a Table Tender for a few years? Random Glucose: mg/dl 259 Hgb A1C: 7.8% 07/14/2025 Branch Operations Coordinator Required: No Branch Operations Coordinator Services: Branch Operations Coordinator Offered & Declined (Montenegrin) Accompanied by: Self / Same As Patient Allergies acetaminophen (Tylenol) Allergy (Unknown, Verified 08/31/25 09:42) face swelling aspirin Allergy (Unknown, Verified 08/31/25 09:42) anaphylaxis, edema Medication List - Last Reconciled 08/31/25 by WILDA Mendes atorvastatin 20 mg PO BEDTIME betamethasone valerate 0.1% 1 appl topical BID PRN blood sugar diagnostic (FreeStyle Lite Strips) As directed blood-glucose meter (FreeStyle Lite Meter kit) As directed blood-glucose sensor (FreeStyle Zhane 3 Plus Sensor device) every 15 days dulaglutide (Trulicity) 1.5 mg (0.5 mL) subcut QWEEK glucose (Dex4 Glucose Quick Dissolve) 16 grams (4 x 4 gram) PO Q15M PRN losartan 25 mg PO DAILY multivitamin 1 tab PO DAILY HPI Comments Details: This is a 44-year-old male with a past medical history of hypertension, right BKA, BARB and type 2 diabetes presenting for diabetic management. He was initially diagnosed with type 2 diabetes in 2012. He was initially treated with metformin and then started on insulin in 2022. Current medication: Trulicity 1.5 mg weekly. Past medication: Lantus and Humalog discontinued due to low blood sugar. He has weight lifting and using a stationary bike. His hemoglobin A1c decreased from 10.9% to 7.8%. Reviewed Zhane data August 18 through 08/31/2025 G ME 7.3% Glucose variability 21% Average glucose 165 CGM active 97% Very high 3% High 26% Target range 71% 0% hypoglycemia He has postprandial and nocturnal hyperglycemia occasionally. Complications: Retinopathy, nephropathy on Arb and followed by Dr. Bonilla. Prior history of BARB. Hyperlipidemia is treated with a statin. He was not taking it consistently an LDL was 119. It was recently ordered by his PCP, and he reports he is taking it consistently now. Patient had diabetes education. ROS: Constitutional: No unexplained weight loss, fever, chills, fatigue or night sweats. Eyes: Denies vision changes Respiratory: No shortness of breath Cardiovascular: No chest pain Gastrointestinal: No anorexia, nausea, vomiting or diarrhea. No abdominal pain Neurologic: No headache, dizziness, syncope or numbness and tingling in the extremities. Endocrine: Denies polyuria and polydipsia. Physical exam: Constitutional: Alert, in no distress. Neck: Supple, Full range of motion. No lymphadenopathy. No palpable thyroid masses. Respiratory: Clear to auscultation. Cardiovascular: S1 S2 regular. No murmurs. [facility]LY [facility] Medical History Hyperlipidemia Bacteremia due to methicillin susceptible Staphylococcus aureus (MSSA) Cellulitis and abscess of leg Type 2 diabetes mellitus Chronic kidney disease Nephrolithiasis Retinopathy HTN (hypertension) H/O nephrolithotomy with removal of calculi Surgical History History of right below knee amputation (11/06/22) History of hernia repair Family History Father HTN (hypertension) Mother Arthritis Social History Household Members: None Housing: House Are you a primary acute care physical therapist to a significant other at home: No Do you presently have visiting nurse or other home services: No Alcohol intake: current Alcohol intake frequency: holidays/special occasions only Patient Tobacco Use Status: Never used Tobacco service: No Current occupational status: employed Cognitive needs: No Hearing needs: No Vision needs: No Physical Exam Vital Signs: Last Vital Signs Pulse 98 08/31/25 09:28 BP 118/68 08/31/25 09:28 Pulse Ox 98 08/31/25 09:28 Oxygen Delivery Method Room Air 08/31/25 09:28 BMI result Body Mass Index 35.4 Office Procedures Glucose Monitoring Details Details: See HPI 18871 - Glucose monitoring, continuous-physician I&R Procedure code (CPT) selection complete Results Reviewed Results Reviewed: Laboratory Last Values Glucose (Clinic) 259 mg/dL (60-115) H 08/31/25 09:53 Laboratory Tests 03/26/25 04/01/25 04/28/25 18:17 05:25 08:39 Plt Count 309 AST 26 ALT 35 Triglycerides 107 Cholesterol 187 LDL Cholesterol, Calc 119 H HDL Cholesterol 47 Urine Creatinine Urine Microalbumin Microalb/Creat Ratio Islet Cell Ab Screen NEGATIVE RAMIREZ Antibody <5 07/14/25 10:25 Plt Count AST ALT Triglycerides Cholesterol LDL Cholesterol, Calc HDL Cholesterol Urine Creatinine 191.26 Urine Microalbumin 48.0 Microalb/Creat Ratio 25.0 Islet Cell Ab Screen RAMIREZ Antibody Assessment & Plan Assessment & Plan (1) Type 2 diabetes mellitus: Code(s): E11.9 - Type 2 diabetes mellitus without complications Category: Medical Qualifiers: Diabetes mellitus complication detail: with other kidney complication Diabetes mellitus complication status: with kidney complications Diabetes mellitus custodial insulin use: without terminal press operator use Qualified Code(s): E11.29 - Type 2 diabetes mellitus with other diabetic kidney complication Plan: In summary this is a 44-year-old male with suboptimally albeit improving type 2 diabetes. We discussed the complications of type 2 diabetes. He will continue to see his specialists. Recommended increasing Trulicity to 3 mg weekly, but he defers medication changes. He wants to see if he can lower his A1c to the target of less than 7% by continuing lifestyle modifications over the next 3 months. Continue low carbohydrate, low sugar diet. Continue exercise regularly. He has written instructions for hypoglycemia. (2) HTN (hypertension): Code(s): I10 - Essential (primary) hypertension Category: Medical Qualifiers: Hypertension type: primary hypertension Qualified Code(s): I10 - Essential (primary) hypertension Plan: Well-controlled. Continue losartan. Recommended low-sodium diet and avoiding caffeine. (3) Hyperlipidemia: Code(s): E78.5 - Hyperlipidemia, unspecified Category: Medical Qualifiers: Hyperlipidemia type: pure hypercholesterolemia Qualified Code(s): E78.00 - Pure hypercholesterolemia, unspecified Plan: He is taking the statin consistently now it has orders in to repeat blood tests. Recommended Mediterranean diet. Continue efforts at weight loss. Plan Follow up in 3 months for type 2 diabetes. Orders: Orders AMB Glucose Monitoring Today E11.9 - Type 2 diabetes mellitus without complications Medications: Refilled dulaglutide (Trulicity) 1.5 mg (0.5 mL) subcut QWEEK 2 mL 3RF Coding Level of Care Code Est Pt Level 4 (98139) Diagnoses Type 2 diabetes mellitus with other diabetic kidney complication, without long-term current use of insulin E11.29 Diabetes mellitus complication detail: with other kidney complication Diabetes mellitus complication status: with kidney complications Diabetes mellitus custodial insulin use: without terminal press operator use Primary hypertension I10 Hypertension type: primary hypertension Pure hypercholesterolemia E78.00 Hyperlipidemia type: pure hypercholesterolemia CPT Codes Details - CPT: 22911 - Glucose monitoring, continuous-physician I&R ([id number])
[2025-08-31 09:57] LABS: Glucose, Whole Blood 259 mg/dL (60-115)
--- OUTSIDE RECORDS SUMMARY | 2025-08-31 10:15 | XMS_ITS | Clinical Summary ---
Author Organization [facility] ity Address [address] [place] [address] Care Team Providers Care Marine Erector Name Role Phone Unavailable Primary Care Provider Unavailabl e Social History Tobacco Use Types Packs/Day Years Used Date Smoking Tobacco: Never Assessed Sex and Gender Information Value Date Recorded Sex Assigned at Not on file Legal Sex Male 8:56 PM EST Gender Identity Not on file Sexual Orientation Not on file Plan of Treatment Health Maintenance Due Date Last Done Comments Colorectal Cancer Screening: Colonoscopy 1978 DTaP,Tdap,and Td Vaccines (1 - Tdap) 1997 Hepatitis B Vaccines (1 of 3 - 19+ 3-dose series) 1997 Cholesterol Screening (Lipid Panel) 12/27/2023 HIV Screening 12/27/2023 Hepatitis C Screening 12/27/2023 Social Influencers of Health Screening 12/27/2023 Depression Screening 12/02/2024 COVID-19 Vaccine (1 - 2023-2 5 season) 2025 Influenza Vaccine (#1) 2025 RSV Immunization Adult Patie nts (1 - 1-dose 75+ series) 2053 HIB Vaccines Aged Out No longer eligi [...]
--- OUTSIDE RECORDS SUMMARY | 2025-08-31 10:15 | XMS_ITS | Clinical Summary ---
Author Organization [facility] Facility Address [address] [address] Care Team Providers Care Baby Attendant Name Role Phone Kaleb Hoyt NP Primary Care Provider [phone] Allergies Active Allergy Reactions Criticality Noted Date [...] Insurance Comprehensive Benefits Comprehensive Benefits Care Teams Baby Attendant Relationship Specialty Start Date End Date Kaleb Hoyt NP [address] [place] [id number] PCP - General Nurse Practitioner 11/12/22
--- OUTSIDE RECORDS SUMMARY | 2025-08-31 10:15 | XMS_ITS | Clinical Summary ---
Author Organization [facility] Address [address] [place] [id number] Phone Care Team Providers Care Endocrinologist Name Role Phone Unavailable Primary Care Provider [...] It is not the complete legal health record.[facility]
== END 2025-08-31 10:10 | disposition home or self-care (01) ==
LOC: HO.ENCR 09:27
PROVIDERS: PCP Nurse Practitioner Family; Visit Provider Physician Assistant Medical
DX: E11.29 Type 2 diabetes mellitus with other diabetic kidney complication (principal); I10 Essential (primary) hypertension; E78.00 Pure hypercholesterolemia, unspecified

== ENCOUNTER → 2025-08-31 09:26 | Outpatient (BNVA) | payer OTHER, SELFPAY | PROVIDERS: PCP Nurse Practitioner Family; Visit Provider Physician Assistant Medical | DX: E11.29 Type 2 diabetes mellitus with other diabetic kidney complication (principal) | CPT/HCPCS: 82947 ==

== ENCOUNTER 2025-09-07 06:57 | Outpatient (AMB) | payer OTHER, SELFPAY ==
--- OUTSIDE RECORDS SUMMARY | 2025-09-07 07:00 | XMS_ITS | Clinical Summary ---
Author Organization [facility] Address [address] [facility] [address] [address] [place] [id number] Phone Care Team Providers Care Rehanger Name Role Phone Unavailable Primary Care Provider [...] It is not the complete legal health record.[facility]
--- OUTSIDE RECORDS SUMMARY | 2025-09-07 07:00 | XMS_ITS | Clinical Summary ---
Author Organization [facility] ity Address [address] [place] [address] Care Team Providers Care Cigar Packer And Picker Name Role Phone Unavailable Primary Care Provider [...]
--- OUTSIDE RECORDS SUMMARY | 2025-09-07 07:00 | XMS_ITS | Clinical Summary ---
Author Organization [facility] Facility Address [address] [address] Care Team Providers Care Industrial Design Intern Name Role Phone Kaleb Hoyt NP Primary Care Provider [phone] Allergies Active Allergy Reactions Criticality Noted Date [...] (#1) 2025 Insurance Comprehensive [place] [address] Care Teams Industrial Design Intern Relationship Specialty Start Date End Date Kaleb Hoyt NP [address] [place] [id number] PCP - General Nurse Practitioner 11/12/22
--- NOTE | 2025-09-07 07:26 | A.OFFVIS_ITS ---
Intake Intake Visit Reasons: 60 min Printed Products Assembler Required: Yes Printed Products Assembler Language: Call Out Operator Services: Printed Products Assembler Offered & Declined Accompanied by: Self / Same As Patient Allergies acetaminophen (Tylenol) Allergy (Unknown, Verified 08/31/25 09:42) face swelling aspirin Allergy (Unknown, Verified 08/31/25 09:42) anaphylaxis, edema HPI Comprehensive Diabetes Asmnt Most Recent Diabetes Results: 2 Hemoglobin A1c 11.9 % 06/20/19 Microalb/Creat Ratio, (<30) 25.0 ug/mg cr 07/14/25 Cholesterol, (<200) 187 mg/dL 04/28/25 HDL Cholesterol, (>40) 47 mg/dL 04/28/25 Triglycerides, (<150) 107 mg/dL 04/28/25 Creatinine, (0.5-1.4) 0.97 mg/dL 04/21/25 BUN, (9-16) 20 mg/dL H 04/21/25 Sodium, (135-145) 134 mmol/L L 04/21/25 Potassium, (3.3-5.1) 4.6 mmol/L 04/21/25 Chloride, (96-108) 102 mmol/L 04/21/25 Carbon Dioxide, (22-29) 23 mmol/L 04/21/25 Calcium, (8.4-10.2) 9.8 mg/dL Δ 04/21/25 AST, (5-37) 26 U/L 03/26/25 ALT, (0-40) 35 U/L 03/26/25 Total Protein, (6.5-8.0) 7.9 g/dL 03/26/25 Albumin, (3.5-5.0) 4.2 g/dL 03/26/25 [facility] Medical History Hyperlipidemia Bacteremia due to methicillin susceptible Staphylococcus aureus (MSSA) Cellulitis and abscess of leg Type 2 diabetes mellitus Chronic kidney disease Nephrolithiasis Retinopathy HTN (hypertension) H/O nephrolithotomy with removal of calculi Surgical History History of right below knee amputation (11/06/22) History of hernia repair Family History Father HTN (hypertension) Mother Arthritis Social History Household Members: None Housing: House Are you a primary ocular care aide to a significant other at home: No Do you presently have visiting nurse or other home services: No Alcohol intake: current Alcohol intake frequency: holidays/special occasions only Patient Tobacco Use Status: Never used Tobacco service: No Current occupational status: employed Cognitive needs: No Hearing needs: No Vision needs: No Assessment & Plan Assessment & Plan (1) Type 2 diabetes mellitus: Code(s): E11.9 - Type 2 diabetes mellitus without complications Qualifiers: Diabetes mellitus complication detail: with other kidney complication D iabetes mellitus complication status: with kidney complications Diabetes mellitus retirement insulin use: without retirement use Qualified Code(s): E11.29 - Type 2 diabetes mellitus with other diabetic kidney complication Plan: Diabetes self-management education and support participation record Assessment/scale: 1= needs instructed? 2= needs review? 3= comprehend keep point? 4= demonstrates understanding/ competent? NC= Not Covered Topics Learning Objective: Initial visit Initial or post srvc Initial or post srvc Initial or post srvc Initial or post srvc Initial or post srvc Post srvc Comments Pre Edu-assessment/plan Outcome or reassess O utcome or reassess Outcome or reassess Outcome or reassess Outcome or reassess Outcome or reassess Diabetes pathophysiology 1 3 Healthy eating 1 3 Being active 1 4 Taking medication 1 4 Monitoring glucose 1 3 Acute complication 1 3 Chronic complicated 1 Lifestyle and healthy coping 1 Diabetes distress in support 1 ?Diabetes pathophysiology: ?Defined diabetes med identify own type of diabetes; list 3 options for treating diabetes Healthy eating: ?Described effect of type, amount and ?timing of food on blood glucose; list 3 methods for planning meal Being active: ?State effect of exercise on blood glucose level Taking medication: ?State effect of diabetes medications on diabetes; name diabetes medications taking, action and side effects Monitoring glucose: ?Identify recommended blood glucose targets and personal target Acute complication: ?List symptoms and treatment of hyper and hypoglycemia, DKA, sick day guidelines and guidelines for severe weather or situations of crisis and diabetes supply manage Chronic complication: ?To find the relationship of blood glucose levels to long- term complications of diabetes in screening and preventative measures Lifestyle and healthy coping: ?Described lifestyle and healthy coping strategies to rule out diabetes self-management Diabetes to stress and support: ?Recognize Diabetes to stress and be able to identified support options Learning objectives: The patient was provided with verbal and written education on the following topics as outlined below. The patient met all learning objectives and was able to verbalize understanding and provide teach back of education topics discussed . The patient was provided with the opportunity to ask questions and all questions were answered. Patient Assessment Assess patient education level/literacy/barriers, patient's A1c in 04/2025 10.9%. A1c on 07/14/25 7.8%. 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 Current CGM data: Learning objectives: The patient was provided with verbal and written education on the following topics as outlined below. The patient met all learning objectives and was able to verbalize understanding and provide teach back of education topics discussed . The patient was provided with the opportunity to ask questions and all questions were answered. Topics covered in today?s session included: Medications (If applicable) * Name of medication? * Dosing/administration instructions? * Mechanism of action? * Potential side effects? * Potential adverse reaction and appropriate treatment? * Review onset, peak, duration Assess for concerns re: insurance coverage, cost, barriers to compliance Insulin/Injectables (If applicable) * Storage/care of insulin?? * Injection sites? * Site rotation? * Onset, peak, duration * Drawing up insulin? * Injecting insulin/other injectables? * Sharps disposal Continuous blood glucose monitoring (if applicable) Hypoglycemia and Hyperglycemia * Signs and symptoms? * Causes?? * Treatment? * Preventing hypoglycemia? * When to seek medical attention Target Goals: * Blood glucose targets and how you feel when your blood glucose is in and out of your target ranges. * Monitoring and knowing your A1C. * What can make blood glucose go up and down and preventing high and low blood glucose. * Review of blood sugar targets in expected goal range and outside of expected goal range. * Problem solving and preventing hyper/hypoglycemia. * Sick day management of diabetes. * Using blood sugar results in decision making process in managing diabetes. ?Patient was receptive to information provided and participated in the discussion. Asked?appropriate questions and demonstrated good understanding of the topics discussed.? ? Educational Materials: The patient was provided with the following written educational materials: Target Goal handout Smart Goal Assessment:? Patient will identify foods that contain carbohydrate in meal plan Pt met goal 50% New Smart Goal: Patient will use rule of 15s to treat hypoglycemia Patient Response to instructions: Comprehension of Instructions: Fair Readiness to make changes: Contemplation How confident they feel about making changes: Positive Portions of this note were created using voice recognition software, please excuse any words or phrases that may have been misinterpreted. Coding Level of Care Code Est Pt Level 1 (49646) Diagnoses Type 2 diabetes mellitus with other diabetic kidney complication, without long- term current use of insulin E11.29 Diabetes mellitus complication detail: with other kidney complication Diabetes mellitus complication status: with kidney complications Diabetes mellitus moth exterminator insulin use: without moth exterminator use
== END 2025-09-07 07:41 | disposition home or self-care (01) ==
LOC: HO.ENCR 06:58
PROVIDERS: PCP Nurse Practitioner Family; Visit Provider Registered Nurse Diabetes Educator
DX: E11.29 Type 2 diabetes mellitus with other diabetic kidney complication (principal)
CPT/HCPCS: 99499